=== PATIENT | male | born 1935 | race Asian ===

== ENCOUNTER 2017-07-16 17:43 | Inpatient (IN) | payer OTHER ==
--- NOTE | 2017-07-16 17:49 | PDOC ---
History of Present Illness - General Stated Complaint: NAUSA, VOMITTING, TEMP Time Seen by Provider: 07/16/17 17:45 - History of Present Illness Initial Comments: 07/16/17 17:45 Mr. Calderón is an 82 yo male w/ pmh of HTN who presents for evaluation of 3 day history of cough with nausea, vomiting, and diffuse abdominal pain. Per family who is with him he has had intermittent fevers and has barely eaten anything over this time period. He is also complaining of chest pain intermittently. The patient denies headache and dizziness. Denies diarrhea and constipation. Denies dysuria, frequency, urgency and hematuria. Allergies: NKDA Past History - Past Medical History Allergies/Adverse Reactions: Allergies Allergy/AdvReac Type Severity Reaction Status Date / Time No Known Allergies Allergy Verified 07/16/17 17:52 Home Medications: Ambulatory Orders Azithromycin 250 mg PO DAILY 07/16/17 Benzonatate 200 mg PO DAILY 07/16/17 Celecoxib [Celebrex] 200 mg PO DAILY 07/16/17 Docusate Sodium [Colace] 100 mg PO DAILY 07/16/17 Tramadol HCl 50 mg PO DAILY 07/16/17 Zolpidem Tartrate [Ambien] 10 mg PO DAILY 07/16/17 Review of Systems - Review of Systems Comments:: 07/16/17 17:49 GENERAL/CONSTITUTIONAL: No fever or chills. No weakness. HEAD, EYES, EARS, NOSE AND THROAT: No change in vision. No ear pain or discharge. No sore throat. CARDIOVASCULAR: +Midline chest pain. No shortness of breath RESPIRATORY: +Cough as described. No wheezing or hemoptysis. GASTROINTESTINAL: +N/V as described with diffuse abdominal pain. No diarrhea or constipation. GENITOURINARY: No dysuria, frequency, or change in urination. MUSCULOSKELETAL: No joint or muscle swelling or pain. No neck or back pain. SKIN: No rash NEUROLOGIC: No headache, vertigo, loss of consciousness, or change in strength/ sensation. ENDOCRINE: No increased thirst. No abnormal weight change HEMATOLOGIC/LYMPHATIC: No anemia, easy bleeding, or history of blood clots. ALLERGIC/IMMUNOLOGIC: No hives or skin allergy. *Physical Exam - Physical Exam Comments: 07/16/17 17:49 GENERAL: Awake, alert, and fully oriented, in no acute distress HEAD: No signs of trauma, normocephalic, atraumatic EYES: PERRLA, EOMI, sclera anicteric, conjunctiva clear ENT: Auricles normal inspection, hearing grossly normal, nares patent, oropharynx clear without exudates. Moist mucosa NECK: Normal ROM, supple, no lymphadenopathy, JVD, or masses LUNGS: +Diffusely course to auscultation. Still able to speak full sentences. HEART: Regular rate and rhythm, normal S1 and S2, no murmurs, rubs or gallops, peripheral pulses normal and equal bilaterally. ABDOMEN: +Bilateral upper abdominal TTP. Soft, normoactive bowel sounds. No guarding, no rebound. No masses EXTREMITIES: Normal inspection, Normal range of motion, no edema. No clubbing or cyanosis. NEUROLOGICAL: Cranial nerves II through XII grossly intact. Normal speech, normal gait, no focal sensorimotor deficits SKIN: Warm, Dry, normal turgor, no rashes or lesions noted. ED Treatment Course - LABORATORY CBC & Chemistry Diagram: 07/16/17 18:19 07/16/17 18:19 Medical Decision Making - Medical Decision Making 07/16/17 18:06 Mr. Calderón is an 82 yo male w/ pmh as described who presents w/ symptoms concerning for sepsis; puls 125 and pulse ox 88 on room air at presentation. Rectal temperature obtained and noted to be 102.7F. Sepsis protocol started. 07/16/17 18:54 Zosyn given for presumed infection. Plan for CT abdomen/pelvis (with contrast if allowed by patient kidney function) to evaluate abdominal pain. Patient CXR reveals patchy infiltrates bilaterally. Patient signed out to Dr. Ni for further evaluation. *DC/Admit/Observation/Transfer Diagnosis at time of Disposition: Pneumonia Qualifiers: Pneumonia type: due to unspecified organism Laterality: right Lung location: lower lobe of lung Qualified Code(s): J18.1 - Lobar pneumonia, unspecified organism - Discharge Dispostion Condition at time of disposition: Stable Decision to Admit order: Yes - Referrals - Patient Instructions - Post Discharge Activity
--- NOTE | 2017-07-16 17:52 | PDOC ---
Attending Attestation - HPI HPI: 07/16/17 18:29 The patient is an 82 year old male with a significant PMH of HTN who presents to the emergency department for evaluation of diffuse abdominal pain, vomiting and fever. The patients son also notes the patient has had a productive cough recently which is aggravated by eating. Vitals at triage pertinent for 102.7F temp., 127 bpm pulse, and 88% O2 sat on room air. The patients family denies recent travel or sick contacts. They deny weakness or numbness. Allergies: NKA PCP: Dr. Rojas ([facility]) - Physicial Exam PE: 07/16/17 18:22 Vitals: Triage Vital signs reviewed General Appearance: no acute distress, well nourished well developed. Cardiac: Regular rate and rhythm, no murmurs, no rubs, no gallops, Lungs: (+) Coarse breath sounds. No wheezing, rales, or rhonchi. Abdomen: (+) Diffuse abdominal tenderness. Soft, nondistended, normal bowel sounds. Extremities: Full range of motion to all extremities, no cyanosis, clubbing, or edema Skin: Warm and dry, no rashes or lesions, no petechiae Neuro: AOX3; Cranial Nerves 2-12 grossly intact, Strength intact to all extremities, Sensation intact to all extremities Psych: normal mood, normal affect - Medical Decision Making 07/16/17 18:29 The patient is an 82 year old male with a significant PMH of HTN who presents to the emergency department for evaluation of diffuse abdominal pain, vomiting and fever. The patients son also notes the patient has had a productive cough recently which is aggravated by eating. Vitals at triage pertinent for 102.7F temp., 127 bpm pulse, and 88% O2 sat on room air. The patients family denies recent travel or sick contacts. They deny weakness or numbness. Allergies: NKA PCP: Dr. Rojas ([facility]) <Chris Saravia - Last Filed: 07/16/17 18:29> - Resident Resident Name: Suleiman Ortega - ED Attending Attestation I have performed the following: I have examined & evaluated the patient, The case was reviewed & discussed with the resident, I agree w/resident's findings & plan, Exceptions are as noted - Medical Decision Making 07/16/17 18:39 History examination concerning for sepsis. Septic order set initiated. Patient covered with Zosyn. IV fluids IV Tylenol ordered Past potential sources include pneumonia given hypoxia and cough and abdominal pathology given diffuse abdominal discomfort on examination. In addition to labs blood cultures IV fluids and antibiotics I chest x-ray urinalysis are pending. Patient will require a CT of his abdomen ideally with IV contrast, but creatinine pending. Dr. Rodrigues to follow up remainder of workup and dispo <Tr Baker - Last Filed: 07/16/17 19:03> Heart Score/ECG Review - ECG Impressions Comment:: 07/16/17 18:57 EKG performed at 1808. Demonstrates sinus tachycardia right axis deviation diffuse ST depressions. No ST elevations. <Tr Baker - Last Filed: 07/16/17 19:03>
[2017-07-16] MEDS ORDERED: ACETAMINOPHEN 1000 MG/100 ML VIAL (NON FORMULARY) IVPB ONE (17:54)
[2017-07-16] MEDS ORDERED: ACETAMINOPHEN INJECTION 100 ML IVPB ONE (17:54)
[2017-07-16] MEDS ORDERED: SODIUM CHLORIDE 1,000 ML IV STA (18:14)
[2017-07-16] MEDS ORDERED: PIPERACILLIN/TAZOB 3.375 GM 3.375 GM in DEXTROSE 5%-WATER - 50 ML IVPB ONE (18:21)
[2017-07-16 18:23] LABS: BASO % 0.4 % (0-2.0); EOS % 0.3 % (0-4.5); HEMOGLOBIN 13.1 GM/dL (11.7-16.9); LYMPH % 4.4 % (8-40); MCH 33.2 pg (25.7-33.7); MCHC 34.4 g/dl (32.0-35.9); MEAN CELL VOLUME 96.6 fl (80-96); MONO % 5.6 % (3.8-10.2); NEUT % 89.3 % (42.8-82.8); PLATELET COUNT 175 K/MM3 (134-434); RBC 3.94 M/mm3 (4.00-5.60); RDW 14.1 % (11.9-15.9); WHITE BLOOD COUNT 9.2 K/mm3 (4.0-10.0)
[2017-07-16 18:25] LABS: VENOUS PC02 42.9 mmHg (38-52); VENOUS PH 7.42 (7.32-7.42); VENOUS PO2 40.2 mmHg (28-48)
[2017-07-16] MEDS ORDERED: PIPERACILLIN/TAZOB 3.375 GM 3.375 GM/50 ML BAG IVPB ONE (18:29)
[2017-07-16 18:40] LABS: INR 0.95 (0.82-1.09); PROTHROMBIN TIME (PATIENT) 10.7 SEC (9.7-13.0)
[2017-07-16 18:43] LABS: ACTIVATED PTT 31.2 SECONDS (26.9-34.4)
[2017-07-16 18:57] LABS: ALBUMIN 3.3 g/dl (3.4-5.0); ANION GAP 7 (8-16); BLOOD UREA NITROGEN 11 mg/dL (7-18); CALCIUM 7.9 mg/dL (8.5-10.1); CHLORIDE 96 mmol/L (98-107); CO2 30 mmol/L (21-32); CREATININE 0.5 mg/dL (0.7-1.3); GLUCOSE,RANDOM 98 mg/dL (74-106); SGOT/AST 17 U/L (15-37); SGPT/ALT 17 U/L (12-78); SODIUM 133 mmol/L (136-145)
[2017-07-16 18:59] LABS: ALK PHOS 56 U/L (45-117); BILIRUBIN,TOTAL 0.6 mg/dL (0.2-1.0); TOT PROT 6.4 g/dl (6.4-8.2)
[2017-07-16 20:02] LABS: URINE APPEARANCE CLEAR; URINE BILIRUBIN NEGATIVE (<2.0 mg/dL); URINE BLOOD NEGATIVE (NEGATIVE); URINE COLOR LTYELLOW; URINE GLUCOSE (UA) NEGATIVE (NEGATIVE); URINE KETONE 1+ (NEGATIVE); URINE LEUK ESTERASE NEGATIVE (NEGATIVE); URINE NITRITE NEGATIVE (NEGATIVE); URINE PROTEIN NEGATIVE (NEGATIVE); URINE UROBILINOGEN NEGATIVE mg/dL (0.2-1.0)
--- NOTE | 2017-07-16 21:52 | PDOC ---
*Physical Exam - Vital Signs Last Vital Signs Temp Pulse Resp BP Pulse Ox 100.9 F H 107 H 18 123/57 97 07/16/17 19:05 07/16/17 19:54 07/16/17 19:54 07/16/17 19:54 07/16/17 19:54 <Dilip Ni - Last Filed: 07/16/17 22:04> - Vital Signs Last Vital Signs Temp Pulse Resp BP Pulse Ox 100.9 F H 107 H 18 123/57 97 07/16/17 19:05 07/16/17 19:54 07/16/17 19:54 07/16/17 19:54 07/16/17 19:54 <Macario Oconnor - Last Filed: 07/16/17 22:17> ED Treatment Course - LABORATORY CBC & Chemistry Diagram: 07/16/17 18:19 07/16/17 18:19 - ADDITIONAL ORDERS Additional order review: Laboratory Results 07/16/17 07/16/17 07/16/17 19:38 18:19 18:19 PT with INR INR PTT (Actin FS) VBG pH POC VBG pCO2 POC VBG pO2 Mixed VBG HCO3 Sodium Potassium Chloride Carbon Dioxide Anion Gap BUN Creatinine Creat Clearance w eGFR Random Glucose Lactic Acid 1.0 Calcium Total Bilirubin AST ALT Alkaline Phosphatase Troponin I < 0.02 Total Protein Albumin Lipase Urine Color Ltyellow Urine Appearance Clear Urine pH 6.0 Ur Specific [place] 1.015 Urine Protein Negative Urine Glucose (UA) Negative Urine Ketones 1+ H Urine Blood Negative Urine Nitrite Negative Urine Bilirubin Negative Urine Urobilinogen Negative Ur Leukocyte Esterase Negative 07/16/17 07/16/17 07/16/17 18:19 18:19 18:19 PT with INR 10.70 INR 0.95 PTT (Actin FS) 31.2 VBG pH 7.42 POC VBG pCO2 42.9 POC VBG pO2 40.2 Mixed VBG HCO3 27.6 H Sodium 133 L Potassium 4.0 Chloride 96 L Carbon Dioxide 30 Anion Gap 7 L BUN 11 Creatinine 0.5 L Creat Clearance w eGFR > 60 Random Glucose 98 Lactic Acid Calcium 7.9 L Total Bilirubin 0.6 AST 17 ALT 17 Alkaline Phosphatase 56 Troponin I Total Protein 6.4 Albumin 3.3 L Lipase Urine Color Urine Appearance Urine pH Ur Specific [place] Urine Protein Urine Glucose (UA) Urine Ketones Urine Blood Urine Nitrite Urine Bilirubin Urine Urobilinogen Ur Leukocyte Esterase 07/16/17 18:05 PT with INR INR PTT (Actin FS) VBG pH POC VBG pCO2 POC VBG pO2 Mixed VBG HCO3 Sodium Potassium Chloride Carbon Dioxide Anion Gap BUN Creatinine Creat Clearance w eGFR Random Glucose Lactic Acid Calcium Total Bilirubin AST ALT Alkaline Phosphatase Troponin I Total Protein Albumin Lipase 139 Urine Color Urine Appearance Urine pH Ur Specific [place] Urine Protein Urine Glucose (UA) Urine Ketones Urine Blood Urine Nitrite Urine Bilirubin Urine Urobilinogen Ur Leukocyte Esterase 07/16/17 18:19 Influenza Types A,B Antigen - Final Nasopharyngeal Swab - Final 07/16/17 18:19 RBC 3.94 L MCV 96.6 H MCHC 34.4 RDW 14.1 MPV 8.0 Neutrophils % 89.3 H Lymphocytes % 4.4 L Monocytes % 5.6 Eosinophils % 0.3 Basophils % 0.4 - RADIOLOGY Radiology Studies Ordered: Category Date Time Status ABDOMEN & PELVIS CT WITH CONTR [CT] Stat CT Scan 07/16/17 19:19 Taken ABDOMEN US -LIMITED [US] Stat Ultrasound 07/16/17 21:36 Ordered - Medications Given in the ED: ED Medications Discontinued Medications Generic Name Dose Route Start Last Admin Trade Name Freq PRN Reason Stop Dose Admin Acetaminophen 1,000 mg 07/16/17 17:54 07/16/17 18:20 Ofirmev Injection - IVPB 07/16/17 17:55 1,000 mg ONCE ONE Administration Sodium Chloride 1,000 mls @ 1,000 mls/hr 07/16/17 18:14 07/16/17 18:20 Normal Saline - IV 07/16/17 19:13 1,000 mls/hr ASDIR STA Administration Piperacillin Sod/Tazobactam 50 mls @ 100 mls/hr 07/16/17 18:21 07/16/17 18:38 Sod 3.375 gm/ Dextrose IVPB 07/16/17 18:50 100 mls/hr ONCE ONE Administration Protocol <Dilip Ni - Last Filed: 07/16/17 22:04> - LABORATORY CBC & Chemistry Diagram: 07/16/17 18:19 07/16/17 18:19 - ADDITIONAL ORDERS Additional order review: Laboratory Results 07/16/17 07/16/17 07/16/17 19:38 18:19 18:19 PT with INR INR PTT (Actin FS) VBG pH POC VBG pCO2 POC VBG pO2 Mixed VBG HCO3 Sodium Potassium Chloride Carbon Dioxide Anion Gap BUN Creatinine Creat Clearance w eGFR Random Glucose Lactic Acid 1.0 Calcium Total Bilirubin AST ALT Alkaline Phosphatase Troponin I < 0.02 Total Protein Albumin Total Amylase Lipase Urine Color Ltyellow Urine Appearance Clear Urine pH 6.0 Ur Specific [place] 1.015 Urine Protein Negative Urine Glucose (UA) Negative Urine Ketones 1+ H Urine Blood Negative Urine Nitrite Negative Urine Bilirubin Negative Urine Urobilinogen Negative Ur Leukocyte Esterase Negative 07/16/17 07/16/17 07/16/17 18:19 18:19 18:19 PT with INR 10.70 INR 0.95 PTT (Actin FS) 31.2 VBG pH 7.42 POC VBG pCO2 42.9 POC VBG pO2 40.2 Mixed VBG HCO3 27.6 H Sodium 133 L Potassium 4.0 Chloride 96 L Carbon Dioxide 30 Anion Gap 7 L BUN 11 Creatinine 0.5 L Creat Clearance w eGFR > 60 Random Glucose 98 Lactic Acid Calcium 7.9 L Total Bilirubin 0.6 AST 17 ALT 17 Alkaline Phosphatase 56 Troponin I Total Protein 6.4 Albumin 3.3 L Total Amylase Lipase Urine Color Urine Appearance Urine pH Ur Specific [place] Urine Protein Urine Glucose (UA) Urine Ketones Urine Blood Urine Nitrite Urine Bilirubin Urine Urobilinogen Ur Leukocyte Esterase 07/16/17 07/16/17 18:05 18:05 PT with INR INR PTT (Actin FS) VBG pH POC VBG pCO2 POC VBG pO2 Mixed VBG HCO3 Sodium Potassium Chloride Carbon Dioxide Anion Gap BUN Creatinine Creat Clearance w eGFR Random Glucose Lactic Acid Calcium Total Bilirubin AST ALT Alkaline Phosphatase Troponin I Total Protein Albumin Total Amylase 116 H Lipase 139 Urine Color Urine Appearance Urine pH Ur Specific [place] Urine Protein Urine Glucose (UA) Urine Ketones Urine Blood Urine Nitrite Urine Bilirubin Urine Urobilinogen Ur Leukocyte Esterase 07/16/17 18:19 Influenza Types A,B Antigen - Final Nasopharyngeal Swab - Final 07/16/17 18:19 RBC 3.94 L MCV 96.6 H MCHC 34.4 RDW 14.1 MPV 8.0 Neutrophils % 89.3 H Lymphocytes % 4.4 L Monocytes % 5.6 Eosinophils % 0.3 Basophils % 0.4 - Medications Given in the ED: ED Medications Discontinued Medications Generic Name Dose Route Start Last Admin Trade Name Freq PRN Reason Stop Dose Admin Acetaminophen 1,000 mg 07/16/17 17:54 07/16/17 18:20 Ofirmev Injection - IVPB 07/16/17 17:55 1,000 mg ONCE ONE Administration Sodium Chloride 1,000 mls @ 1,000 mls/hr 07/16/17 18:14 07/16/17 18:20 Normal Saline - IV 07/16/17 19:13 1,000 mls/hr ASDIR STA Administration Piperacillin Sod/Tazobactam 50 mls @ 100 mls/hr 07/16/17 18:21 07/16/17 18:38 Sod 3.375 gm/ Dextrose IVPB 07/16/17 18:50 100 mls/hr ONCE ONE Administration Protocol <Macario Oconnor - Last Filed: 07/16/17 22:17> Medical Decision Making - Medical Decision Making 82 year old male signed out [facility]. Patient also had some nonspecific abdominal pain for which a CT abdomen demonstrated a slightly dilated CBD with a stone near the ampulla of VAter. RUQ ultrasound placed and Dr. Waldron was consulted. My abdominal exam did not evidence RUQ tenderness, jaundice, and labs did not have elevated WBC, elevated lipase, or elevated LFTs. Patient signed out to Dr. Zapata in stable condition to be admitted under Dr. Romano. 07/16/17 22:04 <Dilip Ni - Last Filed: 07/16/17 22:04> - Medical Decision Making 07/16/17 22:12 EXAM: CT Abdomen and Pelvis Without Intravenous Contrast CLINICAL HISTORY: r/o intro abdominal infection TECHNIQUE: Axial computed tomography images of the abdomen and pelvis without intravenous contrast. This CT exam was performed using one or more of the following dose reduction techniques: Automated exposure control, Adjustment of the mA and/or kV according to patient size, Use of iterative reconstruction technique. COMPARISON: No relevant prior studies available. 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 Fibrotic changes. Patchy opacification and the lower lateral RIGHT lung base. Fibrotic changes in the RIGHT lung base. Less prominent COPD/emphysematous type changes. Fibrotic changes in the lingula. HEART: The heart is normal in size and position. ABDOMEN: LIVER: There is NO evidence of a liver mass or abnormal enlargement. GALLBLADDER AND BILE DUCTS: Common bile duct measures 7.4 mm. Distal stone near the ampulla. The gallbladder is moderately distended. There are small gallstones present within the gallbladder. NO gallbladder wall thickening or pericholecystic fluid. PANCREAS: The visualized portions of the pancreas and pancreatic area are unremarkable. Mild to moderate dilatation of the pancreatic duct. SPLEEN: Nonspecific densities are present, which are ill-defined on this study. The largest measures less than 1 cm. ADRENALS: The RIGHT and LEFT adrenal glands demonstrate NO masses or abnormal enlargement. KIDNEYS AND URETERS: RIGHT KIDNEY: The RIGHT kidney demonstrates NO hydronephrosis, stones or masses. Tiny RCA. LEFT KIDNEY: The LEFT kidney demonstrates NO hydronephrosis, stones or masses. Small renal cyst is present. This is typically considered to be an incidental finding. NO specific followup recommended. URETERS: The ureters demonstrate NO stones. STOMACH AND BOWEL: Partially fecal filled colon. NO significant distention. STOMACH: The stomach is nondistended with thickened appearing villalba. NO other evidence to suggest inflammatory changes. This likely represents pseudo-thickening secondary to incompletely distended stomach. SMALL BOWEL: The small bowel demonstrates NO significant distention. There is NO significant wall/mucosal thickening is demonstrated. COLON:The colon demonstrates NO evidence of diverticulitis or colitis. PELVIS: APPENDIX: The appendix is not identified with certainty. BLADDER: The bladder demonstrates NO significant wall thickening or stones. REPRODUCTIVE: The prostate appears mildly enlarged. NO pelvic masses or cysts >/ =2cm.. ABDOMEN and PELVIS: INTRAPERITONEAL SPACE: NO acute changes are demonstrated. No free air. No significant fluid collection. BONES/JOINTS: > FINDING REQUIRING FOLLOW-UP OR FURTHER EVALUATION: Sclerotic changes in the anterior RIGHT 7th and 8th ribs. Degenerative spondylosis in the visualized spine. Superior compression fracture at L5. Approximately 40% loss of central vertebral height. NO posterior displacement of the posterior vertebral body and/or endplate into the spinal canal The age of this finding is indeterminate; however this does not appear to be acute. The SI joints demonstrate degenerative changes bilaterally. No dislocation. SOFT TISSUES: Bilateral inguinal area hernias which are fat filled, without evidence of inflammatory changes or incarceration. This is more prominent on the LEFT. VASCULATURE: AORTA: The aorta demonstrates NO evidence of aneurysm or rupture. Moderate vascular calcification. LYMPH NODES: NO acute changes are demonstrated. No enlarged lymph nodes. IMPRESSION: 1. > FINDING REQUIRING FOLLOW-UP OR FURTHER EVALUATION:Common bile duct measures 7.4 mm. Distal stone near the ampulla. If further evaluation is felt to be indicated, follow-up should be considered with ultrasound. 2. The visualized portions of the pancreas and pancreatic area are unremarkable. Mild to moderate dilatation of the pancreatic duct. 3. > FINDING REQUIRING FOLLOW-UP OR FURTHER EVALUATION: Sclerotic changes in the anterior RIGHT 7th and 8th ribs. Incomplete/limited evaluation on this study. The differential diagnosis includes old fractures and sclerotic bone lesions. Please correlate with any known history and/or clinical findings. If further evaluation is felt to be indicated , follow-up should be considered with bone scan. 4. Minimal RIGHT lung base pneumonia and/or atelectasis. Followup examination should be considered in 4 to 6 weeks' time, or until there is resolution of the current findings to exclude underlying pathology. Chronic changes are present as noted. 5. Nonspecific densities are present in the spleen, which are ill-defined on this study. The largest measures less than 1 cm. This is of uncertain etiology. Please correlate for any known malignancy. 6. Partially fecal filled colon. NO significant distention. 7. There are incidental and/or chronic findings also present as noted. CPT: 10399 CT Scan of the abdomen and pelvis without contrast. Dr. David Mace Call placed to Dr. Ferrara at 9:44pm, GI music education adjunct professor, awaiting call back. Call returned from Dr. Harry at 9:50pm, associated of Dr. Ferrara, case was discussed. <Macario Oconnor - Last Filed: 07/16/17 22:17> *DC/Admit/Observation/Transfer - Discharge Dispostion Decision to Admit order: Yes <Dilip Ni - Last Filed: 07/16/17 22:04> - Attestations Scribe Attestion: 07/16/17 22:17 Documentation prepared by Macario Oconnor, acting as medical records coder for Tr Baker MD. <Macario Oconnor - Last Filed: 07/16/17 22:17> Diagnosis at time of Disposition: Pneumonia Qualifiers: Pneumonia type: due to unspecified organism Laterality: right Lung location: lower lobe of lung Qualified Code(s): J18.1 - Lobar pneumonia, unspecified organism - Discharge Dispostion Condition at time of disposition: Stable
[2017-07-16] MEDS ORDERED: SODIUM CHLORIDE 1,000 ML IV SCH (22:15)
--- NOTE | 2017-07-16 22:21 | HP ---
CHIEF COMPLAINT:cough and weakness PCP:Dr. Rojas ([facility]) HISTORY OF PRESENT ILLNESS: 82 year old male with a significant PMH of HTN who presents to the emergency department for evaluation of diffuse abdominal pain, vomiting and fever. The patient's son is his historian. He states that for the past week he has had flu like symptoms with fever, cough and diffuse body aches. His appetite has been poor and energy has been low. Denies CP,MENDEZ,SOB,palpitations,urinary symptoms or diarrhea. ER course was notable for: (1)CXR shows RLL PNA (2)CMP show hyponatremia (3)CT abdomen shows CBD nonobstructing stone. Recent Travel:Denies PAST MEDICAL HISTORY:HTN PAST SURGICAL HISTORY:Eye surgery Social History: Smoking:never Alcohol:denies Drugs: denies Family History: Allergies No Known Allergies Allergy (Verified 07/16/17 17:52) HOME MEDICATIONS: Home Medications Medication Instructions Recorded Azithromycin 250 mg PO DAILY 07/16/17 Benzonatate 200 mg PO DAILY 07/16/17 Celecoxib [Celebrex] 200 mg PO DAILY 07/16/17 Docusate Sodium [Colace] 100 mg PO DAILY 07/16/17 Tramadol HCl 50 mg PO DAILY 07/16/17 Zolpidem Tartrate [Ambien] 10 mg PO DAILY 07/16/17 REVIEW OF SYSTEMS CONSTITUTIONAL: fever, chills, diaphoresis, generalized weakness, malaise, loss of appetite Absent: , weight change HEENT: Absent: rhinorrhea, nasal congestion, throat pain, throat swelling, difficulty swallowing, mouth swelling, ear pain, eye pain, visual changes CARDIOVASCULAR: Absent: chest pain, syncope, palpitations, irregular heart rate, lightheadedness , peripheral edema RESPIRATORY: cough, shortness of breath, dyspnea with exertion, Absent: orthopnea, wheezing, stridor, hemoptysis GASTROINTESTINAL: Absent: abdominal pain, abdominal distension, nausea, vomiting, diarrhea, constipation, melena, hematochezia GENITOURINARY: Absent: dysuria, frequency, urgency, hesitancy, hematuria, flank pain, genital pain MUSCULOSKELETAL: Absent: myalgia, arthralgia, joint swelling, back pain, neck pain SKIN: Absent: rash, itching, pallor HEMATOLOGIC/IMMUNOLOGIC: Absent: easy bleeding, easy bruising, lymphadenopathy, frequent infections ENDOCRINE: Absent: unexplained weight gain, unexplained weight loss, heat intolerance, cold intolerance NEUROLOGIC: Absent: headache, focal weakness or paresthesias, dizziness, unsteady gait, seizure, mental status changes, bladder or bowel incontinence PSYCHIATRIC: Absent: anxiety, depression, suicidal or homicidal ideation, hallucinations. PHYSICAL EXAMINATION Vital Signs - 24 hr 07/16/17 07/16/17 07/16/17 17:52 18:23 18:24 Temperature 102.7 F H Pulse Rate 127 H Pulse Rate [ 113 H Apical] Respiratory 20 20 Rate Blood Pressure 147/88 Blood Pressure 164/69 [Right Arm] O2 Sat by Pulse 88 L 97 98 Oximetry (%) 07/16/17 07/16/17 07/16/17 18:26 19:05 19:54 Temperature 100.9 F H Pulse Rate Pulse Rate [ 114 H 107 H Apical] Respiratory 18 18 Rate Blood Pressure Blood Pressure 134/65 123/57 [Right Arm] O2 Sat by Pulse 97 97 97 Oximetry (%) GENERAL: AAOx3, mild distress. EYES: PERRLA,EOMI sclera anicteric, conjunctiva clear. No lid lag. EARS, NOSE, THROAT:Dry mucous membranes. NECK: Normal range of motion, supple without lymphadenopathy, JVD, or masses. LUNGS: Decreased breath sound on Right side. No wheezes, and no crackles. No accessory muscle use. HEART: RRR, normal S1 and S2 without murmur, rub or gallop. ABDOMEN: Soft, nontender, not distended, normoactive bowel sounds, no guarding, no rebound, no masses. MUSCULOSKELETAL: Normal range of motion at all joints. No bony deformities or tenderness. No CVA tenderness. LOWER EXTREMITIES: 2+ pulses, warm, well-perfused. No calf tenderness. No peripheral edema. Laboratory Results - last 24 hr 07/16/17 07/16/17 07/16/17 18:05 18:05 18:19 WBC 9.2 RBC 3.94 L Hgb 13.1 Hct 38.0 MCV 96.6 H MCH 33.2 MCHC 34.4 RDW 14.1 Plt Count 175 MPV 8.0 Neutrophils % 89.3 H Lymphocytes % 4.4 L Monocytes % 5.6 Eosinophils % 0.3 Basophils % 0.4 Nucleated RBC % 0 PT with INR INR PTT (Actin FS) VBG pH POC VBG pCO2 POC VBG pO2 Mixed VBG HCO3 Sodium Potassium Chloride Carbon Dioxide Anion Gap BUN Creatinine Creat Clearance w eGFR Random Glucose Lactic Acid Calcium Total Bilirubin AST ALT Alkaline Phosphatase Troponin I Total Protein Albumin Total Amylase 116 H Lipase 139 Urine Color Urine Appearance Urine pH Ur Specific [place] Urine Protein Urine Glucose (UA) Urine Ketones Urine Blood Urine Nitrite Urine Bilirubin Urine Urobilinogen Ur Leukocyte Esterase 07/16/17 07/16/17 07/16/17 18:19 18:19 18:19 WBC RBC Hgb Hct MCV MCH MCHC RDW Plt Count MPV Neutrophils % Lymphocytes % Monocytes % Eosinophils % Basophils % Nucleated RBC % PT with INR 10.70 INR 0.95 PTT (Actin FS) 31.2 VBG pH 7.42 POC VBG pCO2 42.9 POC VBG pO2 40.2 Mixed VBG HCO3 27.6 H Sodium 133 L Potassium 4.0 Chloride 96 L Carbon Dioxide 30 Anion Gap 7 L BUN 11 Creatinine 0.5 L Creat Clearance w eGFR > 60 Random Glucose 98 Lactic Acid Calcium 7.9 L Total Bilirubin 0.6 AST 17 ALT 17 Alkaline Phosphatase 56 Troponin I Total Protein 6.4 Albumin 3.3 L Total Amylase Lipase Urine Color Urine Appearance Urine pH Ur Specific [place] Urine Protein Urine Glucose (UA) Urine Ketones Urine Blood Urine Nitrite Urine Bilirubin Urine Urobilinogen Ur Leukocyte Esterase 07/16/17 07/16/17 07/16/17 18:19 18:19 19:38 WBC RBC Hgb Hct MCV MCH MCHC RDW Plt Count MPV Neutrophils % Lymphocytes % Monocytes % Eosinophils % Basophils % Nucleated RBC % PT with INR INR PTT (Actin FS) VBG pH POC VBG pCO2 POC VBG pO2 Mixed VBG HCO3 Sodium Potassium Chloride Carbon Dioxide Anion Gap BUN Creatinine Creat Clearance w eGFR Random Glucose Lactic Acid 1.0 Calcium Total Bilirubin AST ALT Alkaline Phosphatase Troponin I < 0.02 Total Protein Albumin Total Amylase Lipase Urine Color Ltyellow Urine Appearance Clear Urine pH 6.0 Ur Specific [place] 1.015 Urine Protein Negative Urine Glucose (UA) Negative Urine Ketones 1+ H Urine Blood Negative Urine Nitrite Negative Urine Bilirubin Negative Urine Urobilinogen Negative Ur Leukocyte Esterase Negative IMAGING: ASSESSMENT/PLAN: 82 year old male with a significant PMH of HTN who presents to the emergency department for evaluation of cough, diffuse abdominal pain, vomiting and fever admitted to med/surg for CAP and hyponatremia. Problem List - Problem (1) Pneumonia Assessment/Plan: admit to med/surg * Given Zosyn in ED * Will continue with Levaquin 500mg IVPB daily * tylenol PO for fever and pain. PRN * supplemental O2 PRN (2) Hyponatremia Assessment/Plan: Will replete with IVF NS @100ml * Urine sodium and Cr in AM * kidney US pending. * repeat BMP in am (3) HTN (hypertension) Assessment/Plan: Continue home meds. (4) Abdominal pain Assessment/Plan: CT abdomen showed distal gallstone near ampula with no wall thickening or percholecystic fluid. * GI was consulted. * No intervention at this time. * Amylase and lipase WNL (5) DVT prophylaxis Assessment/Plan: SCD's bilaterally * Heparin SQ 5000 units BID Visit type - Emergency Visit Emergency Visit: Yes ED Registration Date: 07/16/17 Care time: The patient presented to the Emergency Department on the above date and was hospitalized for further evaluation of their emergent condition. - New Patient This patient is new to me today: Yes Date on this admission: 07/17/17 - Critical Care Critical Care patient: No Hospitalist Screening - Colonoscopy Questionnaire Colonoscopy Questionnaire: Colonoscopy Questionnaire - Patient: 50 - 75 years old and never had a screening colonoscopy: No History of colon or rectal polyps, or CA: No History of IBD, Crohn's disease or UC: No History of abdominal radiation therapy as a child: No - Relative: 1 with colon or rectal CA, or polyps at age 60 or younger: No Colon or rectal CA diagnosed at age 45 or younger: No Multiple relatives with colon or rectal CA: No - Outcome: Screening Result: Negative Screen
[2017-07-17] MEDS ORDERED: PNEUMOC 13-VAL CONJ-DIP CRM/PF 0.5 ML DISP.SYRIN IM ONE ×2 (00:20→10:00)
--- NOTE | 2017-07-17 03:16 | PN ---
Teaching Attending Note Name of Resident: Santos Zapata ATTENDING PHYSICIAN STATEMENT I saw and evaluated the patient. I reviewed the resident's note and discussed the case with the resident. I agree with the resident's findings and plan as documented. SUBJECTIVE: OBJECTIVE: ASSESSMENT AND PLAN: this is an 82 year old male with a significant PMH of HTN initially presented to the ER with GI symptoms found to have pneumonia associated with flu like symptoms with fever, cough and diffuse body aches. His appetite has been poor and energy has been low. Denies CP,MENDEZ,SOB,palpitations,urinary symptoms or diarrhea. plan: admit the patient to med/surge for pneumonia pneumonia severity index of 123, the patient is considered Risk Class IV, 8.2- 9.3% mortality. Hospitalization recommended based on risk. start on Levofloxacin 750mg daily c/w home medication IVF hydration
[2017-07-17] MEDS: ALBUTEROL SO4 0.083% IH SOL 2.5 MG/3 ML VIAL.NEB. NEB PRN ×2 (07:19→21:59)
[2017-07-17 07:57] LABS: BASO % 0.5 % (0-2.0); EOS % 0.1 % (0-4.5); HEMOGLOBIN 12.3 GM/dL (11.7-16.9); LYMPH % 5.6 % (8-40); MCH 33.5 pg (25.7-33.7); MEAN CELL VOLUME 98.5 fl (80-96); MEAN PLT VOLUME 8.1 fl (7.5-11.1); MONO % 6.5 % (3.8-10.2); NEUT % 87.3 % (42.8-82.8); PLATELET COUNT 168 K/MM3 (134-434); RBC 3.66 M/mm3 (4.00-5.60); RDW 14.4 % (11.9-15.9); WHITE BLOOD COUNT 8.6 K/mm3 (4.0-10.0)
--- NOTE | 2017-07-17 08:33 | CON.GI ---
Consult Consult Specialty:: GI: Dr. Waldron for Dr. Ferrara Referred by:: Hospitalist service Reason for Consultation:: DIlated CBD on imaging - History of Present Illness Chief Complaint: Cough , fever History of Present Illness: 82M admitted for evaluation of cough and fever. The ER attending Dr. Rodrigues he was noted to have vomiting and abodominal pain and CT scan showed a 7mm CBD. Currently the patient denies any abdominal pain. he does have a cough. There has been no vomiting reported. Review of the preliminary CT scan report revealed Opacity in the right lung base and honeycombing / COPD changes, gallstones, a 7.4mm CBD and a stone near the ampulla. A follow-up abdominal US was reported as gallstones and a minimally dilated CBD. - History Source History Provided By: Patient, Medical Record - Past Medical History Cardio/Vascular: Yes: HTN - Past Surgical History Additional Surgical History: Abdominal surgery in RLQ. ? appendectomy - Alcohol/Substance Use Hx Alcohol Use: Yes (2 shots of whiskey daily) History of Substance Use: reports: None - Smoking History Smoking history: Former smoker Have you smoked in the past 12 months: No If you are a former smoker, when did you quit?: 50 years ago - Social History Usual Living Arrangement: With Spouse ADL: Independent Occupation: Retired from [employer] business Place of : Other ([place]) History of Recent Travel: No Home Medications - Allergies Allergies/Adverse Reactions: Allergies Allergy/AdvReac Type Severity Reaction Status Date / Time No Known Allergies Allergy Verified 07/16/17 17:52 - Home Medications Home Medications: Ambulatory Orders Azithromycin 250 mg PO DAILY 07/16/17 Benzonatate 200 mg PO DAILY 07/16/17 Celecoxib [Celebrex] 200 mg PO DAILY 07/16/17 Docusate Sodium [Colace] 100 mg PO DAILY 07/16/17 Tramadol HCl 50 mg PO DAILY 07/16/17 Zolpidem Tartrate [Ambien] 10 mg PO DAILY 07/16/17 Family Disease History - Family Disease History Other Family History: No family history of colorectal cancer ror other GI malignancy Review of Systems - Review of Systems Constitutional: reports: Chills, Fever Cardiovascular: reports: Chest Pain Respiratory: reports: Cough Gastrointestinal: denies: Abdominal Pain, Constipation, Diarrhea, Vomiting, Vomiting Blood Physical Exam-GI Vital Signs: Vital Signs Temperature 98.2 F 05/27/18 06:37 Pulse Rate 98 H 07/17/17 06:37 Respiratory Rate 20 07/17/17 06:37 Blood Pressure 139/65 07/17/17 06:37 O2 Sat by Pulse Oximetry (%) 98 07/17/17 00:30 Constitutional: Yes: Calm Eyes: No: Sclera Icterus Cardiovascular: Yes: Regular Rate and Rhythm Respiratory: Yes: Rhonchi (right lung base) Gastrointestinal Inspection: No: Distention ...Auscultate: Yes: Normoactive Bowel Sounds ...Palpate: Yes: Soft. No: Guarding, Hepatomegaly, Splenomegaly, Tenderness ...Percussion: No: Tympanitic Edema: No (No LE edema) Neurological: Yes: Alert Labs: CBC, BMP 07/17/17 06:25 INR, PTT INR 0.95 (0.82-1.09) 07/16/17 18:19 Imaging - Results Cat Scan: Report Reviewed Ultrasound: Report Reviewed Problem List - Problems (1) Common bile duct dilatation Assessment/Plan: LFT's normal on admission, non-tender on exam making an obstructive stone / cholangitis less likely. Ordered MRCP for further evaluation On IV Abx. Being evaluated for pulmonary process Monitor LFTs Clear liquids for now Code(s): K83.8 - OTHER SPECIFIED DISEASES OF BILIARY TRACT
[2017-07-17 08:57] LABS: CHLORIDE 103 mmol/L (98-107); POTASSIUM 3.4 mmol/L (3.5-5.1); SODIUM 139 mmol/L (136-145)
[2017-07-17 09:09] LABS: ALBUMIN 2.7 g/dl (3.4-5.0); ALK PHOS 48 U/L (45-117); ANION GAP 9 (8-16); BILIRUBIN,TOTAL 0.6 mg/dL (0.2-1.0); BLOOD UREA NITROGEN 6 mg/dL (7-18); CALCIUM 7.2 mg/dL (8.5-10.1); CO2 27 mmol/L (21-32); CREATININE 0.4 mg/dL (0.7-1.3); GLUCOSE,RANDOM 72 mg/dL (74-106); MAGNESIUM 2.2 mg/dL (1.8-2.4); PHOSPHOROUS 2.6 mg/dL (2.5-4.9); SGOT/AST 17 U/L (15-37); SGPT/ALT 14 U/L (12-78); TOT PROT 5.5 g/dl (6.4-8.2)
--- NOTE | 2017-07-17 10:13 | EKG ---
Test Reason : Blood Pressure : / mmHG Vent. Rate : 118 BPM Atrial Rate : 118 BPM P-R Int : 130 ms QRS Dur : 086 ms QT Int : 312 ms P-R-T Axes : 067 093 080 degrees QTc Int : 437 ms SINUS TACHYCARDIA inferio lateral st depressions r/o ischemia POSSIBLE LEFT ATRIAL ENLARGEMENT RIGHTWARD AXIS SEPTAL INFARCT , AGE UNDETERMINED ABNORMAL ECG NO PREVIOUS ECGS AVAILABLE Confirmed by YINA ASTORGA, EMERY ([id number]) on 07/17/2017 10:13:19 AM Referred By: Confirmed By:EMERY BRAN MD
[2017-07-17] MEDS: traMADol HCL 50 MG TABLET PO SCH (10:26)
[2017-07-17] MEDS: DOCUSATE SODIUM 100 MG CAPSULE (FP) PO SCH (10:26)
[2017-07-17 10:31] LABS: N-TERMINAL BNP 275.71 pg/ml (5-450)
[2017-07-17] MEDS: DEXTROSE 5%-0.45% SALINE 1,000 ML IV SCH (14:00)
--- NOTE | 2017-07-17 14:05 | PN ---
Progress Note (short form) - Note Progress Note: Patient seen and examined. Still with cough and some dyspnea. denies any nausea , vomiting or abdominal pain today. No new complaints, otherwise. Objective: Vital Signs Period Temp Pulse Resp BP Sys/Jones Pulse Ox Last 24 Hr 98.2 F-102.7 F 98-127 18-20 123-164/57-88 88-98 Intake & Output 07/14/17 07/15/17 07/16/17 07/17/17 23:59 23:59 23:59 23:59 Intake Total 700 Output Total 600 Balance 100 Weight 97 lb 95 lb 11.2 oz General: sitting in bed, coughing but no acute distress Chest: decreased air entry, few basilar rales, no wheezing Abdomen:soft, NT throughout currently, neg Neves's sign, ND, positive bowel sounds extremities: no edema Home Medication List Medication Instructions Recorded Confirmed Type Azithromycin 250 mg PO DAILY 07/16/17 07/16/17 History Benzonatate 200 mg PO DAILY 07/16/17 07/16/17 History Celecoxib [Celebrex] 200 mg PO DAILY 07/16/17 07/16/17 History Docusate Sodium [Colace] 100 mg PO DAILY 07/16/17 07/16/17 History Tramadol HCl 50 mg PO DAILY 07/16/17 07/16/17 History Zolpidem Tartrate [Ambien] 10 mg PO DAILY 07/16/17 07/16/17 History Active Medications Generic Name Dose Route Start Last Admin Trade Name Freq PRN Reason Stop Dose Admin Albuterol Sulfate 1 amp 07/16/17 22:08 07/17/17 07:19 Ventolin 0.083% Nebulizer Soln - NEB 1 amp Q6H PRN Administration SHORT OF BREATH/WHEEZING Docusate Sodium 100 mg 07/17/17 10:00 07/17/17 10:26 Colace - PO 100 mg DAILY RAYSHAWN Administration Levofloxacin 500 mg in 100 mls @ 100 mls/hr 07/17/17 10:00 07/17/17 10:26 Levaquin 500 Mg Premixed Ivpb - IVPB 100 mls/hr DAILY RAYSHAWN Administration Protocol Dextrose/Sodium Chloride 1,000 mls @ 75 mls/hr 07/17/17 13:45 D5-1/2ns - IV ASDIR RAYSHAWN Tramadol HCl 50 mg 07/17/17 10:00 07/17/17 10:26 Ultram - PO 50 mg DAILY RAYSHAWN Administration Laboratory Results - last 24 hr 07/16/17 07/16/17 07/16/17 18:05 18:05 18:19 WBC 9.2 RBC 3.94 L Hgb 13.1 Hct 38.0 MCV 96.6 H MCH 33.2 MCHC 34.4 RDW 14.1 Plt Count 175 MPV 8.0 Neutrophils % 89.3 H Lymphocytes % 4.4 L Monocytes % 5.6 Eosinophils % 0.3 Basophils % 0.4 Nucleated RBC % 0 PT with INR INR PTT (Actin FS) VBG pH POC VBG pCO2 POC VBG pO2 Mixed VBG HCO3 Sodium Potassium Chloride Carbon Dioxide Anion Gap BUN Creatinine Creat Clearance w eGFR Random Glucose Lactic Acid Calcium Phosphorus Magnesium Total Bilirubin AST ALT Alkaline Phosphatase Troponin I B-Natriuretic Peptide Total Protein Albumin Total Amylase 116 H Lipase 139 Urine Color Urine Appearance Urine pH Ur Specific [place] Urine Protein Urine Glucose (UA) Urine Ketones Urine Blood Urine Nitrite Urine Bilirubin Urine Urobilinogen Ur Leukocyte Esterase Urine Osmolality Ur Random Sodium Urine Creatinine 07/16/17 07/16/17 07/16/17 18:19 18:19 18:19 WBC RBC Hgb Hct MCV MCH MCHC RDW Plt Count MPV Neutrophils % Lymphocytes % Monocytes % Eosinophils % Basophils % Nucleated RBC % PT with INR 10.70 INR 0.95 PTT (Actin FS) 31.2 VBG pH 7.42 POC VBG pCO2 42.9 POC VBG pO2 40.2 Mixed VBG HCO3 27.6 H Sodium 133 L Potassium 4.0 Chloride 96 L Carbon Dioxide 30 Anion Gap 7 L BUN 11 Creatinine 0.5 L Creat Clearance w eGFR > 60 Random Glucose 98 Lactic Acid Calcium 7.9 L Phosphorus Magnesium Total Bilirubin 0.6 AST 17 ALT 17 Alkaline Phosphatase 56 Troponin I B-Natriuretic Peptide Total Protein 6.4 Albumin 3.3 L Total Amylase Lipase Urine Color Urine Appearance Urine pH Ur Specific [place] Urine Protein Urine Glucose (UA) Urine Ketones Urine Blood Urine Nitrite Urine Bilirubin Urine Urobilinogen Ur Leukocyte Esterase Urine Osmolality Ur Random Sodium Urine Creatinine 07/16/17 07/16/17 07/16/17 18:19 18:19 19:38 WBC RBC Hgb Hct MCV MCH MCHC RDW Plt Count MPV Neutrophils % Lymphocytes % Monocytes % Eosinophils % Basophils % Nucleated RBC % PT with INR INR PTT (Actin FS) VBG pH POC VBG pCO2 POC VBG pO2 Mixed VBG HCO3 Sodium Potassium Chloride Carbon Dioxide Anion Gap BUN Creatinine Creat Clearance w eGFR Random Glucose Lactic Acid 1.0 Calcium Phosphorus Magnesium Total Bilirubin AST ALT Alkaline Phosphatase Troponin I < 0.02 B-Natriuretic Peptide Total Protein Albumin Total Amylase Lipase Urine Color Ltyellow Urine Appearance Clear Urine pH 6.0 Ur Specific [place] 1.015 Urine Protein Negative Urine Glucose (UA) Negative Urine Ketones 1+ H Urine Blood Negative Urine Nitrite Negative Urine Bilirubin Negative Urine Urobilinogen Negative Ur Leukocyte Esterase Negative Urine Osmolality Ur Random Sodium Urine Creatinine 07/17/17 07/17/17 07/17/17 06:00 06:15 06:15 WBC RBC Hgb Hct MCV MCH MCHC RDW Plt Count MPV Neutrophils % Lymphocytes % Monocytes % Eosinophils % Basophils % Nucleated RBC % PT with INR INR PTT (Actin FS) VBG pH POC VBG pCO2 POC VBG pO2 Mixed VBG HCO3 Sodium Potassium Chloride Carbon Dioxide Anion Gap BUN Creatinine Creat Clearance w eGFR Random Glucose Lactic Acid Calcium Phosphorus Magnesium Total Bilirubin AST ALT Alkaline Phosphatase Troponin I Cancelled B-Natriuretic Peptide Cancelled Total Protein Albumin Total Amylase Lipase Urine Color Urine Appearance Urine pH Ur Specific [place] Urine Protein Urine Glucose (UA) Urine Ketones Urine Blood Urine Nitrite Urine Bilirubin Urine Urobilinogen Ur Leukocyte Esterase Urine Osmolality 317 Ur Random Sodium Urine Creatinine 23.3 07/17/17 07/17/17 07/17/17 06:25 06:25 06:29 WBC 8.6 RBC 3.66 L Hgb 12.3 Hct 36.0 MCV 98.5 H MCH 33.5 MCHC 34.0 RDW 14.4 Plt Count 168 MPV 8.1 Neutrophils % 87.3 H Lymphocytes % 5.6 L D Monocytes % 6.5 Eosinophils % 0.1 Basophils % 0.5 Nucleated RBC % 0 PT with INR INR PTT (Actin FS) VBG pH POC VBG pCO2 POC VBG pO2 Mixed VBG HCO3 Sodium 139 Potassium 3.4 L Chloride 103 Carbon Dioxide 27 Anion Gap 9 BUN 6 L D Creatinine 0.4 L Creat Clearance w eGFR > 60 Random Glucose 72 L D Lactic Acid Calcium 7.2 L Phosphorus 2.6 Magnesium 2.2 Total Bilirubin 0.6 AST 17 ALT 14 Alkaline Phosphatase 48 Troponin I < 0.02 B-Natriuretic Peptide 275.71 Total Protein 5.5 L Albumin 2.7 L Total Amylase Lipase Urine Color Urine Appearance Urine pH Ur Specific [place] Urine Protein Urine Glucose (UA) Urine Ketones Urine Blood Urine Nitrite Urine Bilirubin Urine Urobilinogen Ur Leukocyte Esterase Urine Osmolality Ur Random Sodium 86 Urine Creatinine Microbiology 07/16/17 18:19 Nasopharyngeal Swab Influenza Types A,B Antigen - Final 07/16/17 18:19 Nasopharyngeal Swab - Final CXR, CT A/P and Abdominal US results reviewed Assessment/Plan: 82 yom with HTN admitted with fevers/cough, suspect PNA, also with nausea, vomiting abdominal pain found with Cholelithiasis and dialted CBD but normal LFTs -Sepsis likely secondary to PNA based on current presentation, r/o Legionella given hyponatremia and GI symptoms on presentation -Cholelithiasis with dilated CBD and normal LFTs -?COPD/bronchiectasis (on lung base on CT A/P in non smoker) -HTN PLan: Levaquin day 2, follow up blood cultures. Check sputum cultures and urine PNA antigents. Add expectorants, Chest PT. CT chest to assess pulmonary parenchyma. 2D echo to address Right heart/pulmonary artery pressures. GI input appreciated, Follow up MRCP. Trend LFTs and monitor for new abdominal symptoms. Change IVF to D5-1/2 NS DVTPPX with heparin Will need home oxygen needs assessment and PT eval when clinically improved. PLan discussed with patient and nursing, all questions answered. Visit type - Emergency Visit Emergency Visit: No - New Patient This patient is new to me today: Yes Date on this admission: 07/17/17 - Critical Care Critical Care patient: No
[2017-07-17] MEDS ORDERED: POTASSIUM CHLORIDE TABS 20 MEQ TABLET.ER (FP) PO ONE (16:32)
--- NOTE | 2017-07-17 20:44 | EKG ---
Test Reason : Blood Pressure : / mmHG Vent. Rate : 106 BPM Atrial Rate : 106 BPM P-R Int : 126 ms QRS Dur : 092 ms QT Int : 332 ms P-R-T Axes : 071 083 081 degrees QTc Int : 441 ms SINUS TACHYCARDIA WITH PREMATURE SUPRAVENTRICULAR COMPLEXES SEPTAL INFARCT (CITED ON OR BEFORE 16-JUL-2017) ABNORMAL ECG WHEN COMPARED WITH ECG OF 16-JUL-2017 18:08, PREMATURE SUPRAVENTRICULAR COMPLEXES ARE NOW PRESENT Confirmed by EMERY BRAN MD ([id number]) on 07/17/2017 8:43:29 PM Referred By: Sumaya LEVIN Confirmed By:EMERY BRAN MD
[2017-07-17] MEDS ORDERED: ZOLPIDEM TARTRATE 5 MG TABLET PO ONE ×3 (22:20→23:30)
[2017-07-17] MEDS: guaiFENesin 200 MG/10 ML 10 ML UNIT-DOSE CUPS PO PRN (23:30)
[2017-07-18] MEDS: DEXTROSE 5%-0.45% SALINE 1,000 ML IV SCH ×2 (06:34→13:59)
[2017-07-18 07:20] LABS: BASO % 0.2 % (0-2.0); HEMATOCRIT 35.4 % (35.4-49); HEMOGLOBIN 12.3 GM/dL (11.7-16.9); MCH 33.5 pg (25.7-33.7); MCHC 34.6 g/dl (32.0-35.9); MEAN CELL VOLUME 96.9 fl (80-96); MEAN PLT VOLUME 7.8 fl (7.5-11.1); MONO % 9.4 % (3.8-10.2); NEUT % 83.4 % (42.8-82.8); PLATELET COUNT 186 K/MM3 (134-434); RBC 3.65 M/mm3 (4.00-5.60); RDW 14.2 % (11.9-15.9)
[2017-07-18 07:49] LABS: CHLORIDE 100 mmol/L (98-107); POTASSIUM 3.5 mmol/L (3.5-5.1); SODIUM 133 mmol/L (136-145)
[2017-07-18 07:57] LABS: ALBUMIN 2.6 g/dl (3.4-5.0); ALK PHOS 47 U/L (45-117); ANION GAP 8 (8-16); BILIRUBIN,DIRECT 0.2 mg/dL (0.0-0.2); BILIRUBIN,TOTAL 0.5 mg/dL (0.2-1.0); BLOOD UREA NITROGEN 5 mg/dL (7-18); CALCIUM 7.4 mg/dL (8.5-10.1); CO2 25 mmol/L (21-32); CREATININE 0.4 mg/dL (0.7-1.3); GLUCOSE,RANDOM 110 mg/dL (74-106); PHOSPHOROUS 1.6 mg/dL (2.5-4.9); SGOT/AST 22 U/L (15-37); SGPT/ALT 15 U/L (12-78); TOT PROT 5.4 g/dl (6.4-8.2)
[2017-07-18] MEDS: DOCUSATE SODIUM 100 MG CAPSULE (FP) PO SCH (09:02)
[2017-07-18] MEDS: traMADol HCL 50 MG TABLET PO SCH (09:03)
[2017-07-18] MEDS: guaiFENesin 200 MG/10 ML 10 ML UNIT-DOSE CUPS PO PRN (09:03)
[2017-07-18] MEDS ORDERED: POTASSIUM PHOSPHATE 30 MM in SODIUM CHLORIDE 500 ML IVPB ONE (11:00)
--- NOTE | 2017-07-18 11:53 | PN ---
GI Progress Note Subjective: No acute events No abdominal pain MRI revealed cholelithiasis and choledocholithiasis. [employer] [id number] utilized to explain this as Mr. Calderón speaks primarily [place]. he explained to me that he thinks he was told of "stones" in the past and he denied abdominal pain as one of the causes of him coming to the ER. - Objective Vital Signs: Vital Signs Temperature 98.1 F 07/18/17 05:35 Pulse Rate 112 H 07/18/17 05:35 Respiratory Rate 18 07/18/17 05:35 Blood Pressure 137/75 07/18/17 05:35 O2 Sat by Pulse Oximetry (%) 98 07/17/17 00:30 Constitutional: Calm Eyes: No: Sclera Icterus Cardiovascular: Yes: Regular Rate and Rhythm Gastrointestinal Inspection: No: Distention ...Auscultate: Yes: Normoactive Bowel Sounds ...Palpate: No: Tenderness Edema: No (No LE edema) Labs: CBC, BMP 07/18/17 06:19 07/18/17 06:41 INR, PTT INR 0.95 (0.82-1.09) 07/16/17 18:19 Hepatic Panel Total Bilirubin 0.5 mg/dL (0.2-1.0) 07/18/17 06:41 Direct Bilirubin 0.2 mg/dL (0.0-0.2) 07/18/17 06:41 AST 22 U/L (15-37) D 07/18/17 06:41 ALT 15 U/L (12-78) 07/18/17 06:41 Alkaline Phosphatase 47 U/L (45-117) 07/18/17 06:41 Albumin 2.6 g/dl (3.4-5.0) L 07/18/17 06:41 Problem List - Problems (1) Choledocholithiasis Assessment/Plan: Suspect that this is an incidental findings. No abdominal pain and LFTs remain normal. Discussed with Mr. Rodriguez. Explained that when his pulmonary issues have resolved, discussion canbe had with him and his family regarding ERCP for elective removal of bile duct stones. We discusse dpotential risks of the procedure like bleeding. perforation and the need for sedation w/ intubation. I called the number listed in the chart to d/w is son kehinde however the person who picked up said i had the wrong number. Mr. Calderón said he would be able to provide it later. Code(s): K80.50 - CALCULUS OF BILE DUCT W/O CHOLANGITIS OR CHOLECYST W/O OBST
--- NOTE | 2017-07-18 12:17 | PN ---
Teaching Attending Note Name of Resident: Julian Meadows ATTENDING PHYSICIAN STATEMENT I saw and evaluated the patient. I reviewed the resident's note and discussed the case with the resident. I agree with the resident's findings and plan as documented with exceptions below. SUBJECTIVE: Patient seen and examined. breathing with improvement, still cough with sputum. No nausea, vomiting, abdominal pain or diarrhea. Feels better. OBJECTIVE: Vital Signs Period Temp Pulse Resp BP Sys/Jones Pulse Ox Last 24 Hr 98.1 F-99.6 F 106-128 18-18 116-168/69-80 Intake & Output 07/15/17 07/16/17 07/17/17 07/18/17 23:59 23:59 23:59 23:59 Intake Total 1945 525 Output Total 600 200 Balance 1345 325 Weight 97 lb 95 lb 11.2 oz General: lying in bed no acute distress Chest: bibasilar rales, no wheezing, positive air entry but decreased abdomen:soft, ND, NT throughout, neg Neves's sign, no voluntary or involuntary guarding or rigidity, positive bowel sounds Extremities: no edema Home Medication List Medication Instructions Recorded Confirmed Type Azithromycin 250 mg PO DAILY 07/16/17 07/16/17 History Benzonatate 200 mg PO DAILY 07/16/17 07/16/17 History Celecoxib [Celebrex] 200 mg PO DAILY 07/16/17 07/16/17 History Docusate Sodium [Colace] 100 mg PO DAILY 07/16/17 07/16/17 History Tramadol HCl 50 mg PO DAILY 07/16/17 07/16/17 History Zolpidem Tartrate [Ambien] 10 mg PO DAILY 07/16/17 07/16/17 History Active Medications Generic Name Dose Route Start Last Admin Trade Name Freq PRN Reason Stop Dose Admin Albuterol Sulfate 1 amp 07/16/17 22:08 07/17/17 21:59 Ventolin 0.083% Nebulizer Soln - NEB 1 amp Q6H PRN Administration SHORT OF BREATH/WHEEZING Docusate Sodium 100 mg 07/17/17 10:00 07/18/17 09:02 Colace - PO 100 mg DAILY RAYSHAWN Administration Guaifenesin 10 ml 07/17/17 14:11 07/18/17 09:03 Robitussin - PO 10 ml Q4H PRN Administration COUGH Levofloxacin 500 mg in 100 mls @ 100 mls/hr 07/17/17 10:00 07/18/17 09:04 Levaquin 500 Mg Premixed Ivpb - IVPB 100 mls/hr DAILY RAYSHAWN Administration Protocol Dextrose/Sodium Chloride 1,000 mls @ 75 mls/hr 07/17/17 13:45 07/18/17 06:34 D5-1/2ns - IV 75 mls/hr ASDIR RAYSHAWN Administration Metronidazole 500 mg in 100 mls @ 100 mls/hr 07/18/17 09:00 07/18/17 09:55 Flagyl 500mg Premixed Ivpb - IVPB Not Given Q8H-IV RAYSHAWN Potassium Phosphate 30 mm/ 510 mls @ 62.5 mls/hr 07/18/17 11:00 Sodium Chloride IVPB 07/18/17 19:09 ONCE ONE Tramadol HCl 50 mg 07/17/17 10:00 07/18/17 09:03 Ultram - PO 50 mg DAILY RAYSHAWN Administration Laboratory Results - last 24 hr 07/17/17 07/18/17 07/18/17 06:15 06:19 06:41 WBC 8.0 RBC 3.65 L Hgb 12.3 Hct 35.4 MCV 96.9 H MCH 33.5 MCHC 34.6 RDW 14.2 Plt Count 186 MPV 7.8 Neutrophils % 83.4 H Lymphocytes % 7.0 L D Monocytes % 9.4 Eosinophils % 0.0 D Basophils % 0.2 Nucleated RBC % 0 Sodium 133 L Potassium 3.5 Chloride 100 Carbon Dioxide 25 Anion Gap 8 BUN 5 L Creatinine 0.4 L Random Glucose 110 H D Calcium 7.4 L Phosphorus 1.6 L D Magnesium 2.0 Total Bilirubin 0.5 Direct Bilirubin 0.2 AST 22 D ALT 15 Alkaline Phosphatase 47 Total Protein 5.4 L Albumin 2.6 L Urine Osmolality 317 Microbiology 07/16/17 19:38 Urine - Urine Clean Catch Urine Culture - Final NO GROWTH OBTAINED 07/16/17 18:05 Blood - Peripheral Venous Blood Culture - Preliminary NO GROWTH OBTAINED AFTER 24 HOURS, INCUBATION TO CONTINUE FOR 4 DAYS. 07/16/17 18:19 Blood - Peripheral Venous Blood Culture - Preliminary NO GROWTH OBTAINED AFTER 24 HOURS, INCUBATION TO CONTINUE FOR 4 DAYS. 07/16/17 18:19 Nasopharyngeal Swab Influenza Types A,B Antigen - Final 05/26/18 18:19 Nasopharyngeal Swab - Final CT chest images reviewed, report pending ASSESSMENT AND PLAN: 82 yom with HTN admitted with fevers/cough, suspect PNA, also with nausea, vomiting abdominal pain found with Cholelithiasis and dialted CBD but normal LFTs -Sepsis likely secondary to PNA based on current presentation, r/o Legionella given hyponatremia and GI symptoms on presentation, low suspicion for cholangitis contributory to the same as of now -Cholelithiasis with dilated CBD and normal LFTs -Extensive COPD/bronchiectasis (prior heavy smoker) -HTN PLan: Levaquin day 3, follow up blood cultures. Check sputum cultures and urine PNA antigents. Add expectorants, Chest PT. CT chest images with extensive emphysema/ bronchiectasis and some air space disease. Follow up official read. Patient confirms heavy smoking history. Pulmonary consult. Hold off steroids based on current exam. Standing and prn nebs. 2D echo to address Right heart/pulmonary artery pressures. GI input appreciated, MRCP with Dilated CBD with stones. Patient currently asymptomatic with normal LFTs. COntinue to monitor. ERCP when respiratory status improved. Emperic flagyl day 1 per GI. Early ERCP if persistent fevers with cholangitis concerns. D5-1/2 NS DVTPPX with heparin Will need home oxygen needs assessment and PT eval when clinically improved. PLan discussed with patient and nursing, all questions answered.
--- NOTE | 2017-07-18 12:26 | CON.PULM ---
Consult Consult Specialty:: PULMONARY Referred by:: Dr. Lamar Reason for Consultation:: r/o pneumonia - History of Present Illness Chief Complaint: cough History of Present Illness: 82yo male with h/o HTN who was admitted with abdominal pain, nausea and vomiting. Found to have cholelithiasis and choledocholithiasis. During work up was noted to have a possible RLL infiltrate on CXR started on antibiotics for pneumonia. He does report some dyspnea with exertion, has a chronic cough per family and some wheezing. He is a long time smoker, started at age 14, smokes on average 1 PPD, still smoking. 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 No pets at home. He is originally from [place], does remember possibley having tuberculosis as a child. - History Source History Provided By: Patient, Family Member, Medical Record Limitations to Obtaining History: Language Barrier - Past Medical History Cardio/Vascular: Yes: HTN - Past Surgical History Additional Surgical History: Abdominal surgery in RLQ. ? appendectomy - Alcohol/Substance Use Hx Alcohol Use: Yes (2 shots of whiskey daily) History of Substance Use: reports: None - Smoking History Smoking history: Former smoker Have you smoked in the past 12 months: No If you are a former smoker, when did you quit?: 50 years ago - Social History Usual Living Arrangement: With Spouse ADL: Independent Occupation: Retired from [employer] History of Recent Travel: No Home Medications - Allergies Allergies/Adverse Reactions: Allergies Allergy/AdvReac Type Severity Reaction Status Date / Time No Known Allergies Allergy Verified 07/16/17 17:52 - Home Medications Home Medications: Ambulatory Orders Azithromycin 250 mg PO DAILY 07/16/17 Benzonatate 200 mg PO DAILY 07/16/17 Celecoxib [Celebrex] 200 mg PO DAILY 07/16/17 Docusate Sodium [Colace] 100 mg PO DAILY 07/16/17 Tramadol HCl 50 mg PO DAILY 07/16/17 Zolpidem Tartrate [Ambien] 10 mg PO DAILY 07/16/17 Family Disease History - Family Disease History Other Family History: No family history of colorectal cancer ror other GI malignancy Review of Systems - Review of Systems Constitutional: reports: Fever, Night Sweats, Weakness Eyes: denies: Recent Change in Vision HENT: denies: Nasal Congestion, Throat Pain Neck: denies: Stiffness, Tenderness Cardiovascular: reports: Shortness of Breath. denies: Chest Pain, Edema, Palpitations Respiratory: reports: Cough, Exercise Intolerance, SOB on Exertion, Wheezing. denies: Hemoptysis Gastrointestinal: reports: Abdominal Pain, Nausea, Vomiting Genitourinary: denies: Dysuria, Hematuria Neurological: denies: Dizziness, Headache Endocrine: reports: Unexplained Weight Loss Physical Exam Vital Sings: Vital Signs Temperature 98.1 F 07/18/17 05:35 Pulse Rate 112 H 07/18/17 05:35 Respiratory Rate 18 07/18/17 05:35 Blood Pressure 137/75 07/18/17 05:35 O2 Sat by Pulse Oximetry (%) 98 07/17/17 00:30 Constitutional: Yes: Calm Eyes: Yes: Conjunctiva Clear, EOM Intact HENT: Yes: Atraumatic, Normocephalic Neck: Yes: Supple, Trachea Midline Cardiovascular: Yes: Regular Rate and Rhythm Respiratory: Yes: Regular, Rhonchi, Wheezes ...Clubbing: No Gastrointestinal: Yes: Normal Bowel Sounds, Soft. No: Tenderness Edema: No Neurological: Yes: Alert, Oriented Labs: CBC, BMP 07/18/17 06:19 07/18/17 06:41 Imaging - Results Chest X-ray: Report Reviewed, Image Reviewed Cat Scan: Image Reviewed (extensive emphysematous changes, bronchiectasis, ?JASPER focal infiltrate) Problem List - Problems (1) Choledocholithiasis Code(s): K80.50 - CALCULUS OF BILE DUCT W/O CHOLANGITIS OR CHOLECYST W/O OBST (2) HTN (hypertension) Code(s): I10 - ESSENTIAL (PRIMARY) HYPERTENSION Qualifiers: Hypertension type: essential hypertension Qualified Code(s): I10 - Essential (primary) hypertension (3) Hyponatremia Code(s): E87.1 - HYPO-OSMOLALITY AND HYPONATREMIA (4) Pneumonia Code(s): J18.9 - PNEUMONIA, UNSPECIFIED ORGANISM Qualifiers: Pneumonia type: due to unspecified organism Laterality: right Lung location: lower lobe of lung Qualified Code(s): J18.1 - Lobar pneumonia, unspecified organism Assessment/Plan r/o Pneumonia COPD/Emphysema Bronchiectasis Cholelithiasis/Choledocholithiasis HTN Smoker - CT findings likely due to long history of smoking, prior pneumonia and/or tuberculosis - no definite acute infiltrates/consolidations but agree with empiric antibiotics given areas of bronchiectasis - f/u cultures - f/u official CT read - inhaled bronchodilators, will start standing duonebs and PRN albuterol - can defer systemic steroids at this time - O2 to keep SpO2 >90% - will need outpt PFTs and f/u - smoking cessation - DVT prophylaxis Thank you for this consult Neal Chin MD
--- NOTE | 2017-07-18 13:39 | PN ---
Physical Exam: SUBJECTIVE: Patient seen and examined at bedside. Pt complains of cough. OBJECTIVE: Vital Signs Period Temp Pulse Resp BP Sys/Jones Pulse Ox Last 24 Hr 98.1 F-99.6 F 106-128 18-18 116-168/69-80 GENERAL: The patient is awake, alert, and fully oriented, in no acute distress. HEAD: Normal with no signs of trauma. EYES: sclera anicteric, conjunctiva clear. No ptosis. ENT: oropharynx clear without exudates, moist mucous membranes. NECK: Trachea midline, full range of motion, supple. LUNGS: Poor air entry, scattered crackles HEART: tachycardic, S1, S2 without murmur, rub or gallop. ABDOMEN: Soft, nontender, nondistended, normoactive bowel sounds, no guarding, no rebound, no hepatosplenomegaly, no masses. EXTREMITIES: 2+ pulses, warm, well-perfused, no edema. NEUROLOGICAL: Cranial nerves II through XII grossly intact. Normal speech, gait not observed. PSYCH: Normal mood, normal affect. SKIN: Warm, dry, normal turgor, no rashes or lesions noted Laboratory Results - last 24 hr 07/17/17 07/18/17 07/18/17 06:15 06:19 06:41 WBC 8.0 RBC 3.65 L Hgb 12.3 Hct 35.4 MCV 96.9 H MCH 33.5 MCHC 34.6 RDW 14.2 Plt Count 186 MPV 7.8 Neutrophils % 83.4 H Lymphocytes % 7.0 L D Monocytes % 9.4 Eosinophils % 0.0 D Basophils % 0.2 Nucleated RBC % 0 Sodium 133 L Potassium 3.5 Chloride 100 Carbon Dioxide 25 Anion Gap 8 BUN 5 L Creatinine 0.4 L Random Glucose 110 H D Calcium 7.4 L Phosphorus 1.6 L D Magnesium 2.0 Total Bilirubin 0.5 Direct Bilirubin 0.2 AST 22 D ALT 15 Alkaline Phosphatase 47 Total Protein 5.4 L Albumin 2.6 L Urine Osmolality 317 Active Medications Generic Name Dose Route Start Last Admin Trade Name Freq PRN Reason Stop Dose Admin Albuterol Sulfate 1 amp 07/16/17 22:08 07/17/17 21:59 Ventolin 0.083% Nebulizer Soln - NEB 1 amp Q6H PRN Administration SHORT OF BREATH/WHEEZING Albuterol/Ipratropium 1 amp 07/18/17 16:00 Duoneb - NEB RQID RAYSHAWN Docusate Sodium 100 mg 07/17/17 10:00 07/18/17 09:02 Colace - PO 100 mg DAILY RAYSHANW Administration Guaifenesin 10 ml 07/17/17 14:11 07/18/17 09:03 Robitussin - PO 10 ml Q4H PRN Administration COUGH Levofloxacin 500 mg in 100 mls @ 100 mls/hr 07/17/17 10:00 07/18/17 09:04 Levaquin 500 Mg Premixed Ivpb - IVPB 100 mls/hr DAILY RAYSHAWN Administration Protocol Dextrose/Sodium Chloride 1,000 mls @ 75 mls/hr 07/17/17 13:45 07/18/17 06:34 D5-1/2ns - IV 75 mls/hr ASDIR RAYSHAWN Administration Metronidazole 500 mg in 100 mls @ 100 mls/hr 07/18/17 09:00 07/18/17 09:55 Flagyl 500mg Premixed Ivpb - IVPB Not Given Q8H-IV RAYSHAWN Potassium Phosphate 30 mm/ 510 mls @ 62.5 mls/hr 07/18/17 11:00 Sodium Chloride IVPB 07/18/17 19:09 ONCE ONE Tramadol HCl 50 mg 07/17/17 10:00 07/18/17 09:03 Ultram - PO 50 mg DAILY RAYSHAWN Administration ASSESSMENT/PLAN: 82 year old male with a significant PMH of HTN who presents to the emergency department for evaluation of diffuse abdominal pain, vomiting and fever. He was admitted for PNA. #Sepsis 2/2 PNA -got Zosyn in ED -on Levaquin -still coughing -afebrile -r/o Legionella -Cx and Urine labs negative -on Levaquin #COPD -noted on CT -15 pack/yr smoker -Pulm consult:duonebs, albuterol, no systemic steroids -Echo pending #Cholelithiasis -CT: distal gallstone. No wall thickening or pericholecystic fluid. dilated CBD -US: gallstones with sludge, dilated CBD -LFTs normal -No abd pain now -GI consult appreciated: likely incindental. Cont w/u as out pt. Emperic Metronidazole #Hyponatremia -on D5 1/2NS -kidneys unremarkable #HTN -well controlled at this time #FEN -D5 1/2NS -hyponatremia -Fat controlled diet #PPx -Hep SubQ #Dispo -Admitted for PNA Visit type - Emergency Visit Emergency Visit: No - New Patient This patient is new to me today: Yes Date on this admission: 07/18/17 - Critical Care Critical Care patient: No - Discharge Referral Referred to [facility] Med P.C.: No
[2017-07-18] MEDS: ALBUTEROL SO4 2.5/IPRATROPIUM 0.5 INH SOL 3 ML VIAL.NEB. NEB SCH ×2 (18:27→20:45)
[2017-07-19] MEDS ORDERED: traMADol HCL 50 MG TABLET PO ONE ×2 (02:19→22:45)
[2017-07-19] MEDS: guaiFENesin 200 MG/10 ML 10 ML UNIT-DOSE CUPS PO PRN ×3 (02:29→22:45)
[2017-07-19] MEDS: DEXTROSE 5%-0.45% SALINE 1,000 ML IV SCH (06:28)
[2017-07-19] MEDS: ALBUTEROL SO4 2.5/IPRATROPIUM 0.5 INH SOL 3 ML VIAL.NEB. NEB SCH ×4 (07:23→20:17)
[2017-07-19 07:37] LABS: BASO % 0.2 % (0-2.0); HEMATOCRIT 35.6 % (35.4-49); HEMOGLOBIN 12.3 GM/dL (11.7-16.9); MCHC 34.5 g/dl (32.0-35.9); MEAN CELL VOLUME 95.8 fl (80-96); MEAN PLT VOLUME 7.7 fl (7.5-11.1); MONO % 9.4 % (3.8-10.2); NEUT % 82.4 % (42.8-82.8); PLATELET COUNT 202 K/MM3 (134-434); RBC 3.72 M/mm3 (4.00-5.60); RDW 14.1 % (11.9-15.9); WHITE BLOOD COUNT 7.3 K/mm3 (4.0-10.0)
[2017-07-19 07:54] LABS: ANION GAP 6 (8-16); BLOOD UREA NITROGEN 6 mg/dL (7-18); CHLORIDE 102 mmol/L (98-107); CO2 27 mmol/L (21-32); CREATININE 0.4 mg/dL (0.7-1.3); GLUCOSE,RANDOM 116 mg/dL (74-106); POTASSIUM 3.4 mmol/L (3.5-5.1); SODIUM 135 mmol/L (136-145)
[2017-07-19] MEDS: DOCUSATE SODIUM 100 MG CAPSULE (FP) PO SCH (09:47)
[2017-07-19] MEDS: traMADol HCL 50 MG TABLET PO SCH (09:48)
[2017-07-19 11:20] LABS: PHOSPHOROUS 1.6 mg/dL (2.5-4.9)
[2017-07-19] MEDS ORDERED: NAPH,MB-DB/K PH,MBDB POWDER PACKET PO ONE ×2 (11:55→18:00)
--- NOTE | 2017-07-19 11:55 | PN ---
Teaching Attending Note Name of Resident: Katherine Cruz ATTENDING PHYSICIAN STATEMENT I saw and evaluated the patient. I reviewed the resident's note and discussed the case with the resident. I agree with the resident's findings and plan as documented. SUBJECTIVE:feeling better. continues to have a dry cough. tolerating diet. denies Cp, SOB, fever,c hills, N/V/C/D, abdominal pain OBJECTIVE: Last Vital Signs Temp Pulse Resp BP Pulse Ox 97.6 F 85 18 117/74 97 07/19/17 05:00 07/19/17 05:00 07/19/17 05:00 07/19/17 05:00 07/18/17 21:00 General NAD CV S1 S2 RRR no murmur/rub/gallop lungs CTA B/l no wheeizng/rales/rhonchi Abdomen soft NT/ND Extremities no pedal edema ASSESSMENT AND PLAN: 82 yom with HTN admitted with fevers/cough, suspect PNA, also with nausea, vomiting abdominal pain found with Cholelithiasis and dialted CBD but normal LFTs 1. sepsis due to PNA- clinically improved. on Levaquin day 4. Cx to date are negative. cont daily chest PT. f/u ulegionella 2. Cholelithasis with dilated CBD- seen on MRCP. pt mostly asymptomatic. states he has known of stones for 10 years. staets he would want to do ERCP as outpatient as he wants to go home as soon as possible. explained risks of developing infection which can lead to sepsis and septic shock that there is already a blockage there which puts him at higher risk. states he understands risks but does not want a procedure at this time. will see if GI spoke with family. on empiric Flagyl. GI on board 3. COPD/bronchiectasis- 4. hyponatremia- improved. d/c IVF 5. Hypokalemia- kcl po 6. hypophosphatemia- neutraphos 7. HTN- improved. cont current managmeent 8. DVT ppx- unclear why not on hep sq. will start at this time
[2017-07-19] MEDS ORDERED: POTASSIUM CHLORIDE TABS 20 MEQ TABLET.ER (FP) PO ONE (12:09)
--- NOTE | 2017-07-19 12:24 | PN ---
Physical Exam: SUBJECTIVE: Patient seen and examined. Able to ambulate unassisted to and from bathroom. Cough noted to be productive now. OBJECTIVE: Vital Signs Period Temp Pulse Resp BP Sys/Jones Pulse Ox Last 24 Hr 97.6 F-99 F 85-108 18-18 117-140/61-79 97 Vital Signs Temp 97.6 F 07/19/17 05:00 Pulse 85 07/19/17 05:00 Resp 18 07/19/17 05:00 BP 117/74 07/19/17 05:00 Pulse Ox 97 07/18/17 21:00 Intake & Output 07/18/17 07/19/17 07/19/17 23:59 11:59 23:59 Intake Total 900 850 Output Total 100 Balance 800 850 Intake: IV 600 750 D5-1/2Ns - 1,000 ml @ 75 600 750 mls/hr IV ASDIR RAYSHAWN Rx#: [id number] IVPB 300 100 Output: Urine 100 Void 100 Other: Voiding Method Toilet Urinal # Unmeasured Voids Void 3 GENERAL: The patient is awake, alert, and fully oriented, ambulating unassisted. LUNGS: wheezes with rhonchi R> L. HEART: Regular rate and rhythm, S1, S2 without murmur, rub or gallop. ABDOMEN: Soft, nontender, nondistended, normoactive bowel sounds EXTREMITIES: 2+ pulses, warm, well-perfused, no edema. NEUROLOGICAL: Cranial nerves II through XII grossly intact. Normal speech, normal gait Laboratory Results - last 24 hr 07/19/17 07/19/17 07/19/17 06:00 06:00 06:00 WBC 7.3 RBC 3.72 L Hgb 12.3 Hct 35.6 MCV 95.8 MCH 33.0 MCHC 34.5 RDW 14.1 Plt Count 202 MPV 7.7 Neutrophils % 82.4 Lymphocytes % 8.0 Monocytes % 9.4 Eosinophils % 0.0 Basophils % 0.2 Nucleated RBC % 0 Sodium 135 L Potassium 3.4 L Chloride 102 Carbon Dioxide 27 Anion Gap 6 L BUN 6 L Creatinine 0.4 L Random Glucose 116 H Calcium 7.0 L Phosphorus 1.6 L Cancelled Active Medications Generic Name Dose Route Start Last Admin Trade Name Freq PRN Reason Stop Dose Admin Albuterol Sulfate 1 amp 07/16/17 22:08 07/17/17 21:59 Ventolin 0.083% Nebulizer Soln - NEB 1 amp Q6H PRN Administration SHORT OF BREATH/WHEEZING Albuterol/Ipratropium 1 amp 07/18/17 16:00 07/19/17 11:15 Duoneb - NEB 1 amp RQID RAYSHAWN Administration Docusate Sodium 100 mg 07/17/17 10:00 07/19/17 09:47 Colace - PO 100 mg DAILY RAYSHAWN Administration Guaifenesin 10 ml 07/17/17 14:11 07/19/17 10:08 Robitussin - PO 10 ml Q4H PRN Administration COUGH Heparin Sodium (Porcine) 5,000 unit 07/19/17 14:00 Heparin - SQ TID RAYSHAWN Levofloxacin 500 mg in 100 mls @ 100 mls/hr 07/17/17 10:00 07/19/17 11:41 Levaquin 500 Mg Premixed Ivpb - IVPB 100 mls/hr DAILY RAYSHAWN Administration Protocol Metronidazole 500 mg in 100 mls @ 100 mls/hr 07/18/17 09:00 07/19/17 09:47 Flagyl 500mg Premixed Ivpb - IVPB 100 mls/hr Q8H-IV RAYSHAWN Administration Tramadol HCl 50 mg 07/17/17 10:00 07/19/17 09:48 Ultram - PO 50 mg DAILY RAYSHAWN Administration Ambulatory Orders Azithromycin 250 mg PO DAILY 07/16/17 Benzonatate 200 mg PO DAILY 07/16/17 Celecoxib [Celebrex] 200 mg PO DAILY 07/16/17 Docusate Sodium [Colace] 100 mg PO DAILY 07/16/17 Tramadol HCl 50 mg PO DAILY 07/16/17 Zolpidem Tartrate [Ambien] 10 mg PO DAILY 07/16/17 Current Medications Albuterol Sulfate (Ventolin 0.083% Nebulizer Soln -) 1 amp NEB Q6H PRN PRN Reason: SHORT OF BREATH/WHEEZING Last Admin: 07/17/17 21:59 Dose: 1 amp Albuterol/Ipratropium (Duoneb -) 1 amp NEB RQID RAYSHAWN Last Admin: 07/19/17 11:15 Dose: 1 amp Docusate Sodium (Colace -) 100 mg PO DAILY RAYSHAWN Last Admin: 07/19/17 09:47 Dose: 100 mg Guaifenesin (Robitussin -) 10 ml PO Q4H PRN PRN Reason: COUGH Last Admin: 07/19/17 10:08 Dose: 10 ml Heparin Sodium (Porcine) (Heparin -) 5,000 unit SQ TID ARYSHAWN Levofloxacin (Levaquin 500 Mg Premixed Ivpb -) 500 mg in 100 mls @ 100 mls/hr IVPB DAILY RAYSHAWN; Protocol Last Admin: 07/19/17 11:41 Dose: 100 mls/hr Metronidazole (Flagyl 500mg Premixed Ivpb -) 500 mg in 100 mls @ 100 mls/hr IVPB Q8H-IV RAYSHAWN Last Admin: 07/19/17 09:47 Dose: 100 mls/hr Tramadol HCl (Ultram -) 50 mg PO DAILY RAYSHAWN Last Admin: 07/19/17 09:48 Dose: 50 mg Phone number: [phone]- daughter (Kaye) Phone number [phone]- Son in law Phone number [phone]- Aristides- Son ASSESSMENT/PLAN: Spoke with daughter, does not know the pharmacy or medical hx of the father. Thinks he has hypotension but confirmed that he should have his current medications on him. She said he is a current smoker and heavy alcohol drinker. Pt is independent in ADLs, lives with . 82 year old male with a significant PMH of HTN who presents to the emergency department for evaluation of diffuse abdominal pain, vomiting and fever. He was admitted for PNA. #Sepsis 2/2 PNA -got Zosyn in ED -on Levaquin 500 daily (received azithromycin recently as an outpatient) -cough now productive -afebrile -r/o Legionella -Cx and Urine labs negative -Will fll up for med recs with pt directly #COPD -noted on CT -15 pack/yr smoker -Pulm consult:duonebs, albuterol, no systemic steroids -Echo pending #Cholelithiasis -CT: distal gallstone. No wall thickening or pericholecystic fluid. dilated CBD -US: gallstones with sludge, dilated CBD -LFTs normal -No abd pain now -GI consult appreciated: likely incidental. Cont w/u as out pt. Empiric Metronidazole - Being considered for likely ERCP when pulm status is stable- Pt does not want in pt ERCP. He wants to be discharged home to get ERCP as an outpt #Hyponatremia -Improving -D/C D5 1/2NS -kidneys unremarkable #HTN -well controlled at this time - Not on home antihypertensive #FEN -D/C D5 1/2NS -hyponatremia -Fat controlled diet #PPx -Hep SubQ #Dispo -for likely DC tomorrow Visit type - Emergency Visit Emergency Visit: Yes ED Registration Date: 07/16/17 Care time: The patient presented to the Emergency Department on the above date and was hospitalized for further evaluation of their emergent condition. - New Patient This patient is new to me today: Yes Date on this admission: 07/19/17 - Critical Care Critical Care patient: No - Discharge Referral Referred to [facility] Med [facility] No
--- NOTE | 2017-07-19 13:26 | PN ---
Progress Note (short form) - Note Progress Note: Productive cough. No hemoptysis. No CP. Intake & Output 07/16/17 07/17/17 07/18/17 07/19/17 23:59 23:59 23:59 23:59 Intake Total 1945 1425 850 Output Total 600 300 Balance 1345 1125 850 Weight 97 lb 95 lb 11.2 oz Last Vital Signs Temp Pulse Resp BP Pulse Ox 97.6 F 85 18 117/74 97 07/19/17 05:00 07/19/17 05:00 07/19/17 05:00 07/19/17 05:00 07/18/17 21:00 Active Medications Albuterol Sulfate (Ventolin 0.083% Nebulizer Soln -) 1 amp NEB Q6H PRN PRN Reason: SHORT OF BREATH/WHEEZING Last Admin: 07/17/17 21:59 Dose: 1 amp Albuterol/Ipratropium (Duoneb -) 1 amp NEB RQID [facility] Last Admin: 07/19/17 11:15 Dose: 1 amp Docusate Sodium (Colace -) 100 mg PO DAILY [facility] Last Admin: 07/19/17 09:47 Dose: 100 mg Guaifenesin (Robitussin -) 10 ml PO Q4H PRN PRN Reason: COUGH Last Admin: 07/19/17 10:08 Dose: 10 ml Heparin Sodium (Porcine) (Heparin -) 5,000 unit SQ TID [facility] Levofloxacin (Levaquin 500 Mg Premixed Ivpb -) 500 mg in 100 mls @ 100 mls/hr IVPB DAILY [facility]; Protocol Last Admin: 07/19/17 11:41 Dose: 100 mls/hr Metronidazole (Flagyl 500mg Premixed Ivpb -) 500 mg in 100 mls @ 100 mls/hr IVPB Q8H-IV [facility] Last Admin: 07/19/17 09:47 Dose: 100 mls/hr Tramadol HCl (Ultram -) 50 mg PO DAILY [facility] Last Admin: 07/19/17 09:48 Dose: 50 mg Constitutional: Yes: NAD Eyes: Yes: Conjunctiva Clear, EOM Intact HENT: Yes: Atraumatic, Normocephalic Neck: Yes: Supple, Trachea Midline Cardiovascular: Yes: Regular Rate and Rhythm Respiratory: Yes: Rhonchi, Wheezes ...Clubbing: No Gastrointestinal: Yes: Normal Bowel Sounds, Soft. No: Tenderness Edema: No Neurological: Yes: Alert, Oriented Labs: Laboratory Results - last 24 hr 07/19/17 07/19/17 07/19/17 06:00 06:00 06:00 WBC 7.3 RBC 3.72 L Hgb 12.3 Hct 35.6 MCV 95.8 MCH 33.0 MCHC 34.5 RDW 14.1 Plt Count 202 MPV 7.7 Neutrophils % 82.4 Lymphocytes % 8.0 Monocytes % 9.4 Eosinophils % 0.0 Basophils % 0.2 Nucleated RBC % 0 Sodium 135 L Potassium 3.4 L Chloride 102 Carbon Dioxide 27 Anion Gap 6 L BUN 6 L Creatinine 0.4 L Random Glucose 116 H Calcium 7.0 L Phosphorus 1.6 L Cancelled Problem List - Problems (1) Choledocholithiasis Code(s): K80.50 - CALCULUS OF BILE DUCT W/O CHOLANGITIS OR CHOLECYST W/O OBST (2) HTN (hypertension) Code(s): I10 - ESSENTIAL (PRIMARY) HYPERTENSION Qualifiers: Hypertension type: essential hypertension Qualified Code(s): I10 - Essential (primary) hypertension (3) Hyponatremia Code(s): E87.1 - HYPO-OSMOLALITY AND HYPONATREMIA (4) Pneumonia Code(s): J18.9 - PNEUMONIA, UNSPECIFIED ORGANISM Qualifiers: Pneumonia type: due to unspecified organism Laterality: right Lung location: lower lobe of lung Qualified Code(s): J18.1 - Lobar pneumonia, unspecified organism Assessment/Plan Acute Bronchitis JASPER focal opacity: 2.4 x 1.2 cm COPD/Emphysema Bronchiectasis Cholelithiasis/Choledocholithiasis HTN Smoker CT findings likely due to long history of smoking, prior pneumonia and/or tuberculosis - Agree with empiric antibiotics due to areas of bronchiectasis - f/u cultures - inhaled bronchodilators, will start standing duonebs and PRN albuterol - O2 to keep SpO2 >90% - will need outpt PFTs and f/u - smoking cessation - CT chest for followup in [address] Chen
[2017-07-19] MEDS: HEPARIN NA (PORCINE) 5,000 UNITS/ML 1ML VIAL SQ SCH ×2 (15:27→22:47)
[2017-07-19] MEDS: POTASSIUM CHLORIDE ORAL LIQUID 20 MEQ/15 ML PO ONE ×2 (17:54→18:44)
[2017-07-19] MEDS ORDERED: POTASSIUM CHLORIDE ORAL LIQUID 20 MEQ/15 ML PO ONE (18:30)
[2017-07-20] MEDS: HEPARIN NA (PORCINE) 5,000 UNITS/ML 1ML VIAL SQ SCH ×3 (06:22→22:18)
[2017-07-20] MEDS: ALBUTEROL SO4 2.5/IPRATROPIUM 0.5 INH SOL 3 ML VIAL.NEB. NEB SCH ×4 (07:36→20:27)
[2017-07-20 07:41] LABS: BASO % 0.3 % (0-2.0); EOS % 0.2 % (0-4.5); HEMATOCRIT 35.7 % (35.4-49); HEMOGLOBIN 12.2 GM/dL (11.7-16.9); LYMPH % 9.9 % (8-40); MCHC 34.3 g/dl (32.0-35.9); MEAN CELL VOLUME 96.4 fl (80-96); MEAN PLT VOLUME 7.5 fl (7.5-11.1); MONO % 8.1 % (3.8-10.2); NEUT % 81.5 % (42.8-82.8); PLATELET COUNT 232 K/MM3 (134-434); WHITE BLOOD COUNT 6.8 K/mm3 (4.0-10.0)
[2017-07-20 08:43] LABS: ALBUMIN 2.5 g/dl (3.4-5.0); BLOOD UREA NITROGEN 6 mg/dL (7-18); CHLORIDE 103 mmol/L (98-107); POTASSIUM 3.8 mmol/L (3.5-5.1); SODIUM 137 mmol/L (136-145)
[2017-07-20 09:12] LABS: ALK PHOS 44 U/L (45-117); ANION GAP 9 (8-16); BILIRUBIN,TOTAL 0.4 mg/dL (0.2-1.0); CO2 25 mmol/L (21-32); CREATININE 0.3 mg/dL (0.7-1.3); GLUCOSE,RANDOM 87 mg/dL (74-106); MAGNESIUM 2.2 mg/dL (1.8-2.4); PHOSPHOROUS 1.9 mg/dL (2.5-4.9); SGOT/AST 25 U/L (15-37); SGPT/ALT 19 U/L (12-78); TOT PROT 5.2 g/dl (6.4-8.2)
[2017-07-20 09:45] LABS: CALCIUM 7.1 mg/dL (8.5-10.1)
[2017-07-20] MEDS: traMADol HCL 50 MG TABLET PO SCH ×2 (11:00→17:53)
[2017-07-20] MEDS: DOCUSATE SODIUM 100 MG CAPSULE (FP) PO SCH (11:00)
--- NOTE | 2017-07-20 13:34 | PN ---
Physical Exam: SUBJECTIVE: Patient seen and examined. No new c/o. Still coughing. No abdominal pain. OBJECTIVE: Vital Signs Period Temp Pulse Resp BP Sys/Jones Pulse Ox Last 24 Hr 97.5 F-98.4 F 88-125 18-20 114-149/66-76 92-98 Vital Signs Temp 98 F 07/20/17 05:00 Pulse 125 H 07/20/17 10:32 Resp 18 07/20/17 05:00 BP 134/73 07/20/17 05:00 Pulse Ox 92 L 07/20/17 10:32 Intake & Output 07/19/17 07/20/17 07/20/17 23:59 11:59 23:59 Intake Total 1350 100 Balance 1350 100 Weight 43.091 kg Intake: IV 750 D5-1/2Ns - 1,000 ml @ 75 750 mls/hr IV ASDIR [facility] Rx#: [id number] IVPB 300 100 Oral 300 Other: Voiding Method Urinal Urinal # Unmeasured Voids Void 2 Bowel Movement Yes # Bowel Movements 1 Height 1.65 m Body Mass Index (BMI) 15.7 GENERAL: The patient is awake, alert, and fully oriented, On NC-3L. Sating at 94 % at rest (on RA) ENT: Ears normal, nares patent, oropharynx clear without exudates, moist mucous membranes. LUNGS: Breath sounds equal, clear to auscultation bilaterally, no wheezes HEART: Regular rate and rhythm, S1, S2 ABDOMEN: Soft, nontender, nondistended, normoactive bowel sounds EXTREMITIES: 2+ pulses, warm, well-perfused, no edema. NEUROLOGICAL: AAOx3. Normal speech Laboratory Results - last 24 hr 07/20/17 07/20/17 06:00 06:00 WBC 6.8 RBC 3.70 L Hgb 12.2 Hct 35.7 MCV 96.4 H MCH 33.0 MCHC 34.3 RDW 14.0 Plt Count 232 MPV 7.5 Neutrophils % 81.5 Lymphocytes % 9.9 D Monocytes % 8.1 Eosinophils % 0.2 D Basophils % 0.3 Nucleated RBC % 0 Sodium 137 Potassium 3.8 Chloride 103 Carbon Dioxide 25 Anion Gap 9 BUN 6 L Creatinine 0.3 L D Creat Clearance w eGFR > 60 Random Glucose 87 D Calcium 7.1 L Phosphorus 1.9 L Magnesium 2.2 Total Bilirubin 0.4 AST 25 ALT 19 D Alkaline Phosphatase 44 L Total Protein 5.2 L Albumin 2.5 L Active Medications Generic Name Dose Route Start Last Admin Trade Name Freq PRN Reason Stop Dose Admin Albuterol Sulfate 1 amp 07/16/17 22:08 07/17/17 21:59 Ventolin 0.083% Nebulizer Soln - NEB 1 amp Q6H PRN Administration SHORT OF BREATH/WHEEZING Albuterol/Ipratropium 1 amp 07/18/17 16:00 07/20/17 11:40 Duoneb - NEB 1 amp RQID [facility] Administration Docusate Sodium 100 mg 07/17/17 10:00 07/20/17 11:00 Colace - PO 100 mg DAILY [facility] Administration Guaifenesin 10 ml 07/17/17 14:11 07/19/17 22:45 Robitussin - PO 10 ml Q4H PRN Administration COUGH Heparin Sodium (Porcine) 5,000 unit 07/19/17 14:00 07/20/17 06:22 Heparin - SQ 5,000 unit TID [facility] Administration Levofloxacin 500 mg in 100 mls @ 100 mls/hr 07/17/17 10:00 07/20/17 11:00 Levaquin 500 Mg Premixed Ivpb - IVPB 100 mls/hr DAILY [facility] Administration Protocol Metronidazole 500 mg in 100 mls @ 100 mls/hr 07/18/17 09:00 07/20/17 11:00 Flagyl 500mg Premixed Ivpb - IVPB 100 mls/hr Q8H-IV [facility] Administration Tramadol HCl 50 mg 07/17/17 10:00 07/20/17 11:00 Ultram - PO Not Given DAILY [facility] Ambulatory Orders Azithromycin 250 mg PO DAILY 07/16/17 Benzonatate 200 mg PO DAILY 07/16/17 Celecoxib [Celebrex] 200 mg PO DAILY 07/16/17 Docusate Sodium [Colace] 100 mg PO DAILY 07/16/17 Tramadol HCl 50 mg PO DAILY 07/16/17 Zolpidem Tartrate [Ambien] 10 mg PO DAILY 07/16/17 Current Medications Albuterol Sulfate (Ventolin 0.083% Nebulizer Soln -) 1 amp NEB Q6H PRN PRN Reason: SHORT OF BREATH/WHEEZING Last Admin: 07/17/17 21:59 Dose: 1 amp Albuterol/Ipratropium (Duoneb -) 1 amp NEB RQID [facility] Last Admin: 07/20/17 11:40 Dose: 1 amp Docusate Sodium (Colace -) 100 mg PO DAILY [facility] Last Admin: 07/20/17 11:00 Dose: 100 mg Guaifenesin (Robitussin -) 10 ml PO Q4H PRN PRN Reason: COUGH Last Admin: 07/19/17 22:45 Dose: 10 ml Heparin Sodium (Porcine) (Heparin -) 5,000 unit SQ TID [facility] Last Admin: 07/20/17 06:22 Dose: 5,000 unit Levofloxacin (Levaquin 500 Mg Premixed Ivpb -) 500 mg in 100 mls @ 100 mls/hr IVPB DAILY [facility]; Protocol Last Admin: 07/20/17 11:00 Dose: 100 mls/hr Metronidazole (Flagyl 500mg Premixed Ivpb -) 500 mg in 100 mls @ 100 mls/hr IVPB Q8H-IV [facility] Last Admin: 07/20/17 11:00 Dose: 100 mls/hr Tramadol HCl (Ultram -) 50 mg PO DAILY [facility] Last Admin: 07/20/17 11:00 Dose: Not Given Phone number: [phone]- daughter (Kaye) Phone number [phone]- Son in law Phone number [phone]- Aristides- Son ASSESSMENT/PLAN: 82 year old male with a significant PMH of HTN who presents to the emergency department for evaluation of diffuse abdominal pain, vomiting and fever. He was admitted for PNA. #Sepsis 2/2 PNA -got Zosyn in ED -on Levaquin 500 daily (day 4) (received azithromycin recently as an outpatient) - continue for 7 days -afebrile -r/o Legionella -Cx and Urine labs negative #COPD -noted on CT -15 pack/yr smoker -Pulm consult:duonebs, albuterol, no systemic steroids -Echo pending -De sated after pre and post to 87%- fady need home oxygen- contacted case management - Continue Oxygen supplementation as needed #Cholelithiasis -CT: distal gallstone. No wall thickening or pericholecystic fluid. dilated CBD -US: gallstones with sludge, dilated CBD -LFTs normal -No abd pain now -GI consult appreciated: likely incidental. -Continue Metronidazole - Being considered for likely ERCP when pulm status is stable- Pt and family ( spoke with son Aristides) now agree for stone removal in patient before discharge #Hyponatremia -Improving -D/C D5 1/2NS -kidneys unremarkable #HTN -well controlled at this time - Not on home antihypertensive #FEN -D/C D5 1/2NS -hyponatremia -Fat controlled diet #PPx -Hep SubQ #Dispo Will need home oxygen Is willing to have ERCP as in patient Visit type - Emergency Visit Emergency Visit: Yes ED Registration Date: 07/16/17 Care time: The patient presented to the Emergency Department on the above date and was hospitalized for further evaluation of their emergent condition. - New Patient This patient is new to me today: No - Critical Care Critical Care patient: No - Discharge Referral Referred to [facility] Med P.C.: No
[2017-07-20 13:35] VITALS: BMI 15.7
[2017-07-20] MEDS ORDERED: NAPH,MB-DB/K PH,MBDB POWDER PACKET PO ONE ×3 (13:36→22:15)
--- NOTE | 2017-07-20 13:40 | PN ---
Teaching Attending Note Name of Resident: Katherine Cruz ATTENDING PHYSICIAN STATEMENT I saw and evaluated the patient. I reviewed the resident's note and discussed the case with the resident. I agree with the resident's findings and plan as documented. SUBJECTIVE:c/o cough but improved since admission. denies CP, SOB, fever, chills , N/V/C/D or abdominal pain. tolerating diet without pain OBJECTIVE: Last Vital Signs Temp Pulse Resp BP Pulse Ox 98 F 125 H 18 134/73 92 L 07/20/17 05:00 07/20/17 10:32 07/20/17 05:00 07/20/17 05:00 07/20/17 10:32 General NAD CV S1 S2 RRR no murmur/rub/gallop lungs CTA B/l no wheeizng/rales/rhonchi Abdomen soft NT/ND Extremities no pedal edema ASSESSMENT AND PLAN: 82 yom with HTN admitted with fevers/cough, suspect PNA, also with nausea, vomiting abdominal pain found with Cholelithiasis and dialted CBD but normal LFTs 1. sepsis due to PNA- clinically improved. saturating 94% on RA. on Levaquin day 5. Cx to date are negative. check pre and post. cont daily chest PT. ulegionella/strep negative. will need repeat imaging in 4-6weeks 2. Cholelithasis with dilated CBD- seen on MRCP. asymptomatic. states he does not want any procedure at this time as it is old. will need to call family and confirm that they understands risks/benefits of not having ERCP with this blockage. will reach out GI as well. cont empiric Flagyl. normal LFT 3. COPD/bronchiectasis- 4. hyponatremia- improved. 5. Hypokalemia- resolved 6. hypophosphatemia- neutraphos 7. HTN- improved. cont current managmeent 8. DVT ppx- hep sq. 9. possible d/c today pending if pt is agreeable to ERCP. highly recommend to be done prior to discharge. will need to discuss risk/benefits with family
--- NOTE | 2017-07-20 14:07 | PN ---
Progress Note, Physician History of Present Illness: pulmonary alert,oob-chair,less dyspneic,o2 sat 91% on ra - Current Medication List Current Medications: Active Medications Albuterol Sulfate (Ventolin 0.083% Nebulizer Soln -) 1 amp NEB Q6H PRN PRN Reason: SHORT OF BREATH/WHEEZING Last Admin: 07/17/17 21:59 Dose: 1 amp Albuterol/Ipratropium (Duoneb -) 1 amp NEB RQID [facility] Last Admin: 07/20/17 11:40 Dose: 1 amp Docusate Sodium (Colace -) 100 mg PO DAILY [facility] Last Admin: 07/20/17 11:00 Dose: 100 mg Guaifenesin (Robitussin -) 10 ml PO Q4H PRN PRN Reason: COUGH Last Admin: 07/19/17 22:45 Dose: 10 ml Heparin Sodium (Porcine) (Heparin -) 5,000 unit SQ TID [facility] Last Admin: 07/20/17 06:22 Dose: 5,000 unit Levofloxacin (Levaquin 500 Mg Premixed Ivpb -) 500 mg in 100 mls @ 100 mls/hr IVPB DAILY [facility]; Protocol Last Admin: 07/20/17 11:00 Dose: 100 mls/hr Metronidazole (Flagyl 500mg Premixed Ivpb -) 500 mg in 100 mls @ 100 mls/hr IVPB Q8H-IV [facility] Last Admin: 07/20/17 11:00 Dose: 100 mls/hr Tramadol HCl (Ultram -) 50 mg PO DAILY [facility] Last Admin: 07/20/17 11:00 Dose: Not Given - Objective Vital Signs: Vital Signs Temperature 98 F 07/20/17 05:00 Pulse Rate 125 H 07/20/17 10:32 Respiratory Rate 18 07/20/17 05:00 Blood Pressure 134/73 07/20/17 05:00 O2 Sat by Pulse Oximetry (%) 92 L 07/20/17 10:32 Constitutional: Yes: Calm, Thin Eyes: Yes: WNL HENT: Yes: WNL Neck: Yes: WNL Cardiovascular: Yes: Regular Rate and Rhythm, S1, S2 Respiratory: Yes: Diminished, Wheezes (scattered daryl wheezes and crackles) Gastrointestinal: Yes: Normal Bowel Sounds, Soft Extremities: Yes: WNL Edema: No Labs: CBC, BMP 07/20/17 06:00 07/20/17 06:00 INR, PTT INR 0.95 (0.82-1.09) 07/16/17 18:19 Problem List - Problems (1) Bronchiectasis Code(s): J47.9 - BRONCHIECTASIS, UNCOMPLICATED (2) Bronchiectasis Code(s): J47.9 - BRONCHIECTASIS, UNCOMPLICATED Assessment/Plan Problem List - Problems (1) Choledocholithiasis Code(s): K80.50 - CALCULUS OF BILE DUCT W/O CHOLANGITIS OR CHOLECYST W/O OBST (2) HTN (hypertension) Code(s): I10 - ESSENTIAL (PRIMARY) HYPERTENSION Qualifiers: Hypertension type: essential hypertension Qualified Code(s): I10 - Essential (primary) hypertension (3) Hyponatremia Code(s): E87.1 - HYPO-OSMOLALITY AND HYPONATREMIA (4) Pneumonia Code(s): J18.9 - PNEUMONIA, UNSPECIFIED ORGANISM Qualifiers: Pneumonia type: due to unspecified organism Laterality: right Lung location: lower lobe of lung Qualified Code(s): J18.1 - Lobar pneumonia, unspecified organism Assessment/Plan COPD/Emphysema Bronchiectasis Cholelithiasis/Choledocholithiasis HTN Smoker - CT findings likely due to long history of smoking, prior pneumonia and/or tuberculosis - empiric antibiotics given areas of bronchiectasis - standing duonebs and PRN albuterol - O2 to keep SpO2 >90% - outpt PFTs and f/u - smoking cessation - DVT prophylaxis DR FERRO
[2017-07-20] MEDS: ONDANSETRON 4 MG/2 ML VIAL IVPB PRN (20:21)
[2017-07-20] MEDS: guaiFENesin 200 MG/10 ML 10 ML UNIT-DOSE CUPS PO PRN (22:18)
[2017-07-21] MEDS: HEPARIN NA (PORCINE) 5,000 UNITS/ML 1ML VIAL SQ SCH ×3 (06:57→22:00)
[2017-07-21] MEDS: ALBUTEROL SO4 2.5/IPRATROPIUM 0.5 INH SOL 3 ML VIAL.NEB. NEB SCH ×4 (07:32→20:37)
[2017-07-21 07:41] LABS: ALBUMIN 2.4 g/dl (3.4-5.0); ANION GAP 4 (8-16); BILIRUBIN,TOTAL 0.3 mg/dL (0.2-1.0); CHLORIDE 103 mmol/L (98-107); CO2 29 mmol/L (21-32); CREATININE 0.4 mg/dL (0.7-1.3); GLUCOSE,RANDOM 93 mg/dL (74-106); MAGNESIUM 2.2 mg/dL (1.8-2.4); PHOSPHOROUS 2.4 mg/dL (2.5-4.9); POTASSIUM 3.9 mmol/L (3.5-5.1); SGOT/AST 29 U/L (15-37); SGPT/ALT 22 U/L (12-78); SODIUM 136 mmol/L (136-145)
[2017-07-21 07:42] LABS: ALK PHOS 43 U/L (45-117)
[2017-07-21 07:48] LABS: BASO % 0.7 % (0-2.0); EOS % 0.3 % (0-4.5); HEMATOCRIT 34.2 % (35.4-49); HEMOGLOBIN 11.8 GM/dL (11.7-16.9); MCH 33.4 pg (25.7-33.7); MCHC 34.6 g/dl (32.0-35.9); MEAN CELL VOLUME 96.4 fl (80-96); MEAN PLT VOLUME 7.5 fl (7.5-11.1); PLATELET COUNT 272 K/MM3 (134-434); RBC 3.55 M/mm3 (4.00-5.60); RDW 14.3 % (11.9-15.9); WHITE BLOOD COUNT 5.8 K/mm3 (4.0-10.0)
[2017-07-21 07:52] LABS: BLOOD UREA NITROGEN 9 mg/dL (7-18)
--- NOTE | 2017-07-21 09:49 | PN ---
Progress Note (short form) - Note Progress Note: Still with cough, but better. No hemoptysis. No CP. No acute events overnight. Intake & Output 07/18/17 07/19/17 07/20/17 07/21/17 23:59 23:59 23:59 23:59 Intake Total 1425 2200 1020 357 Output Total 300 Balance 1125 2200 1020 357 Weight 95 lb Last Vital Signs Temp Pulse Resp BP Pulse Ox 99.5 F 91 H 20 132/69 99 07/21/17 05:00 07/21/17 05:00 07/21/17 05:00 07/21/17 05:00 07/20/17 21:00 Active Medications Albuterol Sulfate (Ventolin 0.083% Nebulizer Soln -) 1 amp NEB Q6H PRN PRN Reason: SHORT OF BREATH/WHEEZING Last Admin: 07/17/17 21:59 Dose: 1 amp Albuterol/Ipratropium (Duoneb -) 1 amp NEB RQID [facility] Last Admin: 07/21/17 07:32 Dose: 1 amp Docusate Sodium (Colace -) 100 mg PO DAILY [facility] Last Admin: 07/20/17 11:00 Dose: 100 mg Guaifenesin (Robitussin -) 10 ml PO Q4H PRN PRN Reason: COUGH Last Admin: 07/20/17 22:18 Dose: 10 ml Heparin Sodium (Porcine) (Heparin -) 5,000 unit SQ TID [facility] Last Admin: 07/21/17 06:57 Dose: 5,000 unit Levofloxacin (Levaquin 500 Mg Premixed Ivpb -) 500 mg in 100 mls @ 100 mls/hr IVPB DAILY [facility]; Protocol Last Admin: 07/20/17 11:00 Dose: 100 mls/hr Metronidazole (Flagyl 500mg Premixed Ivpb -) 500 mg in 100 mls @ 100 mls/hr IVPB Q8H-IV [facility] Last Admin: 07/21/17 01:50 Dose: 100 mls/hr Ondansetron HCl (Zofran Injection) 4 mg IVPB Q6H PRN PRN Reason: NAUSEA Last Admin: 07/20/17 20:21 Dose: 4 mg Tramadol HCl (Ultram -) 50 mg PO DAILY [facility] Last Admin: 07/20/17 17:53 Dose: 50 mg Constitutional: Yes: NAD Eyes: Yes: Conjunctiva Clear, EOM Intact HENT: Yes: Atraumatic, Normocephalic Neck: Yes: Supple, Trachea Midline Cardiovascular: Yes: Regular Rate and Rhythm Respiratory: Yes: Rhonchi, Wheezes ...Clubbing: No Gastrointestinal: Yes: Normal Bowel Sounds, Soft. No: Tenderness Edema: No Neurological: Yes: Alert, Oriented Labs: Laboratory Results - last 24 hr 07/21/17 07/21/17 06:00 06:00 WBC 5.8 RBC 3.55 L Hgb 11.8 Hct 34.2 L MCV 96.4 H MCH 33.4 MCHC 34.6 RDW 14.3 Plt Count 272 MPV 7.5 Neutrophils % 75.0 Lymphocytes % 15.0 D Monocytes % 9.0 Eosinophils % 0.3 Basophils % 0.7 Nucleated RBC % 0 Sodium 136 Potassium 3.9 Chloride 103 Carbon Dioxide 29 Anion Gap 4 L BUN 9 D Creatinine 0.4 L D Creat Clearance w eGFR > 60 Random Glucose 93 Calcium 7.0 L Phosphorus 2.4 L D Magnesium 2.2 Total Bilirubin 0.3 D AST 29 ALT 22 Alkaline Phosphatase 43 L Total Protein 5.0 L Albumin 2.4 L Problem List - Problems (1) Choledocholithiasis Code(s): K80.50 - CALCULUS OF BILE DUCT W/O CHOLANGITIS OR CHOLECYST W/O OBST (2) HTN (hypertension) Code(s): I10 - ESSENTIAL (PRIMARY) HYPERTENSION Qualifiers: Hypertension type: essential hypertension Qualified Code(s): I10 - Essential (primary) hypertension (3) Hyponatremia Code(s): E87.1 - HYPO-OSMOLALITY AND HYPONATREMIA (4) Pneumonia Code(s): J18.9 - PNEUMONIA, UNSPECIFIED ORGANISM Qualifiers: Pneumonia type: due to unspecified organism Laterality: right Lung location: lower lobe of lung Qualified Code(s): J18.1 - Lobar pneumonia, unspecified organism Assessment/Plan Acute Bronchitis JASPER focal opacity: 2.4 x 1.2 cm COPD/Emphysema Bronchiectasis Cholelithiasis/Choledocholithiasis HTN Smoker CT findings likely due to long history of smoking, prior pneumonia and/or tuberculosis - Can complete course of PO ABX - inhaled bronchodilators - O2 to keep SpO2 >90% - will need outpt PFTs and f/u - smoking cessation - CT chest for followup in [address] Chen
[2017-07-21] MEDS: DOCUSATE SODIUM 100 MG CAPSULE (FP) PO SCH (10:11)
[2017-07-21] MEDS: traMADol HCL 50 MG TABLET PO SCH (10:23)
[2017-07-21] MEDS: ONDANSETRON 4 MG/2 ML VIAL IVPB PRN (10:26)
[2017-07-21 11:00] LABS: ACANTHOCYTES 0; ANISOCYTOSIS 0; HELMET CELLS 0; HOWELL-JOLLY BODIES 0; MACROCYTOSIS 0; OVALOCYTE 0; PLATELET ESTIMATE NORMAL; ROULEAU 0; SICKELED CELLS 0; TARGET CELLS 0; TEAR DROP CELLS 0; TOXIC GRANULATION 0
--- NOTE | 2017-07-21 12:29 | PN ---
Teaching Attending Note Name of Resident: Katherine Cruz ATTENDING PHYSICIAN STATEMENT I saw and evaluated the patient. I reviewed the resident's note and discussed the case with the resident. I agree with the resident's findings and plan as documented. SUBJECTIVE:states breathing has improved. had some nausea last night with eating that self resolved. denies CP, SOB, fever, chills, V/C/D OBJECTIVE: Last Vital Signs Temp Pulse Resp BP Pulse Ox 99.5 F 91 H 20 132/69 99 07/21/17 05:00 07/21/17 05:00 07/21/17 05:00 07/21/17 05:00 07/20/17 21:00 General NAD lungs CTA B/L no wheeizng/rales/rhonchi ASSESSMENT AND PLAN: 82 yom with HTN admitted with fevers/cough, suspect PNA, also with nausea, vomiting abdominal pain found with Cholelithiasis and dialted CBD but normal LFTs 1. sepsis due to PNA- clinically improved. saturating 94% on RA. on Levaquin day 6. Cx to date are negative. check pre and post. cont daily chest PT. ulegionella/strep negative. will need repeat imaging in 4-6weeks 2. Cholelithasis with dilated CBD- seen on MRCP. family now agreeable to ERCP. NPO tongiht for ERCP in AM. will likely require cholecystectomy. Cont empiric Flagyl. normal LFT 3. COPD/bronchiectasis- 4. hyponatremia- improved. 5. Hypokalemia- resolved 6. hypophosphatemia- neutraphos 7. HTN- improved. cont current managmeent 8. DVT ppx- hep sq.
[2017-07-21] MEDS: NAPH,MB-DB/K PH,MBDB POWDER PACKET PO SCH (12:44)
[2017-07-21] MEDS: guaiFENesin 200 MG/10 ML 10 ML UNIT-DOSE CUPS PO PRN ×2 (17:52→22:21)
--- NOTE | 2017-07-21 21:58 | PN ---
GI Progress Note Subjective: GO NOte: I came in tonight to discuss the ERCP procedure with Mr. Calderón. I brought the [place] but he insisted that I procure the consent using his son Marli as head worker by phone which I did. I explained to both of them that the CBD stones pose the risk of ascending cholangitis with sepsis, biliary pancreatitis and liver failure among others. I described the ERCP procedure and that it will be done under general anesthesia. I explained that he will subsequently also need a cholecystectomy to keep this from recurring. I explained than among others the ERCP has the potential for such risks as perforation and hemorrhage leading to emergency surgery and for causing pancreatitis that can lead to severe nausea, vomiting and pain and to multiorgan failure. After Aristides explained that to his father I asked whether he had any questions and he replied no. He then signed an informed consent. I asked Aristides to be present tomorrow to help facilitate obtaining anesthesia consent. GI consultation brigitte not need to be repeated as Dr Waldron has already provided this. - Objective Vital Signs: Vital Signs Temperature 97.9 F 07/21/17 18:50 Pulse Rate 115 H 07/21/17 18:50 Respiratory Rate 18 07/21/17 18:50 Blood Pressure 120/64 07/21/17 18:50 O2 Sat by Pulse Oximetry (%) 99 07/21/17 09:00 Laboratory Tests 07/16/17 07/21/17 07/21/17 18:19 06:00 06:00 WBC 5.8 Hgb 11.8 PT with INR 10.70 Total Bilirubin 0.3 D AST 29 ALT 22 Alkaline Phosphatase 43 L Constitutional: Calm Eyes: Yes: Conjunctiva Clear Cardiovascular: Yes: Regular Rate and Rhythm Respiratory: Yes: Cough, Rhonchi (bilaterally) ...Auscultate: Yes: Normoactive Bowel Sounds ...Palpate: Yes: Soft, Other (nontender) Labs: CBC, BMP 07/21/17 06:00 07/21/17 06:00 INR, PTT INR 0.95 (0.82-1.09) 07/16/17 18:19 Problem List - Problems (1) Choledocholithiasis Assessment/Plan: I agree that Macario should have his CBD stones removed. This is not however emergent at this time and may need to be deferred until his pulmonary function is optimized. I will request a pulmonary clearance before subjecting Mr. Calderón to GET and ERCP. If cleared I am prepared to proceed with ERCP tomorrow and will hold his heparin. Surgical consultation for cholecystectomy should also be obtained if anesthesia this surgery is feasible. Will start Actigall should ERCP need to be deferred. Code(s): K80.50 - CALCULUS OF BILE DUCT W/O CHOLANGITIS OR CHOLECYST W/O OBST (2) COPD (chronic obstructive pulmonary disease) with emphysema Code(s): J43.9 - EMPHYSEMA, UNSPECIFIED (3) Pneumonia Code(s): J18.9 - PNEUMONIA, UNSPECIFIED ORGANISM Qualifiers: Pneumonia type: due to unspecified organism Laterality: right Lung location: lower lobe of lung Qualified Code(s): J18.1 - Lobar pneumonia, unspecified organism
[2017-07-21] MEDS: MELATONIN 5 MG TABLETS PO SCH (22:17)
[2017-07-22] MEDS: ALBUTEROL SO4 2.5/IPRATROPIUM 0.5 INH SOL 3 ML VIAL.NEB. NEB SCH ×4 (07:30→20:28)
[2017-07-22 07:47] LABS: BASO % 0.7 % (0-2.0); EOS % 0.2 % (0-4.5); HEMATOCRIT 29.8 % (35.4-49); HEMOGLOBIN 10.3 GM/dL (11.7-16.9); LYMPH % 12.5 % (8-40); MCHC 34.7 g/dl (32.0-35.9); MEAN PLT VOLUME 7.5 fl (7.5-11.1); MONO % 8.5 % (3.8-10.2); NEUT % 78.1 % (42.8-82.8); PLATELET COUNT 293 K/MM3 (134-434); RBC 3.04 M/mm3 (4.00-5.60); RDW 14.3 % (11.9-15.9); WHITE BLOOD COUNT 7.2 K/mm3 (4.0-10.0)
--- NOTE | 2017-07-22 07:59 | PN ---
Physical Exam: SUBJECTIVE: Patient seen and examined. Received zofran for nausea in am. No vomiting. Scheduled for ERCP tomorrow OBJECTIVE: Vital Signs Period Temp Pulse Resp BP Sys/Jones Pulse Ox Last 24 Hr 97.5 F-98.3 F 107-115 18-20 104-124/56-68 92-99 GENERAL: The patient is awake, alert, and fully oriented, On NC LUNGS: Breath sounds equal, clear to auscultation bilaterally, scattered rhonchi. HEART: Regular rate and rhythm, S1, S2 without murmur ABDOMEN: Soft, nontender, nondistended, negative murphys sign, normoactive bowel sounds, no guarding EXTREMITIES: 2+ pulses, warm, well-perfused, no edema. NEUROLOGICAL: Cranial nerves II through XII grossly intact. Normal speech, normal gait Selected Entries 07/21/17 07/21/17 07/21/17 01:00 05:00 09:00 Temperature 98.2 F 99.5 F Pulse Rate 93 H 91 H Respiratory 20 20 Rate Blood Pressure 145/73 132/69 Blood Pressure 97 90 Mean O2 Sat by Pulse 99 Oximetry (%) Oxygen Delivery Nasal Cannula Method Laboratory Tests 07/21/17 07/21/17 06:00 06:00 WBC 5.8 RBC 3.55 L Hgb 11.8 Hct 34.2 L MCV 96.4 H MCH 33.4 MCHC 34.6 RDW 14.3 Plt Count 272 Sodium 136 Potassium 3.9 Chloride 103 Carbon Dioxide 29 Anion Gap 4 L BUN 9 D Creatinine 0.4 L D Creat Clearance w eGFR > 60 Random Glucose 93 Calcium 7.0 L Phosphorus 2.4 L D Magnesium 2.2 Total Bilirubin 0.3 D AST 29 ALT 22 Alkaline Phosphatase 43 L Total Protein 5.0 L Albumin 2.4 L Laboratory Results - last 24 hr 07/21/17 07/21/17 06:00 06:00 WBC 5.8 RBC 3.55 L Hgb 11.8 Hct 34.2 L MCV 96.4 H MCH 33.4 MCHC 34.6 RDW 14.3 Plt Count 272 MPV 7.5 Total Counted 100 Neutrophils % 75.0 Neutrophils % (Manual) 69.0 Band Neutrophils % 0.0 Lymphocytes % 15.0 D Lymphocytes % (Manual) 14.0 Monocytes % 9.0 Monocytes % (Manual) 11 H Eosinophils % 0.3 Eosinophils % (Manual) 2.0 Basophils % 0.7 Basophils % (Manual) 0.0 Myelocytes % (Man) 3 H Promyelocytes % (Man) 0 Blast Cells % (Manual) 0 Nucleated RBC % 0 Metamyelocytes 0 Hypochromia 0 Toxic Granulation 0 Dohle Bodies 0 Platelet Estimate Normal Polychromasia 0 Poikilocytosis 0 Basophilic Stippling 0 Anisocytosis 0 Microcytosis 0 Macrocytosis 0 Spherocytes 0 Sickle Cells 0 Target Cells 0 Tear Drop Cells 0 Ovalocytes 0 Stomatocytes 0 Helmet Cells 0 [place] Bodies 0 [place] Rings 0 Ro Cells 0 Acanthocytes (Spur) 0 Rouleaux 0 Fragmented RBCs 0 Schistocytes 0 BUN 9 D Active Medications Generic Name Dose Route Start Last Admin Trade Name Freq PRN Reason Stop Dose Admin Albuterol Sulfate 1 amp 07/16/17 22:08 07/17/17 21:59 Ventolin 0.083% Nebulizer Soln - NEB 1 amp Q6H PRN Administration SHORT OF BREATH/WHEEZING Albuterol/Ipratropium 1 amp 07/18/17 16:00 07/21/17 20:37 Duoneb - NEB 1 amp RQID RAYSHAWN Administration Docusate Sodium 100 mg 07/17/17 10:00 07/21/17 10:11 Colace - PO 100 mg DAILY RAYSHAWN Administration Guaifenesin 10 ml 07/17/17 14:11 07/21/17 22:21 Robitussin - PO 10 ml Q4H PRN Administration COUGH Levofloxacin 500 mg in 100 mls @ 100 mls/hr 07/17/17 10:00 07/21/17 10:10 Levaquin 500 Mg Premixed Ivpb - IVPB 100 mls/hr DAILY RAYSHAWN Administration Protocol Metronidazole 500 mg in 100 mls @ 100 mls/hr 07/18/17 09:00 07/22/17 01:55 Flagyl 500mg Premixed Ivpb - IVPB 100 mls/hr Q8H-IV RAYSHAWN Administration Melatonin 10 mg 07/21/17 22:00 07/21/17 22:17 Melatonin PO 10 mg HS RAYSHAWN Administration Ondansetron HCl 4 mg 07/20/17 19:35 07/21/17 10:26 Zofran Injection IVPB 4 mg Q6H PRN Administration NAUSEA Potassium Phos/Sodium Phos 2 packet 07/21/17 11:30 07/21/17 12:44 Phos-Nak Packet - PO 2 packet DAILY RAYSHAWN Administration Tramadol HCl 50 mg 07/20/17 15:15 07/21/17 10:23 Ultram - PO Not Given DAILY RAYSHAWN Phone number: [phone]- daughter (Kaye) Phone number [phone]- Son in law Phone number [phone]- Aristides- Son ASSESSMENT/PLAN: 82 year old male with a significant PMH of HTN who presents to the emergency department for evaluation of diffuse abdominal pain, vomiting and fever. He was admitted for PNA. #Sepsis 2/ PNA -got Zosyn in ED -on Levaquin 500 daily -07/17/17 (day 5) (received azithromycin recently as an outpatient)- continue for 7 days -afebrile -r/o Legionella -Cx and Urine labs negative #COPD -noted on CT -15 pack/yr smoker -Pulm consult:duonebs, albuterol, no systemic steroids -Echo pending -De sated after pre and post to 87%- will need home oxygen- contacted case management - Continue Oxygen supplementation as needed #Cholelithiasis -CT: distal gallstone. No wall thickening or pericholecystic fluid. dilated CBD -US: gallstones with sludge, dilated CBD -LFTs normal -No abd pain now -GI consult appreciated: likely incidental. -Continue Metronidazole- started 07/18/16 - NPO after midnight -PT/INR #Hyponatremia -Improving -kidneys unremarkable #HTN -well controlled at this time - Not on home antihypertensive #FEN -hyponatremia -Fat controlled diet #PPx -Hep SubQ hold #Dispo Will need home oxygen For ERCP Visit type - Emergency Visit Emergency Visit: Yes ED Registration Date: 07/16/17 Care time: The patient presented to the Emergency Department on the above date and was hospitalized for further evaluation of their emergent condition. - New Patient This patient is new to me today: No - Critical Care Critical Care patient: No - Discharge Referral Referred to [facility] Med P.C.: No
[2017-07-22 08:10] LABS: INR 1.13 (0.82-1.09); PROTHROMBIN TIME (PATIENT) 12.8 SEC (9.7-13.0)
[2017-07-22 08:12] LABS: ACTIVATED PTT 37.1 SECONDS (26.9-34.4)
[2017-07-22 08:30] LABS: ALBUMIN 2.5 g/dl (3.4-5.0); ALK PHOS 42 U/L (45-117); ANION GAP 8 (8-16); BILIRUBIN,TOTAL 0.3 mg/dL (0.2-1.0); BLOOD UREA NITROGEN 21 mg/dL (7-18); CALCIUM 7.5 mg/dL (8.5-10.1); CHLORIDE 102 mmol/L (98-107); CO2 29 mmol/L (21-32); CREATININE 0.5 mg/dL (0.7-1.3); GLUCOSE,RANDOM 102 mg/dL (74-106); PHOSPHOROUS 2.7 mg/dL (2.5-4.9); POTASSIUM 4.3 mmol/L (3.5-5.1); SGOT/AST 47 U/L (15-37); SGPT/ALT 31 U/L (12-78); SODIUM 139 mmol/L (136-145); TOT PROT 4.9 g/dl (6.4-8.2)
[2017-07-22] MEDS: traMADol HCL 50 MG TABLET PO SCH (10:15)
[2017-07-22] MEDS ORDERED: PANTOPRAZOLE SODIUM 80 MG in SODIUM CHLORIDE 100 ML IVPB SCH (10:45)
[2017-07-22] MEDS: DOCUSATE SODIUM 100 MG CAPSULE (FP) PO SCH (11:06)
[2017-07-22] MEDS: NAPH,MB-DB/K PH,MBDB POWDER PACKET PO SCH (11:06)
--- NOTE | 2017-07-22 11:07 | CONSULT ---
- Consultation REQUESTING PROVIDER: Holly ASTORGA CONSULT REQUEST: We have been asked to surgically evaluate this patient for symptomatic biliary tract disease PCP:Sloane Barrera HISTORY OF PRESENT ILLNESS: Patient presented 07/16/17 w/fever; cough and abdominal pain and nausea and vomiting; he was found to be septic w/his lung as the probable source and/or his biliary tract; he was found to have cholelithiasis/choledocholithiasis which he may or may not have known about; he had an US/CT a/p/MRCP and GI Consultation; surgical consultation was requested ; he has been eating and as best as can be determined has no abdominal pain. PMHx: unknown PSHx: none ? Home Medications Medication Instructions Recorded Azithromycin 250 mg PO DAILY 07/16/17 Benzonatate 200 mg PO DAILY 07/16/17 Celecoxib [Celebrex] 200 mg PO DAILY 07/16/17 Docusate Sodium [Colace] 100 mg PO DAILY 07/16/17 Tramadol HCl 50 mg PO DAILY 07/16/17 Zolpidem Tartrate [Ambien] 10 mg PO DAILY 07/16/17 Allergies Allergy/AdvReac Type Severity Reaction Status Date / Time No Known Allergies Allergy Verified 07/16/17 17:52 PHYSICAL EXAM: GENERAL: Awake, alert, and appears fully oriented, in no acute distress. HEAD: Normal with no signs of trauma. EYES: PERRL, sclera anicteric, conjunctiva clear. NECK: Normal ROM, supple without lymphadenopathy, JVD, or masses. ABDOMEN: Soft, nontender, not distended, normoactive bowel sounds, no guarding, no rebound, no masses. No organomegaly. No hernias MUSCULOSKELETAL: Normal ROM at all joints. No bony deformities or tenderness. No CVA tenderness. UPPER EXTREMITIES: 2+ pulses, warm, well-perfused. No cyanosis. Cap refill <2 seconds. No peripheral edema. LOWER EXTREMITIES: 2+ pulses, warm, well-perfused. No calf tenderness. No peripheral edema. NEUROLOGICAL: Normal speech, gait not observed. PSYCH: Cooperative. Good eye contact. Appropriate mood and affect. SKIN: Warm, dry, normal turgor, no rashes or lesions noted. Vital Signs Temperature 98.3 F 07/22/17 05:37 Pulse Rate 112 H 07/22/17 05:37 Respiratory Rate 18 07/22/17 05:37 Blood Pressure 104/56 07/22/17 05:37 O2 Sat by Pulse Oximetry (%) 92 L 07/21/17 21:00 Lab Results WBC 7.2 K/mm3 (4.0-10.0) 07/22/17 06:30 RBC 3.04 M/mm3 (4.00-5.60) L 07/22/17 06:30 Hgb 10.3 GM/dL (11.7-16.9) L D 07/22/17 06:30 Hct 29.8 % (35.4-49) L 07/22/17 06:30 MCV 98.0 fl (80-96) H 07/22/17 06:30 MCHC 34.7 g/dl (32.0-35.9) 07/22/17 06:30 RDW 14.3 % (11.9-15.9) 07/22/17 06:30 Plt Count 293 K/MM3 (134-434) 07/22/17 06:30 Sodium 139 mmol/L (136-145) 07/22/17 06:30 Potassium 4.3 mmol/L (3.5-5.1) 07/22/17 06:30 Chloride 102 mmol/L (98-107) 07/22/17 06:30 Carbon Dioxide 29 mmol/L (21-32) 07/22/17 06:30 Anion Gap 8 (8-16) 07/22/17 06:30 BUN 21 mg/dL (7-18) H D 07/22/17 06:30 Creatinine 0.5 mg/dL (0.7-1.3) L D 07/22/17 06:30 Random Glucose 102 mg/dL (74-106) 07/22/17 06:30 Calcium 7.5 mg/dL (8.5-10.1) L 07/22/17 06:30 INR 1.13 (0.82-1.09) 07/22/17 06:30 Imaging w/u to date reviewed IMP: cholelithiasis; choledocholithiasi PLAN: Agree w/ plan and management to date; he is pending an ERCP ad related procedures today and then should have a lap aurelia possible open; this will be d/ w his family; he will need risk stratification a/t the NSQIP Surgical Risk Calculator. Carlo f/u Felipe Galindo MD FACS
[2017-07-22 11:14] LABS: BASO % 0.6 % (0-2.0); EOS % 0.1 % (0-4.5); HEMATOCRIT 30.8 % (35.4-49); HEMOGLOBIN 10.7 GM/dL (11.7-16.9); MCH 33.5 pg (25.7-33.7); MCHC 34.8 g/dl (32.0-35.9); MEAN CELL VOLUME 96.3 fl (80-96); MEAN PLT VOLUME 6.9 fl (7.5-11.1); MONO % 8.2 % (3.8-10.2); NEUT % 78.1 % (42.8-82.8); PLATELET COUNT 302 K/MM3 (134-434); RDW 14.7 % (11.9-15.9); WHITE BLOOD COUNT 6.5 K/mm3 (4.0-10.0)
--- NOTE | 2017-07-22 11:29 | CON.CARD ---
Cardiology Consult (text) - Consultation Consultation Note: cc: n/v/abd pain hpi: 82 m hx htn here with n/v/abd pain. No hx hrt dz. No cp, palps, dizzy, loc, pnd, orthopnea, le edema. No anginal sxs with daily activities. Occasional mild sob. Found to have CBD stone, planned for ercp. pmh:per hpi psh: nc social: +tob fam: nc ros: per hpi; no fever, cough, gib, hematuria, dysuria, jimenez, vision changes meds: Ambulatory Orders Azithromycin 250 mg PO DAILY 07/16/17 Benzonatate 200 mg PO DAILY 07/16/17 Celecoxib [Celebrex] 200 mg PO DAILY 07/16/17 Docusate Sodium [Colace] 100 mg PO DAILY 07/16/17 Tramadol HCl 50 mg PO DAILY 07/16/17 Zolpidem Tartrate [Ambien] 10 mg PO DAILY 07/16/17 pe: Vital Signs Period Temp Pulse Resp BP Sys/Jones Pulse Ox Last 24 Hr 97.5 F-98.3 F 104-115 18-20 104-137/56-72 92 nad no jvd rrr s1 s2 no mrg rhonchi, nl eff aaox3 no le e/c/c abd nt nd pos bs no jaundice diaphoresis pos dp pt no carotid bruits Laboratory Last Values WBC 6.5 K/mm3 (4.0-10.0) 07/22/17 11:03 RBC 3.20 M/mm3 (4.00-5.60) L 07/22/17 11:03 Hgb 10.7 GM/dL (11.7-16.9) L 07/22/17 11:03 Hct 30.8 % (35.4-49) L 07/22/17 11:03 MCV 96.3 fl (80-96) H 07/22/17 11:03 MCH 33.5 pg (25.7-33.7) 07/22/17 11:03 MCHC 34.8 g/dl (32.0-35.9) 07/22/17 11:03 RDW 14.7 % (11.9-15.9) 07/22/17 11:03 Plt Count 302 K/MM3 (134-434) 07/22/17 11:03 MPV 6.9 fl (7.5-11.1) L 07/22/17 11:03 Total Counted 100 07/21/17 06:00 Neutrophils % 78.1 % (42.8-82.8) 07/22/17 11:03 Neutrophils % (Manual) 69.0 % (42.8-82.8) 07/21/17 06:00 Band Neutrophils % 0.0 % 07/21/17 06:00 Lymphocytes % 13.0 % (8-40) 07/22/17 11:03 Lymphocytes % (Manual) 14.0 % (8-40) 07/21/17 06:00 Monocytes % 8.2 % (3.8-10.2) 07/22/17 11:03 Monocytes % (Manual) 11 % (3.8-10.2) H 07/21/17 06:00 Eosinophils % 0.1 % (0-4.5) 07/22/17 11:03 Eosinophils % (Manual) 2.0 % (0-4.5) 07/21/17 06:00 Basophils % 0.6 % (0-2.0) 07/22/17 11:03 Basophils % (Manual) 0.0 % (0-2.0) 07/21/17 06:00 Myelocytes % (Man) 3 % (0-2) H 07/21/17 06:00 Promyelocytes % (Man) 0 % (0-2) 07/21/17 06:00 Blast Cells % (Manual) 0 % (0-0) 07/21/17 06:00 Nucleated RBC % 0 % (0-0) 07/22/17 11:03 Metamyelocytes 0 % (0-2) 07/21/17 06:00 Hypochromia 0 07/21/17 06:00 Toxic Granulation 0 07/21/17 06:00 Dohle Bodies 0 07/21/17 06:00 Platelet Estimate Normal 07/21/17 06:00 Polychromasia 0 07/21/17 06:00 Poikilocytosis 0 07/21/17 06:00 Basophilic Stippling 0 07/21/17 06:00 Anisocytosis 0 07/21/17 06:00 Microcytosis 0 07/21/17 06:00 Macrocytosis 0 07/21/17 06:00 Spherocytes 0 07/21/17 06:00 Sickle Cells 0 07/21/17 06:00 Target Cells 0 07/21/17 06:00 Tear Drop Cells 0 07/21/17 06:00 Ovalocytes 0 07/21/17 06:00 Stomatocytes 0 07/21/17 06:00 Helmet Cells 0 07/21/17 06:00 Villar-[place] Bodies 0 07/21/17 06:00 [place] Rings 0 07/21/17 06:00 Ro Cells 0 07/21/17 06:00 Acanthocytes (Spur) 0 07/21/17 06:00 Rouleaux 0 07/21/17 06:00 Fragmented RBCs 0 07/21/17 06:00 Schistocytes 0 07/21/17 06:00 PT with INR 12.80 SEC (9.7-13.0) 07/22/17 06:30 INR 1.13 (0.82-1.09) 07/22/17 06:30 PTT (Actin FS) 37.1 SECONDS (26.9-34.4) H 07/22/17 06:30 VBG pH 7.42 (7.32-7.42) 07/16/17 18:19 POC VBG pCO2 42.9 mmHg (38-52) 07/16/17 18:19 POC VBG pO2 40.2 mmHg (28-48) 07/16/17 18:19 Mixed VBG HCO3 27.6 meq/L (19-25) H 07/16/17 18:19 Sodium 139 mmol/L (136-145) 07/22/17 06:30 Potassium 4.3 mmol/L (3.5-5.1) 07/22/17 06:30 Chloride 102 mmol/L (98-107) 07/22/17 06:30 Carbon Dioxide 29 mmol/L (21-32) 07/22/17 06:30 Anion Gap 8 (8-16) 07/22/17 06:30 BUN 21 mg/dL (7-18) H D 07/22/17 06:30 Creatinine 0.5 mg/dL (0.7-1.3) L D 07/22/17 06:30 Creat Clearance w eGFR > 60 (>60) 07/22/17 06:30 Random Glucose 102 mg/dL (74-106) 07/22/17 06:30 Lactic Acid 1.0 mmol/L (0.0-2.0) 07/16/17 18:19 Calcium 7.5 mg/dL (8.5-10.1) L 07/22/17 06:30 Phosphorus 2.7 mg/dL (2.5-4.9) 07/22/17 06:30 Magnesium 2.0 mg/dL (1.8-2.4) 07/22/17 06:30 Total Bilirubin 0.3 mg/dL (0.2-1.0) 07/22/17 06:30 Direct Bilirubin 0.2 mg/dL (0.0-0.2) 07/18/17 06:41 AST 47 U/L (15-37) H D 07/22/17 06:30 ALT 31 U/L (12-78) D 07/22/17 06:30 Alkaline Phosphatase 42 U/L (45-117) L 07/22/17 06:30 Troponin I < 0.02 ng/ml (0.00-0.05) 07/17/17 06:25 B-Natriuretic Peptide 275.71 pg/ml (5-450) 07/17/17 06:25 Total Protein 4.9 g/dl (6.4-8.2) L 07/22/17 06:30 Albumin 2.5 g/dl (3.4-5.0) L 07/22/17 06:30 Total Amylase 116 U/L (25-115) H 07/16/17 18:05 Lipase 139 U/L (73-393) 07/16/17 18:05 Urine Color Ltyellow 07/16/17 19:38 Urine Appearance Clear 07/16/17 19:38 Urine pH 6.0 (5.0-8.0) 07/16/17 19:38 Ur Specific Wrights 1.015 (1.001-1.035) 07/16/17 19:38 Urine Protein Negative (NEGATIVE) 07/16/17 19:38 Urine Glucose (UA) Negative (NEGATIVE) 07/16/17 19:38 Urine Ketones 1+ (NEGATIVE) H 07/16/17 19:38 Urine Blood Negative (NEGATIVE) 07/16/17 19:38 Urine Nitrite Negative (NEGATIVE) 07/16/17 19:38 Urine Bilirubin Negative (<2.0 mg/dL) 07/16/17 19:38 Urine Urobilinogen Negative mg/dL (0.2-1.0) 07/16/17 19:38 Ur Leukocyte Esterase Negative (NEGATIVE) 07/16/17 19:38 Urine Osmolality 317 mosm/kg (300-900) 07/17/17 06:15 Ur Random Sodium 86 MMOL/L 07/17/17 06:29 Urine Creatinine 23.3 mg/dL (20-370) 07/17/17 06:15 ecgs reviewed: sr/st, nl intervals, no ischemic changes echo 06/2017: nl lv/rv, mild mr, cxr: no chf a/p: 82 m hx htn here with n/v/abd pain. Cholelithiasis/Choledocholithiasis: -plans per GI, scheduled for ercp -no unstable cardiac issues at present. ecg and echo unremarkable. no cardiac contraindications to ercp. htn: -stable off meds, monitor for now smoking, likely copd: -smoking cessation -plans per pulm
--- NOTE | 2017-07-22 12:31 | PN ---
Progress Note, Physician History of Present Illness: PULMONARY ALERT,LAYING BED,+SOB EARLIER CURRENTLY COMFORTABLE,-RESP DISTRESS. + MELENA - Current Medication List Current Medications: Active Medications Albuterol Sulfate (Ventolin 0.083% Nebulizer Soln -) 1 amp NEB Q6H PRN PRN Reason: SHORT OF BREATH/WHEEZING Last Admin: 07/17/17 21:59 Dose: 1 amp Albuterol/Ipratropium (Duoneb -) 1 amp NEB RQID [facility] Last Admin: 07/22/17 11:42 Dose: 1 amp Docusate Sodium (Colace -) 100 mg PO DAILY [facility] Last Admin: 07/22/17 11:06 Dose: Not Given Guaifenesin (Robitussin -) 10 ml PO Q4H PRN PRN Reason: COUGH Last Admin: 07/21/17 22:21 Dose: 10 ml Levofloxacin (Levaquin 500 Mg Premixed Ivpb -) 500 mg in 100 mls @ 100 mls/hr IVPB DAILY [facility]; Protocol Last Admin: 07/22/17 10:19 Dose: 100 mls/hr Metronidazole (Flagyl 500mg Premixed Ivpb -) 500 mg in 100 mls @ 100 mls/hr IVPB Q8H-IV RAYSHAWN Last Admin: 07/22/17 10:16 Dose: 100 mls/hr Pantoprazole Sodium 80 mg/ (Sodium Chloride) 100 mls @ 10 mls/hr IVPB Q10H RAYSHAWN Melatonin (Melatonin) 10 mg PO HS [facility] Last Admin: 07/21/17 22:17 Dose: 10 mg Ondansetron HCl (Zofran Injection) 4 mg IVPB Q6H PRN PRN Reason: NAUSEA Last Admin: 07/21/17 10:26 Dose: 4 mg Potassium Phos/Sodium Phos (Phos-Nak Packet -) 2 packet PO DAILY [facility] Last Admin: 07/22/17 11:06 Dose: Not Given Tramadol HCl (Ultram -) 50 mg PO DAILY [facility] Last Admin: 07/22/17 10:15 Dose: Not Given - Objective Vital Signs: Vital Signs Temperature 98.3 F 07/22/17 05:37 Pulse Rate 104 H 07/22/17 09:00 Respiratory Rate 18 07/22/17 09:00 Blood Pressure 137/72 07/22/17 09:00 O2 Sat by Pulse Oximetry (%) 92 L 05/31/18 21:00 Constitutional: Yes: Well Nourished, Calm Eyes: Yes: WNL HENT: Yes: WNL Neck: Yes: WNL Cardiovascular: Yes: Regular Rate and Rhythm, S1, S2 Respiratory: Yes: Rhonchi (SCATTERED KATELYNN RHONCHI) Gastrointestinal: Yes: Normal Bowel Sounds, Soft Extremities: Yes: WNL Edema: No Labs: CBC, BMP 07/22/17 11:03 07/22/17 06:30 INR, PTT INR 1.13 (0.82-1.09) 07/22/17 06:30 - ....Imaging Chest X-ray: Image Reviewed (NO CHANGE) Problem List - Problems (1) Bronchiectasis Code(s): J47.9 - BRONCHIECTASIS, UNCOMPLICATED (2) Bronchiectasis Code(s): J47.9 - BRONCHIECTASIS, UNCOMPLICATED Assessment/Plan Problem List - Problems (1) Choledocholithiasis Code(s): K80.50 - CALCULUS OF BILE DUCT W/O CHOLANGITIS OR CHOLECYST W/O OBST (2) HTN (hypertension) Code(s): I10 - ESSENTIAL (PRIMARY) HYPERTENSION Qualifiers: Hypertension type: essential hypertension Qualified Code(s): I10 - Essential (primary) hypertension (3) Hyponatremia Code(s): E87.1 - HYPO-OSMOLALITY AND HYPONATREMIA (4) Pneumonia Code(s): J18.9 - PNEUMONIA, UNSPECIFIED ORGANISM Qualifiers: Pneumonia type: due to unspecified organism Laterality: right Lung location: lower lobe of lung Qualified Code(s): J18.1 - Lobar pneumonia, unspecified organism Assessment/Plan COPD/Emphysema Bronchiectasis Cholelithiasis/Choledocholithiasis HTN Smoker MELENA - CT findings likely due to long history of smoking, prior pneumonia and/or tuberculosis - empiric antibiotics given areas of bronchiectasis - standing duonebs and PRN albuterol - O2 to keep SpO2 >90% - outpt PFTs and f/u - smoking cessation - DVT prophylaxis - medrol - GI w/u no absolute pulmonary contraindication for EGD DR FERRO
[2017-07-22] MEDS ORDERED: DEXTROSE 5%-NORMAL SALINE 1,000 ML IV SCH (13:00)
[2017-07-22 13:12] LABS: HEMATOCRIT 30.3 % (35.4-49); HEMOGLOBIN 10.3 GM/dL (11.7-16.9); MCH 32.7 pg (25.7-33.7); MCHC 33.8 g/dl (32.0-35.9); MEAN CELL VOLUME 96.7 fl (80-96); MEAN PLT VOLUME 7.4 fl (7.5-11.1); PLATELET COUNT 318 K/MM3 (134-434); RBC 3.14 M/mm3 (4.00-5.60); WHITE BLOOD COUNT 6.1 K/mm3 (4.0-10.0)
--- NOTE | 2017-07-22 13:27 | PN ---
Physical Exam: SUBJECTIVE: Patient seen and examined. No N/V. Was ambulating without oxygen. Scheduled for ERCP today. OBJECTIVE: Vital Signs Period Temp Pulse Resp BP Sys/Jones Pulse Ox Last 24 Hr 97.5 F-98.3 F 104-115 18-20 104-137/56-72 92-98 Vital Signs Temp 98.3 F 07/22/17 05:37 Pulse 104 H 07/22/17 09:00 Resp 18 07/22/17 09:00 BP 137/72 07/22/17 09:00 Pulse Ox 98 07/22/17 09:00 Intake & Output 07/21/17 07/22/17 07/22/17 23:59 11:59 23:59 Intake Total 950 300 Balance 950 300 Intake: IVPB 100 Oral 750 200 Oral Supplement 200 Other: Voiding Method Toilet Toilet # Unmeasured Voids Void 2 2 Bowel Movement Yes Yes # Bowel Movements 1 GENERAL: The patient is awake, alert, and fully oriented, in no acute respiratory distress. Speaking in full sentences on RA- Sats-88% LUNGS: Breath sounds equal, clear to auscultation bilaterally, no wheezes, no crackles, no rhonchi. Some kyphoscoliosis HEART: Regular rate and rhythm, S1, S2 without murmur ABDOMEN: Soft, nontender, nondistended, negative murphys sign, normoactive bowel sounds, no guarding EXTREMITIES: 2+ pulses, warm, well-perfused, no edema. NEUROLOGICAL: Cranial nerves II through XII grossly intact. Normal speech, normal gait Active Medications Generic Name Dose Route Start Last Admin Trade Name Freq PRN Reason Stop Dose Admin Albuterol Sulfate 1 amp 07/16/17 22:08 07/17/17 21:59 Ventolin 0.083% Nebulizer Soln - NEB 1 amp Q6H PRN Administration SHORT OF BREATH/WHEEZING Albuterol/Ipratropium 1 amp 07/18/17 16:00 07/22/17 11:42 Duoneb - NEB 1 amp RQID RAYSHAWN Administration Docusate Sodium 100 mg 07/17/17 10:00 07/22/17 11:06 Colace - PO Not Given DAILY RAYSHAWN Guaifenesin 10 ml 07/17/17 14:11 07/21/17 22:21 Robitussin - PO 10 ml Q4H PRN Administration COUGH Levofloxacin 500 mg in 100 mls @ 100 mls/hr 07/17/17 10:00 07/22/17 10:19 Levaquin 500 Mg Premixed Ivpb - IVPB 100 mls/hr DAILY RAYSHAWN Administration Protocol Metronidazole 500 mg in 100 mls @ 100 mls/hr 07/18/17 09:00 07/22/17 10:16 Flagyl 500mg Premixed Ivpb - IVPB 100 mls/hr Q8H-IV RAYSHAWN Administration Pantoprazole Sodium 160 mg/ 290 mls @ 14.5 mls/hr 07/22/17 13:00 Sodium Chloride IVPB DAILY RAYSHAWN 8 MG/HR Dextrose/Sodium Chloride 1,000 mls @ 42 mls/hr 07/22/17 13:00 D5-Ns - IV ASDIR RAYSHAWN Melatonin 10 mg 07/21/17 22:00 07/21/17 22:17 Melatonin PO 10 mg HS RAYSHAWN Administration Methylprednisolone Sodium Succinate 40 mg 07/22/17 12:45 Solu-Medrol - IVPUSH Q8H-IV RAYSHAWN Ondansetron HCl 4 mg 07/20/17 19:35 07/21/17 10:26 Zofran Injection IVPB 4 mg Q6H PRN Administration NAUSEA Potassium Phos/Sodium Phos 2 packet 07/21/17 11:30 07/22/17 11:06 Phos-Nak Packet - PO Not Given DAILY RAYSHAWN Tramadol HCl 50 mg 07/20/17 15:15 07/22/17 10:15 Ultram - PO Not Given DAILY RAYSHAWN -Cx and Urine labs negative ECHO: Grossly normal LV function Phone number: [phone]- daughter (Kaye) Phone number [phone]- Son in law Phone number [phone]- Aristides- Son ASSESSMENT/PLAN: 82 year old male with a significant PMH of HTN who presents to the emergency department for evaluation of diffuse abdominal pain, vomiting and fever. He was admitted for PNA #Melena: -Now s/p endoscopy -Pt was noted to have melena stools today -Was put on iv protonix -Dr Ruggiero was contacted -Pt scheduled for EGD -Son Aristides and daughter Kaye contacted -Consent was obtained -Noted to have a gastric fundus bleeding ulcer, bleeding controlled with epinephrine -Preplanned ERCP was differed due to increased complications in setting of newly identified gastric ulcer -Per Dr Ruggiero-EGD will need to be repeated after 3 months of PPI therapy to assure that the ulcer is not malignant. - The ERCP will be deferred until then unless cholangitis, pancreatitis or jaundice ensues. - Actigall given -Will continue PPI infusion #Cholelithiasis/choledocholithiasis -CT: distal gallstone. No wall thickening or pericholecystic fluid. dilated CBD -US: gallstones with sludge, dilated CBD -GI consult appreciated: likely incidental. -Continue Metronidazole- started 07/18/16 -PT/INR -See above for mx #Acute hypoxic respiratory failure -secondary to PNA with background COPD -On [place] oxygen especially during ambulation -For home oxygen #Sepsis 2/ PNA -got Zosyn in ED -on Levaquin 500 daily -07/17/17 (day 6) (received azithromycin recently as an outpatient)- continue for 7 days -afebrile -Pulm clearance was got for ERCP #COPD -noted on CT -15 pack/yr smoker -Pulm consult:duonebs, albuterol, no systemic steroids -De sated after pre and post to 87%- will need home oxygen- contacted case management - Continue Oxygen supplementation as needed #Hyponatremia -Improving -kidneys unremarkable #HTN -well controlled at this time - Not on home antihypertensive #FEN -hyponatremia -clear liquid diet #Dispo Med surg Visit type - Emergency Visit Emergency Visit: Yes ED Registration Date: 07/16/17 Care time: The patient presented to the Emergency Department on the above date and was hospitalized for further evaluation of their emergent condition. - New Patient This patient is new to me today: No - Critical Care Critical Care patient: No - Discharge Referral Referred to [facility] Med [facility].C[facility] No
--- NOTE | 2017-07-22 13:55 | PN ---
Teaching Attending Note Name of Resident: Katherine Cruz ATTENDING PHYSICIAN STATEMENT I saw and evaluated the patient. I reviewed the resident's note and discussed the case with the resident. I agree with the resident's findings and plan as documented. SUBJECTIVE:asymptomatic. denies Cp, SOB, fever, chills, abdominal pain, N/V/C/D , states stool are normal in color OBJECTIVE: Last Vital Signs Temp Pulse Resp BP Pulse Ox 98.3 F 104 H 18 137/72 98 07/22/17 05:37 07/22/17 09:00 07/22/17 09:00 07/22/17 09:00 07/22/17 09:00 General NAD lungs CTA B/L no wheeizng/rales/rhonchi ASSESSMENT AND PLAN: 82 yom with HTN admitted with fevers/cough, suspect PNA, also with nausea, vomiting abdominal pain found with Cholelithiasis and dialted CBD but normal LFTs 1. sepsis due to PNA- clinically improved. noted to de-saturate after ambulating to the bathroom to 84%. improved to 94% on 2L NC. will liekly require oxygen on discharge. on Levaquin day 6. Pulm on board. cont daily chest PT. Ulegionella/strep negative. will need repeat imaging in 4-6weeks 2. Cholelithasis with dilated CBD- seen on MRCP. plan for ERCP today. awaiting pulm and cardio clearance. will require cholecystectomy prior to discharge. Surgery consulted. Cont empiric Flagyl. normal LFT 3. Macrocytic anemia- slight drop in Hgb. stated no blood noted in stool. will repeat later today. no indication for blood transfusion. 4. COPD/bronchiectasis- 5. hyponatremia- improved. 6. Hypokalemia- resolved 7. hypophosphatemia- resolved 8. HTN- improved. cont current managmeent 9. DVT ppx- hep sq.
[2017-07-22] MEDS: PANTOPRAZOLE SODIUM 160 MG in SODIUM CHLORIDE 290 ML IVPB SCH (14:04)
[2017-07-22] MEDS: methylPREDNISolone NA SUCC 40 MG/1 ML VIAL IVPUSH SCH ×2 (14:05→18:50)
[2017-07-22] MEDS ORDERED: LIDOCAINE HCL 2% 100 MG/5 ML DISP.SYRIN ONE (15:57)
[2017-07-22] MEDS ORDERED: EPINEPHrine INTRACARD 1:10,000 1 MG/10 ML DISP.SYRIN IVPUSH ONE (16:26)
[2017-07-22] MEDS ORDERED: EPINEPHrine 1:10,000 (P-F SYR) 1 MG/10 ML DISP.SYRIN IM ONE (16:26)
[2017-07-22] MEDS ORDERED: EPINEPHrine 1:10,000 (P-F SYR) 1 MG/10 ML DISP.SYRIN ONE (16:37)
--- NOTE | 2017-07-22 17:05 | PN ---
Progress Note (short form) - Note Progress Note: GI Procedure NOte; Please see scanned EGD report. EGD revealed an gastric fundus ulcer with a visible vessel as the source of bleeding. Surrounding shallow ulcer and erosions were also noted. The ulcer did not appear malignant. The bleeding was controlled by injecting 1cc of 1:10,000 dilution of epinephrine in 4 quadrants around the ulcer and directly into the visible vessel. 5 pulses of heater probe cautery were required however to fully control the bleeding. I explained to the patient via his son Aristides that this ulcer precludes being able to do an ERCP at this time as kimberly scope will likely traumatize the ulcer and cause rebleeding. I also explained that an EGD will need to repeated after 3 months of PPI therapy to assure that the ulcer is not malignant. The ERCP will be deferred until then unless cholangitis, pancreatitis or jaundice ensues. Will give Actigall in the interim. Dr Cortés will be covering this weekend. Will continue PPI infusion. Problem List - Problems (1) Choledocholithiasis Code(s): K80.50 - CALCULUS OF BILE DUCT W/O CHOLANGITIS OR CHOLECYST W/O OBST (2) COPD (chronic obstructive pulmonary disease) with emphysema Code(s): J43.9 - EMPHYSEMA, UNSPECIFIED (3) Pneumonia Code(s): J18.9 - PNEUMONIA, UNSPECIFIED ORGANISM Qualifiers: Pneumonia type: due to unspecified organism Laterality: right Lung location: lower lobe of lung Qualified Code(s): J18.1 - Lobar pneumonia, unspecified organism
[2017-07-22] MEDS: MAG HYDROX/AL HYDROX/SIMETH 30 ML UNIT-DOSE CUP PO SCH ×2 (18:50→22:15)
[2017-07-22] MEDS ORDERED: PT OWN MED DRAWER 7, Y5N ONE (21:18)
[2017-07-22] MEDS: MELATONIN 5 MG TABLETS PO SCH (22:15)
[2017-07-23] MEDS: methylPREDNISolone NA SUCC 40 MG/1 ML VIAL IVPUSH SCH ×2 (01:30→10:53)
[2017-07-23] MEDS: MAG HYDROX/AL HYDROX/SIMETH 30 ML UNIT-DOSE CUP PO SCH ×4 (05:35→23:40)
[2017-07-23 07:17] LABS: BASO % 0.1 % (0-2.0); HEMATOCRIT 28.3 % (35.4-49); HEMOGLOBIN 9.8 GM/dL (11.7-16.9); MCH 34.1 pg (25.7-33.7); MCHC 34.5 g/dl (32.0-35.9); MEAN CELL VOLUME 98.6 fl (80-96); MEAN PLT VOLUME 7.4 fl (7.5-11.1); MONO % 3.1 % (3.8-10.2); NEUT % 88.8 % (42.8-82.8); PLATELET COUNT 317 K/MM3 (134-434); RBC 2.86 M/mm3 (4.00-5.60); RDW 14.4 % (11.9-15.9); WHITE BLOOD COUNT 6.6 K/mm3 (4.0-10.0)
[2017-07-23] MEDS: ALBUTEROL SO4 2.5/IPRATROPIUM 0.5 INH SOL 3 ML VIAL.NEB. NEB SCH ×2 (07:30→11:48)
[2017-07-23 07:41] LABS: INR 1.1 (0.82-1.09); PROTHROMBIN TIME (PATIENT) 12.4 SEC (9.7-13.0)
[2017-07-23 07:56] LABS: CHLORIDE 104 mmol/L (98-107); POTASSIUM 4.2 mmol/L (3.5-5.1); SODIUM 138 mmol/L (136-145)
[2017-07-23 08:20] LABS: ALBUMIN 2.5 g/dl (3.4-5.0); ALK PHOS 41 U/L (45-117); ANION GAP 8 (8-16); BILIRUBIN,TOTAL 0.3 mg/dL (0.2-1.0); BLOOD UREA NITROGEN 10 mg/dL (7-18); CO2 26 mmol/L (21-32); CREATININE 0.5 mg/dL (0.7-1.3); GLUCOSE,RANDOM 167 mg/dL (74-106); MAGNESIUM 2.2 mg/dL (1.8-2.4); PHOSPHOROUS 2.8 mg/dL (2.5-4.9); SGOT/AST 53 U/L (15-37); SGPT/ALT 38 U/L (12-78); TOT PROT 4.8 g/dl (6.4-8.2)
--- NOTE | 2017-07-23 08:43 | PN ---
Progress Note (short form) - Note Progress Note: Attending Surgeon Seen in f/u; yesterdays events noted No c/o VSS AF abdo-soft; flat and non tender h/h 11/18 IMP: gastric ulcer; cholelithiasis/choledocholithiasis PLAN: biliary tract procedures deferred for now unless emergent; continue as per GI and primary care team. Felipe Galindo MD FACS
--- NOTE | 2017-07-23 09:44 | PN ---
Progress Note (short form) - Note Progress Note: no complaints other than he wants to go home. 1 episode of melena today. no more reprots of BRBPR. denies Cp, SOB, fever, chills, N/V/C/D yesterday afternoon developed BRBPR. plan for emergent EGD was done and found to have a gastric ulcer with visible vessel. Current Medications Generic Name Dose Route Start Last Admin Trade Name Freq PRN Reason Stop Dose Admin Al Hydroxide/Mg Hydroxide 30 ml 07/22/17 17:15 07/23/17 05:35 Mylanta Oral Suspension - PO 30 ml Q6H RAYSHAWN Administration Albuterol Sulfate 1 amp 07/16/17 22:08 07/17/17 21:59 Ventolin 0.083% Nebulizer Soln - NEB 1 amp Q6H PRN Administration SHORT OF BREATH/WHEEZING Albuterol/Ipratropium 1 amp 07/18/17 16:00 07/23/17 07:30 Duoneb - NEB Not Given RQID RAYSHAWN Docusate Sodium 100 mg 07/17/17 10:00 07/22/17 11:06 Colace - PO Not Given DAILY RAYSHAWN Guaifenesin 10 ml 07/17/17 14:11 07/21/17 22:21 Robitussin - PO 10 ml Q4H PRN Administration COUGH Levofloxacin 500 mg in 100 mls @ 100 mls/hr 07/17/17 10:00 07/22/17 10:19 Levaquin 500 Mg Premixed Ivpb - IVPB 100 mls/hr DAILY RAYSHAWN Administration Protocol Metronidazole 500 mg in 100 mls @ 100 mls/hr 07/18/17 09:00 07/23/17 01:30 Flagyl 500mg Premixed Ivpb - IVPB 100 mls/hr Q8H-IV RAYSHAWN Administration Pantoprazole Sodium 160 mg/ 290 mls @ 14.5 mls/hr 07/22/17 13:00 07/22/17 14: 04 Sodium Chloride IVPB 14.5 mls/hr DAILY RAYSHAWN Administration 8 MG/HR Dextrose/Sodium Chloride 1,000 mls @ 42 mls/hr 07/22/17 13:00 07/22/17 14:05 D5-Ns - IV 42 mls/hr ASDIR RAYSHAWN Administration Melatonin 10 mg 07/21/17 22:00 07/22/17 22:15 Melatonin PO 10 mg HS RAYSHAWN Administration Methylprednisolone Sodium Succinate 40 mg 07/22/17 12:45 07/23/17 01:30 Solu-Medrol - IVPUSH 40 mg Q8H-IV RAYSHAWN Administration Ondansetron HCl 4 mg 07/20/17 19:35 07/21/17 10:26 Zofran Injection IVPB 4 mg Q6H PRN Administration NAUSEA Potassium Phos/Sodium Phos 2 packet 07/21/17 11:30 07/22/17 11:06 Phos-Nak Packet - PO Not Given DAILY RAYSHAWN Tramadol HCl 50 mg 07/20/17 15:15 07/22/17 10:15 Ultram - PO Not Given DAILY RAYSHAWN Last Vital Signs Temp Pulse Resp BP Pulse Ox 98 F 100 H 18 143/73 99 07/23/17 08:44 07/23/17 08:44 07/23/17 08:44 07/23/17 08:44 07/23/17 08:45 General NAD lungs CTA B/L no wheeizng/rales/rhonchi Adbomen Soft NT/ND CBCD WBC 6.6 K/mm3 (4.0-10.0) 07/23/17 06:15 RBC 2.86 M/mm3 (4.00-5.60) L 07/23/17 06:15 Hgb 9.8 GM/dL (11.7-16.9) L 07/23/17 06:15 Hct 28.3 % (35.4-49) L 07/23/17 06:15 MCV 98.6 fl (80-96) H 07/23/17 06:15 MCHC 34.5 g/dl (32.0-35.9) 07/23/17 06:15 RDW 14.4 % (11.9-15.9) 07/23/17 06:15 Plt Count 317 K/MM3 (134-434) 07/23/17 06:15 MPV 7.4 fl (7.5-11.1) L 07/23/17 06:15 CMP Sodium 138 mmol/L (136-145) 07/23/17 05:50 Potassium 4.2 mmol/L (3.5-5.1) 07/23/17 05:50 Chloride 104 mmol/L (98-107) 07/23/17 05:50 Carbon Dioxide 26 mmol/L (21-32) 07/23/17 05:50 Anion Gap 8 (8-16) 07/23/17 05:50 BUN 10 mg/dL (7-18) D 07/23/17 05:50 Creatinine 0.5 mg/dL (0.7-1.3) L 07/23/17 05:50 Creat Clearance w eGFR > 60 (>60) 07/23/17 05:50 Calcium 7.0 mg/dL (8.5-10.1) L 07/23/17 05:50 Total Bilirubin 0.3 mg/dL (0.2-1.0) 07/23/17 05:50 AST 53 U/L (15-37) H 07/23/17 05:50 ALT 38 U/L (12-78) D 07/23/17 05:50 Alkaline Phosphatase 41 U/L (45-117) L 07/23/17 05:50 Total Protein 4.8 g/dl (6.4-8.2) L 07/23/17 05:50 Albumin 2.5 g/dl (3.4-5.0) L 07/23/17 05:50 ASSESSMENT AND PLAN: 82 yom with HTN admitted with fevers/cough, suspect PNA, also with nausea, vomiting abdominal pain found with Cholelithiasis and dialted CBD but normal LFTs 1. sepsis due to PNA- clinically improved. no wheezing notd. started on medrol prophylactically for procedure yesterday. no wheezing. on levaquin day 7. will d /c after today. cont supplemental oxygen to maintain SpO2 >90%. will liekly require oxygen on discharge. Pulm on board. cont daily chest PT. Ulegionella/ strep negative. will need repeat imaging in 4-6weeks 2. BRBPR- gastric ulcer seen on EGD performed 07/22. s/p triple therapy. cont PPI ggt for 72H, clear liquid diet. will need repeat EGD in 3 months. d/c on protonix BID. GI on board. 2. Cholelithasis with dilated CBD- seen on MRCP. ERCP now on hold due to events yesterday. will need to f/u wt GI as outpatient and will need cholecystectomy in the future. on empiric flagyl will d/w GI about stopping at this time. 3. Macrocytic anemia- Hgb drop in setting of gastric ulcer. Hgb stable. will trend Q12H for now. txn if needed. no indication for blood transfusion. 4. COPD/bronchiectasis- 5. hyponatremia- improved. 6. Hypokalemia- resolved 7. hypophosphatemia- resolved 8. HTN- improved. cont current managmeent 9. DVT ppx- hep sq. Visit type - Emergency Visit Emergency Visit: Yes ED Registration Date: 07/16/17 Care time: The patient presented to the Emergency Department on the above date and was hospitalized for further evaluation of their emergent condition. - New Patient This patient is new to me today: No - Critical Care Critical Care patient: No - Discharge Referral Referred to [facility] Med P.C[facility] No
--- NOTE | 2017-07-23 10:16 | PN ---
Progress Note, Physician History of Present Illness: pulmonary alert,nad,pt s/p EGD tolerated procedure well w/o complications,+ bleeding ulcer - Current Medication List Current Medications: Active Medications Al Hydroxide/Mg Hydroxide (Mylanta Oral Suspension -) 30 ml PO Q6H RAYSHAWN Last Admin: 07/23/17 05:35 Dose: 30 ml Albuterol Sulfate (Ventolin 0.083% Nebulizer Soln -) 1 amp NEB Q6H PRN PRN Reason: SHORT OF BREATH/WHEEZING Last Admin: 07/17/17 21:59 Dose: 1 amp Albuterol/Ipratropium (Duoneb -) 1 amp NEB RQID RAYSHAWN Last Admin: 07/23/17 07:30 Dose: Not Given Docusate Sodium (Colace -) 100 mg PO DAILY [facility] Last Admin: 07/22/17 11:06 Dose: Not Given Guaifenesin (Robitussin -) 10 ml PO Q4H PRN PRN Reason: COUGH Last Admin: 07/21/17 22:21 Dose: 10 ml Levofloxacin (Levaquin 500 Mg Premixed Ivpb -) 500 mg in 100 mls @ 100 mls/hr IVPB DAILY [facility]; Protocol Last Admin: 07/22/17 10:19 Dose: 100 mls/hr Metronidazole (Flagyl 500mg Premixed Ivpb -) 500 mg in 100 mls @ 100 mls/hr IVPB Q8H-IV RAYSHAWN Last Admin: 07/23/17 01:30 Dose: 100 mls/hr Pantoprazole Sodium 160 mg/ (Sodium Chloride) 290 mls @ 14.5 mls/hr IVPB DAILY [facility] Last Admin: 07/22/17 14:04 Dose: 14.5 mls/hr Melatonin (Melatonin) 10 mg PO HS [facility] Last Admin: 07/22/17 22:15 Dose: 10 mg Methylprednisolone Sodium Succinate (Solu-Medrol -) 40 mg IVPUSH Q8H-IV RAYSHAWN Last Admin: 07/23/17 01:30 Dose: 40 mg Ondansetron HCl (Zofran Injection) 4 mg IVPB Q6H PRN PRN Reason: NAUSEA Last Admin: 07/21/17 10:26 Dose: 4 mg Tramadol HCl (Ultram -) 50 mg PO DAILY [facility] Last Admin: 07/22/17 10:15 Dose: Not Given - Objective Vital Signs: Vital Signs Temperature 98 F 07/23/17 08:44 Pulse Rate 100 H 07/23/17 08:44 Respiratory Rate 18 07/23/17 08:44 Blood Pressure 143/73 07/23/17 08:44 O2 Sat by Pulse Oximetry (%) 99 07/23/17 08:45 Constitutional: Yes: Well Nourished, Calm, Thin Eyes: Yes: WNL HENT: Yes: WNL Neck: Yes: WNL Cardiovascular: Yes: Regular Rate and Rhythm, S1, S2 Respiratory: Yes: Rales (few basilar crackles) Gastrointestinal: Yes: Normal Bowel Sounds, Soft Extremities: Yes: WNL Edema: No Labs: CBC, BMP 07/23/17 06:15 07/23/17 05:50 INR, PTT INR 1.10 (0.82-1.09) 07/23/17 05:50 Problem List - Problems (1) Bronchiectasis Code(s): J47.9 - BRONCHIECTASIS, UNCOMPLICATED (2) Bronchiectasis Code(s): J47.9 - BRONCHIECTASIS, UNCOMPLICATED Assessment/Plan Problem List - Problems (1) Choledocholithiasis Code(s): K80.50 - CALCULUS OF BILE DUCT W/O CHOLANGITIS OR CHOLECYST W/O OBST (2) HTN (hypertension) Code(s): I10 - ESSENTIAL (PRIMARY) HYPERTENSION Qualifiers: Hypertension type: essential hypertension Qualified Code(s): I10 - Essential (primary) hypertension (3) Hyponatremia Code(s): E87.1 - HYPO-OSMOLALITY AND HYPONATREMIA (4) Pneumonia Code(s): J18.9 - PNEUMONIA, UNSPECIFIED ORGANISM Qualifiers: Pneumonia type: due to unspecified organism Laterality: right Lung location: lower lobe of lung Qualified Code(s): J18.1 - Lobar pneumonia, unspecified organism Assessment/Plan COPD/Emphysema Bronchiectasis Cholelithiasis/Choledocholithiasis HTN Smoker MELENA - CT findings likely due to long history of smoking, prior pneumonia and/or tuberculosis - empiric antibiotics given areas of bronchiectasis - standing duonebs and PRN albuterol - O2 to keep SpO2 >90% - outpt PFTs - smoking cessation - DVT prophylaxis - d/c medrol - PPIs DR FERRO
[2017-07-23] MEDS: PANTOPRAZOLE SODIUM 160 MG in SODIUM CHLORIDE 290 ML IVPB SCH (10:47)
[2017-07-23] MEDS: traMADol HCL 50 MG TABLET PO SCH (10:52)
[2017-07-23] MEDS: DOCUSATE SODIUM 100 MG CAPSULE (FP) PO SCH (10:53)
[2017-07-23 13:01] LABS: HEMATOCRIT 27.2 % (35.4-49); HEMOGLOBIN 9.2 GM/dL (11.7-16.9); MCH 32.5 pg (25.7-33.7); MCHC 33.7 g/dl (32.0-35.9); MEAN CELL VOLUME 96.2 fl (80-96); MEAN PLT VOLUME 7.1 fl (7.5-11.1); PLATELET COUNT 324 K/MM3 (134-434); RBC 2.83 M/mm3 (4.00-5.60); RDW 14.1 % (11.9-15.9); WHITE BLOOD COUNT 8.1 K/mm3 (4.0-10.0)
--- NOTE | 2017-07-23 15:23 | PN ---
GI Progress Note Subjective: GI FOR DR STANTON NO COMPLAINTS PT STATES THAT HE FEELS WELL NO BM TODAY NO N/V/F/C/S NO ABD PAIN ON LIQUID DIET WITHOUT ISSUES - Objective Vital Signs: Vital Signs Temperature 97.8 F 07/23/17 14:51 Pulse Rate 100 H 07/23/17 14:51 Respiratory Rate 24 07/23/17 14:51 Blood Pressure 102/45 07/23/17 14:51 O2 Sat by Pulse Oximetry (%) 99 07/23/17 08:45 Constitutional: Calm, Thin Eyes: Yes: WNL (+BS/ SOFT/NT NO REBOUND OR GUARDING NO MASSES) Labs: CBC, BMP 07/23/17 12:45 07/23/17 05:50 INR, PTT INR 1.10 (0.82-1.09) 07/23/17 05:50 Assessment/Plan GI BLEED DUE TO FUNDIC ULCER S/P EPI INJECTION AND CAUTERIZATION APPEARS TO HAVE ACHIEVED HEMOSTASIS NO VOMITING OR BLEEDING NOTED HGB STABLE ON DIET RECC: AM H/H IF STABLE ADVANCE DIET TO SOLIDS CONTINUE PPI DRIP FOR NOW CONTINUE OBSERVATION IN TIME WILL NEED ELECTIVE DEFINITIVE RX OF CBD STONES NO SX OR OBSTRUCTION AT THIS TIME MD VIKTORIYA
[2017-07-23 19:22] LABS: HEMATOCRIT 26.8 % (35.4-49); HEMOGLOBIN 8.8 GM/dL (11.7-16.9); MCH 32.7 pg (25.7-33.7); MCHC 33.1 g/dl (32.0-35.9); MEAN CELL VOLUME 98.8 fl (80-96); MEAN PLT VOLUME 7.3 fl (7.5-11.1); PLATELET COUNT 344 K/MM3 (134-434); RBC 2.71 M/mm3 (4.00-5.60); RDW 14.5 % (11.9-15.9); WHITE BLOOD COUNT 12.1 K/mm3 (4.0-10.0)
[2017-07-23] MEDS: ALBUTEROL SO4 0.083% IH SOL 2.5 MG/3 ML VIAL.NEB. NEB PRN (19:58)
[2017-07-23] MEDS: MELATONIN 5 MG TABLETS PO SCH (21:05)
[2017-07-24] MEDS: guaiFENesin 200 MG/10 ML 10 ML UNIT-DOSE CUPS PO PRN ×4 (01:09→21:12)
[2017-07-24] MEDS: MAG HYDROX/AL HYDROX/SIMETH 30 ML UNIT-DOSE CUP PO SCH ×3 (05:54→17:40)
[2017-07-24] MEDS: PANTOPRAZOLE SODIUM 160 MG in SODIUM CHLORIDE 290 ML IVPB SCH ×2 (05:54→10:28)
--- NOTE | 2017-07-24 07:14 | PN ---
Physical Exam: SUBJECTIVE: Patient seen and examined. Had 3 black stools in day time yesterday and 1 overnight. No nausea/no vomiting/no fevers. OBJECTIVE: Vital Signs Period Temp Pulse Resp BP Sys/Jones Pulse Ox Last 24 Hr 97.7 F-98.0 F 98-121 18-24 102-143/45-73 98-99 Vital Signs Temp 97.7 F 07/24/17 06:00 Pulse 121 H 07/24/17 06:00 Resp 20 07/24/17 06:00 BP 142/69 07/24/17 06:00 Pulse Ox 98 07/23/17 20:56 Intake & Output 07/23/17 07/23/17 07/24/17 11:59 23:59 11:59 Intake Total 699 1150 435 Balance 699 1150 435 Intake: IV 339 500 335 D5-Ns - 1,000 ml @ 42 mls 252 500 /hr IV ASDIR RAYSHAWN Rx#: [id number] SL2 87 sl#1 335 IVPB 100 300 100 Oral 260 350 Other: Voiding Method Toilet Urinal Urinal Bowel Movement Yes Yes # Bowel Movements 1 2 GENERAL: The patient is awake, alert, and fully oriented, in no acute distress, on NC-2L. LUNGS: Scanty rhonchi, no wheezes HEART: Regular rate and rhythm, S1, S2 without murmur, rub or gallop. ABDOMEN: Flat, Soft, nontender, normoactive bowel sounds, no guarding EXTREMITIES: 2+ pulses, warm, well-perfused, no edema. NEUROLOGICAL: AAOx3. Normal speech Laboratory Results - last 24 hr 07/23/17 07/23/17 07/23/17 05:50 05:50 06:15 WBC 6.6 RBC 2.86 L Hgb 9.8 L Hct 28.3 L MCV 98.6 H MCH 34.1 H MCHC 34.5 RDW 14.4 Plt Count 317 MPV 7.4 L Neutrophils % 88.8 H Lymphocytes % 8.0 D Monocytes % 3.1 L Eosinophils % 0.0 D Basophils % 0.1 Nucleated RBC % 0 PT with INR 12.40 INR 1.10 Sodium 138 Potassium 4.2 Chloride 104 Carbon Dioxide 26 Anion Gap 8 BUN 10 D Creatinine 0.5 L Creat Clearance w eGFR > 60 Random Glucose 167 H D Calcium 7.0 L Phosphorus 2.8 Magnesium 2.2 Total Bilirubin 0.3 AST 53 H ALT 38 D Alkaline Phosphatase 41 L C-Reactive Protein 1.2 H Total Protein 4.8 L Albumin 2.5 L Stool Occult Blood 07/23/17 07/23/17 07/23/17 12:45 18:45 19:05 WBC 8.1 12.1 H D RBC 2.83 L 2.71 L Hgb 9.2 L 8.8 L Hct 27.2 L 26.8 L MCV 96.2 H 98.8 H MCH 32.5 32.7 MCHC 33.7 33.1 RDW 14.1 14.5 Plt Count 324 344 MPV 7.1 L 7.3 L Neutrophils % Lymphocytes % Monocytes % Eosinophils % Basophils % Nucleated RBC % PT with INR INR Sodium Potassium Chloride Carbon Dioxide Anion Gap BUN Creatinine Creat Clearance w eGFR Random Glucose Calcium Phosphorus Magnesium Total Bilirubin AST ALT Alkaline Phosphatase C-Reactive Protein Total Protein Albumin Stool Occult Blood Positive Active Medications Generic Name Dose Route Start Last Admin Trade Name Freq PRN Reason Stop Dose Admin Al Hydroxide/Mg Hydroxide 30 ml 07/22/17 17:15 07/24/17 05:54 Mylanta Oral Suspension - PO 30 ml Q6H RAYSHAWN Administration Albuterol Sulfate 1 amp 07/16/17 22:08 07/23/17 19:58 Ventolin 0.083% Nebulizer Soln - NEB 1 amp Q6H PRN Administration SHORT OF BREATH/WHEEZING Guaifenesin 10 ml 07/17/17 14:11 07/24/17 01:09 Robitussin - PO 10 ml Q4H PRN Administration COUGH Metronidazole 500 mg in 100 mls @ 100 mls/hr 07/18/17 09:00 07/24/17 01:09 Flagyl 500mg Premixed Ivpb - IVPB 100 mls/hr Q8H-IV RAYSHAWN Administration Pantoprazole Sodium 160 mg/ 290 mls @ 14.5 mls/hr 07/22/17 13:00 07/24/17 05: 54 Sodium Chloride IVPB 14.5 mls/hr DAILY RAYSHAWN Administration 8 MG/HR Melatonin 10 mg 07/21/17 22:00 07/23/17 21:05 Melatonin PO 10 mg HS RAYSHAWN Administration Ondansetron HCl 4 mg 07/20/17 19:35 07/21/17 10:26 Zofran Injection IVPB 4 mg Q6H PRN Administration NAUSEA Tramadol HCl 50 mg 07/20/17 15:15 07/23/17 10:52 Ultram - PO Not Given DAILY RAYSHAWN -Cx and Urine labs negative ECHO: Grossly normal LV function Phone number: [phone]- daughter (Kaye) Phone number [phone]- Son in law Phone number [phone]- Aristides- Son ASSESSMENT/PLAN: 82 year old male with a significant PMH of HTN who presents to the emergency department for evaluation of diffuse abdominal pain, vomiting and fever. He was admitted for PNA #Melena: -Now s/p endoscopy -on iv protonix gtt and mylanta -Noted to have a gastric fundus bleeding ulcer, bleeding controlled with epinephrine and cautery -Preplanned ERCP was differed due to increased complications in setting of newly identified gastric ulcer -Per Dr Ruggiero-EGD will need to be repeated after 3 months of PPI therapy to assure that the ulcer is not malignant. - The ERCP will be deferred until unless cholangitis, pancreatitis or jaundice ensues. -Actigall given -Will continue PPI infusion #Cholelithiasis/choledocholithiasis -CT: distal gallstone. No wall thickening or pericholecystic fluid. dilated CBD -US: gallstones with sludge, dilated CBD -GI consult appreciated: likely incidental. -D/W Dr Cortés- since ERCP will not be done for a while and patient has received up to 7 days of Metronidazole- started 07/18/16, it can be stopped -PT/INR -See above for mx -Lapchole will be after ERCP, likely 3 months done the line except for emergency indications for ERCP as noted above #Acute hypoxic respiratory failure -secondary to PNA with background COPD -On [place] oxygen especially during ambulation -For home oxygen #Sepsis 2/2 PNA -got Zosyn in ED -Completed Levaquin 500 daily -afebrile #COPD -noted on CT -15 pack/yr smoker -Pulm consult:duonebs, albuterol, no systemic steroids -De sated after pre and post to 87%- will need home oxygen- contacted case management - Continue Oxygen supplementation as needed #Hyponatremia -Improving -kidneys unremarkable #HTN -well controlled at this time - Not on home antihypertensive #FEN -hyponatremia -clear liquid diet #Dispo Likely D/C tomorrow Visit type - Emergency Visit Emergency Visit: Yes ED Registration Date: 07/16/17 Care time: The patient presented to the Emergency Department on the above date and was hospitalized for further evaluation of their emergent condition. - New Patient This patient is new to me today: No - Critical Care Critical Care patient: No - Discharge Referral Referred to [facility] Med [facility].: No
[2017-07-24 07:35] LABS: HEMATOCRIT 28.9 % (35.4-49); HEMOGLOBIN 10.1 GM/dL (11.7-16.9); MCH 35.3 pg (25.7-33.7); MCHC 34.9 g/dl (32.0-35.9); PLATELET COUNT 344 K/MM3 (134-434); RBC 2.86 M/mm3 (4.00-5.60); RDW 14.8 % (11.9-15.9); WHITE BLOOD COUNT 15.2 K/mm3 (4.0-10.0)
[2017-07-24 07:55] LABS: CHLORIDE 104 mmol/L (98-107); POTASSIUM 3.7 mmol/L (3.5-5.1); SODIUM 139 mmol/L (136-145)
[2017-07-24 08:09] LABS: ALBUMIN 2.7 g/dl (3.4-5.0); ALK PHOS 51 U/L (45-117); ANION GAP 8 (8-16); BILIRUBIN,TOTAL 0.4 mg/dL (0.2-1.0); BLOOD UREA NITROGEN 8 mg/dL (7-18); CALCIUM 7.1 mg/dL (8.5-10.1); CO2 27 mmol/L (21-32); CREATININE 0.5 mg/dL (0.7-1.3); GLUCOSE,RANDOM 84 mg/dL (74-106); MAGNESIUM 2.2 mg/dL (1.8-2.4); PHOSPHOROUS 1.2 mg/dL (2.5-4.9); SGOT/AST 104 U/L (15-37); SGPT/ALT 64 U/L (12-78); TOT PROT 5.1 g/dl (6.4-8.2)
--- NOTE | 2017-07-24 08:37 | PN ---
Teaching Attending Note Name of Resident: Katherine Cruz ATTENDING PHYSICIAN STATEMENT I saw and evaluated the patient. I reviewed the resident's note and discussed the case with the resident. I agree with the resident's findings and plan as documented. SUBJECTIVE:asymptomatic. tolerating liquid diet. denies CP, SOB, fever, chills, abdominal pain RN reported he had dark brown BM this AM OBJECTIVE: Last Vital Signs Temp Pulse Resp BP Pulse Ox 97.7 F 121 H 20 142/69 98 07/24/17 06:00 07/24/17 06:00 07/24/17 06:00 07/24/17 06:00 07/23/17 20:56 General NAD Lungs corase breath sounds. no wheezing Abdomen soft NT/ND ASSESSMENT AND PLAN: 82 yom with HTN admitted with fevers/cough, suspect PNA, also with nausea, vomiting abdominal pain found with Cholelithiasis and dialted CBD but normal LFTs 1. sepsis due to PNA- clinically improved. no wheezing noted. leukocytosis today likely due to steroids. completed 7 day abx course. cont to monitor off abx and steroids. pre and post prior to discharge. will likely require oxygen on discharge. will need repeat imaging in 4-6weeks 2. BRBPR- gastric ulcer with visible vessel seen on EGD performed 07/22. s/p triple therapy. cont PPI ggt for 72H, clear liquid diet. will need repeat EGD in 3 months. d/c on protonix BID. GI on board. 2. Cholelithasis with dilated CBD- seen on MRCP. slight LFT uptrend. asymptomatic. ERCP now on hold due to bleeding gastric ulcer. will have to be delayed till repeat EGD. will need to f/u wtih GI as outpatient and will need cholecystectomy in the future. on empiric flagyl will d/w GI about stopping at this time. 3. Macrocytic anemia- Hgb now stable. will cont Q12h monitoring. txn if needed, no indication for blood transfusion. 4. COPD/bronchiectasis- 5. hyponatremia- improved. 6. Hypokalemia- resolved 7. hypophosphatemia- neutraphos 8. HTN- improved. cont current managmeent 9. DVT ppx- hep sq.
[2017-07-24] MEDS ORDERED: NAPH,MB-DB/K PH,MBDB POWDER PACKET PO SCH ×2 (10:00→10:15)
[2017-07-24] MEDS: traMADol HCL 50 MG TABLET PO SCH (10:32)
[2017-07-24] MEDS: NAPH,MB-DB/K PH,MBDB POWDER PACKET PO SCH ×2 (10:35→21:11)
--- NOTE | 2017-07-24 11:53 | PN ---
Progress Note, Physician History of Present Illness: pulmonary alert,comfortable,nad,-sob - Current Medication List Current Medications: Active Medications Al Hydroxide/Mg Hydroxide (Mylanta Oral Suspension -) 30 ml PO Q6H [facility] Last Admin: 07/24/17 11:35 Dose: 30 ml Albuterol Sulfate (Ventolin 0.083% Nebulizer Soln -) 1 amp NEB Q6H PRN PRN Reason: SHORT OF BREATH/WHEEZING Last Admin: 07/23/17 19:58 Dose: 1 amp Guaifenesin (Robitussin -) 10 ml PO Q4H PRN PRN Reason: COUGH Last Admin: 07/24/17 10:32 Dose: 10 ml Metronidazole (Flagyl 500mg Premixed Ivpb -) 500 mg in 100 mls @ 100 mls/hr IVPB Q8H-IV [facility] Last Admin: 07/24/17 10:27 Dose: 100 mls/hr Pantoprazole Sodium 160 mg/ (Sodium Chloride) 290 mls @ 14.5 mls/hr IVPB DAILY [facility] Last Admin: 07/24/17 10:28 Dose: Not Given Melatonin (Melatonin) 10 mg PO HS [facility] Last Admin: 07/23/17 21:05 Dose: 10 mg Ondansetron HCl (Zofran Injection) 4 mg IVPB Q6H PRN PRN Reason: NAUSEA Last Admin: 07/21/17 10:26 Dose: 4 mg Potassium Phos/Sodium Phos (Phos-Nak Packet -) 2 packet PO BID@0800,2000 [facility] Stop: 07/25/17 20:01 Last Admin: 07/24/17 10:35 Dose: 2 packet Tramadol HCl (Ultram -) 50 mg PO DAILY [facility] Last Admin: 07/24/17 10:32 Dose: Not Given - Objective Vital Signs: Vital Signs Temperature 97.7 F 07/24/17 06:00 Pulse Rate 121 H 07/24/17 06:00 Respiratory Rate 20 07/24/17 06:00 Blood Pressure 142/69 07/24/17 06:00 O2 Sat by Pulse Oximetry (%) 98 07/23/17 20:56 Constitutional: Yes: Well Nourished, Calm Eyes: Yes: WNL HENT: Yes: WNL Neck: Yes: WNL Cardiovascular: Yes: Regular Rate and Rhythm, S1, S2 Respiratory: Yes: Rales (few bibasilar crackles) Gastrointestinal: Yes: Normal Bowel Sounds, Soft Extremities: Yes: WNL Edema: No Labs: CBC, BMP 07/24/17 06:00 07/24/17 06:00 INR, PTT INR 1.10 (0.82-1.09) 07/23/17 05:50 Problem List - Problems (1) Bronchiectasis Code(s): J47.9 - BRONCHIECTASIS, UNCOMPLICATED (2) Bronchiectasis Code(s): J47.9 - BRONCHIECTASIS, UNCOMPLICATED Assessment/Plan Problem List - Problems (1) Choledocholithiasis Code(s): K80.50 - CALCULUS OF BILE DUCT W/O CHOLANGITIS OR CHOLECYST W/O OBST (2) HTN (hypertension) Code(s): I10 - ESSENTIAL (PRIMARY) HYPERTENSION Qualifiers: Hypertension type: essential hypertension Qualified Code(s): I10 - Essential (primary) hypertension (3) Hyponatremia Code(s): E87.1 - HYPO-OSMOLALITY AND HYPONATREMIA (4) Pneumonia Code(s): J18.9 - PNEUMONIA, UNSPECIFIED ORGANISM Qualifiers: Pneumonia type: due to unspecified organism Laterality: right Lung location: lower lobe of lung Qualified Code(s): J18.1 - Lobar pneumonia, unspecified organism Assessment/Plan COPD/Emphysema Bronchiectasis Cholelithiasis/Choledocholithiasis HTN Smoker MELENA - CT findings likely due to long history of smoking, prior pneumonia and/or tuberculosis - empiric antibiotics given areas of bronchiectasis - start symbicort 80/4.5 2puffs bid - O2 to keep SpO2 >90% - outpt PFTs - smoking cessation - DVT prophylaxis - PPIs DR FERRO
[2017-07-24 12:39] LABS: BASO % 0.2 % (0-2.0); HEMATOCRIT 30.2 % (35.4-49); HEMOGLOBIN 10.3 GM/dL (11.7-16.9); LYMPH % 5.7 % (8-40); MCHC 33.9 g/dl (32.0-35.9); MEAN CELL VOLUME 97.1 fl (80-96); MEAN PLT VOLUME 6.7 fl (7.5-11.1); MONO % 6.5 % (3.8-10.2); NEUT % 87.6 % (42.8-82.8); PLATELET COUNT 356 K/MM3 (134-434); RBC 3.11 M/mm3 (4.00-5.60); RDW 14.7 % (11.9-15.9)
[2017-07-24 13:16] LABS: PLATELET ESTIMATE NORMAL
[2017-07-24] MEDS: BUDESONIDE/FORMETEROL FUMARATE 80/4.5 mcg INHALER IH SCH (21:10)
--- NOTE | 2017-07-24 22:32 | EKG ---
Test Reason : Blood Pressure : / mmHG Vent. Rate : 108 BPM Atrial Rate : 108 BPM P-R Int : 118 ms QRS Dur : 082 ms QT Int : 324 ms P-R-T Axes : 073 093 082 degrees QTc Int : 434 ms SINUS TACHYCARDIA RIGHTWARD AXIS BORDERLINE ECG WHEN COMPARED WITH ECG OF 17-JUL-2017 10:29, PREMATURE SUPRAVENTRICULAR COMPLEXES ARE NO LONGER PRESENT Confirmed by ADIN GOLDBERG MD ([id number]) on 07/24/2017 10:31:46 PM Referred By: ROMY LUCAS DR Confirmed By:ADIN GOLDBERG MD
[2017-07-25] MEDS: MAG HYDROX/AL HYDROX/SIMETH 30 ML UNIT-DOSE CUP PO SCH ×5 (00:55→23:43)
[2017-07-25] MEDS: MELATONIN 5 MG TABLETS PO SCH (00:56)
[2017-07-25] MEDS: PANTOPRAZOLE SODIUM 160 MG in SODIUM CHLORIDE 290 ML IVPB SCH ×2 (01:02→09:32)
[2017-07-25 07:36] LABS: BASO % 0.2 % (0-2.0); HEMOGLOBIN 9.8 GM/dL (11.7-16.9); LYMPH % 6.9 % (8-40); MCH 35.4 pg (25.7-33.7); MEAN CELL VOLUME 101.2 fl (80-96); MEAN PLT VOLUME 7.3 fl (7.5-11.1); MONO % 8.9 % (3.8-10.2); PLATELET COUNT 343 K/MM3 (134-434); RBC 2.76 M/mm3 (4.00-5.60); RDW 14.8 % (11.9-15.9); WHITE BLOOD COUNT 12.5 K/mm3 (4.0-10.0)
[2017-07-25 07:52] LABS: CHLORIDE 102 mmol/L (98-107); POTASSIUM 3.8 mmol/L (3.5-5.1); SODIUM 136 mmol/L (136-145)
[2017-07-25 07:59] LABS: ALBUMIN 2.5 g/dl (3.4-5.0); ALK PHOS 45 U/L (45-117); ANION GAP 7 (8-16); BILIRUBIN,TOTAL 0.6 mg/dL (0.2-1.0); BLOOD UREA NITROGEN 7 mg/dL (7-18); CO2 27 mmol/L (21-32); CREATININE 0.4 mg/dL (0.7-1.3); GLUCOSE,RANDOM 78 mg/dL (74-106); SGOT/AST 35 U/L (15-37); SGPT/ALT 48 U/L (12-78); TOT PROT 4.8 g/dl (6.4-8.2)
[2017-07-25] MEDS: NAPH,MB-DB/K PH,MBDB POWDER PACKET PO SCH ×2 (08:14→22:08)
[2017-07-25] MEDS ORDERED: PT OWN MED DRAWER 7, Y5N ONE ×2 (09:11→18:50)
[2017-07-25] MEDS: BUDESONIDE/FORMETEROL FUMARATE 80/4.5 mcg INHALER IH SCH ×2 (09:31→22:08)
[2017-07-25] MEDS: traMADol HCL 50 MG TABLET PO SCH (09:32)
[2017-07-25] MEDS ORDERED: PROPOFOL 20 ML ONE (09:48)
[2017-07-25] MEDS ORDERED: MIDAZOLAM HCL 2 MG/2 ML SINGLE DOSE VIAL ONE (09:48)
[2017-07-25] MEDS ORDERED: LIDOCAINE HCL/PF 2% SDV 5ML VIAL ONE (09:48)
[2017-07-25] MEDS ORDERED: DEXAMETHASONE SOD PHOSPHATE 4 MG/1 ML VIAL ONE (09:48)
[2017-07-25] MEDS ORDERED: ROCURONIUM BROMIDE 50 MG/5 ML VIAL ONE (09:48)
[2017-07-25] MEDS ORDERED: fentaNYL CITRATE 250 MCG/5 ML VIAL ONE (09:48)
[2017-07-25 10:18] LABS: PHOSPHOROUS 1.8 mg/dL (2.5-4.9)
[2017-07-25] MEDS ORDERED: MELATONIN 5 MG TABLETS PO PRN (10:47)
[2017-07-25] MEDS ORDERED: traMADol HCL 50 MG TABLET PO PRN (10:48)
[2017-07-25 11:15] LABS: HEMOGLOBIN 10.7 GM/dL (11.7-16.9); MCH 33.7 pg (25.7-33.7); MCHC 34.4 g/dl (32.0-35.9); MEAN PLT VOLUME 7.1 fl (7.5-11.1); PLATELET COUNT 386 K/MM3 (134-434); RBC 3.17 M/mm3 (4.00-5.60); RDW 14.9 % (11.9-15.9); WHITE BLOOD COUNT 15.6 K/mm3 (4.0-10.0)
--- NOTE | 2017-07-25 11:40 | PN ---
GI Progress Note Subjective: GI Note: Bleeding appears to have ceased. Passed a brown bowel movement this am. LFTs remain normal. Discussed plan with the patient with his daughter in law serving as gaming worker. I emphasized the need to take his PPI drug religiously until his EGD is repeated and confirms that this is a non-malignant healed ulcer. I also emphasized the need to quit smoking to allow the ulcer to heal. I discussed the need to take iron with vitamin c to correct his anemia. His diet will be advanced to solids. If tolerated, I have no GI objections to discharge in the am. The patient will apparently establish a relationship with Dr. Jamil Singleton who speaks German. If so, I anticipate that the next EGD or ERCP will be done at his hospital. - Objective Vital Signs: Vital Signs Temperature 97.7 F 07/25/17 09:12 Pulse Rate 104 H 07/25/17 09:12 Respiratory Rate 20 07/25/17 09:12 Blood Pressure 129/66 07/25/17 09:12 O2 Sat by Pulse Oximetry (%) 94 L 07/25/17 09:00 Laboratory Tests 07/23/17 07/24/17 07/25/17 05:50 12:30 06:20 Hgb 10.3 L 9.8 L Total Bilirubin AST ALT Alkaline Phosphatase C-Reactive Protein 1.2 H 07/25/17 07/25/17 06:20 10:55 Hgb 10.7 L Total Bilirubin 0.6 D AST 35 D ALT 48 D Alkaline Phosphatase 45 C-Reactive Protein Labs: CBC, BMP 07/25/17 10:55 07/25/17 06:20 INR, PTT INR 1.10 (0.82-1.09) 07/23/17 05:50 Problem List - Problems (1) Gastric ulcer with hemorrhage Assessment/Plan: Gastric ulcer bleeding appears to have been controlled with the cautery. Regular diet has been ordered. Should observe for re-bleeding until the am. Please see comments in opening statement. Code(s): K25.4 - CHRONIC OR UNSPECIFIED GASTRIC ULCER WITH HEMORRHAGE (2) Choledocholithiasis Assessment/Plan: I continue to believe that Macario should have his CBD stones and gallbladder removed. This is not however emergent at this time and needs to be deferred until his ulcer can heal. Will continue Actigall until ERCP can be done. Code(s): K80.50 - CALCULUS OF BILE DUCT W/O CHOLANGITIS OR CHOLECYST W/O OBST (3) COPD (chronic obstructive pulmonary disease) with emphysema Code(s): J43.9 - EMPHYSEMA, UNSPECIFIED (4) Pneumonia Code(s): J18.9 - PNEUMONIA, UNSPECIFIED ORGANISM Qualifiers: Pneumonia type: due to unspecified organism Laterality: right Lung location: lower lobe of lung Qualified Code(s): J18.1 - Lobar pneumonia, unspecified organism
--- NOTE | 2017-07-25 14:01 | PN ---
Progress Note, Physician History of Present Illness: pulmonary alert,feeling better,-resp distress - Current Medication List Current Medications: Active Medications Al Hydroxide/Mg Hydroxide (Mylanta Oral Suspension -) 30 ml PO Q6H [facility] Last Admin: 07/25/17 11:02 Dose: 30 ml Ascorbic Acid (Vitamin C -) 500 mg PO BID [facility] Budesonide/Formoterol Fumarate (Symbicort 80/4.5mcg -) 2 puff IH BID [facility] Last Admin: 07/25/17 09:31 Dose: 2 puff Ferrous Sulfate (Feosol -) 325 mg PO BIDWM [facility] Guaifenesin (Robitussin -) 10 ml PO Q4H PRN PRN Reason: COUGH Last Admin: 07/24/17 21:12 Dose: 10 ml Melatonin (Melatonin) 5 mg PO HS PRN PRN Reason: INSOMNIA Ondansetron HCl (Zofran Injection) 4 mg IVPB Q6H PRN PRN Reason: NAUSEA Last Admin: 07/21/17 10:26 Dose: 4 mg Pantoprazole Sodium (Protonix -) 40 mg PO BID [facility] Potassium Phos/Sodium Phos (Phos-Nak Packet -) 2 packet PO BID@0800,1999 [facility] Stop: 07/25/17 20:01 Last Admin: 07/25/17 08:14 Dose: 2 packet Tramadol HCl (Ultram -) 50 mg PO DAILY PRN PRN Reason: PAIN LEVEL 6-10 Ursodiol (Actigal -) 300 mg PO BID [facility] - Objective Vital Signs: Vital Signs Temperature 97.7 F 07/25/17 09:12 Pulse Rate 104 H 07/25/17 09:12 Respiratory Rate 20 07/25/17 09:12 Blood Pressure 129/66 07/25/17 09:12 O2 Sat by Pulse Oximetry (%) 94 L 07/25/17 09:00 Constitutional: Yes: Calm, Thin Eyes: Yes: WNL HENT: Yes: WNL Neck: Yes: WNL Cardiovascular: Yes: Regular Rate and Rhythm, S1, S2 Respiratory: Yes: Diminished (few crackles left base) Gastrointestinal: Yes: Normal Bowel Sounds, Soft Extremities: Yes: WNL Edema: No Labs: CBC, BMP 07/25/17 10:55 07/25/17 06:20 INR, PTT INR 1.10 (0.82-1.09) 07/23/17 05:50 Problem List - Problems (1) Bronchiectasis Code(s): J47.9 - BRONCHIECTASIS, UNCOMPLICATED (2) Bronchiectasis Code(s): J47.9 - BRONCHIECTASIS, UNCOMPLICATED Assessment/Plan Problem List - Problems (1) Choledocholithiasis Code(s): K80.50 - CALCULUS OF BILE DUCT W/O CHOLANGITIS OR CHOLECYST W/O OBST (2) HTN (hypertension) Code(s): I10 - ESSENTIAL (PRIMARY) HYPERTENSION Qualifiers: Hypertension type: essential hypertension Qualified Code(s): I10 - Essential (primary) hypertension (3) Hyponatremia Code(s): E87.1 - HYPO-OSMOLALITY AND HYPONATREMIA (4) Pneumonia Code(s): J18.9 - PNEUMONIA, UNSPECIFIED ORGANISM Qualifiers: Pneumonia type: due to unspecified organism Laterality: right Lung location: lower lobe of lung Qualified Code(s): J18.1 - Lobar pneumonia, unspecified organism Assessment/Plan COPD/Emphysema Bronchiectasis Cholelithiasis/Choledocholithiasis HTN Smoker MELENA - CT findings likely due to long history of smoking, prior pneumonia and/or tuberculosis - empiric antibiotics given areas of bronchiectasis - symbicort 80/4.5 2puffs bid - spiriva - O2 to keep SpO2 >90% - Home O2 - outpt PFTs - smoking cessation - DVT prophylaxis - PPIs DR FERRO
--- NOTE | 2017-07-25 14:19 | PN ---
Teaching Attending Note Name of Resident: Katherine Cruz ATTENDING PHYSICIAN STATEMENT I saw and evaluated the patient. I reviewed the resident's note and discussed the case with the resident. I agree with the resident's findings and plan as documented. SUBJECTIVE:asymptomatic. tolerating diet. no BM since yesterday. denies CP, SOB , fever, chills, N/V/C/D OBJECTIVE: Last Vital Signs Temp Pulse Resp BP Pulse Ox 97.7 F 140 H 20 129/66 91 L 07/25/17 09:12 07/25/17 14:03 07/25/17 09:12 07/25/17 09:12 07/25/17 14:03 General NAD Lungs coarse breath sounds. no wheezing Abdomen soft NT/ND ASSESSMENT AND PLAN: 82 yo M with HTN admitted with fevers/cough, suspect PNA, also with nausea, vomiting abdominal pain found with Cholelithiasis and dialted CBD but normal LFTs 1. sepsis due to PNA- clinically improved. no wheezing noted. leukocytosis today likely due to steroids. completed 7 day abx course. cont to monitor off abx and steroids. pre and post today. will likely require oxygen on discharge. will need repeat imaging in 4-6weeks 2. BRBPR- gastric ulcer with visible vessel seen on EGD performed 07/22. s/p triple therapy. cont PPI ggt for 72H, tolerating diet will advance to reular diet and monitor. repeat CBC later today to ensure stable. will need repeat EGD in 3 months. d/c on protonix BID. GI on board. 2. Cholelithasis with dilated CBD- seen on MRCP. slight LFT uptrend. asymptomatic. ERCP now on hold due to bleeding gastric ulcer. will have to be delayed till repeat EGD. will need to f/u [facility] GI as outpatient and will need cholecystectomy in the future. on empiric flagyl will d/w GI about stopping at this time. 3. Macrocytic anemia- Hgb now stable. will cont Q12h monitoring. txn if needed, no indication for blood transfusion. 4. COPD/bronchiectasis- 5. hyponatremia- improved. 6. Hypokalemia- resolved 7. hypophosphatemia- neutraphos 8. HTN- improved. cont current managmeent 9. DVT ppx- hep sq. 10. d/c planning tomorrow if hgb stable tomorrow
--- NOTE | 2017-07-25 16:51 | PN ---
Physical Exam: SUBJECTIVE: Patient seen and examined. Was started on clears overnight after EGD. No abdominal pain, no melena overnight. No N/V/fevers. OBJECTIVE: Vital Signs Period Temp Pulse Resp BP Sys/Jones Pulse Ox Last 24 Hr 97.7 F-98.3 F 104-140 20-20 129-143/58-71 91-97 Vital Signs Temp 98.3 F 07/25/17 15:02 Pulse 119 H 07/25/17 15:02 Resp 20 07/25/17 15:02 BP 129/58 07/25/17 15:02 Pulse Ox 91 L 07/25/17 14:03 Intake & Output 07/24/17 07/25/17 07/25/17 23:59 11:59 23:59 Intake Total 500 270 Balance 500 270 Intake: IV 170 sl#1 170 IVPB 100 Oral 500 Other: Voiding Method Urinal Bedside Commode # Unmeasured Voids Void 5 Bowel Movement Yes # Bowel Movements 2 GENERAL: The patient is awake, alert, and fully oriented, in no acute distress. On NC-3L LUNGS: scattered rhonchi. HEART: Regular rate and rhythm, S1, S2 without murmur ABDOMEN: Soft, sacphoid, nontender, normoactive bowel sounds EXTREMITIES: 2+ pulses, warm, well-perfused, no edema. NEUROLOGICAL: AAOx3. Normal speech, gait not observed. CBC, BMP 07/25/17 10:55 07/25/17 06:20 Laboratory Results - last 24 hr 07/25/17 07/25/17 07/25/17 06:20 06:20 06:20 WBC 12.5 H RBC 2.76 L Hgb 9.8 L Hct 28.0 L MCV 101.2 H MCH 35.4 H MCHC 35.0 RDW 14.8 Plt Count 343 MPV 7.3 L Neutrophils % 84.0 H Lymphocytes % 6.9 L D Monocytes % 8.9 Eosinophils % 0.0 Basophils % 0.2 Nucleated RBC % 0 Sodium 136 Potassium 3.8 Chloride 102 Carbon Dioxide 27 Anion Gap 7 L BUN 7 Creatinine 0.4 L Creat Clearance w eGFR > 60 Random Glucose 78 Calcium 7.0 L Phosphorus 1.8 L D Cancelled Total Bilirubin 0.6 D AST 35 D ALT 48 D Alkaline Phosphatase 45 Total Protein 4.8 L Albumin 2.5 L 07/25/17 10:55 WBC 15.6 H RBC 3.17 L Hgb 10.7 L Hct 31.0 L MCV 98.0 H MCH 33.7 MCHC 34.4 RDW 14.9 Plt Count 386 MPV 7.1 L Neutrophils % Lymphocytes % Monocytes % Eosinophils % Basophils % Nucleated RBC % Sodium Potassium Chloride Carbon Dioxide Anion Gap BUN Creatinine Creat Clearance w eGFR Random Glucose Calcium Phosphorus Total Bilirubin AST ALT Alkaline Phosphatase Total Protein Albumin Active Medications Generic Name Dose Route Start Last Admin Trade Name Freq PRN Reason Stop Dose Admin Al Hydroxide/Mg Hydroxide 30 ml 07/22/17 17:15 07/25/17 11:02 Mylanta Oral Suspension - PO 30 ml Q6H RAYSHAWN Administration Ascorbic Acid 500 mg 07/25/17 22:00 Vitamin C - PO BID [facility] Budesonide/Formoterol Fumarate 2 puff 07/24/17 22:00 07/25/17 09:31 Symbicort 80/4.5mcg - IH 2 puff BID RAYSHAWN Administration Ferrous Sulfate 325 mg 07/25/17 17:30 Feosol - PO BIDWM [facility] Guaifenesin 10 ml 07/17/17 14:11 07/24/17 21:12 Robitussin - PO 10 ml Q4H PRN Administration COUGH Melatonin 5 mg 07/25/17 10:47 Melatonin PO HS PRN INSOMNIA Ondansetron HCl 4 mg 07/20/17 19:35 07/21/17 10:26 Zofran Injection IVPB 4 mg Q6H PRN Administration NAUSEA Pantoprazole Sodium 40 mg 07/25/17 22:00 Protonix - PO BID [facility] Potassium Phos/Sodium Phos 2 packet 07/24/17 10:15 07/25/17 08:14 Phos-Nak Packet - PO 07/25/17 20:01 2 packet BID@0800,2000 [facility] Administration Tramadol HCl 50 mg 07/25/17 10:48 Ultram - PO DAILY PRN PAIN LEVEL 6-10 Ursodiol 300 mg 07/25/17 22:00 Actigal - PO BID [facility] Ambulatory Orders Azithromycin 250 mg PO DAILY 07/16/17 Benzonatate 200 mg PO DAILY 07/16/17 Celecoxib [Celebrex] 200 mg PO DAILY 07/16/17 Docusate Sodium [Colace] 100 mg PO DAILY 05/26/18 Tramadol HCl 50 mg PO DAILY 07/16/17 Zolpidem Tartrate [Ambien] 10 mg PO DAILY 07/16/17 Current Medications Al Hydroxide/Mg Hydroxide (Mylanta Oral Suspension -) 30 ml PO Q6H [facility] Last Admin: 07/25/17 11:02 Dose: 30 ml Ascorbic Acid (Vitamin C -) 500 mg PO BID [facility] Budesonide/Formoterol Fumarate (Symbicort 80/4.5mcg -) 2 puff IH BID [facility] Last Admin: 07/25/17 09:31 Dose: 2 puff Ferrous Sulfate (Feosol -) 325 mg PO BIDWM [facility] Guaifenesin (Robitussin -) 10 ml PO Q4H PRN PRN Reason: COUGH Last Admin: 07/24/17 21:12 Dose: 10 ml Melatonin (Melatonin) 5 mg PO HS PRN PRN Reason: INSOMNIA Ondansetron HCl (Zofran Injection) 4 mg IVPB Q6H PRN PRN Reason: NAUSEA Last Admin: 07/21/17 10:26 Dose: 4 mg Pantoprazole Sodium (Protonix -) 40 mg PO BID [facility] Potassium Phos/Sodium Phos (Phos-Nak Packet -) 2 packet PO BID@0800,2000 [facility] Stop: 07/25/17 20:01 Last Admin: 07/25/17 08:14 Dose: 2 packet Tramadol HCl (Ultram -) 50 mg PO DAILY PRN PRN Reason: PAIN LEVEL 6-10 Ursodiol (Actigal -) 300 mg PO BID [facility] -Cx and Urine labs negative ECHO: Grossly normal LV function Phone number: [phone]- daughter (Kaye) Phone number [phone]- Son in law Phone number [phone]- Aristides- Son ASSESSMENT/PLAN: 82 year old male with a significant PMH of HTN who presents to the emergency department for evaluation of diffuse abdominal pain, vomiting and fever. He was admitted for PNA #Melena with Upper GI bleed secondary to gastric ulcer -No more melena reported -Tolerasting clears -Now s/p endoscopy -on iv protonix gtt and mylanta -Noted to have a gastric fundus bleeding ulcer, bleeding controlled with epinephrine and cautery -Preplanned ERCP was differed due to increased complications in setting of newly identified gastric ulcer -Per Dr Ruggiero-EGD will need to be repeated after 3 months of PPI therapy to assure that the ulcer is not malignant. - The ERCP will be deferred until unless cholangitis, pancreatitis or jaundice ensues. -Actigall given -Will continue PPI infusion -Will follow up PCP with Dr Jamil Singleton #Cholelithiasis/choledocholithiasis -CT: distal gallstone. No wall thickening or pericholecystic fluid. dilated CBD -US: gallstones with sludge, dilated CBD -GI consult appreciated: likely incidental. -D/W Dr Cortés- since ERCP will not be done for a while and patient has received up to 7 days of Metronidazole- started 07/18/16, it can be stopped -PT/INR -See above for mx -Lapchole will be after ERCP, likely 3 months done the line except for emergency indications for ERCP as noted above #Acute hypoxic respiratory failure -secondary to PNA with background COPD -On NC oxygen especially during ambulation -For home oxygen #Sepsis 2/2 PNA -got Zosyn in ED -Completed Levaquin 500 daily -afebrile #COPD -noted on CT -15 pack/yr smoker -Pulm consult:duonebs, albuterol, no systemic steroids -De sated after pre and post to 87%- will need home oxygen- contacted case management - Continue Oxygen supplementation as needed #Hyponatremia -Improving -kidneys unremarkable #HTN -well controlled at this time - Not on home antihypertensive #FEN -hyponatremia -clear liquid diet #Dispo Likely D/C tomorrow Visit type - Emergency Visit Emergency Visit: Yes ED Registration Date: 07/16/17 Care time: The patient presented to the Emergency Department on the above date and was hospitalized for further evaluation of their emergent condition. - New Patient This patient is new to me today: No - Critical Care Critical Care patient: No - Discharge Referral Referred to [facility] Med P.C.: No
[2017-07-25] MEDS: FERROUS SO4 325 MG TABLET (FP) PO SCH (17:14)
[2017-07-25] MEDS: guaiFENesin 200 MG/10 ML 10 ML UNIT-DOSE CUPS PO PRN (18:04)
[2017-07-25] MEDS: PANTOPRAZOLE 40 MG TABLET (FP) PO SCH (22:07)
[2017-07-25] MEDS: ASCORBIC ACID 500 MG TABLET (FP) PO SCH (22:07)
[2017-07-25] MEDS: URSODIOL 300 MG CAPSULE PO SCH (22:07)
[2017-07-26] MEDS: MAG HYDROX/AL HYDROX/SIMETH 30 ML UNIT-DOSE CUP PO SCH ×2 (06:14→10:57)
[2017-07-26 07:25] LABS: BASO % 0.2 % (0-2.0); HEMATOCRIT 28.5 % (35.4-49); LYMPH % 6.3 % (8-40); MCH 34.7 pg (25.7-33.7); MCHC 34.9 g/dl (32.0-35.9); MEAN CELL VOLUME 99.3 fl (80-96); MEAN PLT VOLUME 7.2 fl (7.5-11.1); MONO % 7.1 % (3.8-10.2); NEUT % 86.4 % (42.8-82.8); PLATELET COUNT 360 K/MM3 (134-434); RBC 2.87 M/mm3 (4.00-5.60); RDW 14.5 % (11.9-15.9); RETICULOCYTES 1.68 % (0.5-1.5); WHITE BLOOD COUNT 16.1 K/mm3 (4.0-10.0)
[2017-07-26] MEDS: FERROUS SO4 325 MG TABLET (FP) PO SCH ×2 (07:44→17:09)
[2017-07-26] MEDS ORDERED: PT OWN MED DRAWER 7, Y5N ONE ×3 (08:59→20:07)
[2017-07-26] MEDS: PANTOPRAZOLE 40 MG TABLET (FP) PO SCH ×2 (09:02→21:15)
[2017-07-26] MEDS: URSODIOL 300 MG CAPSULE PO SCH ×2 (09:02→21:15)
[2017-07-26] MEDS: ASCORBIC ACID 500 MG TABLET (FP) PO SCH ×2 (09:02→21:15)
[2017-07-26] MEDS: BUDESONIDE/FORMETEROL FUMARATE 80/4.5 mcg INHALER IH SCH ×2 (09:02→21:14)
[2017-07-26 09:04] LABS: ANION GAP 10 (8-16); BLOOD UREA NITROGEN 10 mg/dL (7-18); CALCIUM 7.3 mg/dL (8.5-10.1); CHLORIDE 100 mmol/L (98-107); CO2 26 mmol/L (21-32); CREATININE 0.4 mg/dL (0.7-1.3); GLUCOSE,RANDOM 89 mg/dL (74-106); MAGNESIUM 2.4 mg/dL (1.8-2.4); PHOSPHOROUS 1.8 mg/dL (2.5-4.9); POTASSIUM 4.1 mmol/L (3.5-5.1); SODIUM 136 mmol/L (136-145)
--- NOTE | 2017-07-26 10:30 | PN ---
Progress Note (short form) - Note Progress Note: PULMONARY Denies shortness of breath, cough or chest pain. Saturating 84% on room air. Last Vital Signs Temp Pulse Resp BP Pulse Ox 97.7 F 113 H 20 125/66 95 07/26/17 10:00 07/26/17 10:00 07/26/17 10:00 07/26/17 10:00 07/26/17 09:00 Gen: NAD at rest Heart: RRR Lung: scattered rales Abd: soft, nontender Ext: no edema CBC, BMP 07/26/17 06:00 07/26/17 06:00 Active Medications Al Hydroxide/Mg Hydroxide (Mylanta Oral Suspension -) 30 ml PO Q6H [facility] Last Admin: 07/26/17 06:14 Dose: 30 ml Ascorbic Acid (Vitamin C -) 500 mg PO BID [facility] Last Admin: 07/26/17 09:02 Dose: 500 mg Budesonide/Formoterol Fumarate (Symbicort 80/4.5mcg -) 2 puff IH BID [facility] Last Admin: 07/26/17 09:02 Dose: 2 puff Ferrous Sulfate (Feosol -) 325 mg PO BIDWM [facility] Last Admin: 07/26/17 07:44 Dose: 325 mg Guaifenesin (Robitussin -) 10 ml PO Q4H PRN PRN Reason: COUGH Last Admin: 07/25/17 18:04 Dose: 10 ml Melatonin (Melatonin) 5 mg PO HS PRN PRN Reason: INSOMNIA Ondansetron HCl (Zofran Injection) 4 mg IVPB Q6H PRN PRN Reason: NAUSEA Last Admin: 07/21/17 10:26 Dose: 4 mg Pantoprazole Sodium (Protonix -) 40 mg PO BID [facility] Last Admin: 07/26/17 09:02 Dose: 40 mg Tramadol HCl (Ultram -) 50 mg PO DAILY PRN PRN Reason: PAIN LEVEL 6-10 Ursodiol (Actigal -) 300 mg PO BID [facility] Last Admin: 07/26/17 09:02 Dose: 300 mg A/P COPD/Emphysema Bronchiectasis Cholelithiasis/Choledocholithiasis HTN Smoker GI Bleed - CT findings likely due to long history of smoking, prior pneumonia and/or tuberculosis - s/p empiric antibiotics given areas of bronchiectasis - symbicort 80/4.5 2puffs bid - O2 to keep SpO2 >90% - will need home O2 for likely chronic hypoxic respiratory failure - outpt PFTs - smoking cessation - DVT prophylaxis - can discharge home from pulmonary standpoint with home O2 and outpt f/u Problem List - Problems (1) Choledocholithiasis Code(s): K80.50 - CALCULUS OF BILE DUCT W/O CHOLANGITIS OR CHOLECYST W/O OBST (2) HTN (hypertension) Code(s): I10 - ESSENTIAL (PRIMARY) HYPERTENSION Qualifiers: Hypertension type: essential hypertension Qualified Code(s): I10 - Essential (primary) hypertension (3) Hyponatremia Code(s): E87.1 - HYPO-OSMOLALITY AND HYPONATREMIA (4) Pneumonia Code(s): J18.9 - PNEUMONIA, UNSPECIFIED ORGANISM Qualifiers: Pneumonia type: due to unspecified organism Laterality: right Lung location: lower lobe of lung Qualified Code(s): J18.1 - Lobar pneumonia, unspecified organism
[2017-07-26 12:49] LABS: BASO % 0.2 % (0-2.0); HEMATOCRIT 30.9 % (35.4-49); HEMOGLOBIN 10.6 GM/dL (11.7-16.9); LYMPH % 5.7 % (8-40); MCH 33.4 pg (25.7-33.7); MCHC 34.3 g/dl (32.0-35.9); MEAN CELL VOLUME 97.5 fl (80-96); MEAN PLT VOLUME 7.5 fl (7.5-11.1); MONO % 8.1 % (3.8-10.2); PLATELET COUNT 418 K/MM3 (134-434); RBC 3.17 M/mm3 (4.00-5.60); RDW 14.9 % (11.9-15.9); WHITE BLOOD COUNT 17.1 K/mm3 (4.0-10.0)
--- NOTE | 2017-07-26 14:13 | PN ---
Teaching Attending Note Name of Resident: Katherine Cruz ATTENDING PHYSICIAN STATEMENT I saw and evaluated the patient. I reviewed the resident's note and discussed the case with the resident. I agree with the resident's findings and plan as documented with exceptions below. SUBJECTIVE: Patient seen and examined. Breathing improved, no nausea, vomiting, abdominal pain or dark stools, tolerating diet well. OBJECTIVE: Vital Signs Period Temp Pulse Resp BP Sys/Jones Pulse Ox Last 24 Hr 97.7 F-99.3 F 101-119 20-20 125-152/58-77 91-95 Intake & Output 07/23/17 07/24/17 07/25/17 07/26/17 23:59 23:59 23:59 23:59 Intake Total 1849 935 440 Output Total 300 200 Balance 1849 935 140 -200 General: sitting in bed in no acute distress Chest: decreased air entry all over, no wheezing appreciated, few basilar rales Abdomen: soft, NT throughout, ND, extremities: no edema Home Medication List Medication Instructions Recorded Confirmed Type Azithromycin 250 mg PO DAILY 07/16/17 07/16/17 History Benzonatate 200 mg PO DAILY 07/16/17 07/16/17 History Celecoxib [Celebrex] 200 mg PO DAILY 07/16/17 07/16/17 History Docusate Sodium [Colace] 100 mg PO DAILY 07/16/17 07/16/17 History Tramadol HCl 50 mg PO DAILY 07/16/17 07/16/17 History Zolpidem Tartrate [Ambien] 10 mg PO DAILY 07/16/17 07/16/17 History Active Medications Generic Name Dose Route Start Last Admin Trade Name Abimaelq PRN Reason Stop Dose Admin Al Hydroxide/Mg Hydroxide 30 ml 07/22/17 17:15 07/26/17 10:57 Mylanta Oral Suspension - PO 30 ml Q6H RAYSHAWN Administration Ascorbic Acid 500 mg 07/25/17 22:00 07/26/17 09:02 Vitamin C - PO 500 mg BID RAYSHAWN Administration Budesonide/Formoterol Fumarate 2 puff 07/24/17 22:00 07/26/17 09:02 Symbicort 80/4.5mcg - IH 2 puff BID RAYSHAWN Administration Ferrous Sulfate 325 mg 07/25/17 17:30 07/26/17 07:44 Feosol - PO 325 mg BIDWM RAYSHAWN Administration Guaifenesin 10 ml 07/17/17 14:11 07/25/17 18:04 Robitussin - PO 10 ml Q4H PRN Administration COUGH Melatonin 5 mg 07/25/17 10:47 Melatonin PO HS PRN INSOMNIA Ondansetron HCl 4 mg 07/20/17 19:35 07/21/17 10:26 Zofran Injection IVPB 4 mg Q6H PRN Administration NAUSEA Pantoprazole Sodium 40 mg 07/25/17 22:00 07/26/17 09:02 Protonix - PO 40 mg BID RAYSHAWN Administration Tramadol HCl 50 mg 07/25/17 10:48 Ultram - PO DAILY PRN PAIN LEVEL 6-10 Ursodiol 300 mg 07/25/17 22:00 07/26/17 09:02 Actigal - PO 300 mg BID RAYSHAWN Administration Laboratory Results - last 24 hr 07/26/17 07/26/17 07/26/17 06:00 06:00 12:15 WBC 16.1 H 17.1 H RBC 2.87 L 3.17 L Hgb 10.0 L 10.6 L Hct 28.5 L 30.9 L MCV 99.3 H 97.5 H MCH 34.7 H 33.4 MCHC 34.9 34.3 RDW 14.5 14.9 Plt Count 360 418 MPV 7.2 L 7.5 Absolute Neuts (auto) 13.9 14.7 Neutrophils % 86.4 H 86.0 H Lymphocytes % 6.3 L 5.7 L Monocytes % 7.1 8.1 Eosinophils % 0.0 0.0 Basophils % 0.2 0.2 Nucleated RBC % 0 0 Retic Count 1.68 H Sodium 136 Potassium 4.1 Chloride 100 Carbon Dioxide 26 Anion Gap 10 BUN 10 D Creatinine 0.4 L Random Glucose 89 Calcium 7.3 L Phosphorus 1.8 L Magnesium 2.4 Ferritin 435.5 H Microbiology 07/16/17 18:05 Blood - Peripheral Venous Blood Culture - Final NO GROWTH AFTER 5 DAYS INCUBATION 07/16/17 18:19 Blood - Peripheral Venous Blood Culture - Final NO GROWTH AFTER 5 DAYS INCUBATION 07/19/17 02:35 Sputum - Expectorated Gram Stain - Final 07/19/17 02:35 Sputum - Expectorated Sputum Culture - Final NORMAL RESPIRATORY TIANNA 07/18/17 19:30 Urine For Antigen Detection Legionella Antigen - Final 07/18/17 19:30 Urine For Antigen Detection Streptococcus pneumoniae Antigen (M - Final 07/16/17 19:38 Urine - Urine Clean Catch Urine Culture - Final NO GROWTH OBTAINED 07/16/17 18:19 Nasopharyngeal Swab Influenza Types A,B Antigen - Final 07/16/17 18:19 Nasopharyngeal Swab - Final ASSESSMENT AND PLAN: 82 yo M with HTN admitted with fevers/cough, suspect PNA, also with nausea, vomiting abdominal pain found with Cholelithiasis and dialted CBD but normal LFTs, course complicated by melena, found with bleeding peptic ulcer. -Sesis due to multifocal PNA, improved -Acute GI bleed/Gastric ulcer with visible vessel s/p EGD cautery/epi 07/22 -Leucocytosis, ?aspiration during EGD -Cholelithiasis with dilated CBD -COPD/bronchiectasis -Hypovolumic hyponatremia, resolved -Hypophosphatemia -Hypokalemia -HTN Plan: H/h stable, tolerating diet well. Outpatient follow up EGD biopsy results. COntinue protonix 40 mg PO daily, repeat EGD in 3 months. Continue ursodiol. Outpatient follow up for elective ERCP and lap aurelia Rising WBC, less likely steroids still contributory. ?aspiration with EGD, check cxr, also check lfts, serial abdominal exams and monitor DVTPpx heparin replete phos dispo d/c on hold today pending above work up. Plan for home oxygen in 24 hours if WBC improved and no new infectious concerns.
[2017-07-26] MEDS ORDERED: SODIUM PHOSPHATE - 15 MM in SODIUM CHLORIDE 250 ML IVPB ONE (14:14)
--- NOTE | 2017-07-26 15:05 | PN ---
GI Progress Note Subjective: GI NOte: WBC continues to rise. Sorto denies pain. He has no overt bleeding. No chills or worsening respirations. His stool was loose. Will screen for C diff but this could be the Mylanta. Discussed case with Dr Lamar and agree with getting CXR to exclude worsening pneumonia. - Objective Vital Signs: Vital Signs Temperature 98.2 F 07/26/17 14:54 Pulse Rate 121 H 07/26/17 14:54 Respiratory Rate 20 07/26/17 14:54 Blood Pressure 134/69 07/26/17 14:54 O2 Sat by Pulse Oximetry (%) 95 07/26/17 09:00 Laboratory Tests 07/25/17 07/25/17 07/26/17 06:20 10:55 06:00 WBC 12.5 H 15.6 H 16.1 H Hgb Ferritin 07/26/17 07/26/17 06:00 12:15 WBC 17.1 H Hgb 10.6 L Ferritin 435.5 H Constitutional: No Distress ...Auscultate: Yes: Normoactive Bowel Sounds ...Palpate: Yes: Soft, Other (nontender) Labs: CBC, BMP 07/26/17 12:15 07/26/17 06:00 INR, PTT INR 1.10 (0.82-1.09) 07/23/17 05:50 Problem List - Problems (1) Leucocytosis Assessment/Plan: Etiology unclear but will screen for C diff. Await CXR. Will repeat LFTs. Code(s): D72.829 - ELEVATED WHITE BLOOD CELL COUNT, UNSPECIFIED (2) Gastric ulcer with hemorrhage Assessment/Plan: Resolved gastric ulcer bleed. Tolerating regular diet. Will stop Mylanta as this may be causing diarrhea. Code(s): K25.4 - CHRONIC OR UNSPECIFIED GASTRIC ULCER WITH HEMORRHAGE Qualifiers: Gastric ulcer chronicity: acute (3) Choledocholithiasis Assessment/Plan: Remains asymptomatic Code(s): K80.50 - CALCULUS OF BILE DUCT W/O CHOLANGITIS OR CHOLECYST W/O OBST (4) COPD (chronic obstructive pulmonary disease) with emphysema Code(s): J43.9 - EMPHYSEMA, UNSPECIFIED (5) Pneumonia Code(s): J18.9 - PNEUMONIA, UNSPECIFIED ORGANISM Qualifiers: Pneumonia type: due to unspecified organism Laterality: right Lung location: lower lobe of lung Qualified Code(s): J18.1 - Lobar pneumonia, unspecified organism
[2017-07-26 16:19] LABS: ALBUMIN 2.7 g/dl (3.4-5.0); BILIRUBIN,DIRECT 0.2 mg/dL (0.0-0.2); BILIRUBIN,TOTAL 0.4 mg/dL (0.2-1.0); TOT PROT 5.5 g/dl (6.4-8.2)
--- NOTE | 2017-07-26 17:59 | PN ---
Physical Exam: SUBJECTIVE: Patient seen and examined. Pt tolerated PO x2 meals. No melena, no loose stools. Had normal green non bloody stools.No fevers/n/v/abdominal pain. Wants to go home. OBJECTIVE: Vital Signs Period Temp Pulse Resp BP Sys/Jones Pulse Ox Last 24 Hr 97.7 F-99.3 F 101-121 20-20 125-152/66-77 91-95 Vital Signs Temp 98.2 F 07/26/17 14:54 Pulse 121 H 07/26/17 14:54 Resp 20 07/26/17 14:54 BP 134/69 07/26/17 14:54 Pulse Ox 95 07/26/17 09:00 Intake & Output 07/25/17 07/26/17 07/26/17 23:59 11:59 23:59 Intake Total 170 150 Output Total 300 200 Balance -130 -200 150 Intake: IV 70 sl#1 70 Oral 100 150 Output: Urine 300 200 Void 300 200 Other: Voiding Method Urinal Urinal # Unmeasured Voids Void 2 1 Bowel Movement Yes: 1 small Yes: 1 GENERAL: The patient is awake, alert, and fully oriented,on 3l-NC LUNGS: Breath sounds equal, scant rhonchi. HEART: Regular rate and rhythm, S1, S2 without murmur. ABDOMEN: Soft, nontender, nondistended, normoactive bowel sounds EXTREMITIES: 2+ pulses, warm, well-perfused, no edema. NEUROLOGICAL:AAOx3. Ambulates without support, normal speech P Laboratory Results - last 24 hr 07/26/17 07/26/17 07/26/17 06:00 06:00 12:15 WBC 16.1 H 17.1 H RBC 2.87 L 3.17 L Hgb 10.0 L 10.6 L Hct 28.5 L 30.9 L MCV 99.3 H 97.5 H MCH 34.7 H 33.4 MCHC 34.9 34.3 RDW 14.5 14.9 Plt Count 360 418 MPV 7.2 L 7.5 Absolute Neuts (auto) 13.9 14.7 Neutrophils % 86.4 H 86.0 H Lymphocytes % 6.3 L 5.7 L Monocytes % 7.1 8.1 Eosinophils % 0.0 0.0 Basophils % 0.2 0.2 Nucleated RBC % 0 0 Retic Count 1.68 H Sodium 136 Potassium 4.1 Chloride 100 Carbon Dioxide 26 Anion Gap 10 BUN 10 D Creatinine 0.4 L Random Glucose 89 Calcium 7.3 L Phosphorus 1.8 L Magnesium 2.4 Ferritin 435.5 H Total Bilirubin Direct Bilirubin AST ALT Alkaline Phosphatase Total Protein Albumin 07/26/17 14:30 WBC RBC Hgb Hct MCV MCH MCHC RDW Plt Count MPV Absolute Neuts (auto) Neutrophils % Lymphocytes % Monocytes % Eosinophils % Basophils % Nucleated RBC % Retic Count Sodium Potassium Chloride Carbon Dioxide Anion Gap BUN Creatinine Random Glucose Calcium Phosphorus Magnesium Ferritin Total Bilirubin 0.4 D Direct Bilirubin 0.2 AST 18 D ALT 38 D Alkaline Phosphatase 56 D Total Protein 5.5 L Albumin 2.7 L Active Medications Generic Name Dose Route Start Last Admin Trade Name Freq PRN Reason Stop Dose Admin Ascorbic Acid 500 mg 07/25/17 22:00 07/26/17 09:02 Vitamin C - PO 500 mg BID RAYSHAWN Administration Budesonide/Formoterol Fumarate 2 puff 07/24/17 22:00 07/26/17 09:02 Symbicort 80/4.5mcg - IH 2 puff BID RAYSHAWN Administration Ferrous Sulfate 325 mg 07/25/17 17:30 07/26/17 17:09 Feosol - PO 325 mg BIDWM RAYSHAWN Administration Guaifenesin 10 ml 07/17/17 14:11 07/25/17 18:04 Robitussin - PO 10 ml Q4H PRN Administration COUGH Sodium Phosphate 15 mm/ Sodium 255 mls @ 62.5 mls/hr 07/26/17 14:14 07/26/17 15:16 Chloride IVPB 07/26/17 18:18 62.5 mls/hr ONCE ONE Administration Melatonin 5 mg 07/25/17 10:47 Melatonin PO HS PRN INSOMNIA Ondansetron HCl 4 mg 07/20/17 19:35 07/21/17 10:26 Zofran Injection IVPB 4 mg Q6H PRN Administration NAUSEA Pantoprazole Sodium 40 mg 07/25/17 22:00 07/26/17 09:02 Protonix - PO 40 mg BID RAYSHAWN Administration Sucralfate 2 gm 07/26/17 22:00 Carafate - PO BID RAYSHAWN Tramadol HCl 50 mg 07/25/17 10:48 Ultram - PO DAILY PRN PAIN LEVEL 6-10 Ursodiol 300 mg 07/25/17 22:00 07/26/17 09:02 Actigal - PO 300 mg BID RAYSHAWN Administration EGD:gastric fundus bleeding ulcer, bleeding controlled with epinephrine and cautery -Cx and Urine labs negative ECHO: Grossly normal LV function Phone number: [phone]- daughter (Kaye) Phone number [phone]- Son in law Phone number [phone]- Aristides- Son ASSESSMENT/PLAN: 82 year old male with a significant PMH of HTN who presents to the emergency department for evaluation of diffuse abdominal pain, vomiting and fever. He was admitted for PNA #Leucocytosis -Pt noted to be trending upwards -repeat CBC still trended up CBC -LFTs- normal -Watch for fever overnight - otherwise for DC in am #Melena with Upper GI bleed secondary to gastric ulcer -No more melena reported -Tolerating clears -Now s/p endoscopy -on iv protonix gtt and mylanta -Preplanned ERCP was differed due to increased complications in setting of newly identified gastric ulcer -Per Dr Ruggiero-EGD will need to be repeated after 3 months of PPI therapy to assure that the ulcer is not malignant. - The ERCP will be deferred until unless cholangitis, pancreatitis or jaundice ensues. -Actigall given -Will continue PPI infusion -Will follow up PCP with Dr Jamil Singleton #Cholelithiasis/choledocholithiasis -CT: distal gallstone. No wall thickening or pericholecystic fluid. dilated CBD -US: gallstones with sludge, dilated CBD -GI consult appreciated: likely incidental. -D/W Dr Cortés- since ERCP will not be done for a while and patient has received up to 7 days of Metronidazole- started 07/18/16, it can be stopped -PT/INR -See above for mx -Lapchole will be after ERCP, likely 3 months done the line except for emergency indications for ERCP as noted above #Acute hypoxic respiratory failure -secondary to PNA with background COPD -On [place] oxygen especially during ambulation -For home oxygen #Sepsis 2/2 PNA -got Zosyn in ED -Completed Levaquin 500 daily -afebrile #COPD -noted on CT -15 pack/yr smoker -Pulm consult:duonebs, albuterol, no systemic steroids -De sated after pre and post to 87%- will need home oxygen- contacted case management - Continue Oxygen supplementation as needed #Hyponatremia -Improving -kidneys unremarkable #HTN -well controlled at this time - Not on home antihypertensive #FEN -hyponatremia -clear liquid diet #Dispo Likely D/C tomorrow Visit type - Emergency Visit Emergency Visit: Yes ED Registration Date: 07/16/17 Care time: The patient presented to the Emergency Department on the above date and was hospitalized for further evaluation of their emergent condition. - New Patient This patient is new to me today: No - Critical Care Critical Care patient: No - Discharge Referral Referred to [facility] Med [facility].: No
[2017-07-26] MEDS: SUCRALFATE 1 GM TABLET (FP) PO SCH (21:15)
[2017-07-27 07:56] LABS: BASO % 0.1 % (0-2.0); EOS % 0.1 % (0-4.5); HEMATOCRIT 27.2 % (35.4-49); HEMOGLOBIN 9.6 GM/dL (11.7-16.9); LYMPH % 6.6 % (8-40); MCH 34.9 pg (25.7-33.7); MCHC 35.2 g/dl (32.0-35.9); MEAN CELL VOLUME 99.2 fl (80-96); MEAN PLT VOLUME 7.3 fl (7.5-11.1); MONO % 7.6 % (3.8-10.2); NEUT % 85.6 % (42.8-82.8); PLATELET COUNT 391 K/MM3 (134-434); RBC 2.74 M/mm3 (4.00-5.60); RDW 14.7 % (11.9-15.9); WHITE BLOOD COUNT 12.9 K/mm3 (4.0-10.0)
[2017-07-27 08:07] LABS: SERUM IRON SATURATION 14 % (15-55); TOTAL IRON BINDING CAPACITY 145 ug/dL (250-450); UIBC 125 ug/dL (111-343)
[2017-07-27 08:23] LABS: MAGNESIUM 2.5 mg/dL (1.8-2.4); PHOSPHOROUS 2.2 mg/dL (2.5-4.9)
[2017-07-27 08:26] LABS: CHLORIDE 102 mmol/L (98-107); POTASSIUM 4.1 mmol/L (3.5-5.1); SODIUM 136 mmol/L (136-145)
[2017-07-27 08:45] LABS: ALBUMIN 2.3 g/dl (3.4-5.0); BILIRUBIN,DIRECT 0.2 mg/dL (0.0-0.2); BILIRUBIN,TOTAL 0.5 mg/dL (0.2-1.0); TOT PROT 5.1 g/dl (6.4-8.2)
[2017-07-27 08:46] LABS: ANION GAP 8 (8-16); BLOOD UREA NITROGEN 7 mg/dL (7-18); CALCIUM 7.2 mg/dL (8.5-10.1); CO2 26 mmol/L (21-32); CREATININE 0.3 mg/dL (0.7-1.3); GLUCOSE,RANDOM 85 mg/dL (74-106)
[2017-07-27] MEDS: BUDESONIDE/FORMETEROL FUMARATE 80/4.5 mcg INHALER IH SCH (09:56)
[2017-07-27] MEDS: SUCRALFATE 1 GM TABLET (FP) PO SCH (09:57)
[2017-07-27] MEDS: ASCORBIC ACID 500 MG TABLET (FP) PO SCH (09:57)
[2017-07-27] MEDS: URSODIOL 300 MG CAPSULE PO SCH (09:57)
[2017-07-27] MEDS: PANTOPRAZOLE 40 MG TABLET (FP) PO SCH (09:57)
[2017-07-27] MEDS: FERROUS SO4 325 MG TABLET (FP) PO SCH (09:57)
[2017-07-27 10:03] VITALS: BP 130/65; PULSE 112; TEMP 98.2
--- NOTE | 2017-07-27 10:57 | PN ---
Progress Note (short form) - Note Progress Note: s: no cp sob palps dizzy, asking to go home o: Vital Signs Period Temp Pulse Resp BP Sys/Jones Pulse Ox Last 24 Hr 98.2 F-98.8 F 102-121 18-22 120-144/60-80 96 nad no jvd rrr s1 s2 no mrg rhonchi, nl eff aaox3 no le e/c/c abd nt nd pos bs no jaundice diaphoresis Current Medications Generic Name Dose Route Start Last Admin Trade Name Freq PRN Reason Stop Dose Admin Ascorbic Acid 500 mg 07/25/17 22:00 07/27/17 09:57 Vitamin C - PO 500 mg BID RAYSHAWN Administration Budesonide/Formoterol Fumarate 2 puff 07/24/17 22:00 07/27/17 09:56 Symbicort 80/4.5mcg - IH 2 puff BID RAYSHAWN Administration Ferrous Sulfate 325 mg 07/25/17 17:30 07/27/17 09:57 Feosol - PO 325 mg BIDWM RAYSHAWN Administration Guaifenesin 10 ml 07/17/17 14:11 07/25/17 18:04 Robitussin - PO 10 ml Q4H PRN Administration COUGH Melatonin 5 mg 07/25/17 10:47 07/26/17 21:15 Melatonin PO 5 mg HS PRN Administration INSOMNIA Ondansetron HCl 4 mg 07/20/17 19:35 07/21/17 10:26 Zofran Injection IVPB 4 mg Q6H PRN Administration NAUSEA Pantoprazole Sodium 40 mg 07/25/17 22:00 07/27/17 09:57 Protonix - PO 40 mg BID RAYSHAWN Administration Sucralfate 2 gm 07/26/17 22:00 07/27/17 09:57 Carafate - PO 2 gm BID RAYSHAWN Administration Tramadol HCl 50 mg 07/25/17 10:48 Ultram - PO DAILY PRN PAIN LEVEL 6-10 Ursodiol 300 mg 07/25/17 22:00 07/27/17 09:57 Actigal - PO 300 mg BID RAYSHAWN Administration CBC, BMP 07/27/17 06:30 07/27/17 06:30 ecgs reviewed: sr/st, nl intervals, no ischemic changes echo 06/2017: nl lv/rv, mild mr, cxr: no chf a/p: 82 m hx htn here with n/v/abd pain. Cholelithiasis/Choledocholithiasis, gastric ulcer: -egd showed ulcer so ERCP is on hold for now until ulcer heals -no unstable cardiac issues at present. ecg and echo unremarkable. no cardiac contraindications to ercp. htn: -stable off meds, monitor for now smoking, likely copd: -smoking cessation -plans per pulm
--- NOTE | 2017-07-27 12:59 | PN ---
GI Progress Note Subjective: GI NOte: No GI complaints. WBC is dropping, NO bleeding - Objective Vital Signs: Vital Signs Temperature 98.2 F 07/27/17 10:00 Pulse Rate 112 H 07/27/17 10:00 Respiratory Rate 18 07/27/17 10:00 Blood Pressure 130/65 07/27/17 10:00 O2 Sat by Pulse Oximetry (%) 96 07/26/17 21:00 ...Auscultate: Yes: Normoactive Bowel Sounds ...Palpate: Yes: Soft, Other (nontender) Labs: CBC, BMP 07/27/17 06:30 07/27/17 06:30 INR, PTT INR 1.10 (0.82-1.09) 07/23/17 05:50 Assessment/Plan NO GI objections to discharge on PPI and Actigall Problem List - Problems (1) Leucocytosis Code(s): D72.829 - ELEVATED WHITE BLOOD CELL COUNT, UNSPECIFIED (2) Gastric ulcer with hemorrhage Code(s): K25.4 - CHRONIC OR UNSPECIFIED GASTRIC ULCER WITH HEMORRHAGE Qualifiers: Gastric ulcer chronicity: acute (3) Choledocholithiasis Code(s): K80.50 - CALCULUS OF BILE DUCT W/O CHOLANGITIS OR CHOLECYST W/O OBST (4) COPD (chronic obstructive pulmonary disease) with emphysema Code(s): J43.9 - EMPHYSEMA, UNSPECIFIED (5) Pneumonia Code(s): J18.9 - PNEUMONIA, UNSPECIFIED ORGANISM Qualifiers: Pneumonia type: due to unspecified organism Laterality: right Lung location: lower lobe of lung Qualified Code(s): J18.1 - Lobar pneumonia, unspecified organism
--- NOTE | 2017-07-27 14:07 | PN ---
Progress Note, Physician History of Present Illness: pulmonary alert,nad,-sob,-cp,-cough - Current Medication List Current Medications: Active Medications Ascorbic Acid (Vitamin C -) 500 mg PO BID [facility] Last Admin: 07/27/17 09:57 Dose: 500 mg Budesonide/Formoterol Fumarate (Symbicort 80/4.5mcg -) 2 puff IH BID [facility] Last Admin: 07/27/17 09:56 Dose: 2 puff Ferrous Sulfate (Feosol -) 325 mg PO BIDWM [facility] Last Admin: 07/27/17 09:57 Dose: 325 mg Guaifenesin (Robitussin -) 10 ml PO Q4H PRN PRN Reason: COUGH Last Admin: 07/25/17 18:04 Dose: 10 ml Melatonin (Melatonin) 5 mg PO HS PRN PRN Reason: INSOMNIA Last Admin: 07/26/17 21:15 Dose: 5 mg Ondansetron HCl (Zofran Injection) 4 mg IVPB Q6H PRN PRN Reason: NAUSEA Last Admin: 07/21/17 10:26 Dose: 4 mg Pantoprazole Sodium (Protonix -) 40 mg PO BID [facility] Last Admin: 07/27/17 09:57 Dose: 40 mg Sucralfate (Carafate -) 2 gm PO BID [facility] Last Admin: 07/27/17 09:57 Dose: 2 gm Tramadol HCl (Ultram -) 50 mg PO DAILY PRN PRN Reason: PAIN LEVEL 6-10 Ursodiol (Actigal -) 300 mg PO BID [facility] Last Admin: 07/27/17 09:57 Dose: 300 mg - Objective Vital Signs: Vital Signs Temperature 98.2 F 07/27/17 10:00 Pulse Rate 112 H 07/27/17 10:00 Respiratory Rate 18 07/27/17 10:00 Blood Pressure 130/65 07/27/17 10:00 O2 Sat by Pulse Oximetry (%) 96 07/26/17 21:00 Constitutional: Yes: Calm, Thin Eyes: Yes: WNL HENT: Yes: WNL Neck: Yes: WNL Cardiovascular: Yes: Regular Rate and Rhythm, S1, S2 Respiratory: Yes: Diminished, Rales (few basilar crackles) Gastrointestinal: Yes: Normal Bowel Sounds, Soft Extremities: Yes: WNL Edema: No Labs: CBC, BMP 07/27/17 06:30 07/27/17 06:30 INR, PTT INR 1.10 (0.82-1.09) 07/23/17 05:50 Problem List - Problems (1) Bronchiectasis Code(s): J47.9 - BRONCHIECTASIS, UNCOMPLICATED (2) Bronchiectasis Code(s): J47.9 - BRONCHIECTASIS, UNCOMPLICATED Assessment/Plan Problem List - Problems (1) Choledocholithiasis Code(s): K80.50 - CALCULUS OF BILE DUCT W/O CHOLANGITIS OR CHOLECYST W/O OBST (2) HTN (hypertension) Code(s): I10 - ESSENTIAL (PRIMARY) HYPERTENSION Qualifiers: Hypertension type: essential hypertension Qualified Code(s): I10 - Essential (primary) hypertension (3) Hyponatremia Code(s): E87.1 - HYPO-OSMOLALITY AND HYPONATREMIA (4) Pneumonia Code(s): J18.9 - PNEUMONIA, UNSPECIFIED ORGANISM Qualifiers: Pneumonia type: due to unspecified organism Laterality: right Lung location: lower lobe of lung Qualified Code(s): J18.1 - Lobar pneumonia, unspecified organism Assessment/Plan COPD/Emphysema Bronchiectasis Cholelithiasis/Choledocholithiasis HTN Smoker MELENA - symbicort 80/4.5 2puffs bid - spiriva - O2 to keep SpO2 >90% - Home O2 - outpt PFTs - smoking cessation - DVT prophylaxis - PPIs DR FERRO
--- NOTE | 2017-07-27 15:39 | PN ---
Physical Exam: SUBJECTIVE: Patient seen and examined OBJECTIVE: Vital Signs Period Temp Pulse Resp BP Sys/Jones Pulse Ox Last 24 Hr 98.2 F-98.8 F 102-118 18-22 120-144/60-80 96 GENERAL: The patient is awake, alert, and fully oriented,on RA- sating at 91% LUNGS: Breath sounds equal, clear to auscultation bilaterally HEART: Regular rate and rhythm, S1, S2 without murmur. ABDOMEN: Soft, nontender, nondistended, normoactive bowel sounds EXTREMITIES: 2+ pulses, warm, well-perfused, no edema. NEUROLOGICAL:AAOx3. Ambulates without support, normal speech Laboratory Results - last 24 hr 07/26/17 07/26/17 07/27/17 06:00 14:30 06:30 WBC RBC Hgb Hct MCV MCH MCHC RDW Plt Count MPV Absolute Neuts (auto) Neutrophils % Lymphocytes % Monocytes % Eosinophils % Basophils % Nucleated RBC % Sodium Potassium Chloride Carbon Dioxide Anion Gap BUN Creatinine Random Glucose Calcium Phosphorus Magnesium Iron 20 L TIBC 145 L Iron Saturation 14 L Total Bilirubin 0.4 D 0.5 D Direct Bilirubin 0.2 0.2 AST 18 D 15 ALT 38 D 32 Alkaline Phosphatase 56 D 49 C-Reactive Protein Total Protein 5.5 L 5.1 L Albumin 2.7 L 2.3 L Total Amylase Lipase 07/27/17 07/27/17 07/27/17 06:30 06:30 06:30 WBC 12.9 H RBC 2.74 L Hgb 9.6 L Hct 27.2 L MCV 99.2 H MCH 34.9 H MCHC 35.2 RDW 14.7 Plt Count 391 MPV 7.3 L Absolute Neuts (auto) 11.1 Neutrophils % 85.6 H Lymphocytes % 6.6 L Monocytes % 7.6 Eosinophils % 0.1 D Basophils % 0.1 Nucleated RBC % 0 Sodium 136 Potassium 4.1 Chloride 102 Carbon Dioxide 26 Anion Gap 8 BUN 7 D Creatinine 0.3 L D Random Glucose 85 Calcium 7.2 L Phosphorus 2.2 L D Magnesium 2.5 H Iron TIBC Iron Saturation Total Bilirubin Direct Bilirubin AST ALT Alkaline Phosphatase C-Reactive Protein 4.6 H Total Protein Albumin Total Amylase 81 D Lipase 133 Active Medications Generic Name Dose Route Start Last Admin Trade Name Freq PRN Reason Stop Dose Admin Ascorbic Acid 500 mg 07/25/17 22:00 07/27/17 09:57 Vitamin C - PO 500 mg BID RAYSHAWN Administration Budesonide/Formoterol Fumarate 2 puff 07/24/17 22:00 07/27/17 09:56 Symbicort 80/4.5mcg - IH 2 puff BID RAYSHAWN Administration Ferrous Sulfate 325 mg 07/25/17 17:30 07/27/17 09:57 Feosol - PO 325 mg BIDWM RAYSHAWN Administration Guaifenesin 10 ml 07/17/17 14:11 07/25/17 18:04 Robitussin - PO 10 ml Q4H PRN Administration COUGH Melatonin 5 mg 07/25/17 10:47 07/26/17 21:15 Melatonin PO 5 mg HS PRN Administration INSOMNIA Ondansetron HCl 4 mg 07/20/17 19:35 07/21/17 10:26 Zofran Injection IVPB 4 mg Q6H PRN Administration NAUSEA Pantoprazole Sodium 40 mg 07/25/17 22:00 07/27/17 09:57 Protonix - PO 40 mg BID RAYSHAWN Administration Sucralfate 2 gm 07/26/17 22:00 07/27/17 09:57 Carafate - PO 2 gm BID RAYSHAWN Administration Tramadol HCl 50 mg 07/25/17 10:48 Ultram - PO DAILY PRN PAIN LEVEL 6-10 Ursodiol 300 mg 07/25/17 22:00 07/27/17 09:57 Actigal - PO 300 mg BID RAYSHAWN Administration ASSESSMENT/PLAN:
--- NOTE | 2017-07-27 15:50 | DS ---
Physical Exam: SUBJECTIVE: Patient seen and examined. No new c/o. No melena stools, no n/v/ abdominal pain. Had normal brown stool. OBJECTIVE: Vital Signs Period Temp Pulse Resp BP Sys/Jones Pulse Ox Last 24 Hr 98.2 F-98.8 F 102-118 18-22 120-144/60-80 96-96 Vital Signs Temp 98.2 F 07/27/17 10:00 Pulse 112 H 07/27/17 10:00 Resp 18 07/27/17 10:00 BP 130/65 07/27/17 10:00 Pulse Ox 96 07/27/17 09:00 Intake & Output 07/26/17 07/27/17 07/27/17 23:59 11:59 23:59 Intake Total 605 0 500 Output Total 500 Balance 105 0 500 Intake: IVPB 255 Oral 350 0 500 Output: Urine 500 Void 500 Other: Voiding Method Urinal Urinal # Unmeasured Voids Void 1 1 2 Bowel Movement Yes: 1 Yes # Bowel Movements 2 PHYSICAL EXAM GENERAL: The patient is awake, alert, and fully oriented, in no acute respiratory distress. On RA- Sating at 91% LUNGS: Breath sounds equal, clear to auscultation bilaterally HEART: Regular rate and rhythm, S1, S2 without murmur ABDOMEN: Soft, nontender, nondistended, normoactive bowel sounds EXTREMITIES: 2+ pulses, warm, well-perfused, no edema. NEUROLOGICAL: AAOx3. No facial droop. Normal tone and strength globally. Normal speech, able to walk unassisted LABS Laboratory Results - last 24 hr 07/26/17 07/26/17 07/27/17 06:00 14:30 06:30 WBC RBC Hgb Hct MCV MCH MCHC RDW Plt Count MPV Absolute Neuts (auto) Neutrophils % Lymphocytes % Monocytes % Eosinophils % Basophils % Nucleated RBC % Sodium Potassium Chloride Carbon Dioxide Anion Gap BUN Creatinine Random Glucose Calcium Phosphorus Magnesium Iron 20 L TIBC 145 L Iron Saturation 14 L Total Bilirubin 0.4 D 0.5 D Direct Bilirubin 0.2 0.2 AST 18 D 15 ALT 38 D 32 Alkaline Phosphatase 56 D 49 C-Reactive Protein Total Protein 5.5 L 5.1 L Albumin 2.7 L 2.3 L Total Amylase Lipase 07/27/17 07/27/17 07/27/17 06:30 06:30 06:30 WBC 12.9 H RBC 2.74 L Hgb 9.6 L Hct 27.2 L MCV 99.2 H MCH 34.9 H MCHC 35.2 RDW 14.7 Plt Count 391 MPV 7.3 L Absolute Neuts (auto) 11.1 Neutrophils % 85.6 H Lymphocytes % 6.6 L Monocytes % 7.6 Eosinophils % 0.1 D Basophils % 0.1 Nucleated RBC % 0 Sodium 136 Potassium 4.1 Chloride 102 Carbon Dioxide 26 Anion Gap 8 BUN 7 D Creatinine 0.3 L D Random Glucose 85 Calcium 7.2 L Phosphorus 2.2 L D Magnesium 2.5 H Iron TIBC Iron Saturation Total Bilirubin Direct Bilirubin AST ALT Alkaline Phosphatase C-Reactive Protein 4.6 H Total Protein Albumin Total Amylase 81 D Lipase 133 -CT: distal gallstone. No wall thickening or pericholecystic fluid. dilated CBD -US: gallstones with sludge, dilated CBD EGD:gastric fundus bleeding ulcer, bleeding controlled with epinephrine and cautery -Cx and Urine labs negative ECHO: Grossly normal LV function Phone number: [phone]- daughter (Kaye) Phone number [phone]- Son in law Phone number [phone]- Aristides- Son HOSPITAL COURSE: Date of Admission:07/16/17 Date of Discharge: 07/27/17 82 year old male with a significant PMH of HTN who presents to the emergency department for evaluation of diffuse abdominal pain, vomiting and fever. He was admitted for PNA, found to have Cholelithiasis/choledocholithiasis, developed melena on admission and was found to have gastric fundus ulcer. He is being discharged on PO protonix gtt and mylanta. As a current smoker, he was diagnosed with background COPD with superimposed PNA. He was evaluated and found to need home oxygen 2-3L especially on ambulation. Received Levaquin for the PNA and metronidazole prophylaxis against cholangitis. He was mostly asymptomatic for cholangitis except for initial nausea. He had normal LFTs ERCP was suspended due to the gastric ulcer. He will follow up with Dr Ruggiero- for EGD repeat after 3 months of PPI therapy to assure that the ulcer is not malignant. In the event of cholangitis, pancreatitis or jaundice, emergency ERCP will be required. After EGD, he will get elective ERCP, and if successful, will get a lapcholecystectomy. He was started on multivitamins and nebulizers. Pt will follow up PCP with Dr Jamil Singleton and Dr Ruggiero. He will also follow up with Dr Francis as director of digital platforms Minutes to complete discharge: 42 Discharge Summary Reason For Visit: COMMON BILE DUCT CALCULUS/PNEUMONIA Current Active Problems Abdominal pain (Acute) Bronchiectasis (Acute) Bronchiectasis (Acute) COPD (chronic obstructive pulmonary disease) with emphysema (Acute) Choledocholithiasis (Acute) Common bile duct dilatation (Acute) DVT prophylaxis (Acute) Gastric ulcer with hemorrhage (Acute) HTN (hypertension) (Acute) Hyponatremia (Acute) Leucocytosis (Acute) Pneumonia (Acute) Condition: Improved - Instructions Diet, Activity, Other Instructions: You came in and were found to have pneumonia with background chronic obstructive airway disease You received antibiotics and were treated for COPD Smoking cessation will be helpful for you We are putting you on new medications to help your breathing -symbicort 2 puffs twice a day as needed -albuterol inhaler -Robitussin cough syrup - You used oxygen while here You were evaluated for need for oxygen at home You have been approved. You need to use oxygen all the time while at home 2-3 Liters Follow up with your primary care doctor tomorrow to have a repeat blood test- CBC (in 5-7 days) To check your blood counts -We have added iron tablets- take with meals -Vit c tablets You will benefit from outpatient pulmonary function tests (breathing tests), please follow up with a director of digital platforms You were noted to have stones obstructing your common bile duct, a procedure ERCP was planned to remove the stones using an endoscope Before ERCP could be done you were found to be bleeding from an ulcer in your stomach as a result you will continue on medication to protect the lining of your stomach -protonix for 3 months After which you will need a repeat endoscopy If there is no more evidence of bleeding from the ulcer, you may be able to have the stones removed by ERCP We are giving you -Actigal 300mg twice daily to help reduce the production of more gall stones We are also placing you on protonix 40mg daily and mylanta 30mls 4 times a day to help your stomach heal Follow up with the GI (stomach doctor) in one week FOLLOW UP EGD BIOPSY RESULTS WITH DR. RUGGIERO OR YOUR DOCTOR IN 1 WEEK. After the ERCP is successful, you will benefit from laparoscopic cholecystectomy- a surgery using small incisions to remove your gall bladder If there are complications with the stones before the 3 months and you have new or worsening symptoms suggestive of inflammation of the pancreas, or evidence of worsening blockage by the stone, with fever, altered mental status and jaundice, then you may need an emergency ERCP to take the stone out whether or not you are stable from the bleed You will continue protonix as prescribed You will continue out patient nebulizers/inhalers as needed Follow up with your primary care doctor in one week You were seen by cardiologists while here, follow up with the cardiologists in 2 weeks If you think your symptoms are not getting better, any new fevers, chills, worsening cough, breathing, belly pain, dark or bloody stools, or any new concerns, please return to the emergency room or call 911 Referrals: Sony Francis MD [Staff Physician] - 1 Week (Budget Manager - for breathing tests and follow up) Tr Wolf MD [Staff Physician] - 2 Weeks (mat cleaning machine operator) Yasmeen Ruggiero MD [Staff Physician] - 1 Week (GI for repeat endoscopy) Disposition: HOME - Home Medications Comprehensive Discharge Medication List: Ambulatory Orders Azithromycin 250 mg PO DAILY 07/16/17 Benzonatate 200 mg PO DAILY 07/16/17 Celecoxib [Celebrex] 200 mg PO DAILY 07/16/17 Docusate Sodium [Colace] 100 mg PO DAILY 07/16/17 Tramadol HCl 50 mg PO DAILY 07/16/17 Zolpidem Tartrate [Ambien] 10 mg PO DAILY 07/16/17 Albuterol 0.083% Nebulizer Sera [Ventolin 0.083% Nebulizer Soln -] 1 amp NEB Q6H PRN #7 amp 07/26/17 Ascorbic Acid [Vitamin C -] 500 mg PO BID #60 tablet 07/26/17 Budesonide/Formeterol Fumarate [SYMBICORT 80/4.5mcg -] 2 puff IH BID #1 inhaler 07/26/17 Ferrous Sulfate [Feosol] 325 mg PO BIDWM #30 tab 07/26/17 Guaifenesin [Robitussin -] 10 ml PO Q4H PRN #1 bottle 07/26/17 Mag Hydrox/Al Hydrox/Simeth [Mylanta Oral Suspension -] 30 ml PO Q6H #7 bottle 07/26/17 Pantoprazole Sodium [Protonix -] 40 mg PO BID #60 tablet.ec 07/26/17 Ursodiol [Actigal -] 300 mg PO BID #60 capsule 07/26/17 This patient is new to me today: No Emergency Visit: Yes ED Registration Date: 07/16/17 Care time: The patient presented to the Emergency Department on the above date and was hospitalized for further evaluation of their emergent condition. Critical Care patient: No - Discharge Referral Referred to [facility] Med [facility] No
== END 2017-07-27 17:01 | disposition home or self-care (01) | DRG 871 ==
LOC: JER 17:43 → JERBED 22:07 → J7W 23:41
PROVIDERS: ADMIT Internal Medicine; ATTEND Hospitalist
PROC: 0W3P8ZZ Control Bleeding in Gastrointestinal Tract, Via Natural or Artificial Opening Endoscopic (ICD-10-PCS; principal; 2017-07-26)
PROC: 3E0G8GC Introduction of Other Therapeutic Substance into Upper GI, Via Natural or Artificial Opening Endoscopic (ICD-10-PCS; 2017-07-26)
DX: A41.9 Sepsis, unspecified organism (principal); J18.9 Pneumonia, unspecified organism; K25.4 Chronic or unspecified gastric ulcer with hemorrhage; J96.01 Acute respiratory failure with hypoxia; E87.1 Hypo-osmolality and hyponatremia; K80.70 Calculus of gallbladder and bile duct without cholecystitis without obstruction; E87.6 Hypokalemia; E83.39 Other disorders of phosphorus metabolism; D50.9 Iron deficiency anemia, unspecified; F12.10 Cannabis abuse, uncomplicated; J47.9 Bronchiectasis, uncomplicated; J43.9 Emphysema, unspecified; I10 Essential (primary) hypertension; E86.1 Hypovolemia
CPT/HCPCS: 36415; 71045-TC-FY; 71046-TC-FY; 71250-TC; 74177-TC; 74181-TC; 76705-TC; 80048; 80053; 80076; 81003; 82150; 82272; 82570; 82728; 82803; 83540; 83550; 83605; 83690; 83735; 83880; 83935; 84100; 84300; 84484; 85025; 85027; 85044; 85610; 85730; 86140; 86850; 86900; 86901; 87040; 87070; 87086; 87205; 87804; 87899; 90670; 93005; 93010; 93306-TC; 94640; 94761; 97116-GP; 97161-GP; 99285-25; J0131; J1644; J7030; J7620

== ENCOUNTER 2018-01-19 09:31 | Inpatient (IN) | payer OTHER ==
[2018-01-19] MEDS ORDERED: morphine CARPU-JECT 4 MG/1 ML DISP.SYRIN IVPUSH ONE ×2 (09:39→10:42)
--- NOTE | 2018-01-19 09:39 | PDOC ---
History of Present Illness - General Chief Complaint: Injury Stated Complaint: FALL - History of Present Illness Initial Comments: 82 year old with PMH of HTN, asthma, COPD (in the setting of a long smoking history), cholelithiasis, and urinary issues presenting with left hip pain and decreased ROM after a fall from standing in the bathroom. Patient is Indian speaking but understands some French and friend at bedside is helping translate. Patient states he was walking in the bathroom yesterday evening and his left leg gave out after which he fell to the floor and his had to help him up and lay him in bed. He went to bed but the pain was worse the next morning and he was still unable to move his leg. He has been unable to move his leg without extreme pain to his upper leg and hip since the fall. Denies fevers , chills, nausea, vomiting, diarrhea, and constipation. His pain is 7/10 in severity. He denies any weakness or sensation loss in his distal extremities. 01/19/18 10:17 Past History - Past Medical History Allergies/Adverse Reactions: Allergies Allergy/AdvReac Type Severity Reaction Status Date / Time No Known Allergies Allergy Verified 01/19/18 10:05 Home Medications: Ambulatory Orders Azithromycin 250 mg PO DAILY 07/16/17 Benzonatate 200 mg PO DAILY 07/16/17 Celecoxib [Celebrex] 200 mg PO DAILY 07/16/17 Docusate Sodium [Colace] 100 mg PO DAILY 07/16/17 Tramadol HCl 50 mg PO DAILY 07/16/17 Zolpidem Tartrate [Ambien] 10 mg PO DAILY 07/16/17 Albuterol 0.083% Nebulizer Sera [Ventolin 0.083% Nebulizer Soln -] 1 amp NEB Q6H PRN #7 amp 07/26/17 Ascorbic Acid [Vitamin C -] 500 mg PO BID #60 tablet 07/26/17 Budesonide/Formeterol Fumarate [SYMBICORT 80/4.5mcg -] 2 puff IH BID #1 inhaler 07/26/17 Ferrous Sulfate [Feosol] 325 mg PO BIDWM #30 tab 07/26/17 Guaifenesin [Robitussin -] 10 ml PO Q4H PRN #1 bottle 07/26/17 Mag Hydrox/Al Hydrox/Simeth [Mylanta Oral Suspension -] 30 ml PO Q6H #7 bottle 07/26/17 Pantoprazole Sodium [Protonix -] 40 mg PO BID #60 tablet.ec 07/26/17 Ursodiol [Actigal -] 300 mg PO BID #60 capsule 07/26/17 COPD: No HTN: Yes - Immunization History Immunization Up to Date: Yes - Suicide/Smoking/Psychosocial Hx Smoking History: Former smoker Have you smoked in the past 12 months: No If you are a former smoker, when did you quit?: 50 years ago Hx Alcohol Use: Yes (2 shots of whiskey daily) Drug/Substance Use Hx: No Substance Use Type: Alcohol Hx Substance Use Treatment: No Review of Systems - Review of Systems Constitutional: No: Chills, Diaphoresis, Loss of Appetite HEENTM: No: Blurred Vision, Tearing Respiratory: Yes: Shortness of Breath, SOB at Rest. No: Cough, Orthopnea Cardiac (ROS): No: Chest Pain, Edema, Irregular Heart Rate ABD/GI: Yes: Other (incontinence at baseline). No: Constipated, Diarrhea, Nausea, Vomiting : No: Burning, Dysuria, Discharge, Frequency Musculoskeletal: Yes: Joint Pain, Joint Swelling. No: Back Pain, Gout Integumentary: No: Lesions, Lumps, Pallor, Pruritus, Rash Neurological: No: Headache, Numbness, Paresthesia Psychiatric: No: Anxiety, Depression Hematologic/Lymphatic: No: Anemia, Blood Clots, Easy Bleeding *Physical Exam - Physical Exam General Appearance: Yes: Nourished, Appropriately Dressed, Apparent Distress, Moderate Distress (Grimacing in pain) HEENT: positive: EOMI, QUINTIN, Normal ENT Inspection, Normal Voice Neck: positive: Trachea midline, Normal Thyroid, Supple. negative: Tender, Rigid Respiratory/Chest: positive: Lungs Clear. negative: Chest Tender, Normal Breath Sounds (ditant lung sounds), Respiratory Distress, Accessory Muscle Use Cardiovascular: positive: Regular Rhythm, Tachycardia. negative: Regular Rate Gastrointestinal/Abdominal: positive: Normal Bowel Sounds, Flat, Soft. negative : Tender Musculoskeletal: positive: Decreased Range of Motion. negative: Normal Inspection (shortened and externally rotated right leg.) Extremity: positive: Normal Capillary Refill, Tender (tender over proximal thigh with obvious swelling, and tender over lateral hip/ posterior hip with swelling). negative: Normal Inspection, Normal Range of Motion (decreased ROM) ED Treatment Course - LABORATORY CBC & Chemistry Diagram: 01/19/18 10:00 01/19/18 11:04 Medical Decision Making - Medical Decision Making 82 year old male with PMH of COPD (home O2 at unknown level), HTN, and asthma presenting with left hip pain after an unwitnessed fall during which he states his legs felt weak. He fell to the bathroom floor without losing consciousness or suffering head trauma. His current complaint was solely of left hip pain, Family denies previous falls at home. XR demonstrating left intra-trochanteric fracture. I spoke to the the PA for / [facility] and he evaluated the patient. EKG showing rate 107, TX 126, QRS 80, QTc 451, and normal axis with partially biphasic t-waves in V1-V2 but no elevations or depressions.I also signed out the patient to Dr. Jean for admission under Dr. Cohen. 01/19/18 12:38 *DC/Admit/Observation/Transfer Diagnosis at time of Disposition: Intertrochanteric fracture Qualifiers: Encounter type: initial encounter Fracture type: closed Fracture alignment: displaced Laterality: left Qualified Code(s): S72.142A - Displaced intertrochanteric fracture of left femur, initial encounter for closed fracture - Discharge Dispostion Condition at time of disposition: Unchanged/Unknown Decision to Admit order: Yes - Referrals - Patient Instructions - Post Discharge Activity
--- NOTE | 2018-01-19 09:39 | PDOC ---
Attending Attestation - Resident Resident Name: Dilip Ni - HPI HPI: 01/19/18 10:38 Pt presents to the ED complaining of severe L hip pain after fall in the bathroom. Unable to bear weight after the injury. Reports that he was feeling extremely weak and dizzy before he fell but did not loose consciousness. 01/19/18 11:28 - Physicial Exam PE: 01/19/18 11:18 Agree with resident exam. L leg shortened and externally rotated. + bony tenderness at L hip. neurovascularly intact. 01/19/18 11:19 - Medical Decision Making 01/19/18 11:19 PT presents to the ED with severe L hip pain after fall. Concern for hip fracture--will give pain medication and check xray. Patient also complaining of generalized weakness and loss of appetite prior to fall. EKG is normal sinus rhythm with no signs of ischemia. Will check labs and reassess. Will admit to medicine for management of hip fracture.
[2018-01-19] MEDS ORDERED: morphine SULFATE 4 MG/ML VIAL ONE ×2 (10:03→10:58)
[2018-01-19 10:32] LABS: BASO % 0.8 % (0-2.0); HEMATOCRIT 35.1 % (35.4-49); HEMOGLOBIN 12.5 GM/dL (11.7-16.9); LYMPH % 6.7 % (8-40); MCH 34.1 pg (25.7-33.7); MCHC 35.6 g/dl (32.0-35.9); MEAN CELL VOLUME 95.8 fl (80-96); MEAN PLT VOLUME 8.4 fl (7.5-11.1); MONO % 8.2 % (3.8-10.2); NEUT % 84.3 % (42.8-82.8); PLATELET COUNT 186 K/MM3 (134-434); RBC 3.66 M/mm3 (4.00-5.60); RDW 14.6 % (11.9-15.9)
[2018-01-19 11:09] LABS: INR 0.89 (0.83-1.09); PROTHROMBIN TIME (PATIENT) 10.5 SEC (9.7-13.0)
[2018-01-19 11:56] LABS: ALBUMIN 3.1 g/dl (3.4-5.0); ALK PHOS 59 U/L (45-117); ANION GAP 9 MMOL/L (8-16); BILIRUBIN,TOTAL 0.8 mg/dL (0.2-1); BLOOD UREA NITROGEN 13 mg/dL (7-18); CHLORIDE 105 mmol/L (98-107); CO2 26 mmol/L (21-32); CREATININE 0.6 mg/dL (0.55-1.3); GLUCOSE,RANDOM 127 mg/dL (74-106); POTASSIUM 3.8 mmol/L (3.5-5.1); SGOT/AST 21 U/L (15-37); SGPT/ALT 27 U/L (13-61); SODIUM 139 mmol/L (136-145); TOT PROT 5.7 g/dl (6.4-8.2)
--- NOTE | 2018-01-19 11:56 | EKG ---
Test Reason : Blood Pressure : / mmHG Vent. Rate : 107 BPM Atrial Rate : 107 BPM P-R Int : 126 ms QRS Dur : 080 ms QT Int : 338 ms P-R-T Axes : 066 081 076 degrees QTc Int : 451 ms SINUS TACHYCARDIA NONSPECIFIC ST ABNORMALITY ABNORMAL ECG WHEN COMPARED WITH ECG OF 22-JUL-2017 09:05, NO SIGNIFICANT CHANGE WAS FOUND Confirmed by MORELIA SCHMITT MD ([id number]) on 01/19/2018 11:56:17 AM Referred By: Confirmed By:MORELIA SCHMITT MD
[2018-01-19 12:19] LABS: ANISOCYTOSIS 1+; MACROCYTOSIS 1+; PLATELET ESTIMATE NORMAL
[2018-01-19] MEDS ORDERED: SODIUM CHLORIDE 0.9% 500 ML INFUS.BAG IV ONE (12:55)
[2018-01-19] MEDS ORDERED: SODIUM CHLORIDE 1,000 ML IV SCH ×2 (13:00→16:30)
--- NOTE | 2018-01-19 13:08 | CON.ORTH ---
Consult Reason for Consultation:: left hip fx - Past Medical History Cardio/Vascular: Yes: HTN - Alcohol/Substance Use Hx Alcohol Use: Yes (2 shots of whiskey daily) History of Substance Use: reports: None - Smoking History Smoking history: Former smoker Have you smoked in the past 12 months: No If you are a former smoker, when did you quit?: 50 years ago - Social History Usual Living Arrangement: With Spouse ADL: Independent Occupation: Retired from [employer] History of Recent Travel: No Home Medications - Allergies Allergies/Adverse Reactions: Allergies Allergy/AdvReac Type Severity Reaction Status Date / Time No Known Allergies Allergy Verified 01/19/18 10:05 - Home Medications Home Medications: Ambulatory Orders Azithromycin 250 mg PO DAILY 07/16/17 Benzonatate 200 mg PO DAILY 07/16/17 Celecoxib [Celebrex] 200 mg PO DAILY 07/16/17 Docusate Sodium [Colace] 100 mg PO DAILY 07/16/17 Tramadol HCl 50 mg PO DAILY 07/16/17 Zolpidem Tartrate [Ambien] 10 mg PO DAILY 07/16/17 Albuterol 0.083% Nebulizer Sera [Ventolin 0.083% Nebulizer Soln -] 1 amp NEB Q6H PRN #7 amp 07/26/17 Ascorbic Acid [Vitamin C -] 500 mg PO BID #60 tablet 07/26/17 Budesonide/Formeterol Fumarate [SYMBICORT 80/4.5mcg -] 2 puff IH BID #1 inhaler 07/26/17 Ferrous Sulfate [Feosol] 325 mg PO BIDWM #30 tab 07/26/17 Guaifenesin [Robitussin -] 10 ml PO Q4H PRN #1 bottle 07/26/17 Mag Hydrox/Al Hydrox/Simeth [Mylanta Oral Suspension -] 30 ml PO Q6H #7 bottle 07/26/17 Pantoprazole Sodium [Protonix -] 40 mg PO BID #60 tablet.ec 07/26/17 Ursodiol [Actigal -] 300 mg PO BID #60 capsule 07/26/17 Physical Exam for Ortho Vital Signs: Vital Signs Temperature 98.5 F 01/19/18 09:52 Pulse Rate 106 H 01/19/18 09:52 Respiratory Rate 19 01/19/18 09:52 Blood Pressure 131/68 01/19/18 09:52 O2 Sat by Pulse Oximetry (%) 96 01/19/18 10:28 Labs: CBC, BMP 01/19/18 10:00 01/19/18 11:04 INR, PTT INR 0.89 (0.83-1.09) 01/19/18 10:00 - Lower Extremity Hip: Yes: Left, Decreased ROM, Leg Externally Rotated, Leg Shortened, Pain, Swelling, Other (nvi) Imaging - Results X-ray: Report Reviewed, Image Reviewed Assessment/Plan 82 year old with PMH of HTN, asthma, COPD (in the setting of a long smoking history), cholelithiasis, and urinary issues presenting with left hip pain and decreased ROM after a fall from standing in the bathroom. Pt is Slovenian speaking so translation was provided by pts son. a/p- left displaced IT fx Risks and benefits were d/w pts son in detail who translated for father OR for left IM gamma nail OR tentatively for tomorrow am if cleared Surgical clearance NPO after midnight d/w Dr. Salcedo
[2018-01-19] MEDS ORDERED: ACETAMINOPHEN 1000 MG/100 ML VIAL (NON FORMULARY) IVPB PRN (13:10)
[2018-01-19] MEDS ORDERED: MORPHINE SULFATE 2 MG/ML VIAL ONE ×3 (14:03→21:28)
[2018-01-19] MEDS: MORPHINE SULFATE 2 MG/ML VIAL IVPUSH PRN ×2 (14:11→21:40)
--- NOTE | 2018-01-19 14:52 | PN ---
Teaching Attending Note Name of Resident: Dimitri Duron ATTENDING PHYSICIAN STATEMENT I saw and evaluated the patient. I reviewed the resident's note and discussed the case with the resident. I agree with the resident's findings and plan as documented. SUBJECTIVE: CC: fall and L hip pain. 82 y/o gentleman with a h/o HTN, PUD, COPD on 3 L of o2 , recent admission for GI bleed, PNA , and Choledocolithiasis who presented after a fall, and was found to have L hip FX. patient was in shower when his legs gave away and he fell. No LOC. L hip pain started after fall. vomited x 2 after event. no light headedness, MENDEZ , visual changes, or vertigo. In ER Xray revealed L hip Fx and morphine was given . OBJECTIVE: NAd, calm and cooperative dry MM, NC on nose. no facial droop, EOMI ,round equal pupils, reactive to light. Cv: RRR, No MRG Lungs: CTAB Abd; soft, NT, Nd , NL BS Ext : no edema , or erythema on legs. L upper thigh with edema , tenderenss. Limited range of motion to L hip and knee. LLe is shorter and externally rotated. DP 2+ b/l. Imaging ; EKG: sinus rhythm, Qtc 451. no change from prior cxray : no acute changes Hip xray , reviewed. Echo , NL EF, diastolic dysfunction , mild MR ASSESSMENT AND PLAN: 82 y/o gentleman with a h/o HTN, PUD, COPD on 3 L of o2 , recent admission for GI bleed, PNA , and Choledocolithiasis who presented after a fall, and was found to have L hip FX 1- L hip intertrochanteric Fx: - pain control with Iv mrphien and oxycodone - DVT Px. hold at mid night - NPO after mid night . - Pre-Op risk stratification: This is a low risk surgical procedure. the patient himself has no signs of ACS, arrhythmias and has no signs of heart failure. his EKG shows no acute ischemic changes, and his echo last admission was benign. His functional status is acceptable with probably 4 METS. He does not need any further cardiac work up for his surgery. he will be a low risk for this intermediate risk non-urgent surgical procedure. - avoid any QTc prolonging agents during procedure 2- HTN: jakob resume his home norvasc. di dnot get his home meds yet. 3- H/O COPd: cont his home O2 and inhalers Dispo : HLOC
--- NOTE | 2018-01-19 15:10 | HP ---
CHIEF COMPLAINT: L. Hip Pain PCP: HISTORY OF PRESENT ILLNESS: A 82 y.o. M w/ PMHx. of HTN, BPH, and GI Bleed, presents s/p unwitnessed fall in bathroom. Pt. was seated and urinating on toilet and noticed leg weakness upon standing. Pt. denies dizziness at this time. Pt. then went into the bathtub and began taking a shower when his leg "gave out" from weakness. Pt. fell on his left hip, denies hitting his head, denies losing consciousness, called out to his who promptly came and called EMS. Pt. endorses decreased PO intake as his appetite has decreased not because of dysphagia. Pt. endorses some dizziness at his baseline but denied the room spinning or that he felt he was spinning. ER course was notable for: (1)Head/ C-Spine CT- Negative for acute pathology (2)EKG: NSR, QTc: 451, Tachycardia, unchanged since July (3)Orthopedic Consult: Dr. Salcedo Recent Travel: No PAST MEDICAL HISTORY: Noted in HPI PAST SURGICAL HISTORY: Denies Social History: Smoking: Quit 6 months ago, smoked 5 cigarettes a day for 30-40 years Alcohol: 2 shots every evening Drugs: Denies Family History: Non-contributory, denies Allergies No Known Allergies Allergy (Verified 01/19/18 10:05) HOME MEDICATIONS: Home Medications Medication Instructions Recorded Celecoxib [Celebrex] 200 mg PO DAILY 07/16/17 Ursodiol [Actigal -] 300 mg PO BID #60 capsule 07/26/17 Alendronate Sodium [Binosto] 1 tab PO WEEKLY 01/19/18 Amlodipine Besylate [Norvasc -] 1 tab PO DAILY 01/19/18 Dutasteride [Avodart] 1 cap PO DAILY 01/19/18 Ergocalciferol [Vitamin D2] 1 cap PO WEEKLY 01/19/18 Fluticasone/Salmeterol [Advair Hfa 2 puff PO BID 01/19/18 230-21 Mcg Inhaler] Lipase/Protease/Amylase [Jose Mckeon 1 cap PO AC 01/19/18 36,000 Units Capsule] Polyvinyl Alcohol [Artificial 1 drop OD PRN PRN 01/19/18 Tears] Ranitidine HCl [Zantac] 1 tab PO BID 01/19/18 Tamsulosin HCl [Flomax] 1 cap PO DAILY 01/19/18 Umeclidinium Brm/Vilanterol Tr 1 puff PO DAILY 01/19/18 [Anoro Ellipta 62.5-25 Mcg INH] Vitamin B Complex 1 tab PO DAILY 01/19/18 REVIEW OF SYSTEMS CONSTITUTIONAL: Present: loss of appetite Absent: fever, chills, diaphoresis, generalized weakness, malaise, weight change HEENT: Absent: rhinorrhea, nasal congestion, throat pain, throat swelling, difficulty swallowing, mouth swelling, ear pain, eye pain, visual changes CARDIOVASCULAR: Absent: chest pain, syncope, palpitations, irregular heart rate , lightheadedness, peripheral edema RESPIRATORY: Present: dyspnea with exertion Absent: cough, shortness of breath, orthopnea, wheezing, stridor, hemoptysis GASTROINTESTINAL: Absent: abdominal pain, abdominal distension, nausea, vomiting , diarrhea, constipation, melena, hematochezia GENITOURINARY: Absent: dysuria, frequency, urgency, hesitancy, hematuria, flank pain, genital pain MUSCULOSKELETAL: Absent: myalgia, arthralgia, joint swelling, back pain, neck pain SKIN: Absent: rash, itching, pallor HEMATOLOGIC/IMMUNOLOGIC: Absent: easy bleeding, easy bruising, lymphadenopathy, frequent infections ENDOCRINE: Absent: unexplained weight gain, unexplained weight loss, heat intolerance, cold intolerance NEUROLOGIC: Present: focal weakness or paresthesias, dizziness, unsteady gait Absent: headache, seizure, mental status changes, bladder or bowel incontinence PSYCHIATRIC: Absent: anxiety, depression, suicidal or homicidal ideation, hallucinations. PHYSICAL EXAMINATION Vital Signs - 24 hr 01/19/18 01/19/18 01/19/18 09:52 10:28 13:58 Temperature 98.5 F Pulse Rate 106 H Pulse Rate [ 115 H Apical] Respiratory 19 19 Rate Blood Pressure 131/68 Blood Pressure 168/85 [Right Arm] O2 Sat by Pulse 92 L 96 95 Oximetry (%) GENERAL: Awake, alert, and fully oriented, in mild distress due to pain. HEAD: Normal with no signs of trauma. EYES: Pupils equal, round and reactive to light, extraocular movements intact, sclera anicteric, conjunctiva clear. No lid lag. EARS, NOSE, THROAT: Ears normal, nares patent, oropharynx clear without exudates. Dry mucous membranes. NECK: Normal range of motion, supple without lymphadenopathy, JVD, or masses. LUNGS: Coarse equal breath sounds, clear to auscultation bilaterally. No wheezes , and no crackles. No accessory muscle use. HEART: Tachycardia, regular rate and rhythm, normal S1 and S2 without murmur, rub or gallop. ABDOMEN: Soft, nontender, not distended, normoactive bowel sounds, no guarding, no rebound, no masses. No hepatomegaly or splenomegaly. UPPER EXTREMITIES: 2+ radial pulses, warm, well-perfused. No cyanosis. No clubbing. No peripheral edema. 5/5 muscle strength. LOWER EXTREMITIES: 2+ dorsal pedal pulses, warm, well-perfused. No calf tenderness. No peripheral edema. 5/5 muscle strength in RLE. LLE limited due to pain. Pt. able to passively flex knee about 10 degrees. Pt. able to dorsiflex and plantar flex both feet against resistance. NEUROLOGICAL: Cranial nerves II-XII intact. Sensation intact throughout extremities. Questionable hypersensitivity of the medial aspect of left thigh. PSYCHIATRIC: Cooperative. Good eye contact. Appropriate mood and affect. SKIN: Warm, dry, normal turgor, no rashes or lesions noted, normal capillary refill. Laboratory Results - last 24 hr 01/19/18 01/19/18 01/19/18 10:00 10:00 10:00 WBC 10.0 RBC 3.66 L Hgb 12.5 Hct 35.1 L D MCV 95.8 MCH 34.1 H MCHC 35.6 RDW 14.6 Plt Count 186 D MPV 8.4 D Absolute Neuts (auto) 8.4 H Neutrophils % 84.3 H Neutrophils % (Manual) 84.0 H Band Neutrophils % 0.0 Lymphocytes % 6.7 L Lymphocytes % (Manual) 7.0 L D Monocytes % 8.2 Monocytes % (Manual) 9 D Eosinophils % 0.0 D Eosinophils % (Manual) 0.0 Basophils % 0.8 D Basophils % (Manual) 0.0 Myelocytes % (Man) 0 Promyelocytes % (Man) 0 Blast Cells % (Manual) 0 Nucleated RBC % 0 Metamyelocytes 0 Hypochromia 0 Platelet Estimate Normal Polychromasia 1+ Poikilocytosis 0 Anisocytosis 1+ Microcytosis 0 Macrocytosis 1+ PT with INR INR Sodium Cancelled Potassium Cancelled Chloride Cancelled Carbon Dioxide Cancelled Anion Gap Cancelled BUN Cancelled Creatinine Cancelled Creat Clearance w eGFR Cancelled Random Glucose Cancelled Calcium Cancelled Total Bilirubin Cancelled AST Cancelled ALT Cancelled Alkaline Phosphatase Cancelled Troponin I Total Protein Cancelled Albumin Cancelled Blood Type O POSITIVE Antibody Screen Negative 01/19/18 01/19/18 01/19/18 10:00 11:04 11:04 WBC RBC Hgb Hct MCV MCH MCHC RDW Plt Count MPV Absolute Neuts (auto) Neutrophils % Neutrophils % (Manual) Band Neutrophils % Lymphocytes % Lymphocytes % (Manual) Monocytes % Monocytes % (Manual) Eosinophils % Eosinophils % (Manual) Basophils % Basophils % (Manual) Myelocytes % (Man) Promyelocytes % (Man) Blast Cells % (Manual) Nucleated RBC % Metamyelocytes Hypochromia Platelet Estimate Polychromasia Poikilocytosis Anisocytosis Microcytosis Macrocytosis PT with INR 10.50 INR 0.89 Sodium 139 Potassium 3.8 Chloride 105 Carbon Dioxide 26 Anion Gap 9 BUN 13 Creatinine 0.6 Creat Clearance w eGFR > 60 Random Glucose 127 H Calcium 8.0 L Total Bilirubin 0.8 AST 21 ALT 27 Alkaline Phosphatase 59 Troponin I < 0.02 Total Protein 5.7 L Albumin 3.1 L Blood Type Antibody Screen ASSESSMENT/PLAN: A 82 y.o. M w/ PMHx. of HTN, BPH, Gallstones and GI Bleed presents s/p unwitnessed fall in bathroom with left hip fracture. -Left Hip Fracture Hip x-ray shows Left hip trochanteric fracture Consult with Orthopedic surgery appreciated Anna Perioperative Risk: 0.4% of OR/CA Low-Intermediate Risk -COPD-stable c/w Advair and Anoro-Ellipta? will verify with Pharmacy and with Pt. when they bring in the medications -HTN c/w Norvasc 10mg -BPH c/w Flowmax and dutasteride -Pancreatic Insufficiency c/w Creon w/ meals -Osteporosis c/w Alendronate -Malnourishment BMI: 16/3 Pt. is NPO after midnight for surgery consider supplementation to meals F/E/N NS @ 42ml/hr monitor electrolytes, replete as needed NPO after midnight -DVT Ppx. Right SCD Hep. 5k SQ TID- will hold after midnight for surgery Visit type - Emergency Visit Emergency Visit: Yes ED Registration Date: 01/19/18 Care time: The patient presented to the Emergency Department on the above date and was hospitalized for further evaluation of their emergent condition. - New Patient This patient is new to me today: Yes Date on this admission: 01/19/18 - Critical Care Critical Care patient: No
[2018-01-19] MEDS ORDERED: oxyCODONE HCL 5 MG TABLET PO PRN (15:12)
[2018-01-19] MEDS ORDERED: ALBUTEROL SO4 8 GM HFA INHALER IH PRN (16:00)
[2018-01-19] MEDS ORDERED: morphine CARPU-JECT 2 MG/1 ML DISP.SYRIN IVPUSH ONE (16:10)
[2018-01-19] MEDS ORDERED: PATIENT'S OWN MEDICATION (NON-FORMULARY) (Umeclidinium Brm/Vilanterol Tr [Anoro Ellipta 62 PO SCH (16:15)
[2018-01-19] MEDS ORDERED: amLODIPine BESYLATE 10 MG TABLET (FP) PO ONE (16:30)
[2018-01-19] MEDS: LIPASE/PROTEASE/AMYLASE 36,000 UNIT CAPSULE PO SCH (18:08)
[2018-01-19] MEDS ORDERED: amLODIPine BESYLATE 5 MG TABLET (FP) ONE (18:49)
[2018-01-19] MEDS ORDERED: oxyCODONE HCL 5 MG TABLET ONE (18:50)
[2018-01-19] MEDS ORDERED: RANITIDINE HCL 150 MG TABLET (FP) ONE (21:28)
[2018-01-19] MEDS ORDERED: HEPARIN NA (PORCINE) 5,000 UNITS/ML 1ML VIAL ONE (21:28)
[2018-01-19] MEDS: RANITIDINE HCL 150 MG TABLET (FP) PO SCH (21:40)
[2018-01-19] MEDS ORDERED: HEPARIN NA (PORCINE) 5,000 UNITS/ML 1ML VIAL SQ SCH (22:00)
[2018-01-19] MEDS ORDERED: FLUTICASONE/SALMETEROL 100 MCG/50 MCG DISKUS IH SCH (22:00)
[2018-01-20] MEDS: BUDESONIDE/FORMETEROL FUMARATE 80/4.5 mcg INHALER IH SCH ×3 (00:18→22:01)
[2018-01-20] MEDS: URSODIOL 300 MG CAPSULE PO SCH ×3 (00:19→22:01)
[2018-01-20 01:07] VITALS: BMI 16.5
[2018-01-20] MEDS: MORPHINE SULFATE 2 MG/ML VIAL IVPUSH PRN ×4 (01:36→20:10)
[2018-01-20 06:11] LABS: URINE APPEARANCE CLEAR; URINE BILIRUBIN NEGATIVE (<2.0 mg/dL); URINE COLOR YELLOW; URINE GLUCOSE (UA) NEGATIVE (NEGATIVE); URINE KETONE 1+ (NEGATIVE); URINE LEUK ESTERASE NEGATIVE (NEGATIVE); URINE NITRITE NEGATIVE (NEGATIVE); URINE PROTEIN NEGATIVE (NEGATIVE); URINE UROBILINOGEN NEGATIVE mg/dL (0.2-1.0)
[2018-01-20] MEDS ORDERED: oxyCODONE HCL 5 MG TABLET PO SCH (07:45)
[2018-01-20 07:56] LABS: BASO % 0.3 % (0-2.0); EOS % 0.2 % (0-4.5); HEMATOCRIT 34.5 % (35.4-49); HEMOGLOBIN 12.1 GM/dL (11.7-16.9); LYMPH % 6.5 % (8-40); MCH 34.5 pg (25.7-33.7); MCHC 35.1 g/dl (32.0-35.9); MEAN CELL VOLUME 98.3 fl (80-96); MEAN PLT VOLUME 9.2 fl (7.5-11.1); PLATELET COUNT 165 K/MM3 (134-434); RBC 3.51 M/mm3 (4.00-5.60); RDW 14.6 % (11.9-15.9); WHITE BLOOD COUNT 9.7 K/mm3 (4.0-10.0)
[2018-01-20 08:13] LABS: ANION GAP 10 MMOL/L (8-16); BLOOD UREA NITROGEN 10 mg/dL (7-18); CALCIUM 7.8 mg/dL (8.5-10.1); CHLORIDE 104 mmol/L (98-107); CO2 26 mmol/L (21-32); CREATININE 0.5 mg/dL (0.55-1.3); GLUCOSE,RANDOM 74 mg/dL (74-106); MAGNESIUM 1.9 mg/dL (1.8-2.4); PHOSPHOROUS 2.7 mg/dL (2.5-4.9); POTASSIUM 3.5 mmol/L (3.5-5.1); SODIUM 140 mmol/L (136-145)
[2018-01-20 08:22] LABS: INR 0.88 (0.83-1.09); PROTHROMBIN TIME (PATIENT) 10.4 SEC (9.7-13.0)
[2018-01-20] MEDS ORDERED: TAMSULOSIN HCL 0.4 MG CAP PO SCH (08:30)
[2018-01-20] MEDS: LIPASE/PROTEASE/AMYLASE 36,000 UNIT CAPSULE PO SCH ×3 (09:15→17:08)
[2018-01-20] MEDS ORDERED: amLODIPine BESYLATE 10 MG TABLET (FP) PO SCH (10:00)
[2018-01-20] MEDS ORDERED: DUTASTERIDE 0.5 MG CAP (FP) PO SCH (10:00)
[2018-01-20] MEDS ORDERED: DOCUSATE SODIUM 100 MG CAPSULE (FP) PO SCH (10:00)
--- NOTE | 2018-01-20 10:00 | PN ---
Physical Exam: SUBJECTIVE: Patient seen and examined. No acute events overnight. No BMs. Pt. endorses difficulty initiating urine. Pt. states that he has 8/10 pain in his left hip and did not know that he had to ask for pain medication. OBJECTIVE: Vital Signs Period Temp Pulse Resp BP Sys/Jones Pulse Ox Last 24 Hr 97.7 F-98.6 F 103-115 17-19 136-168/74-85 94-96 GENERAL: Awake, alert, and fully oriented, in mild distress due to pain. HEAD: Normal with no signs of trauma. EYES: Pupils equal, round and reactive to light, extraocular movements intact, sclera anicteric, conjunctiva clear. No lid lag. EARS, NOSE, THROAT: Ears normal, nares patent, Dry mucous membranes. LUNGS: Coarse equal breath sounds, clear to auscultation bilaterally. No wheezes , and no crackles. No accessory muscle use. HEART: Tachycardia, regular rate and rhythm, normal S1 and S2 without murmur- limited exam ABDOMEN: Soft, nontender, not distended, normoactive bowel sounds, no guarding, no rebound. No hepatomegaly or splenomegaly. EXTREMITIES: 2+ dorsal pedal pulses, warm, well-perfused. No calf tenderness. no edema. Pt. had his left knee flexed to 90 degrees. Spontaneously moves all extremities. NEUROLOGICAL: Sensation intact throughout extremities. PSYCHIATRIC: Cooperative. Good eye contact. Appropriate mood and affect. SKIN: Warm, dry, normal turgor Laboratory Results - last 24 hr 01/19/18 01/19/18 01/19/18 10:00 10:00 10:00 WBC 10.0 RBC 3.66 L Hgb 12.5 Hct 35.1 L D MCV 95.8 MCH 34.1 H MCHC 35.6 RDW 14.6 Plt Count 186 D MPV 8.4 D Absolute Neuts (auto) 8.4 H Neutrophils % 84.3 H Neutrophils % (Manual) 84.0 H Band Neutrophils % 0.0 Lymphocytes % 6.7 L Lymphocytes % (Manual) 7.0 L D Monocytes % 8.2 Monocytes % (Manual) 9 D Eosinophils % 0.0 D Eosinophils % (Manual) 0.0 Basophils % 0.8 D Basophils % (Manual) 0.0 Myelocytes % (Man) 0 Promyelocytes % (Man) 0 Blast Cells % (Manual) 0 Nucleated RBC % 0 Metamyelocytes 0 Hypochromia 0 Platelet Estimate Normal Polychromasia 1+ Poikilocytosis 0 Anisocytosis 1+ Microcytosis 0 Macrocytosis 1+ PT with INR INR Sodium Cancelled Potassium Cancelled Chloride Cancelled Carbon Dioxide Cancelled Anion Gap Cancelled BUN Cancelled Creatinine Cancelled Creat Clearance w eGFR Cancelled Random Glucose Cancelled Calcium Cancelled Phosphorus Magnesium Total Bilirubin Cancelled AST Cancelled ALT Cancelled Alkaline Phosphatase Cancelled Troponin I Total Protein Cancelled Albumin Cancelled Urine Color Urine Appearance Urine pH Ur Specific [place] Urine Protein Urine Glucose (UA) Urine Ketones Urine Blood Urine Nitrite Urine Bilirubin Urine Urobilinogen Ur Leukocyte Esterase Blood Type O POSITIVE Antibody Screen Negative 01/19/18 01/19/18 01/19/18 10:00 11:04 11:04 WBC RBC Hgb Hct MCV MCH MCHC RDW Plt Count MPV Absolute Neuts (auto) Neutrophils % Neutrophils % (Manual) Band Neutrophils % Lymphocytes % Lymphocytes % (Manual) Monocytes % Monocytes % (Manual) Eosinophils % Eosinophils % (Manual) Basophils % Basophils % (Manual) Myelocytes % (Man) Promyelocytes % (Man) Blast Cells % (Manual) Nucleated RBC % Metamyelocytes Hypochromia Platelet Estimate Polychromasia Poikilocytosis Anisocytosis Microcytosis Macrocytosis PT with INR 10.50 INR 0.89 Sodium 139 Potassium 3.8 Chloride 105 Carbon Dioxide 26 Anion Gap 9 BUN 13 Creatinine 0.6 Creat Clearance w eGFR > 60 Random Glucose 127 H Calcium 8.0 L Phosphorus Magnesium Total Bilirubin 0.8 AST 21 ALT 27 Alkaline Phosphatase 59 Troponin I < 0.02 Total Protein 5.7 L Albumin 3.1 L Urine Color Urine Appearance Urine pH Ur Specific [place] Urine Protein Urine Glucose (UA) Urine Ketones Urine Blood Urine Nitrite Urine Bilirubin Urine Urobilinogen Ur Leukocyte Esterase Blood Type Antibody Screen 01/20/18 01/20/18 01/20/18 06:00 06:00 06:00 WBC 9.7 RBC 3.51 L Hgb 12.1 Hct 34.5 L MCV 98.3 H MCH 34.5 H MCHC 35.1 RDW 14.6 Plt Count 165 MPV 9.2 Absolute Neuts (auto) 8.3 H Neutrophils % 85.0 H Neutrophils % (Manual) Band Neutrophils % Lymphocytes % 6.5 L Lymphocytes % (Manual) Monocytes % 8.0 Monocytes % (Manual) Eosinophils % 0.2 D Eosinophils % (Manual) Basophils % 0.3 Basophils % (Manual) Myelocytes % (Man) Promyelocytes % (Man) Blast Cells % (Manual) Nucleated RBC % 0 Metamyelocytes Hypochromia Platelet Estimate Polychromasia Poikilocytosis Anisocytosis Microcytosis Macrocytosis PT with INR 10.40 INR 0.88 Sodium Potassium Chloride Carbon Dioxide Anion Gap BUN Creatinine Creat Clearance w eGFR Random Glucose Calcium Phosphorus Magnesium Total Bilirubin AST ALT Alkaline Phosphatase Troponin I Total Protein Albumin Urine Color Yellow Urine Appearance Clear Urine pH 5.0 Ur Specific [place] 1.015 Urine Protein Negative Urine Glucose (UA) Negative Urine Ketones 1+ H Urine Blood Negative Urine Nitrite Negative Urine Bilirubin Negative Urine Urobilinogen Negative Ur Leukocyte Esterase Negative Blood Type Antibody Screen 01/20/18 01/20/18 06:00 06:50 WBC RBC Hgb Hct MCV MCH MCHC RDW Plt Count MPV Absolute Neuts (auto) Neutrophils % Neutrophils % (Manual) Band Neutrophils % Lymphocytes % Lymphocytes % (Manual) Monocytes % Monocytes % (Manual) Eosinophils % Eosinophils % (Manual) Basophils % Basophils % (Manual) Myelocytes % (Man) Promyelocytes % (Man) Blast Cells % (Manual) Nucleated RBC % Metamyelocytes Hypochromia Platelet Estimate Polychromasia Poikilocytosis Anisocytosis Microcytosis Macrocytosis PT with INR INR Sodium 140 Potassium 3.5 Chloride 104 Carbon Dioxide 26 Anion Gap 10 BUN 10 Creatinine 0.5 L Creat Clearance w eGFR > 60 Random Glucose 74 Calcium 7.8 L Phosphorus 2.7 Magnesium 1.9 Total Bilirubin AST ALT Alkaline Phosphatase Troponin I Total Protein Albumin Urine Color Urine Appearance Urine pH Ur Specific [place] Urine Protein Urine Glucose (UA) Urine Ketones Urine Blood Urine Nitrite Urine Bilirubin Urine Urobilinogen Ur Leukocyte Esterase Blood Type O POSITIVE Antibody Screen Negative Active Medications Current Medications Albuterol Sulfate (Ventolin Hfa Inhaler -) 2 puff IH Q4H PRN PRN Reason: SHORT OF BREATH/WHEEZING Amlodipine Besylate (Norvasc -) 10 mg PO DAILY [facility] Budesonide/Formoterol Fumarate (Symbicort 80/4.5mcg -) 2 puff IH BID [facility] Last Admin: 01/20/18 00:18 Dose: Not Given Docusate Sodium (Colace -) 100 mg PO DAILY [facility] Dutasteride (Avodart -) 0.5 mg PO DAILY [facility] Sodium Chloride (Normal Saline -) 1,000 mls @ 42 mls/hr IV ASDIR [facility] Last Admin: 01/19/18 18:07 Dose: 42 mls/hr Morphine Sulfate (Morphine Sulfate) 2 mg IVPUSH Q4H PRN PRN Reason: PAIN LEVEL 7 - 10 Last Admin: 01/20/18 06:11 Dose: 2 mg Oxycodone HCl (Roxicodone -) 5 mg PO Q6H [facility] Last Admin: 01/20/18 08:25 Dose: 5 mg Pancrelipase (Jose Mckeon 36,000 Units Capsule) 1 cap PO TIDCM [facility] Last Admin: 01/20/18 09:15 Dose: Not Given Ranitidine HCl (Zantac -) 150 mg PO BID [facility] Last Admin: 01/19/18 21:40 Dose: 150 mg Senna (Senna -) 1 tab PO [facility] Tamsulosin HCl (Flomax -) 0.4 mg PO DAILY@0830 [facility] Last Admin: 01/20/18 08:25 Dose: 0.4 mg Ursodiol (Actigal -) 300 mg PO BID [facility] Last Admin: 01/20/18 00:19 Dose: Not Given Home Medications Medication Instructions Recorded Celecoxib [Celebrex] 200 mg PO DAILY 07/16/17 Ursodiol [Actigal -] 300 mg PO BID #60 capsule 07/26/17 Alendronate Sodium [Binosto] 1 tab PO WEEKLY 01/19/18 Amlodipine Besylate [Norvasc -] 1 tab PO DAILY 01/19/18 Dutasteride [Avodart] 1 cap PO DAILY 01/19/18 Ergocalciferol [Vitamin D2] 1 cap PO WEEKLY 01/19/18 Fluticasone/Salmeterol [Advair Hfa 2 puff PO BID 01/19/18 230-21 Mcg Inhaler] Lipase/Protease/Amylase [Creon Dr 1 cap PO AC 01/19/18 36,000 Units Capsule] Polyvinyl Alcohol [Artificial 1 drop OD PRN PRN 01/19/18 Tears] Ranitidine HCl [Zantac] 1 tab PO BID 01/19/18 Tamsulosin HCl [Flomax] 1 cap PO DAILY 01/19/18 Umeclidinium Brm/Vilanterol Tr 1 puff PO DAILY 01/19/18 [Anoro Ellipta 62.5-25 Mcg INH] Vitamin B Complex 1 tab PO DAILY 01/19/18 ASSESSMENT/PLAN: A 82 y.o. M w/ PMHx. of HTN, BPH, Gallstones and GI Bleed presents s/p unwitnessed fall in bathroom with left hip fracture. -Left Hip Fracture Hip x-ray shows Left hip trochanteric fracture Consult with Orthopedic surgery appreciated Anna Perioperative Risk: 0.4% of DC/CA Low-Intermediate Risk -COPD-stable c/w Advair and Anoro-Ellipta? will verify with Pharmacy and with Pt. when they bring in the medications -HTN c/w Norvasc 10mg -BPH c/w Flowmax and dutasteride -Pancreatic Insufficiency c/w Creon w/ meals -Osteporosis c/w Alendronate -Malnourishment BMI: 16/3 Pt. is NPO after midnight for surgery consider supplementation to meals F/E/N NS @ 42ml/hr monitor electrolytes, replete as needed NPO after midnight -DVT Ppx. Right SCD Hep. 5k SQ TID- will hold after midnight for surgery Visit type - Emergency Visit Emergency Visit: Yes ED Registration Date: 01/19/18 Care time: The patient presented to the Emergency Department on the above date and was hospitalized for further evaluation of their emergent condition. - New Patient This patient is new to me today: No - Critical Care Critical Care patient: No - Discharge Referral Referred to [facility] Med P.C.: No
[2018-01-20] MEDS ORDERED: PROPOFOL 20 ML ONE (11:26)
[2018-01-20] MEDS ORDERED: BUPIVACAINE 0.75% IN DEXTROSE/PF 2ML AMPULE NR ONE (11:29)
[2018-01-20] MEDS ORDERED: MIDAZOLAM HCL 2 MG/2 ML SINGLE DOSE VIAL ONE (11:44)
[2018-01-20] MEDS ORDERED: ceFAZolin SODIUM 1 GM VIAL ONE (11:46)
[2018-01-20] MEDS ORDERED: ceFAZolin SODIUM 1 GM VIAL IVPB ONE ×2 (11:47)
[2018-01-20] MEDS ORDERED: PHENYLEPHRINE HCL 10 MG/1 ML SINGLE DOSE VIAL ONE (11:48)
--- NOTE | 2018-01-20 12:35 | OP ---
Operative Note - Note: Operative Date: 01/20/18 Pre-Operative Diagnosis: L IT HIP FX Operation: L GAMMA NAIL Post-Operative Diagnosis: Same as Pre-op Surgeon: Dimitri Salcedo Anesthesia: Spinal Blood Volume Replaced (mls): 50 Operative Report Dictated: Yes
[2018-01-20] MEDS ORDERED: ONDANSETRON 4 MG/2 ML VIAL IVPUSH PRN (12:43)
[2018-01-20] MEDS ORDERED: SODIUM CHLORIDE IVPB SCH (12:45)
[2018-01-20] MEDS ORDERED: LACTATED RINGERS SOLUTION 1,000 ML IV SCH ×3 (12:45→12:57)
[2018-01-20] MEDS ORDERED: PHENYLEPHRINE HCL IVPB SCH (12:45)
[2018-01-20] MEDS ORDERED: ALBUTEROL SO4 8 GM HFA INHALER IH PRN (12:57)
--- NOTE | 2018-01-20 13:01 | SPEC ---
DATE OF OPERATION: 01/20/2018 PREOPERATIVE DIAGNOSIS: Left intertrochanteric hip fracture. POSTOPERATIVE DIAGNOSIS: Left intertrochanteric hip fracture. PROCEDURE: Left Gamma nailing. SURGICAL ATTENDING: Ca Salcedo MD ANESTHESIA: Spinal. CLOSURE: A short 125-degree Gamma nail with appropriate interlocking screws, No. 1 Vicryl fascia, 2-0 subcutaneous, matteo to skin. ESTIMATED BLOOD LOSS: Less than 50 mL. COMPLICATIONS: None. CONDITION: To Recovery Room in stable condition. DESCRIPTION OF THE PROCEDURE: The patient was taken to the operating room on January 20, 2018. IV Kefzol was administered prophylactically prior to the case. Anesthesia was administered by the anesthesiologist. The patient was then fastened to the fracture table with all prominences well padded. Excellent reduction of the fracture was confirmed in AP and lateral plane by use of fluoroscopy. The left hip area was then prepped and draped in the usual sterile fashion by use of a shower curtain. A small 2-cm longitudinal incision over the tip of the greater trochanter was incised, hemostasis achieved using Bovie cautery. Sharp dissection was carried through the fascia. A guidewire was drilled from the tip of the greater trochanter into the intramedullary canal past the fracture. This was directed by fluoroscopy in both the AP and lateral plane. This was overreamed with a proximal reamer. A short Gamma nail was then malleted down into place. Using the outrigger and a small stab incision laterally, a guidewire was drilled from the lateral aspect of the femur, through the gil, through the neck into the femoral head. Proper placement was confirmed in the AP and lateral plane by using the image intensifier. The guidewire was measured for length, reamed with a triple reamer, and then screwed with the appropriate-sized lag screw. With the traction removed, the compression device was used to compress the fracture. A set screw was placed from above in the dynamic fashion. Again using the outrigger and through a small stab incision distally, a distal hole was drilled, depth gauged and screwed with the appropriate length locking screw in the static hole. The outrigger was removed. The x-rays in the AP and lateral plane revealed excellent position of the hardware with excellent reduction of the fracture. All incisions were irrigated out with copious amounts of irrigation. The fascia was closed in 0 Vicryl, 2-0 subcutaneous, and matteo to the skin. Sterile pressure dressing was applied, patient awakened from anesthesia and transferred to Recovery in stable condition. No complications. Estimated blood loss negligible. CA SALCEDO M.D. [id number]
[2018-01-20] MEDS ORDERED: HEPARIN NA (PORCINE) 5,000 UNITS/ML 1ML VIAL SQ SCH (14:00)
--- NOTE | 2018-01-20 14:51 | PN ---
Teaching Attending Note Name of Resident: Dimitri Duron ATTENDING PHYSICIAN STATEMENT I saw and evaluated the patient. I reviewed the resident's note and discussed the case with the resident. I agree with the resident's findings and plan as documented. SUBJECTIVE: went to OR today. was given phenylephrine x 1 due to hypotension. then his BP improved . OBJECTIVE: NAD, MMM, awake, and alert, cooperative CV: RRR Lungs: CTAB Ext: no edema on legs . DP 2+ . surgical dressing on Lateral upper thigh and hip with slight blood . nl sensation in feet and Nl range of motion in feet. ASSESSMENT AND PLAN: 82 y/o gentleman with a h/o HTN, PUD, COPD on 3 L of o2 , recent admission for GI bleed, PNA , and Choledocolithiasis who presented after a fall, and was found to have L hip FX. 1- L hip intertrochanteric Fx, s/p gamma nailing POD 0 - hypotension during OR resolved - check EKG and CBC - pain control with morphine and oxy carefully with BP monitoring - DVT PX - weight baring per ortho recommendations - start IVF 2- HTN: hold BP meds for today 3- H/O COPD: cont his home O2 and inhalers Dispo: [facility]
[2018-01-20] MEDS: oxyCODONE HCL 5 MG TABLET PO SCH ×2 (15:16→19:31)
[2018-01-20] MEDS: RANITIDINE HCL 150 MG TABLET (FP) PO SCH ×2 (15:17→22:01)
[2018-01-20] MEDS ORDERED: PT OWN MED DRAWER 7, Y5N ONE ×2 (16:03→21:44)
[2018-01-20] MEDS ORDERED: CEFAZOLIN 1 GM in DEXTROSE 5%-WATER - 50 ML IVPB SCH (18:00)
[2018-01-20] MEDS: CEFAZOLIN 1 GM/D5W 1 GM/50 ML BAG IVPB SCH (20:00)
[2018-01-20] MEDS: SODIUM CHLORIDE 1,000 ML IV SCH (20:09)
[2018-01-20] MEDS ORDERED: SENNOSIDES 8.6MG TABLET (FP) PO SCH (22:00)
[2018-01-20] MEDS: SENNOSIDES 8.6MG TABLET (FP) PO SCH (22:01)
[2018-01-21] MEDS: MORPHINE SULFATE 2 MG/ML VIAL IVPUSH PRN ×2 (00:46→05:47)
[2018-01-21] MEDS: oxyCODONE HCL 5 MG TABLET PO SCH ×4 (02:31→20:45)
[2018-01-21] MEDS: CEFAZOLIN 1 GM/D5W 1 GM/50 ML BAG IVPB SCH (03:24)
[2018-01-21 08:15] LABS: HEMATOCRIT 26.7 % (35.4-49); HEMOGLOBIN 8.6 GM/dL (11.7-16.9); MCHC 32.3 g/dl (32.0-35.9); MEAN CELL VOLUME 98.9 fl (80-96); MEAN PLT VOLUME 8.5 fl (7.5-11.1); PLATELET COUNT 137 K/MM3 (134-434); RBC 2.69 M/mm3 (4.00-5.60); RDW 14.2 % (11.9-15.9); WHITE BLOOD COUNT 11.3 K/mm3 (4.0-10.0)
[2018-01-21] MEDS ORDERED: PT OWN MED DRAWER 7, Y5N ONE ×2 (08:37→10:02)
[2018-01-21] MEDS: TAMSULOSIN HCL 0.4 MG CAP PO SCH (08:39)
[2018-01-21] MEDS: LIPASE/PROTEASE/AMYLASE 36,000 UNIT CAPSULE PO SCH ×3 (08:40→17:33)
[2018-01-21 08:50] LABS: ANION GAP 11 MMOL/L (8-16); BLOOD UREA NITROGEN 13 mg/dL (7-18); CALCIUM 7.4 mg/dL (8.5-10.1); CHLORIDE 105 mmol/L (98-107); CO2 24 mmol/L (21-32); CREATININE 0.5 mg/dL (0.55-1.3); GLUCOSE,RANDOM 95 mg/dL (74-106); MAGNESIUM 1.9 mg/dL (1.8-2.4); PHOSPHOROUS 2.6 mg/dL (2.5-4.9); POTASSIUM 3.5 mmol/L (3.5-5.1); SODIUM 139 mmol/L (136-145)
[2018-01-21] MEDS: DOCUSATE SODIUM 100 MG CAPSULE (FP) PO SCH (09:32)
[2018-01-21] MEDS: RANITIDINE HCL 150 MG TABLET (FP) PO SCH ×3 (09:33→21:50)
[2018-01-21] MEDS: URSODIOL 300 MG CAPSULE PO SCH ×4 (09:33→23:00)
[2018-01-21] MEDS: DUTASTERIDE 0.5 MG CAP (FP) PO SCH (09:33)
[2018-01-21] MEDS: ENOXAPARIN NA (PORCINE) 40 MG/0.4 ML DISP.SYRIN SQ SCH (09:34)
[2018-01-21] MEDS ORDERED: amLODIPine BESYLATE 10 MG TABLET (FP) PO SCH ×3 (10:00→17:18)
[2018-01-21] MEDS: BUDESONIDE/FORMETEROL FUMARATE 80/4.5 mcg INHALER IH SCH ×2 (11:32→21:46)
--- NOTE | 2018-01-21 11:46 | PN ---
Progress Note (short form) - Note Progress Note: Anesthesiology Post-op 82 y.o. man POD#1 s/p left femur IM gil placement under spinal anesthesia. Pt. is AA+Ox3 in NAD. He does c/o some pain with movement but medication helps some. VSS, though SpO2 does fluctuate between 88-93%; he has been asymptomatic with this and does have COPD at baseline. Family states that he does use oxygen at home on occasion. He is able to move legs without difficulty, denies headache. 82 y.o. man with stable post-operative course s/p left femur IM gil placement. I have d/w family and RN to d/c IV morphine given respiratory issues; will keep PO oxycodone and add IV acetaminophen. I have also d/w patient and family to keep up with incentive spirometry.
[2018-01-21] MEDS: ACETAMINOPHEN 1000 MG/100 ML VIAL (NON FORMULARY) IVPB PRN (12:11)
[2018-01-21] MEDS: SODIUM CHLORIDE 1,000 ML IV SCH (12:13)
--- NOTE | 2018-01-21 14:48 | PN ---
Teaching Attending Note Name of Resident: Yvonne Blankenship ATTENDING PHYSICIAN STATEMENT I saw and evaluated the patient. I reviewed the resident's note and discussed the case with the resident. I agree with the resident's findings and plan as documented. SUBJECTIVE: No fever or chills . no abd pain, has pain in L hip. OBJECTIVE: NAD, MMM, awake, and alert, cooperative CV: RRR Lungs: CTAB Ext: no edema on legs. DP 2+. surgical dressing on Lateral upper thigh and hip with slight blood saturation , did not change form yesterday . nl sensation in feet and Nl range of motion in feet. ASSESSMENT AND PLAN: 82 y/o gentleman with a h/o HTN, PUD, COPD on 3 L of o2 , recent admission for GI bleed, PNA , and Choledocolithiasis who presented after a fall, and was found to have L hip FX. 1- L hip intertrochanteric Fx, s/p gamma nailing POD 1 -still in significant amount of pain. - cont with po oxy and tylenol -could not ambulate with PT due topain - DVT PX 2- HTN: hypotension resolved. tolerated his home norvasc 3- Acute blood loss anemia: Hb dropped 4 grams compared to admission . likely surgical loss this might explain fatigue and tachycardia monitor HB closely 4- Tachycardia: likely due to pain and acute blood loss ( 4 g ) -monitor 5- H/O COPD: cont his home O2 and inhalers. add Nebs cont incentive spirometer Dispo: [facility] Rehab placement at [facility]
[2018-01-21] MEDS ORDERED: ALBUTEROL SO4 2.5/IPRATROPIUM 0.5 INH SOL 3 ML VIAL.NEB. NEB PRN (14:49)
--- NOTE | 2018-01-21 17:18 | EKG ---
Test Reason : Blood Pressure : / mmHG Vent. Rate : 108 BPM Atrial Rate : 108 BPM P-R Int : 122 ms QRS Dur : 078 ms QT Int : 336 ms P-R-T Axes : 073 085 078 degrees QTc Int : 450 ms SINUS TACHYCARDIA OTHERWISE NORMAL ECG WHEN COMPARED WITH ECG OF 19-JAN-2018 18:40, NO SIGNIFICANT CHANGE WAS FOUND Confirmed by MD RACHEL, BE ([id number]) on 01/21/2018 5:17:45 PM Referred By: BEST MORALES Confirmed By:BE RAMOS MD
[2018-01-21 17:24] LABS: HEMATOCRIT 23.9 % (35.4-49); HEMOGLOBIN 8.4 GM/dL (11.7-16.9); MCH 34.1 pg (25.7-33.7); MEAN CELL VOLUME 97.5 fl (80-96); PLATELET COUNT 139 K/MM3 (134-434); RBC 2.45 M/mm3 (4.00-5.60); RDW 14.3 % (11.9-15.9); WHITE BLOOD COUNT 9.5 K/mm3 (4.0-10.0)
--- NOTE | 2018-01-21 18:11 | PN ---
Progress Note (short form) - Note Progress Note: AVSS COMFORTABLE BANDAGES WITH MODERATE DRAINAGE NVI CALF SOFT AND NT HCT= 23 IMP: DOING WELL PLAN: TRANSFUSE 1 UNIT PACKED CELLS REPEAT HCT TOMORROW
--- NOTE | 2018-01-21 19:54 | PN ---
Physical Exam: SUBJECTIVE: Patient seen and examined. Pt. complained of left hip pain 7-09/30. Pt. asking for assistance in eating food this morning. OBJECTIVE: Vital Signs Period Temp Pulse Resp BP Sys/Jones Pulse Ox Last 24 Hr 97.8 F-98.4 F 110-112 18-20 92-128/51-66 97 GENERAL: Awake, alert, and fully oriented, in mild distress due to pain. HEAD: Normal with no signs of trauma. EYES: Pupils equal, round and reactive to light, extraocular movements intact, sclera anicteric, conjunctiva clear. No lid lag. EARS, NOSE, THROAT: Ears normal, nares patent, Dry mucous membranes. LUNGS: Coarse equal breath sounds, clear to auscultation bilaterally. No wheezes , and no crackles. No accessory muscle use. HEART: Tachycardia, regular rate and rhythm, normal S1 and S2 without murmur- limited exam ABDOMEN: Soft, nontender, not distended, normoactive bowel sounds, no guarding, no rebound. No hepatomegaly or splenomegaly. EXTREMITIES: 2+ dorsal pedal pulses, warm, well-perfused. No calf tenderness. no edema. Pt. had his left knee flexed to 90 degrees. Spontaneously moves all extremities. NEUROLOGICAL: Sensation intact throughout extremities. PSYCHIATRIC: Cooperative. Good eye contact. Appropriate mood and affect. SKIN: Warm, dry, normal turgor Laboratory Results - last 24 hr 01/20/18 01/20/18 01/21/18 06:50 19:00 03:35 WBC RBC Hgb Hct MCV MCH MCHC RDW Plt Count MPV Sodium Potassium Chloride Carbon Dioxide Anion Gap BUN Creatinine Creat Clearance w eGFR Random Glucose Calcium Phosphorus Magnesium Creatine Kinase 221 191 Creatine Kinase Index 0.9 0.8 CK-MB (CK-2) 2.2 1.7 Troponin I < 0.02 < 0.02 Blood Type O POSITIVE Antibody Screen Negative Crossmatch See Detail 01/21/18 01/21/18 01/21/18 08:00 08:00 17:00 WBC 11.3 H 9.5 RBC 2.69 L 2.45 L Hgb 8.6 L 8.4 L Hct 26.7 L D 23.9 L MCV 98.9 H 97.5 H MCH 32.0 34.1 H MCHC 32.3 35.0 RDW 14.2 14.3 Plt Count 137 139 MPV 8.5 9.0 Sodium 139 Potassium 3.5 Chloride 105 Carbon Dioxide 24 Anion Gap 11 BUN 13 Creatinine 0.5 L Creat Clearance w eGFR > 60 Random Glucose 95 Calcium 7.4 L Phosphorus 2.6 Magnesium 1.9 Creatine Kinase Creatine Kinase Index CK-MB (CK-2) Troponin I Blood Type Antibody Screen Crossmatch Active Medications Current Medications Acetaminophen (Ofirmev Injection -) 1,000 mg IVPB Q6H PRN PRN Reason: PAIN OR FEVER Stop: 01/22/18 11:38 Last Admin: 01/21/18 12:11 Dose: 1,000 mg Albuterol Sulfate (Ventolin Hfa Inhaler -) 2 puff IH Q4H PRN PRN Reason: SHORT OF BREATH/WHEEZING Albuterol/Ipratropium (Duoneb -) 1 amp NEB Q6H PRN PRN Reason: SHORTNESS OF BREATH Budesonide/Formoterol Fumarate (Symbicort 80/4.5mcg -) 2 puff IH BID [facility] Last Admin: 01/21/18 11:32 Dose: 2 puff Docusate Sodium (Colace -) 100 mg PO DAILY [facility] Last Admin: 01/21/18 09:32 Dose: 100 mg Dutasteride (Avodart -) 0.5 mg PO DAILY [facility] Last Admin: 01/21/18 09:33 Dose: 0.5 mg Enoxaparin Sodium (Lovenox -) 40 mg SQ DAILY [facility] Last Admin: 01/21/18 09:34 Dose: 40 mg Fentanyl (Sublimaze Injection -) 25 mcg IVPUSH [id number] PRN PRN Reason: PAIN-PACU ORDER X 4 DOSES ONLY Sodium Chloride (Normal Saline -) 1,000 mls @ 42 mls/hr IV ASDIR [facility] Last Admin: 01/21/18 12:13 Dose: 42 mls/hr Ondansetron HCl (Zofran Injection) 4 mg IVPUSH Q6H PRN PRN Reason: NAUSEA AND/OR VOMITING Oxycodone HCl (Roxicodone -) 5 mg PO Q6H [facility] Last Admin: 01/21/18 15:28 Dose: 5 mg Pancrelipase (Creon Dr 36,000 Units Capsule) 1 cap PO TIDCM [facility] Last Admin: 12/01/18 17:33 Dose: 1 cap Ranitidine HCl (Zantac -) 150 mg PO BID [facility] Last Admin: 01/21/18 09:33 Dose: 150 mg Senna (Senna -) 1 tab PO HS [facility] Last Admin: 01/20/18 22:01 Dose: 1 tab Tamsulosin HCl (Flomax -) 0.4 mg PO DAILY@0830 [facility] Last Admin: 01/21/18 08:39 Dose: 0.4 mg Ursodiol (Actigal -) 300 mg PO BID [facility] Last Admin: 01/21/18 09:33 Dose: 300 mg Home Medications Medication Instructions Recorded Celecoxib [Celebrex] 200 mg PO DAILY 07/16/17 Ursodiol [Actigal -] 300 mg PO BID #60 capsule 07/26/17 Alendronate Sodium [Binosto] 1 tab PO WEEKLY 01/19/18 Amlodipine Besylate [Norvasc -] 1 tab PO DAILY 01/19/18 Dutasteride [Avodart] 1 cap PO DAILY 01/19/18 Ergocalciferol [Vitamin D2] 1 cap PO WEEKLY 01/19/18 Fluticasone/Salmeterol [Advair Hfa 2 puff PO BID 01/19/18 230-21 Mcg Inhaler] Lipase/Protease/Amylase [Creon Dr 1 cap PO AC 01/19/18 36,000 Units Capsule] Polyvinyl Alcohol [Artificial 1 drop OD PRN PRN 01/19/18 Tears] Ranitidine HCl [Zantac] 1 tab PO BID 01/19/18 Tamsulosin HCl [Flomax] 1 cap PO DAILY 01/19/18 Umeclidinium Brm/Vilanterol Tr 1 puff PO DAILY 01/19/18 [Anoro Ellipta 62.5-25 Mcg INH] Vitamin B Complex 1 tab PO DAILY 01/19/18 ASSESSMENT/PLAN: A 82 y.o. M w/ PMHx. of HTN, BPH, Gallstones and GI Bleed presents s/p unwitnessed fall in bathroom with left hip fracture. -Left Hip Fracture: s/p Gamma nail procedure POD # 1 Hip x-ray showed Left hip trochanteric fracture Consult with Orthopedic surgery appreciated Pain control w/ oxycodone and IV Tylenol Castillo Perioperative Risk: 0.4% of [place]/CA Low-Intermediate Risk c/w Incentive Spirometer -Anemia s/p surgery EBL: 50ml however, HgB dropped from 12.1 to 8.6. will transfuse 1 unit pRBCs per Orthopedic surgery no site of active bleeding currently, no bloody BMs, no hematemesis, no bruises on body and wound site has scant pink drainage. Pt. tachycardic at this time, which may be due to hypovolemia from slight dehydration on admission combined with drop in hemoglobin. -COPD-stable c/w Advair and Anoro-Ellipta -HTN D/c-ed Norvasc given borderline hypotension will resume Norvasc if BP becomes hypertensive and on discharge. -BPH c/w Flowmax and dutasteride maintain Castaneda for now, will evaluate Castaneda need in AM -Pancreatic Insufficiency c/w Creon w/ meals -Osteporosis c/w Alendronate -Malnourishment BMI: 16.3--> 16.6 Pt. is NPO after midnight for surgery consider supplementation to meals F/E/N NS @ 42ml/hr monitor electrolytes, replete as needed Regular Diet -DVT Ppx. SCDs Lovenox 40mg SQ Visit type - Emergency Visit Emergency Visit: Yes ED Registration Date: 01/19/18 Care time: The patient presented to the Emergency Department on the above date and was hospitalized for further evaluation of their emergent condition. - New Patient This patient is new to me today: No - Critical Care Critical Care patient: No - Discharge Referral Referred to [facility] Med [facility] No
[2018-01-21] MEDS: SENNOSIDES 8.6MG TABLET (FP) PO SCH ×2 (21:45→21:51)
[2018-01-22] MEDS: oxyCODONE HCL 5 MG TABLET PO SCH ×4 (01:32→21:22)
[2018-01-22] MEDS: ACETAMINOPHEN 1000 MG/100 ML VIAL (NON FORMULARY) IVPB PRN (04:30)
[2018-01-22 07:12] LABS: HEMATOCRIT 30.5 % (35.4-49); HEMOGLOBIN 10.1 GM/dL (11.7-16.9); MCH 30.8 pg (25.7-33.7); MEAN CELL VOLUME 93.4 fl (80-96); MEAN PLT VOLUME 8.8 fl (7.5-11.1); PLATELET COUNT 126 K/MM3 (134-434); RBC 3.27 M/mm3 (4.00-5.60); RDW 17.5 % (11.9-15.9); WHITE BLOOD COUNT 10.5 K/mm3 (4.0-10.0)
[2018-01-22 07:55] LABS: ANION GAP 10 MMOL/L (8-16); BLOOD UREA NITROGEN 10 mg/dL (7-18); CALCIUM 7.2 mg/dL (8.5-10.1); CHLORIDE 104 mmol/L (98-107); CO2 27 mmol/L (21-32); CREATININE 0.4 mg/dL (0.55-1.3); GLUCOSE,RANDOM 115 mg/dL (74-106); POTASSIUM 3.5 mmol/L (3.5-5.1); SODIUM 141 mmol/L (136-145)
[2018-01-22] MEDS: LIPASE/PROTEASE/AMYLASE 36,000 UNIT CAPSULE PO SCH ×3 (08:00→17:30)
[2018-01-22] MEDS: DOCUSATE SODIUM 100 MG CAPSULE (FP) PO SCH (09:25)
[2018-01-22] MEDS: TAMSULOSIN HCL 0.4 MG CAP PO SCH (09:25)
[2018-01-22] MEDS: URSODIOL 300 MG CAPSULE PO SCH ×2 (09:25→21:23)
[2018-01-22] MEDS: ENOXAPARIN NA (PORCINE) 40 MG/0.4 ML DISP.SYRIN SQ SCH (09:26)
[2018-01-22] MEDS ORDERED: PT OWN MED DRAWER 7, Y5N ONE ×2 (09:29→21:30)
[2018-01-22] MEDS: RANITIDINE HCL 150 MG TABLET (FP) PO SCH ×2 (09:30→21:23)
[2018-01-22] MEDS: DUTASTERIDE 0.5 MG CAP (FP) PO SCH (09:31)
[2018-01-22] MEDS: BUDESONIDE/FORMETEROL FUMARATE 80/4.5 mcg INHALER IH SCH ×2 (09:31→21:23)
--- NOTE | 2018-01-22 11:13 | PN ---
Progress Note (short form) - Note Progress Note: Subjective: no fever or chills. has painin L hip . no events over night. no SOB , no N/V. Objective: Vital Signs: Last Vital Signs Temp Pulse Resp BP Pulse Ox 98.6 F 106 H 20 125/63 90 L 01/22/18 04:26 01/22/18 04:26 01/22/18 04:26 01/22/18 04:26 01/21/18 21:00 Laboratory Results - last 24 hr 01/20/18 01/21/18 01/22/18 06:50 17:00 06:30 WBC 9.5 10.5 H RBC 2.45 L 3.27 L Hgb 8.4 L 10.1 L Hct 23.9 L 30.5 L D MCV 97.5 H 93.4 MCH 34.1 H 30.8 MCHC 35.0 33.0 RDW 14.3 17.5 H Plt Count 139 126 L MPV 9.0 8.8 Sodium Potassium Chloride Carbon Dioxide Anion Gap BUN Creatinine Creat Clearance w eGFR Random Glucose Calcium Blood Type O POSITIVE Antibody Screen Negative Crossmatch See Detail 01/22/18 06:30 WBC RBC Hgb Hct MCV MCH MCHC RDW Plt Count MPV Sodium 141 Potassium 3.5 Chloride 104 Carbon Dioxide 27 Anion Gap 10 BUN 10 Creatinine 0.4 L Creat Clearance w eGFR > 60 Random Glucose 115 H Calcium 7.2 L Blood Type Antibody Screen Crossmatch Physical Exam: NAD, MMM, awake, and alert, cooperative CV: RRR, no JVD Lungs: CTAB Ext: no edema on legs. DP 2+. Clean dressing on Lateral upper thigh and hip. nl sensation in feet and Nl range of motion in feet. ASSESSMENT AND PLAN: 82 y/o gentleman with a h/o HTN, PUD, COPD on 3 L of o2 , recent admission for GI bleed, PNA , and Choledocolithiasis who presented after a fall, and was found to have L hip FX. 1- L hip intertrochanteric Fx, s/p gamma nailing POD 2 - cont pain management - PT - incentive spirometer - DVT PX 2- HTN: hypotension resolved. Nl Bp off norvasc. cont to hold . hypotension was probably due to blood loss 3- Acute blood loss anemia: s/p 1 unit of RBCs ordered, not sure it was given , will confirm with RN - Hb improved . monitor 4- Tachycardia: improved after transfusion . treat pain 5- H/O COPD: cont his home O2 and inhalers/ Nebs cont incentive spirometer Dispo: medically ready for DC , pending a rehab bed. Visit type - Emergency Visit Emergency Visit: Yes ED Registration Date: 01/19/18 Care time: The patient presented to the Emergency Department on the above date and was hospitalized for further evaluation of their emergent condition. - New Patient This patient is new to me today: No - Critical Care Critical Care patient: No
--- NOTE | 2018-01-22 11:47 | PN ---
Progress Note (short form) - Note Progress Note: avss comfortable bandages dry and intact calf soft and NT NVI Hct=30 imp: doing well Plan: OOB,PT
[2018-01-22] MEDS: SODIUM CHLORIDE 1,000 ML IV SCH (13:00)
[2018-01-22] MEDS: SENNOSIDES 8.6MG TABLET (FP) PO SCH (21:23)
[2018-01-23] MEDS: oxyCODONE HCL 5 MG TABLET PO SCH ×4 (02:35→19:18)
[2018-01-23 07:42] LABS: HEMATOCRIT 31.4 % (35.4-49); HEMOGLOBIN 10.4 GM/dL (11.7-16.9); MCH 30.8 pg (25.7-33.7); MEAN CELL VOLUME 93.4 fl (80-96); MEAN PLT VOLUME 9.1 fl (7.5-11.1); PLATELET COUNT 153 K/MM3 (134-434); RBC 3.36 M/mm3 (4.00-5.60); RDW 17.4 % (11.9-15.9); WHITE BLOOD COUNT 10.2 K/mm3 (4.0-10.0)
--- NOTE | 2018-01-23 09:00 | PN ---
Teaching Attending Note Name of Resident: Dimitri Duron ATTENDING PHYSICIAN STATEMENT I saw and evaluated the patient. I reviewed the resident's note and discussed the case with the resident. I agree with the resident's findings and plan as documented. SUBJECTIVE: pain in L hip. no fever or chills . No SOB , no cough .R sided cp . OBJECTIVE: NAD, MMM CV: RRR, no JVD . during exam HR in 80s Lungs: CTAB . TTP over R upper chest wall Ext: no edema on legs. no n tender calves. DP 2+. Clean dressing on Lateral upper thigh and hip. nl sensation in feet and Nl range of motion in feet. ASSESSMENT AND PLAN: 82 y/o gentleman with a h/o HTN, PUD, COPD on 3 L of o2 , recent admission for GI bleed, PNA , and Choledocolithiasis who presented after a fall, and was found to have L hip FX. 1- L hip intertrochanteric Fx, s/p gamma nailing POD 3 - cont pain management - PT - incentive spirometer - DVT PX : Lovenox fro 14 days after dc, as he has a Caprini's score of 8 indicating 6% risk of VTE. 2- HTN: resume NOrvasc 3- Acute blood loss anemia: s/p 1 unit of RBCs . stable HB 4- Tachycardia: improved after transfusion . treat pain . not tachy during exam 5- H/O COPD: cont his home O2 and inhalers/ Nebs cont incentive spirometer Dispo: medically ready for DC , pending a rehab bed. d/w SABINA
[2018-01-23] MEDS ORDERED: PT OWN MED DRAWER 7, Y5N ONE ×2 (10:09→22:27)
[2018-01-23] MEDS: RANITIDINE HCL 150 MG TABLET (FP) PO SCH ×2 (10:12→22:29)
[2018-01-23] MEDS: DOCUSATE SODIUM 100 MG CAPSULE (FP) PO SCH (10:12)
[2018-01-23] MEDS: amLODIPine BESYLATE 10 MG TABLET (FP) PO SCH (10:12)
[2018-01-23] MEDS: TAMSULOSIN HCL 0.4 MG CAP PO SCH (10:12)
[2018-01-23] MEDS: DUTASTERIDE 0.5 MG CAP (FP) PO SCH (10:13)
[2018-01-23] MEDS: ENOXAPARIN NA (PORCINE) 40 MG/0.4 ML DISP.SYRIN SQ SCH (10:13)
[2018-01-23] MEDS: URSODIOL 300 MG CAPSULE PO SCH ×2 (10:13→22:29)
[2018-01-23] MEDS: BUDESONIDE/FORMETEROL FUMARATE 80/4.5 mcg INHALER IH SCH ×2 (10:13→22:29)
[2018-01-23] MEDS: LIPASE/PROTEASE/AMYLASE 36,000 UNIT CAPSULE PO SCH ×3 (10:14→16:45)
--- NOTE | 2018-01-23 10:15 | PN ---
Progress Note (short form) - Note Progress Note: Ortho Pt seen and examined s/p left IM gamma nail Selected Entries 01/23/18 06:28 Temperature 98.0 F Pulse Rate 126 H Respiratory 20 Rate Blood Pressure 158/82 Laboratory Tests 01/23/18 06:15 WBC 10.2 H Hgb 10.4 L Hct 31.4 L Plt Count 153 D dressing c/d/i, calf soft, nt nvi a/p PT wbat dvt ppx pain control d/c planning
--- NOTE | 2018-01-23 11:14 | CONSULT ---
Admitting History and Physical - Primary Care Physician PCP: Macrina Cohen - Admission History of Present Illness: 82 y/o gentleman with a h/o HTN, PUD, COPD on 3 L of o2 , recent admission for GI bleed, PNA , and Choledocolithiasis who presented after a fall, and was found to have L hip FX. Selected Entries 01/22/18 01/22/18 01/22/18 04:26 10:00 14:00 Breakfast 25% Lunch 0 Supper Temperature 98.6 F 98.5 F 01/22/18 01/22/18 01/23/18 18:00 22:00 06:28 Breakfast Lunch Supper 0 Temperature 99.2 F 99.1 F 98.0 F 01/23/18 10:55 Breakfast 25% Lunch Supper Temperature Laboratory Tests 01/20/18 01/21/18 01/22/18 06:00 08:00 06:30 WBC 9.7 11.3 H 10.5 H 01/23/18 06:15 WBC 10.2 H On reg diet/thin liquids Pt c/o chest discomfort/cough while eating. History Source: Patient, Family Member Limitations to Obtaining History: Language Barrier - Past Medical History Cardiovascular: Yes: HTN - Smoking History Smoking history: Former smoker Have you smoked in the past 12 months: No If you are a former smoker, when did you quit?: 50 years ago - Alcohol/Substance Use Hx Alcohol Use: Yes (2 shots of whiskey daily) History of Substance Use: reports: None - Social History ADL: Independent Occupation: Retired from [employer] History of Recent Travel: No History - Admission Reason For Visit: FRACTURE OF HIP - Diagnostics X-ray: Report Reviewed CT Scan: Report Reviewed - General Mental Status: Alert and Oriented, Awake and Alert, Able to Follow Commands Attention: Intact Ability to Follow Directions: Good Head/Neck Control: Fair (Head extended.) - Hearing Hearing: Normal Speech Evaluation - Communication Primary Language: Turkish Communication: Yes: Within Normal Limits Oral Expression Ability: Yes: No Impairment - Speech Production Able to Make Needs Known: Yes: WNL Intelligibility: Yes: WNL - Speech Characteristics Voice Loudness: Normal Voice Pitch: Yes: Normal Voice Phonatory-based Quality: Yes: Normal Speech Pattern: Normal Speech Clarity: < 100% Nasal Resonance: Normal Articulation: Yes: Precise - Language/Auditory Comprehension Follows: Yes: 1 Stage Simple Commands - Language/Verbal Expression Able to Respond to Simple Queries: Yes: WNL Able to Communicate Wants and Needs: Yes: WNL Functional Communication Status: Yes: WNL - Swallow Evaluation/Bedside Assessment Current Nutritional Intake: Regular, Thin Liquids Oral Secretions: Yes: Tongue Coated (thick white. mouth care. r/o thrush?) Dentition: Yes: Missing Teeth Facial Symmetry at Rest: Symmetrical Facial Symmetry on Retraction: Symmetrical Against Resistance Opening: Normal Against Resistance Closing: Normal Pucker Lips: Normal Smile: Normal Lingual Movement: Normal, Symmetric Lingual Speed of Movement: Normal Lingual Movement Strgth Against Opposition: Normal Lingual Movement Characteristics: Normal Velopharyngeal Movement: Normal Laryngeal Elevation: Impaired Laryngeal Movement: Reduced Excursion, Labored,delay initiation, Reduced Velocity Rate of Intake: WFL Bolus Size: WFL Labial Seal: WFL Oral Prep Time: WFL A-P Transit: WFL Odynophagia: Pharyngeal, Esophageal Coughing/Throat Clear: Yes (thin liquid) Recommendations - Speech Evaluation, Impression/Plan Impression: Head habitually extended in bed. c/o generalized discomfort in chest / responsive cough with water. r/o aspiration. Thick white coating on tongue.Mouth care provided, still with thick coating. r/o thrush? - Disposition Discharge to: To be Determined - Dysphagia Impressions/Plan Swallowing Skills: Impaired Dysphagia Impressions: Risk of Aspiration, Ongoing Evaluation *Silent aspiration: cannot be R/O at bedside Dysphagia Treatment Plan: Small Bites, Chin Tuck/Down, Clear Pocket Food, Safe Rate, 1/2 tsp. at a time, Elevate HOB during feed, Other (Mouth care before each meal) Recommendations: MBS w Esophagus, Other (r/o thrush) - Recommendations Diet Consistency: Dysphagia Pureed Medication Administration: Crushed with applesauce Liquids: [place] Thick Supplement: Magic Cup, Ensure Pudding
--- NOTE | 2018-01-23 11:54 | CONSULT ---
Admitting History and Physical - Primary Care Physician PCP: Macrina Cohen - Admission History of Present Illness: 82 y/o gentleman with a h/o HTN, PUD, COPD on 3 L of o2 , recent admission for GI bleed, PNA , and Choledocolithiasis who presented after a fall, and was found to have L hip FX. L hip intertrochanteric Fx, s/p gamma nailing POD 3 - Past Medical History Cardiovascular: Yes: HTN - Smoking History Smoking history: Former smoker Have you smoked in the past 12 months: No If you are a former smoker, when did you quit?: 50 years ago - Alcohol/Substance Use Hx Alcohol Use: Yes (2 shots of whiskey daily) History of Substance Use: reports: None - Social History ADL: Independent Occupation: Retired from [employer] History of Recent Travel: No History - Admission Reason For Visit: FRACTURE OF HIP - General Mental Status: Alert and Oriented, Awake and Alert, Able to Follow Commands Attention: Intact Ability to Follow Directions: Good Head/Neck Control: Fair (Head extended.) - Hearing Hearing: Normal Speech Evaluation - Communication Primary Language: Chinese Communication: Yes: Within Normal Limits Oral Expression Ability: Yes: No Impairment - Speech Production Intelligibility: Yes: WNL - Speech Characteristics Voice Loudness: Normal Voice Pitch: Yes: Normal Voice Phonatory-based Quality: Yes: Normal Speech Pattern: Normal Speech Clarity: < 100% Nasal Resonance: Normal Articulation: Yes: Precise - Language/Auditory Comprehension Follows: Yes: 1 Stage Simple Commands - Language/Verbal Expression Able to Respond to Simple Queries: Yes: WNL Able to Communicate Wants and Needs: Yes: WNL Functional Communication Status: Yes: WNL - Swallow Evaluation/Bedside Assessment Dentition: Yes: Missing Teeth Facial Symmetry at Rest: Symmetrical Facial Symmetry on Retraction: Symmetrical Against Resistance Opening: Normal Against Resistance Closing: Normal Pucker Lips: Normal Smile: Normal Lingual Movement: Normal, Symmetric Lingual Speed of Movement: Normal Lingual Movement Strgth Against Opposition: Normal Lingual Movement Characteristics: Normal Velopharyngeal Movement: Normal Laryngeal Elevation: Impaired Laryngeal Movement: Reduced Excursion, Labored,delay initiation, Reduced Velocity Bolus Size: WFL Labial Seal: WFL Oral Prep Time: WFL A-P Transit: WFL Odynophagia: Pharyngeal, Esophageal Coughing/Throat Clear: Yes (thin liquid)
--- NOTE | 2018-01-23 14:51 | PN ---
Physical Exam: SUBJECTIVE: Patient seen and examined at bedside. feeding him breakfast. In good spirits, without complaint. OBJECTIVE: Vital Signs Period Temp Pulse Resp BP Sys/Jones Pulse Ox Last 24 Hr 98.0 F-99.2 F 103-126 20-20 131-158/67-82 97 GENERAL: The patient is sitting up in bed. in no acute distress HEAD: Normal with no signs of trauma. EYES: PERRL, extraocular movements intact, sclera anicteric ENT: Ears normal, nares patent, oropharynx clear without exudates, dry mucous membranes NECK: Trachea midline, supple. LUNGS: Breath sounds equal, clear to auscultation bilaterally, no wheezes, no crackles, no accessory muscle use. HEART: Regular rate and rhythm, S1, S2 without murmur, rub or gallop. ABDOMEN: Soft, nontender, nondistended EXTREMITIES: 2+ pt pulses, warm, well-perfused, no edema. +L lateral thigh dressing. with mild TTP in area NEUROLOGICAL: Cranial nerves II through XII grossly intact. PSYCH: Normal mood, normal affect. SKIN: Warm, dry Laboratory Results - last 24 hr 01/23/18 06:15 WBC 10.2 H RBC 3.36 L Hgb 10.4 L Hct 31.4 L MCV 93.4 MCH 30.8 MCHC 33.0 RDW 17.4 H Plt Count 153 D MPV 9.1 Active Medications Generic Name Dose Route Start Last Admin Trade Name Freq PRN Reason Stop Dose Admin Albuterol Sulfate 2 puff 01/20/18 12:57 Ventolin Hfa Inhaler - IH Q4H PRN SHORT OF BREATH/WHEEZING Albuterol/Ipratropium 1 amp 01/21/18 14:49 Duoneb - NEB Q6H PRN SHORTNESS OF BREATH Amlodipine Besylate 10 mg 01/23/18 10:00 01/23/18 10:12 Norvasc - PO 10 mg DAILY RAYSHAWN Administration Budesonide/Formoterol Fumarate 2 puff 01/20/18 22:00 01/23/18 10:13 Symbicort 80/4.5mcg - IH 2 puff BID RAYSHAWN Administration Docusate Sodium 100 mg 01/21/18 10:00 01/23/18 10:12 Colace - PO 100 mg DAILY RAYSHAWN Administration Dutasteride 0.5 mg 01/21/18 10:00 01/23/18 10:13 Avodart - PO 0.5 mg DAILY RAYSHAWN Administration Enoxaparin Sodium 40 mg 01/21/18 10:00 01/23/18 10:13 Lovenox - SQ 40 mg DAILY RAYSHAWN Administration Fentanyl 25 mcg 01/20/18 12:43 Sublimaze Injection - IVPUSH [id number] PRN PAIN-PACU ORDER X 4 DOSES ONLY Sodium Chloride 1,000 mls @ 42 mls/hr 01/20/18 12:57 01/22/18 13:00 Normal Saline - IV 42 mls/hr ASDIR RAYSHAWN Administration Ondansetron HCl 4 mg 01/20/18 12:43 Zofran Injection IVPUSH Q6H PRN NAUSEA AND/OR VOMITING Oxycodone HCl 5 mg 01/20/18 13:45 01/23/18 14:18 Roxicodone - PO Not Given Q6H RAYSHAWN Pancrelipase 1 cap 01/20/18 17:30 01/23/18 11:[address] 36,000 Units Capsule PO 1 cap TIDCM RAYSHAWN Administration Ranitidine HCl 150 mg 01/20/18 22:00 01/23/18 10:12 Zantac - PO 150 mg BID RAYSHAWN Administration Senna 1 tab 01/20/18 22:00 01/22/18 21:23 Senna - PO 1 tab HS RAYSHAWN Administration Tamsulosin HCl 0.4 mg 01/21/18 08:30 01/23/18 10:12 Flomax - PO 0.4 mg DAILY@0830 RAYSHAWN Administration Ursodiol 300 mg 01/21/18 23:00 01/23/18 10:13 Actigal - PO 300 mg BID RAYSHAWN Administration ASSESSMENT/PLAN: 82 y/o M with hx HTN, PUD, COPD (3L 02), GIB, choledocholithiasis, who presented s/p fall and was found to have L IT fx. #L IT hip fx, PO Day 3 gamma nail -appears comfortable -roxicodone 5mg PO q6h -PT; walked 5 feet, antalgic gait. wbat -incentive spirometer, avoid atelectasis -bowel regimen while on sergio; senna, colace -Lovenox 14 days after d/c for PPX #HTN- controlled -amlodipine 10mg PO qd #COPD -c/w 3L 02 -ventolin, duonebs #BPH -c/w flomax, dutasteride #hx choledocholithiasis -c/w ursodiol #F/E/N -IV NS 42 cc/hr -continue to follow lytes -MBS: dysphagia pureed, nectar thick liquids. can't r/o aspiration #PPX Lovenox 40mg SQ qd #Dispo pending rehab bed. however d/w SW still deciding where pt should go. hopeful for d/c later today or tomorrow Visit type - Emergency Visit Emergency Visit: No - New Patient This patient is new to me today: No - Critical Care Critical Care patient: No
[2018-01-23] MEDS: SENNOSIDES 8.6MG TABLET (FP) PO SCH (22:29)
[2018-01-24] MEDS: oxyCODONE HCL 5 MG TABLET PO SCH ×3 (01:42→14:46)
[2018-01-24] MEDS ORDERED: PT OWN MED DRAWER 7, Y5N ONE ×3 (08:14→17:25)
[2018-01-24] MEDS: TAMSULOSIN HCL 0.4 MG CAP PO SCH (08:15)
[2018-01-24 08:24] LABS: BASO % 0.4 % (0-2.0); EOS % 0.6 % (0-4.5); HEMATOCRIT 28.6 % (35.4-49); HEMOGLOBIN 10.1 GM/dL (11.7-16.9); LYMPH % 7.5 % (8-40); MCH 32.8 pg (25.7-33.7); MCHC 35.4 g/dl (32.0-35.9); MEAN CELL VOLUME 92.7 fl (80-96); MEAN PLT VOLUME 8.6 fl (7.5-11.1); MONO % 8.9 % (3.8-10.2); NEUT % 82.6 % (42.8-82.8); PLATELET COUNT 184 K/MM3 (134-434); RBC 3.09 M/mm3 (4.00-5.60); RDW 16.9 % (11.9-15.9); WHITE BLOOD COUNT 6.6 K/mm3 (4.0-10.0)
[2018-01-24] MEDS: LIPASE/PROTEASE/AMYLASE 36,000 UNIT CAPSULE PO SCH ×3 (09:21→17:30)
[2018-01-24] MEDS: ENOXAPARIN NA (PORCINE) 40 MG/0.4 ML DISP.SYRIN SQ SCH (10:01)
[2018-01-24] MEDS: URSODIOL 300 MG CAPSULE PO SCH (10:01)
[2018-01-24] MEDS: DUTASTERIDE 0.5 MG CAP (FP) PO SCH (10:02)
[2018-01-24] MEDS: RANITIDINE HCL 150 MG TABLET (FP) PO SCH (10:02)
[2018-01-24] MEDS: DOCUSATE SODIUM 100 MG CAPSULE (FP) PO SCH (10:02)
[2018-01-24] MEDS: BUDESONIDE/FORMETEROL FUMARATE 80/4.5 mcg INHALER IH SCH (10:02)
[2018-01-24] MEDS: amLODIPine BESYLATE 10 MG TABLET (FP) PO SCH (10:02)
--- NOTE | 2018-01-24 14:04 | PN ---
Teaching Attending Note Name of Resident: Dimitri Duron ATTENDING PHYSICIAN STATEMENT I saw and evaluated the patient. I reviewed the resident's note and discussed the case with the resident. I agree with the resident's findings and plan as documented. SUBJECTIVE: No fever or chills . L hip pain has improved OBJECTIVE: NAD, MMM CV: RRR, no JVD . Lungs: CTAB . Ext: no edema on legs. no n tender calves. DP 2+. Clean dressing on Lateral upper thigh and hip. bruising seen around dressing, and extending to the L flank. ASSESSMENT AND PLAN: 82 y/o gentleman with a h/o HTN, PUD, COPD on 3 L of o2 , recent admission for GI bleed, PNA , and Choledocolithiasis who presented after a fall, and was found to have L hip FX. 1- L hip intertrochanteric Fx, s/p gamma nailing POD 4 - cont pain management - incentive spirometer - bruising in L flank extending form L surgical site. hold off any CT scan , this seem to be superficial. d/w ortho, dr. Salcedo, who agrees. - DVT PX :Dr Salcedo recommended aspirin over lovenox. the patient has a hematoma, lovenox will give him increased risk for expansion. although asa has less protection but it was studied after a short course of other agents. he already received 4 days of lovenox. will continue with asa which he takes at home . 2- HTN: resume NOrvasc 3- Acute blood loss anemia: s/p 1 unit of RBCs . stable HB. cbc in 1 week after dc 4- H/O COPD: cont his home O2 and inhalers/ Nebs cont incentive spirometer Dispo: dc to rehab today
[2018-01-24 15:07] VITALS: BP 126/61; PULSE 122; TEMP 98.4
--- NOTE | 2018-01-24 15:11 | DS ---
Physical Exam: SUBJECTIVE: Patient seen and examined OBJECTIVE: Vital Signs Period Temp Pulse Resp BP Sys/Jones Pulse Ox Last 24 Hr 98.1 F-98.7 F 80-122 20-20 122-140/61-77 97-98 PHYSICAL EXAM GENERAL: The patient is awake, alert, and fully oriented, in no acute distress. HEAD: Normal with no signs of trauma. EYES: PERRL, extraocular movements intact, sclera anicteric, conjunctiva clear. ENT: Ears normal, nares patent, oropharynx clear without exudates, moist mucous membranes. NECK: Trachea midline, full range of motion, supple. LUNGS: Breath sounds equal, clear to auscultation bilaterally, no wheezes, no crackles, no accessory muscle use. HEART: Regular rate and rhythm, S1, S2 without murmur, rub or gallop. ABDOMEN: Soft, nontender, nondistended, normoactive bowel sounds, no guarding, no rebound, no hepatosplenomegaly, no masses. EXTREMITIES: 2+ pulses, warm, well-perfused, no edema. NEUROLOGICAL: Cranial nerves II through XII grossly intact. Normal speech, gait not observed. PSYCH: Normal mood, normal affect. SKIN: Warm, dry, normal turgor, no rashes or lesions noted. LABS Laboratory Results - last 24 hr 01/24/18 01/24/18 07:00 07:00 WBC 6.6 Cancelled Corrected WBC (auto) Cancelled RBC 3.09 L Cancelled Hgb 10.1 L Cancelled Hct 28.6 L Cancelled MCV 92.7 Cancelled MCH 32.8 Cancelled MCHC 35.4 Cancelled RDW 16.9 H Cancelled Plt Count 184 D Cancelled MPV 8.6 Cancelled Absolute Neuts (auto) 5.4 Neutrophils % 82.6 Lymphocytes % 7.5 L Monocytes % 8.9 Eosinophils % 0.6 D Basophils % 0.4 Nucleated RBC % 0 Manual Slide Review Cancelled Platelet Comment Cancelled HOSPITAL COURSE: Date of Admission:01/19/18 Date of Discharge: 01/24/18 Discharge Summary Reason For Visit: FRACTURE OF HIP Current Active Problems Acute blood loss as cause of postoperative anemia (Acute) Intertrochanteric fracture (Acute) Condition: Improved - Instructions Diet, Activity, Other Instructions: You came in for a left hip fracture and anemia. Please follow up with your Primary Care Physician (Dr. Frances Rojas) within 1 week after discharge from rehab. Please follow up with Dr. Salcedo (Orthopedic Surgeon) within 1 week Please check your CBC in 1 week. We have started you on a new medication, Aspirin 81mg ONCE Daily for 30 days . Please take as prescribed. Please monitor your blood pressure at home. Please continue with a puree diet of nectar thick liquids, please tuck your chin and avoid the use of straws. Please take small sips when drinking, NO continuous drinking. Please return to the ED if you are experiencing and fever, chills, lightheadedness, dizziness or falls or other unusual symptoms. Referrals: Frances Rojas [Other] - 1 Week Dimitri Salcedo MD [Staff Physician] - 1 Week [facility]position[facility] - Home Medications Comprehensive Discharge Medication List: Ambulatory Orders Ursodiol [Actigal -] 300 mg PO BID #60 capsule 07/26/17 Alendronate Sodium [Binosto] 1 tab PO WEEKLY 01/19/18 Amlodipine Besylate [Norvasc -] 1 tab PO DAILY 01/19/18 Dutasteride [Avodart] 1 cap PO DAILY 01/19/18 Ergocalciferol [Vitamin D2] 1 cap PO WEEKLY 01/19/18 Fluticasone/Salmeterol [Advair Hfa 230-21 Mcg Inhaler] 2 puff PO BID 01/19/18 Lipase/Protease/Amylase [Creon Dr 36,000 Units Capsule] 1 cap PO AC 01/19/18 Polyvinyl Alcohol [Artificial Tears] 1 drop OD PRN PRN 01/19/18 Ranitidine HCl [Zantac] 1 tab PO BID 01/19/18 Tamsulosin HCl [Flomax] 1 cap PO DAILY 01/19/18 Umeclidinium Brm/Vilanterol Tr [Anoro Ellipta 62.5-25 Mcg INH] 1 puff PO DAILY 01/19/18 Vitamin B Complex 1 tab PO DAILY 01/19/18 Acetaminophen [Tylenol] 650 mg PO Q6H PRN #30 capsule 01/22/18 Albuterol Sulfate Inhaler - [Ventolin HFA Inhaler -] 2 puff IH Q4H PRN inhaler 01/22/18 Docusate Sodium [Colace] 100 mg PO BID 14 Days capsule 01/22/18 Sennosides [Senna -] 1 tab PO HS tablet 01/22/18 oxyCODONE HCL [Roxicodone -] 5 mg PO Q6H tablet MDD 4 tab a day 01/22/18 Aspirin Coated [Ecotrin -] 81 mg PO DAILY #30 tablet.ec 01/24/18 - Discharge Referral Referred to [facility] No
--- NOTE | 2018-01-24 17:03 | EKG ---
Test Reason : Blood Pressure : / mmHG Vent. Rate : 115 BPM Atrial Rate : 115 BPM P-R Int : 130 ms QRS Dur : 078 ms QT Int : 324 ms P-R-T Axes : 067 072 070 degrees QTc Int : 448 ms POOR DATA QUALITY, INTERPRETATION MAY BE ADVERSELY AFFECTED SINUS TACHYCARDIA SEPTAL INFARCT , AGE UNDETERMINED ABNORMAL ECG Confirmed by MD HALLIE, WILLIE ([id number]) on 01/24/2018 5:03:07 PM Referred By: Confirmed By:WILLIE STERLING MD
== END 2018-01-24 18:02 | DRG 480 ==
LOC: JER 09:31 → JERBED 12:13 → J6S 01-20 00:13
PROVIDERS: ADMIT Internal Medicine; ATTEND Internal Medicine
PROC: 0QS704Z Reposition Left Upper Femur with Internal Fixation Device, Open Approach (ICD-10-PCS; principal; 2018-01-20 11:00)
PROC: 30233N1 Transfusion of Nonautologous Red Blood Cells into Peripheral Vein, Percutaneous Approach (ICD-10-PCS; 2018-01-21)
DX: S72.142A Displaced intertrochanteric fracture of left femur, initial encounter for closed fracture (principal); E43 Unspecified severe protein-calorie malnutrition; D62 Acute posthemorrhagic anemia; Z68.1 Body mass index [BMI] 19.9 or less, adult; I10 Essential (primary) hypertension; J44.9 Chronic obstructive pulmonary disease, unspecified; N40.0 Benign prostatic hyperplasia without lower urinary tract symptoms; K86.89 Other specified diseases of pancreas; I95.9 Hypotension, unspecified; R00.0 Tachycardia, unspecified; K80.50 Calculus of bile duct without cholangitis or cholecystitis without obstruction; Z99.81 Dependence on supplemental oxygen; Z87.11 Personal history of peptic ulcer disease; Z87.891 Personal history of nicotine dependence; W18.30XA Fall on same level, unspecified, initial encounter; Y92.091 Bathroom in other non-institutional residence as the place of occurrence of the external cause
CPT/HCPCS: 36415; 36430; 70450-TC; 71045-TC-FY; 72125-TC; 73523-TC-FY; 74230-TC-FY; 80048; 80053; 81003; 82550; 82553; 83735; 84100; 84484; 85025; 85027; 85610; 86850; 86900; 86901; 86922; 92611-GN; 93005; 93010; 94010; 94760; 97116-GP; 97162-GP; 97530-GP; 99285-25; J0131; J1644; J7030; P9038; P9058

== ENCOUNTER 2018-04-12 12:47 | Inpatient (IN) | payer OTHER ==
[2018-04-12 12:56] VITALS: BMI 18.8
[2018-04-12] MEDS ORDERED: MAGNESIUM SULF 50% (8.12 MEQ/2 ML-1 GM VIAL) IVPB ONE (12:56)
[2018-04-12] MEDS: ALBUTEROL SO4 0.083% IH SOL 2.5 MG/3 ML VIAL.NEB. NEB PRN (12:56)
--- NOTE | 2018-04-12 12:58 | PDOC ---
History of Present Illness <Katie Hogan - Last Filed: 04/12/18 15:35> - General History Source: Patient Exam Limitations: No Limitations - History of Present Illness Initial Comments: 04/12/18 15:36 The patient is a 82 year old male, italian speaking, with a significant past medical history of COPD, HTN, BPH, GI Bleed, insomnia and anxiety, who presents to the emergency department via EMS accompanied by for evaluation of shortness of breath and cough since yesterday. As per the patient, he began to feel SOB yesterday. The presents at bedside with a bag of his medications, two of which are empty containers for levaquin and prednisone prescribed to the patient on 03/21/17. As per ems, the patient was found to be low 70s on room air and was given 2 combivents and dexamethasone in route which improved the patient 's O2 saturation to about 95%. Georgian interpretation provided via [employer] The patient denies chest pain, headache and dizziness. The patient denies fever , chills, nausea, vomit, diarrhea and constipation. Allergies: NKDA Social history: 30 yr smoking Hx PMD Dr Rojas ([place]) ROS: GENERAL/CONSTITUTIONAL: No fever or chills. No weakness. no sweats. HEAD, EYES, EARS, NOSE AND THROAT: No change in vision or hearing. No ear pain or discharge. No sore throat or mouth pain. No difficulty swallowing. No congestion. CARDIOVASCULAR: No chest pain or palpitations, syncope or edema. RESPIRATORY: (+) SOB, cough, wheezing, No hemoptysis. GASTROINTESTINAL No nausea/vomiting. No diarrhea or constipation. No bloody stools. GENITOURINARY: No hematuria, dysuria, frequency, urgency or other changes. MUSCULOSKELETAL: No joint or muscle swelling or pain. No neck or back pain. SKIN: No rash or changes in skin color or lesions. NEUROLOGIC: No headache, dizziness, loss of consciousness, or change in strength /sensation. No gait instability. HEMATOLOGIC/LYMPHATIC: No anemia, easy bruising/bleeding, or history of blood clots. No swollen lymph nodes ALLERGIC/IMMUNOLOGIC: No allergies All other systems reviewed and negative, or as documented in HPI. Physical exam: General: Very Thin and frail appearing, awake and alert, (+) in moderate respiratory distress. very tachypneic HEENT: NCAT, PERRL, EOMI, clear conjunctiva, anicteric, moist mucous membranes , clear oropharynx, no oral lesions.. Neck: neck supple, FROM, no JVD. Trachea midline Resp: (+) expiratory wheezing bilaterally. Intercostal contractions. Tachypneic. +diminished breath sounds on right lung field, greater than left. CVS: (+) tachycardic. Regular rhythm, no murmurs, 2+ peripheral pulses throughout, no peripheral edema Abdomen: soft, NTND, no rebound or guarding. No CVAT. Back: nontender, normal inspection and ROM MSK: no edema, LOVE x4, ROM intact. No clubbing or cyanosis. normal bulk and tone. Extremities: no calf tenderness Neuro: alert, verbal. Skin: warm and well perfused, cap refill <2 sec, normal color 04/12/18 15:41 04/12/18 15:41 04/13/18 07:37 04/13/18 07:39 <Karen Lucas - Last Filed: 04/13/18 07:41> - General Chief Complaint: Shortness of Breath Stated Complaint: SHORTNESS OF BREATH Time Seen by Provider: 04/12/18 12:56 Past History <Katie Hogan - Last Filed: 04/12/18 15:35> - Past Medical History COPD: No CHF: No GI Disorders: Yes (GI bleed) Disorders: Yes (BPH) HTN: Yes - Immunization History Immunization Up to Date: Yes - Suicide/Smoking/Psychosocial Hx Smoking History: Never smoked Have you smoked in the past 12 months: No If you are a former smoker, when did you quit?: 50 years ago Information on smoking cessation initiated: No 'Breaking Loose' booklet given: 01/19/18 Hx Alcohol Use: No Drug/Substance Use Hx: No Substance Use Type: Alcohol Hx Substance Use Treatment: No <Karen Lucas - Last Filed: 04/13/18 07:41> - Past Medical History Allergies/Adverse Reactions: Allergies Allergy/AdvReac Type Severity Reaction Status Date / Time No Known Allergies Allergy Verified 01/19/18 10:05 Home Medications: Ambulatory Orders Ursodiol [Actigal -] 300 mg PO BID #60 capsule 07/26/17 Alendronate Sodium [Binosto] 1 tab PO WEEKLY 01/19/18 Amlodipine Besylate [Norvasc -] 1 tab PO DAILY 01/19/18 Dutasteride [Avodart] 1 cap PO DAILY 01/19/18 Ergocalciferol [Vitamin D2] 1 cap PO WEEKLY 01/19/18 Fluticasone/Salmeterol [Advair Hfa 230-21 Mcg Inhaler] 2 puff PO BID 01/19/18 Lipase/Protease/Amylase [Creon Dr 36,000 Units Capsule] 1 cap PO AC 01/19/18 Polyvinyl Alcohol [Artificial Tears] 1 drop OD PRN PRN 01/19/18 Ranitidine HCl [Zantac] 1 tab PO BID 01/19/18 Tamsulosin HCl [Flomax] 1 cap PO DAILY 01/19/18 Umeclidinium Brm/Vilanterol Tr [Anoro Ellipta 62.5-25 Mcg INH] 1 puff PO DAILY 01/19/18 Vitamin B Complex 1 tab PO DAILY 01/19/18 Acetaminophen [Tylenol] 650 mg PO Q6H PRN #30 capsule 01/22/18 Albuterol Sulfate Inhaler - [Ventolin HFA Inhaler -] 2 puff IH Q4H PRN inhaler 01/22/18 Docusate Sodium [Colace] 100 mg PO BID 14 Days capsule 01/22/18 Sennosides [Senna -] 1 tab PO HS tablet 01/22/18 oxyCODONE HCL [Roxicodone -] 5 mg PO Q6H tablet MDD 4 tab a day 01/22/18 Aspirin Coated [Ecotrin -] 81 mg PO DAILY #30 tablet.ec 01/24/18 *Physical Exam - Vital Signs Last Vital Signs Temp Pulse Resp BP Pulse Ox 98.4 F 133 H 22 H 157/83 92 L 04/12/18 12:58 04/12/18 12:54 04/12/18 12:54 04/12/18 12:54 04/12/18 12:54 <Katie Hogan - Last Filed: 04/12/18 15:35> - Vital Signs Last Vital Signs Temp Pulse Resp BP Pulse Ox 133 H 22 H 157/83 92 L 04/12/18 12:54 04/12/18 12:54 04/12/18 12:54 04/12/18 12:54 <Karen Lucas - Last Filed: 04/13/18 07:41> Moderate Sedation - Procedure Monitoring Vital Signs: Procedure Monitoring Vital Signs Temperature 98.4 F 04/12/18 12:58 Pulse Rate 133 H 04/12/18 12:54 Respiratory Rate 22 H 04/12/18 12:54 Blood Pressure 157/83 04/12/18 12:54 O2 Sat by Pulse Oximetry (%) 92 L 04/12/18 12:54 <Katie Hogan - Last Filed: 04/12/18 15:35> - Procedure Monitoring Vital Signs: Procedure Monitoring Vital Signs Temperature Pulse Rate 133 H 04/12/18 12:54 Respiratory Rate 22 H 04/12/18 12:54 Blood Pressure 157/83 04/12/18 12:54 O2 Sat by Pulse Oximetry (%) 92 L 04/12/18 12:54 <Karen Lucas - Last Filed: 04/13/18 07:41> ED Treatment Course - LABORATORY CBC & Chemistry Diagram: 04/12/18 13:27 04/12/18 13:27 - ADDITIONAL ORDERS Additional order review: Laboratory Results 04/12/18 04/12/18 13:27 13:27 VBG pH 7.38 POC VBG pCO2 47.5 POC VBG pO2 31.3 D Mixed VBG HCO3 27.8 H Sodium 136 Potassium 3.2 L Chloride 101 Carbon Dioxide 27 Anion Gap 8 BUN 11 Creatinine 0.5 L Creat Clearance w eGFR > 60 Random Glucose 136 H Calcium 7.4 L Total Bilirubin 0.3 AST 24 ALT 25 Alkaline Phosphatase 80 Total Protein 6.1 L Albumin 2.8 L 04/12/18 13:27 RBC 3.65 L MCV 92.1 MCHC 34.8 RDW 17.1 H MPV 8.1 Neutrophils % 90.1 H Lymphocytes % 4.8 L D Monocytes % 4.7 Eosinophils % 0.1 D Basophils % 0.3 - Medications Given in the ED: ED Medications Discontinued Medications Generic Name Dose Route Start Last Admin Trade Name Freq PRN Reason Stop Dose Admin Ceftriaxone Sodium 1,000 mg/ 50 mls @ 100 mls/hr 04/12/18 13:45 04/12/18 14: 44 Dextrose IVPB 04/12/18 14:14 100 mls/hr ONCE ONE Administration Magnesium Sulfate 2 gm 04/12/18 12:56 04/12/18 14:04 Magnesium Sulfate IVPB 04/12/18 12:57 2 gm ONCE ONE Administration <Katie Hogan - Last Filed: 04/12/18 15:35> - LABORATORY CBC & Chemistry Diagram: 04/12/18 13:27 04/12/18 13:27 - RADIOLOGY Radiology Studies Ordered: Category Date Time Status CHEST X-RAY PORTABLE* [RAD] Stat Radiology 04/12/18 12:56 Ordered <Karen Lucas - Last Filed: 04/13/18 07:41> Medical Decision Making - Medical Decision Making 04/12/18 15:35 Dr. Chen was paged at this time. awaiting call back. <ElviaelverKatie - Last Filed: 04/12/18 15:35> - Medical Decision Making 04/12/18 13:02 I, Karen Lucas MD, attest that this document has been prepared under my direction and personally reviewed by me in its entirety. I further attest, that it accurately reflects all work, treatment, procedures and medical decision -making performed by me. See HPI for details Vital signs reviewed, +tachycardic and borderline sats in low 90 on albuterol. no fever rectally. DDx SOB: ACS, arrhythmia, PTX, PE, CHF, COPD exac, pulmonary edema, pleurisy, pneumonia, viral syndrome. effusion. anemia, electrolyte/metabolic derangements. Trop neg. Prior notes reviewed, including admissions, discharges and consultations. laboratory results and imaging reviewed, basic labs and lytes wnl, influenza_negative EKG normal sinus rhythm, no interval abnormalities, narrow QRS, ST and T wave segments and morphology normal. Nonspecific T wave abnormalities ED course: most likely COPD exacerbation. however CXR with moderately sized PTX on right w/o evidence of tension ptx This PTX is secondary related to his underlying COPD, likely from popped bleb etiology for his hypoxia noted, on NRB for max oxygenation. infectious workup, recent use of levaquin 1 month ago for presumed pna, completed course; also on prednisone. - cef/azithromycin coverage for abx - Potassium repletions for mildly potassium - also treated with dexamethasone via EMS already; covered for his COPD. also additionally Mg and additional duonebs. CXR confirms placement of chest tube - chauncey pigtail laterally/anterior, suboptimal but functioning. keep in place for now, as it is functioning. CT chest to follow for his ptx/copd/infection eval. analgesia provided. pt tolerated pigtail catheter procedure well. see resident procedure note, I was directly available and supervised resident(s) involved. xeroform dressing and 3 way bandage to avoid leak. spoke with pulm, cs with Dr Medel, appropriate for floors with the pigtail in place, right chest to water seal. telemetry admission for PTX management and COPD flare. s/o and admitting to Dr Rollins 04/12/18 16:21 04/13/18 07:39 <Karen Lucas - Last Filed: 04/13/18 07:41> *DC/Admit/Observation/Transfer <Katie Hogan - Last Filed: 04/12/18 15:35> - Discharge Dispostion Decision to Admit order: Yes Decision to Admit order Date/Time: 04/12/18 15:58 Decision to Admit Order Category Date Time Status Decision to Admit to Hospital Routine Admission 04/12/18 15:39 Ordered <Karen Lucas - Last Filed: 04/13/18 07:41> Diagnosis at time of Disposition: Pneumothorax, acute, COPD (chronic obstructive pulmonary disease) with emphysema - Discharge Dispostion Condition at time of disposition: Guarded
[2018-04-12] MEDS ORDERED: ALBUTEROL SO4 2.5/IPRATROPIUM 0.5 INH SOL 3 ML VIAL.NEB. NEB ONE (13:24)
[2018-04-12 13:40] LABS: VENOUS PC02 47.5 mmHg (38-52); VENOUS PH 7.38 (7.32-7.42); VENOUS PO2 31.3 mmHg (28-48)
[2018-04-12 13:44] LABS: BASO % 0.3 % (0-2.0); EOS % 0.1 % (0-4.5); HEMATOCRIT 33.6 % (35.4-49); HEMOGLOBIN 11.7 GM/dL (11.7-16.9); LYMPH % 4.8 % (8-40); MCHC 34.8 g/dl (32.0-35.9); MEAN CELL VOLUME 92.1 fl (80-96); MEAN PLT VOLUME 8.1 fl (7.5-11.1); MONO % 4.7 % (3.8-10.2); NEUT % 90.1 % (42.8-82.8); PLATELET COUNT 222 K/MM3 (134-434); RBC 3.65 M/mm3 (4.00-5.60); RDW 17.1 % (11.9-15.9); WHITE BLOOD COUNT 8.8 K/mm3 (4.0-10.0)
[2018-04-12] MEDS ORDERED: AZITHROMYCIN IVPB 500 MG in DEXTROSE 5%-WATER - 250 ML IVPB ONE (13:45)
[2018-04-12] MEDS ORDERED: CEFTRIAXONE 1,000 MG in DEXTROSE 5%-WATER - 50 ML IVPB ONE (13:45)
[2018-04-12] MEDS ORDERED: MAGNESIUM 1GM/D5W - 2 GM/200 ML IVPB IVPB ONE (13:58)
[2018-04-12 14:08] LABS: ALBUMIN 2.8 g/dl (3.4-5.0); ALK PHOS 80 U/L (45-117); ANION GAP 8 MMOL/L (8-16); BILIRUBIN,TOTAL 0.3 mg/dL (0.2-1); BLOOD UREA NITROGEN 11 mg/dL (7-18); CALCIUM 7.4 mg/dL (8.5-10.1); CHLORIDE 101 mmol/L (98-107); CO2 27 mmol/L (21-32); CREATININE 0.5 mg/dL (0.55-1.3); GLUCOSE,RANDOM 136 mg/dL (74-106); POTASSIUM 3.2 mmol/L (3.5-5.1); SGOT/AST 24 U/L (15-37); SGPT/ALT 25 U/L (13-61); SODIUM 136 mmol/L (136-145); TOT PROT 6.1 g/dl (6.4-8.2)
[2018-04-12] MEDS ORDERED: LIDOCAINE HCL 1%, 10 MG/ML (20ML VIAL) ONE (14:08)
[2018-04-12] MEDS ORDERED: AZITHROMYCIN IVPB 500 MG/250 ML BAG IVPB ONE (14:08)
[2018-04-12] MEDS ORDERED: CEFTRIAXONE 1 GM/50 ML BAG ONE (14:08)
[2018-04-12] MEDS ORDERED: LIDOCAINE HCL 1%, 10 MG/ML (50 mL VIAL) SQ ONE (14:09)
[2018-04-12] MEDS ORDERED: MORPHINE SULFATE 2 MG/ML VIAL IVPUSH ONE (15:54)
[2018-04-12] MEDS ORDERED: MORPHINE SULFATE 2 MG/ML VIAL ONE (16:11)
--- NOTE | 2018-04-12 17:21 | HP ---
Admitting History and Physical - Primary Care Physician PCP: Kami Rollins - Admission History of Present Illness: -82 year old male, armenian speaking, with a significant past medical history of COPD, HTN, BPH, GI Bleed, insomnia and anxiety, who presents to the emergency department via EMS accompanied by for evaluation of shortness of breath and cough since yesterday. As per the patient, he began to feel SOB yesterday. The presents at bedside with a bag of his medications, two of which are empty containers for levaquin and prednisone prescribed to the patient on . As per ems, the patient was found to be low 70s on room air and was given 2 combivents and dexamethasone in route which improved the patient's O2 saturation to about 95%. Chinese interpretation provided via [employer] - Past Medical History Cardiovascular: Yes: HTN - Smoking History Smoking history: Never smoked Have you smoked in the past 12 months: No If you are a former smoker, when did you quit?: 50 years ago - Alcohol/Substance Use Hx Alcohol Use: No History of Substance Use: reports: None - Social History ADL: Independent Occupation: Retired from [employer] History of Recent Travel: No Home Medications - Allergies Allergies/Adverse Reactions: Allergies Allergy/AdvReac Type Severity Reaction Status Date / Time No Known Allergies Allergy Verified 01/19/18 10:05 - Home Medications Home Medications: Ambulatory Orders Ursodiol [Actigal -] 300 mg PO BID #60 capsule 07/26/17 Alendronate Sodium [Binosto] 1 tab PO WEEKLY 01/19/18 Amlodipine Besylate [Norvasc -] 1 tab PO DAILY 01/19/18 Dutasteride [Avodart] 1 cap PO DAILY 01/19/18 Ergocalciferol [Vitamin D2] 1 cap PO WEEKLY 01/19/18 Fluticasone/Salmeterol [Advair Hfa 230-21 Mcg Inhaler] 2 puff PO BID 01/19/18 Lipase/Protease/Amylase [Jose Mckeon 36,000 Units Capsule] 1 cap PO AC 01/19/18 Polyvinyl Alcohol [Artificial Tears] 1 drop OD PRN PRN 01/19/18 Ranitidine HCl [Zantac] 1 tab PO BID 01/19/18 Tamsulosin HCl [Flomax] 1 cap PO DAILY 01/19/18 Umeclidinium Brm/Vilanterol Tr [Anoro Ellipta 62.5-25 Mcg INH] 1 puff PO DAILY 01/19/18 Vitamin B Complex 1 tab PO DAILY 01/19/18 Acetaminophen [Tylenol] 650 mg PO Q6H PRN #30 capsule 01/22/18 Albuterol Sulfate Inhaler - [Ventolin HFA Inhaler -] 2 puff IH Q4H PRN inhaler 01/22/18 Docusate Sodium [Colace] 100 mg PO BID 14 Days capsule 01/22/18 Sennosides [Senna -] 1 tab PO HS tablet 01/22/18 oxyCODONE HCL [Roxicodone -] 5 mg PO Q6H tablet MDD 4 tab a day 01/22/18 Aspirin Coated [Ecotrin -] 81 mg PO DAILY #30 tablet.ec 01/24/18 Physical Examination Vital Signs: Vital Signs Temperature 98.4 F 04/12/18 12:58 Pulse Rate 118 H 04/12/18 16:22 Respiratory Rate 22 H 04/12/18 16:22 Blood Pressure 107/60 04/12/18 16:22 O2 Sat by Pulse Oximetry (%) 100 04/12/18 16:22 Constitutional: Yes: No Distress HENT: Yes: Atraumatic Neck: Yes: Supple Cardiovascular: Yes: Regular Rate and Rhythm Respiratory: Yes: CTA Bilaterally Gastrointestinal: Yes: Normal Bowel Sounds Extremities: Yes: WNL Edema: No Neurological: Yes: Alert, Oriented Labs: CBC, BMP 04/12/18 13:27 04/12/18 13:27 Problem List - Problems (1) COPD (chronic obstructive pulmonary disease) with emphysema Assessment/Plan: prn duo nebs continue homemeds Code(s): J43.9 - EMPHYSEMA, UNSPECIFIED (2) Pneumothorax, acute Assessment/Plan: ct in place pulmonary on board Code(s): J93.83 - OTHER PNEUMOTHORAX (3) HTN (hypertension) Assessment/Plan: monitor on meds Code(s): I10 - ESSENTIAL (PRIMARY) HYPERTENSION Qualifiers: Assessment/Plan Laboratory Tests 04/12/18 04/12/18 04/12/18 13:05 13:27 13:27 WBC 8.8 RBC 3.65 L Hgb 11.7 Hct 33.6 L D MCV 92.1 MCH 32.0 MCHC 34.8 RDW 17.1 H Plt Count 222 D MPV 8.1 Absolute Neuts (auto) 8.0 Neutrophils % 90.1 H Lymphocytes % 4.8 L D Monocytes % 4.7 Eosinophils % 0.1 D Basophils % 0.3 Nucleated RBC % 0 VBG pH POC VBG pCO2 POC VBG pO2 Mixed VBG HCO3 Sodium 136 Potassium 3.2 L Chloride 101 Carbon Dioxide 27 Anion Gap 8 BUN 11 Creatinine 0.5 L Creat Clearance w eGFR > 60 Random Glucose 136 H Calcium 7.4 L Total Bilirubin 0.3 AST 24 ALT 25 Alkaline Phosphatase 80 Troponin I < 0.02 Total Protein 6.1 L Albumin 2.8 L Influenza A (Rapid) Negative Influenza B (Rapid) Negative 04/12/18 13:27 WBC RBC Hgb Hct MCV MCH MCHC RDW Plt Count MPV Absolute Neuts (auto) Neutrophils % Lymphocytes % Monocytes % Eosinophils % Basophils % Nucleated RBC % VBG pH 7.38 POC VBG pCO2 47.5 POC VBG pO2 31.3 D Mixed VBG HCO3 27.8 H Sodium Potassium Chloride Carbon Dioxide Anion Gap BUN Creatinine Creat Clearance w eGFR Random Glucose Calcium Total Bilirubin AST ALT Alkaline Phosphatase Troponin I Total Protein Albumin Influenza A (Rapid) Influenza B (Rapid) Active Medications Generic Name Dose Route Start Last Admin Trade Name Freq PRN Reason Stop Dose Admin Albuterol Sulfate 1 amp 04/12/18 12:56 04/12/18 12:56 Ventolin 0.083% Nebulizer Soln - NEB 1 amp Q15M PRN Administration Dyspnea Potassium Chloride 10 meq in 100 mls @ 100 mls/hr 04/12/18 16:00 Potassium Chloride 10 Meq Premix Ivpb - IVPB 04/12/18 18:59 Q60M [facility] Active Medications Generic Name Dose Route Start Last Admin Trade Name Freq PRN Reason Stop Dose Admin Acetaminophen 650 mg 04/12/18 17:31 04/13/18 14:20 Tylenol - PO 650 mg Q6H PRN Administration FEVER Albuterol Sulfate 1 amp 04/12/18 12:56 04/15/18 20:15 Ventolin 0.083% Nebulizer Soln - NEB 1 amp Q15M PRN Administration Dyspnea Artificial Tears 1 drop 04/12/18 17:23 Artificial Tears OD DAILY PRN DRY EYES Aspirin 81 mg 04/13/18 10:00 04/16/18 10:19 Ecotrin - PO 81 mg DAILY RAYSHAWN Administration Budesonide/Formoterol Fumarate 2 puff 04/12/18 22:00 04/16/18 11:00 Symbicort 80/4.5mcg - IH 2 puff BID RAYSHAWN Administration Docusate Sodium 100 mg 04/12/18 22:00 04/16/18 10:20 Colace - PO 100 mg BID RAYSHAWN Administration Dutasteride 0.5 mg 04/13/18 10:00 04/16/18 10:21 Avodart - PO 0.5 mg DAILY RAYSHAWN Administration Guaifenesin/Codeine Phosphate 5 ml 04/14/18 19:14 04/15/18 10:44 Robitussin Ac - PO 5 ml Q6H PRN Administration COUGH Heparin Sodium (Porcine) 5,000 unit 04/12/18 22:00 04/16/18 10:20 Heparin - SQ 5,000 unit BID RAYSHAWN Administration Piperacillin Sod/Tazobactam 50 mls @ 100 mls/hr 04/13/18 13:00 04/16/18 17:50 Sod 3.375 gm/ Dextrose IVPB 100 mls/hr Q8H-IV RAYSHAWN Administration Protocol Methylprednisolone Sodium Succinate 20 mg 04/15/18 10:48 04/16/18 17:51 Solu-Medrol - IVPUSH 20 mg Q8H-IV RAYSHAWN Administration Oxycodone HCl 5 mg 04/13/18 19:19 04/15/18 21:33 Roxicodone - PO 5 mg Q6H PRN Administration PAIN SCALE 4-6 Pancrelipase 1 cap 04/12/18 18:00 04/16/18 17:[address] 36,000 Units Capsule PO 1 cap TIDCM RAYSHAWN Administration Ranitidine HCl 150 mg 04/12/18 22:00 04/16/18 10:19 Zantac - PO 150 mg BID RAYSHAWN Administration Senna 1 tab 04/12/18 22:00 04/15/18 21:32 Senna - PO 1 tab HS RAYSHAWN Administration Tamsulosin HCl 0.4 mg 04/13/18 10:00 04/16/18 10:19 Flomax - PO 0.4 mg DAILY RAYSHAWN Administration Ursodiol 300 mg 04/12/18 22:00 04/16/18 10:20 Actigal - PO 300 mg BID RAYSHAWN Administration
[2018-04-12] MEDS ORDERED: ARTIFICIAL TEARS (POLYVINYL ALCOHOL) OPTH DROPS OD PRN (17:23)
[2018-04-12] MEDS ORDERED: ALENDRONATE SODIUM PO SCH (17:30)
[2018-04-12] MEDS: ACETAMINOPHEN 325 MG TABLET (FP) PO PRN (17:54)
[2018-04-12] MEDS: KCL 10 MEQ IVPB 10 MEQ/100 ML INFUS.BAG IVPB SCH ×3 (17:55→22:17)
[2018-04-12] MEDS: LIPASE/PROTEASE/AMYLASE 36,000 UNIT CAPSULE PO SCH (18:04)
[2018-04-12] MEDS: SENNOSIDES 8.6MG TABLET (FP) PO SCH (21:34)
[2018-04-12] MEDS: URSODIOL 300 MG CAPSULE PO SCH (21:34)
[2018-04-12] MEDS: RANITIDINE HCL 150 MG TABLET (FP) PO SCH (21:34)
[2018-04-12] MEDS: HEPARIN NA (PORCINE) 5,000 UNITS/ML 1ML VIAL SQ SCH (21:35)
[2018-04-12] MEDS: DOCUSATE SODIUM 100 MG CAPSULE (FP) PO SCH (21:36)
[2018-04-12] MEDS: BUDESONIDE/FORMETEROL FUMARATE 80/4.5 mcg INHALER IH SCH (21:44)
--- NOTE | 2018-04-13 02:33 | EKG ---
Test Reason : Blood Pressure : / mmHG Vent. Rate : 133 BPM Atrial Rate : 133 BPM P-R Int : 122 ms QRS Dur : 080 ms QT Int : 296 ms P-R-T Axes : 095 106 059 degrees QTc Int : 440 ms POOR DATA QUALITY, INTERPRETATION MAY BE ADVERSELY AFFECTED SUSPECT ARM LEAD REVERSAL, INTERPRETATION ASSUMES NO REVERSAL SINUS TACHYCARDIA SEPTAL INFARCT , AGE UNDETERMINED LATERAL INFARCT , AGE UNDETERMINED ABNORMAL ECG WHEN COMPARED WITH ECG OF 20-JAN-2018 15:22, NONSPECIFIC T WAVE ABNORMALITY NOW EVIDENT IN INFERIOR LEADS Confirmed by YASMIN NORRIS MD ([id number]) on 04/13/2018 2:32:30 AM Referred By: Confirmed By:YASMIN NORRIS MD
[2018-04-13 07:46] LABS: ALBUMIN 2.8 g/dl (3.4-5.0); ALK PHOS 78 U/L (45-117); ANION GAP 7 MMOL/L (8-16); BILIRUBIN,TOTAL 0.3 mg/dL (0.2-1); BLOOD UREA NITROGEN 9 mg/dL (7-18); CALCIUM 8.2 mg/dL (8.5-10.1); CHLORIDE 102 mmol/L (98-107); CO2 28 mmol/L (21-32); CREATININE 0.4 mg/dL (0.55-1.3); GLUCOSE,RANDOM 97 mg/dL (74-106); POTASSIUM 4.2 mmol/L (3.5-5.1); SGOT/AST 20 U/L (15-37); SGPT/ALT 26 U/L (13-61); SODIUM 137 mmol/L (136-145); TOT PROT 6.4 g/dl (6.4-8.2)
[2018-04-13] MEDS ORDERED: PT OWN MED DRAWER 7, Y5N ONE ×2 (07:49→09:34)
[2018-04-13] MEDS: ACETAMINOPHEN 325 MG TABLET (FP) PO PRN ×2 (08:01→14:20)
[2018-04-13] MEDS: LIPASE/PROTEASE/AMYLASE 36,000 UNIT CAPSULE PO SCH ×3 (08:05→17:23)
[2018-04-13 08:34] LABS: BASO % 0.1 % (0-2.0); HEMATOCRIT 33.5 % (35.4-49); HEMOGLOBIN 11.5 GM/dL (11.7-16.9); LYMPH % 8.3 % (8-40); MCH 31.7 pg (25.7-33.7); MCHC 34.4 g/dl (32.0-35.9); MEAN CELL VOLUME 92.1 fl (80-96); MEAN PLT VOLUME 8.7 fl (7.5-11.1); MONO % 5.9 % (3.8-10.2); NEUT % 85.7 % (42.8-82.8); PLATELET COUNT 223 K/MM3 (134-434); RBC 3.63 M/mm3 (4.00-5.60); RDW 17.6 % (11.9-15.9); WHITE BLOOD COUNT 6.4 K/mm3 (4.0-10.0)
[2018-04-13] MEDS: RANITIDINE HCL 150 MG TABLET (FP) PO SCH ×2 (09:48→21:33)
[2018-04-13] MEDS: URSODIOL 300 MG CAPSULE PO SCH ×2 (09:48→21:33)
[2018-04-13] MEDS: TAMSULOSIN HCL 0.4 MG CAP PO SCH (09:48)
[2018-04-13] MEDS: HEPARIN NA (PORCINE) 5,000 UNITS/ML 1ML VIAL SQ SCH ×2 (09:48→21:33)
[2018-04-13] MEDS: ASPIRIN COATED 81 MG TABLET.EC PO SCH (09:48)
[2018-04-13] MEDS: DOCUSATE SODIUM 100 MG CAPSULE (FP) PO SCH ×2 (09:48→21:33)
[2018-04-13] MEDS: DUTASTERIDE 0.5 MG CAP (FP) PO SCH (09:49)
[2018-04-13] MEDS: BUDESONIDE/FORMETEROL FUMARATE 80/4.5 mcg INHALER IH SCH ×2 (09:50→21:33)
[2018-04-13] MEDS ORDERED: PATIENT'S OWN MEDICATION (NON-FORMULARY) (Umeclidinium Brm/Vilanterol Tr [Anoro Ellipta 62 PO SCH (10:00)
--- NOTE | 2018-04-13 11:14 | PN ---
Progress Note (short form) - Note Progress Note: PULMONARY CONSULTATION DICTATED 04/13/18 IMP ACUTE HYPOXEMIC RESPIRATORY FAILURE LARGE SECONDARY SPONTANEOUS PTX R LUNG S/P CHEST TUBE COPD ADVANCED PNEUMONIA HTN BPH H/O GIB PLAN CHEST TUBE TO WALL SUCTION THORACIC SURGERY EVALUATION IV STEROIDS INHALED BRONCHODILATORS ABX SUPPLEMENTAL O2 F/U CHESTS X-RAYS DR FERRO Problem List - Problems (1) Acute hypoxemic respiratory failure Code(s): J96.01 - ACUTE RESPIRATORY FAILURE WITH HYPOXIA (2) Pneumothorax, acute Code(s): J93.83 - OTHER PNEUMOTHORAX (3) HTN (hypertension) Code(s): I10 - ESSENTIAL (PRIMARY) HYPERTENSION Qualifiers: (4) Pneumonia Code(s): J18.9 - PNEUMONIA, UNSPECIFIED ORGANISM Qualifiers: Pneumonia type: due to unspecified organism Laterality: right Lung location: lower lobe of lung Qualified Code(s): J18.1 - Lobar pneumonia, unspecified organism (5) COPD exacerbation Code(s): J44.1 - CHRONIC OBSTRUCTIVE PULMONARY DISEASE W (ACUTE) EXACERBATION (6) [place] of lung Code(s): J43.9 - EMPHYSEMA, UNSPECIFIED
--- NOTE | 2018-04-13 11:32 | PN ---
Progress Note (short form) - Note Progress Note: Thoracic Surgery: Secondary spontaneous PTX. CT placed and lung expanded in setting severe COPD. CT to suction for 2+ days. Water seal possibly Tuesday. Will need clamp trial prior to removal.
--- NOTE | 2018-04-13 12:10 | CONS ---
DATE OF CONSULTATION: 04/13/2018 PULMONARY CONSULTATION REFERRING PHYSICIAN: Kami Rollins MD This gentleman is an 82-year-old Telugu male with past medical history of advanced COPD with bullous disease, hypertension, BPH, GI bleed, insomnia, anxiety, longstanding history of tobacco use approximately 1 pack per day for greater than 30 years, quit approximately 8 months ago, admitted to [facility] with 1 day history of acute onset of shortness of breath. According to the patient's , the patient started developing shortness of breath and coughing since the day prior to admission. There were no fevers, chills. No nausea, vomiting, or diaphoresis. Apparently, he recently was treated for COPD exacerbation at the end of February with antibiotics and prednisone. EMS was called. The patient was noted to be hypoxic with O2 saturations on room air. He was administered 2 Combivent and given a dexamethasone IV with improvement in O2 saturations to about 95%. He was sent to emergency room with the above. In the ER, he had chest x-ray performed which revealed a large right pneumothorax. Patient had a chest tube inserted with improvement with reexpansion of the lung. CT scan of the chest was performed which revealed extensive bullous disease, and interval development of right basilar and right middle lobe infiltrates. Admitted to the telemetry unit for further monitoring and treatment. The patient denies any recent travel. 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 He is unsure whether or not he had occupational exposures. He was also unsure whether or not he had TB as a child. There is no history of weight loss or night sweats. There is no hemoptysis. PAST MEDICAL HISTORY: Again includes advanced COPD with extensive bullous disease, anemia, history of GI bleed, hypertension, BPH, insomnia, anxiety. REVIEW OF SYSTEMS: Positive for shortness of breath. No chest pain. No palpitations. No fever. No chills. No hemoptysis. Positive cough, nonproductive. No abdominal pain. No lower extremity edema. CURRENT MEDICATIONS: Include Anoro Ellipta, Avodart, Symbicort, Symbicort, Flomax, Tylenol, albuterol, Colace, Senna, Actigall, Creon, Artificial Tears, Zantac, and Ecotrin. PHYSICAL EXAMINATION: General: Patient is thin, Telugu male, awake, alert, currently in no acute distress. Vital Signs: He is currently afebrile, heart rate is 99, blood pressure is 111/57, respiratory rate is 19, and O2 saturation is 94% on 2 L. HEENT: Exam is normocephalic, atraumatic. Neck: Supple. Heart: Regular, S1, S2. Chest: Bilateral rhonchi. Abdomen: Soft. Bowel sounds positive. Extremities: No cyanosis, edema. LABORATORIES: WBC is 6.4, hemoglobin 11.5, hematocrit 33.5, with a platelet count 223,000. INR 0. Venous blood gas with pH 7.38, PCO2 is 47, PO2 of 31. Chemistries BUN 9, creatinine 0.4. Chest x-ray on April 12, improvement in reexpansion of the right lung post chest tube insertion with residual right apical pneumo on chest CT as noted earlier. IMPRESSION: Acute hypoxemic respiratory failure secondary to: 1. Large secondary spontaneous pneumothorax, right lung, status post chest tube insertion. 2. Advanced chronic obstructive pulmonary disease with extensive bullous disease. 3. Right lower lobe infiltrate and right middle lobe infiltrate, possibly infectious, atelectatic changes secondary to increasing pneumothorax. 4. Hypertension. 5. Benign prostatic hypertrophy. 6. History of gastrointestinal bleed. SUGGESTION/PLAN: Continue chest tube to wall suction. Thoracic Surgical consultation. IV steroids. Inhaled bronchodilators. Antibiotics as per Infectious Disease. Supplemental O2. Followup chest x-rays. Silva COMER/[id number]
--- NOTE | 2018-04-13 12:21 | CON.ID ---
Consult Consult Specialty:: infectious diseases Referred by:: Reason for Consultation:: pneumonia,pneumothorax - History of Present Illness Chief Complaint: sob History of Present Illness: patient cannot give history in [place] which is obtained from his and the charts 82 year old male, setswana speaking, with a significant past medical history of COPD, HTN, BPH, GI Bleed, insomnia and anxiety, dmitted because of sob. it seems patient has been havinh this symptoms for some time s he has taken couple of weeks of levaquin and prednisone patient initially was hypoxic and then after treatment in the er started sating better was worked up and found to have pneumothorax thoracic surgeon saw the patient and a chest tube was place currently he is breathing better - History Source History Provided By: Family Member, Medical Record Limitations to Obtaining History: Language Barrier - Past Medical History Cardio/Vascular: Yes: HTN - Alcohol/Substance Use Hx Alcohol Use: No History of Substance Use: reports: None - Smoking History Smoking history: Never smoked Have you smoked in the past 12 months: No If you are a former smoker, when did you quit?: 50 years ago - Social History Usual Living Arrangement: With Spouse ADL: Independent Occupation: Retired from [employer] History of Recent Travel: No Home Medications - Allergies Allergies/Adverse Reactions: Allergies Allergy/AdvReac Type Severity Reaction Status Date / Time No Known Allergies Allergy Verified 01/19/18 10:05 - Home Medications Home Medications: Ambulatory Orders Ursodiol [Actigal -] 300 mg PO BID #60 capsule 07/26/17 Alendronate Sodium [Binosto] 1 tab PO WEEKLY 01/19/18 Amlodipine Besylate [Norvasc -] 1 tab PO DAILY 01/19/18 Dutasteride [Avodart] 1 cap PO DAILY 01/19/18 Ergocalciferol [Vitamin D2] 1 cap PO WEEKLY 01/19/18 Fluticasone/Salmeterol [Advair Hfa 230-21 Mcg Inhaler] 2 puff PO BID 01/19/18 Lipase/Protease/Amylase [Jose Mckeon 36,000 Units Capsule] 1 cap PO AC 01/19/18 Polyvinyl Alcohol [Artificial Tears] 1 drop OD PRN PRN 01/19/18 Ranitidine HCl [Zantac] 1 tab PO BID 01/19/18 Tamsulosin HCl [Flomax] 1 cap PO DAILY 01/19/18 Umeclidinium Brm/Vilanterol Tr [Anoro Ellipta 62.5-25 Mcg INH] 1 puff PO DAILY 01/19/18 Vitamin B Complex 1 tab PO DAILY 01/19/18 Acetaminophen [Tylenol] 650 mg PO Q6H PRN #30 capsule 01/22/18 Albuterol Sulfate Inhaler - [Ventolin HFA Inhaler -] 2 puff IH Q4H PRN inhaler 01/22/18 Docusate Sodium [Colace] 100 mg PO BID 14 Days capsule 01/22/18 Sennosides [Senna -] 1 tab PO HS tablet 01/22/18 oxyCODONE HCL [Roxicodone -] 5 mg PO Q6H tablet MDD 4 tab a day 01/22/18 Aspirin Coated [Ecotrin -] 81 mg PO DAILY #30 tablet.ec 01/24/18 Review of Systems - Review of Systems Constitutional: reports: No Symptoms Eyes: reports: No Symptoms HENT: reports: No Symptoms Neck: reports: No Symptoms Cardiovascular: reports: No Symptoms Respiratory: reports: SOB, SOB on Exertion, Other Gastrointestinal: reports: No Symptoms Genitourinary: reports: No Symptoms Musculoskeletal: reports: No Symptoms Integumentary: reports: No Symptoms Neurological: reports: No Symptoms Endocrine: reports: No Symptoms Hematology/Lymphatic: reports: No Symptoms Psychiatric: reports: No Symptoms Physical Exam Vital Signs: Vital Signs Temperature 97.8 F 04/13/18 09:00 Pulse Rate 99 H 04/13/18 09:00 Respiratory Rate 19 04/13/18 09:00 Blood Pressure 111/57 L 04/13/18 09:00 O2 Sat by Pulse Oximetry (%) 94 L 04/13/18 09:00 Constitutional: Yes: Thin, Other (failure to thrive) Cardiovascular: Yes: Regular Rate and Rhythm Respiratory: Yes: Poor Air Entry (rt side), Other (chest tube rt side) Gastrointestinal: Yes: Normal Bowel Sounds, Soft Musculoskeletal: Yes: WNL Extremities: Yes: WNL Neurological: Yes: Alert, Oriented Psychiatric: Yes: Alert, Oriented Labs: CBC, BMP 04/13/18 06:00 04/13/18 06:00 Imaging - Results Chest X-ray: Report Reviewed, Image Reviewed Cat Scan: Report Reviewed, Image Reviewed Assessment/Plan Problem List - Problems (1) Acute hypoxemic respiratory failure Code(s): J96.01 - ACUTE RESPIRATORY FAILURE WITH HYPOXIA (2) Pneumothorax, acute Code(s): J93.83 - OTHER PNEUMOTHORAX (3) HTN (hypertension) Code(s): I10 - ESSENTIAL (PRIMARY) HYPERTENSION Qualifiers: (4) Pneumonia Code(s): J18.9 - PNEUMONIA, UNSPECIFIED ORGANISM Qualifiers: Pneumonia type: due to unspecified organism Laterality: right Lung location: lower lobe of lung Qualified Code(s): J18.1 - Lobar pneumonia, unspecified organism (5) COPD exacerbation Code(s): J44.1 - CHRONIC OBSTRUCTIVE PULMONARY DISEASE W (ACUTE) EXACERBATION (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
[2018-04-13] MEDS ORDERED: DEXTROSE 5%-WATER - 50 ML IVPB ONE ×2 (13:34→17:58)
[2018-04-13] MEDS ORDERED: PIPERACILLIN/TAZOBACTAM 3.375 GM VIAL IVPB ONE ×2 (13:34→17:57)
[2018-04-13] MEDS: PIPERACILLIN/TAZOB 3.375 GM 3.375 GM in DEXTROSE 5%-WATER - 50 ML IVPB SCH ×2 (14:04→18:44)
[2018-04-13] MEDS: methylPREDNISolone NA SUCC 40 MG/1 ML VIAL IVPUSH SCH ×3 (14:04→21:33)
--- NOTE | 2018-04-13 17:42 | PN ---
Progress Note, Physician History of Present Illness: stable - Current Medication List Current Medications: Active Medications Acetaminophen (Tylenol -) 650 mg PO Q6H PRN PRN Reason: FEVER Last Admin: 04/13/18 14:20 Dose: 650 mg Albuterol Sulfate (Ventolin 0.083% Nebulizer Soln -) 1 amp NEB Q15M PRN PRN Reason: Dyspnea Last Admin: 04/12/18 12:56 Dose: 1 amp Artificial Tears (Artificial Tears) 1 drop OD DAILY PRN PRN Reason: DRY EYES Aspirin (Ecotrin -) 81 mg PO DAILY [facility] Last Admin: 04/13/18 09:48 Dose: 81 mg Budesonide/Formoterol Fumarate (Symbicort 80/4.5mcg -) 2 puff IH BID [facility] Last Admin: 04/13/18 09:50 Dose: 2 puff Docusate Sodium (Colace -) 100 mg PO BID [facility] Last Admin: 04/13/18 09:48 Dose: 100 mg Dutasteride (Avodart -) 0.5 mg PO DAILY [facility] Last Admin: 04/13/18 09:49 Dose: 0.5 mg Heparin Sodium (Porcine) (Heparin -) 5,000 unit SQ BID [facility] Last Admin: 04/13/18 09:48 Dose: 5,000 unit Piperacillin Sod/Tazobactam (Sod 3.375 gm/ Dextrose) 50 mls @ 100 mls/hr IVPB Q8H-IV [facility]; Protocol Last Admin: 04/13/18 14:04 Dose: 100 mls/hr Methylprednisolone Sodium Succinate (Solu-Medrol -) 40 mg IVPUSH Q6H-IV [facility] Last Admin: 04/13/18 16:03 Dose: Not Given Pancrelipase (Creon Dr 36,000 Units Capsule) 1 cap PO TIDCM [facility] Last Admin: 04/13/18 17:23 Dose: 1 cap Ranitidine HCl (Zantac -) 150 mg PO BID [facility] Last Admin: 04/13/18 09:48 Dose: 150 mg Senna (Senna -) 1 tab PO HS [facility] Last Admin: 04/12/18 21:34 Dose: 1 tab Tamsulosin HCl (Flomax -) 0.4 mg PO DAILY [facility] Last Admin: 04/13/18 09:48 Dose: 0.4 mg Ursodiol (Actigal -) 300 mg PO BID [facility] Last Admin: 04/13/18 09:48 Dose: 300 mg - Objective Vital Signs: Vital Signs Temperature 98 F 04/13/18 14:10 Pulse Rate 105 H 04/13/18 14:10 Respiratory Rate 18 04/13/18 14:10 Blood Pressure 116/56 L 04/13/18 14:10 O2 Sat by Pulse Oximetry (%) 94 L 04/13/18 09:00 Constitutional: Yes: Calm HENT: Yes: Atraumatic Neck: Yes: Supple Cardiovascular: Yes: Regular Rate and Rhythm Respiratory: Yes: Rhonchi, Other (chest tube on the R side) Gastrointestinal: Yes: Normal Bowel Sounds Extremities: Yes: WNL Edema: No Peripheral Pulses WNL: Yes Neurological: Yes: Alert, Oriented Labs: CBC, BMP 04/13/18 06:00 04/13/18 06:00 Problem List - Problems (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
[2018-04-13] MEDS: oxyCODONE HCL 5 MG TABLET PO PRN (21:32)
[2018-04-13] MEDS: SENNOSIDES 8.6MG TABLET (FP) PO SCH (21:32)
[2018-04-14] MEDS ORDERED: PIPERACILLIN/TAZOBACTAM 3.375 GM VIAL IVPB ONE ×3 (02:32→15:34)
[2018-04-14] MEDS ORDERED: DEXTROSE 5%-WATER - 50 ML IVPB ONE ×3 (02:33→15:35)
[2018-04-14] MEDS: PIPERACILLIN/TAZOB 3.375 GM 3.375 GM in DEXTROSE 5%-WATER - 50 ML IVPB SCH ×3 (02:48→17:59)
[2018-04-14] MEDS: methylPREDNISolone NA SUCC 40 MG/1 ML VIAL IVPUSH SCH ×4 (02:48→22:43)
[2018-04-14] MEDS: LIPASE/PROTEASE/AMYLASE 36,000 UNIT CAPSULE PO SCH ×3 (09:00→18:00)
[2018-04-14] MEDS: DUTASTERIDE 0.5 MG CAP (FP) PO SCH (10:00)
[2018-04-14] MEDS: RANITIDINE HCL 150 MG TABLET (FP) PO SCH ×2 (10:00→22:43)
[2018-04-14] MEDS: ASPIRIN COATED 81 MG TABLET.EC PO SCH (10:05)
[2018-04-14] MEDS: DOCUSATE SODIUM 100 MG CAPSULE (FP) PO SCH ×2 (10:05→22:43)
[2018-04-14] MEDS: URSODIOL 300 MG CAPSULE PO SCH ×2 (10:05→22:43)
[2018-04-14] MEDS: TAMSULOSIN HCL 0.4 MG CAP PO SCH (10:06)
[2018-04-14] MEDS: BUDESONIDE/FORMETEROL FUMARATE 80/4.5 mcg INHALER IH SCH ×2 (11:00→22:44)
--- NOTE | 2018-04-14 12:08 | PN ---
Progress Note, Physician History of Present Illness: stable the chest tube was accidentally pulled out plan to repeat a xray chest and see clinically comfortable - Current Medication List Current Medications: Active Medications Acetaminophen (Tylenol -) 650 mg PO Q6H PRN PRN Reason: FEVER Last Admin: 04/13/18 14:20 Dose: 650 mg Albuterol Sulfate (Ventolin 0.083% Nebulizer Soln -) 1 amp NEB Q15M PRN PRN Reason: Dyspnea Last Admin: 04/12/18 12:56 Dose: 1 amp Artificial Tears (Artificial Tears) 1 drop OD DAILY PRN PRN Reason: DRY EYES Aspirin (Ecotrin -) 81 mg PO DAILY [facility] Last Admin: 04/14/18 10:05 Dose: 81 mg Budesonide/Formoterol Fumarate (Symbicort 80/4.5mcg -) 2 puff IH BID [facility] Last Admin: 04/13/18 21:33 Dose: 2 puff Docusate Sodium (Colace -) 100 mg PO BID [facility] Last Admin: 04/14/18 10:05 Dose: 100 mg Dutasteride (Avodart -) 0.5 mg PO DAILY [facility] Last Admin: 04/13/18 09:49 Dose: 0.5 mg Heparin Sodium (Porcine) (Heparin -) 5,000 unit SQ BID [facility] Last Admin: 04/13/18 21:33 Dose: 5,000 unit Piperacillin Sod/Tazobactam (Sod 3.375 gm/ Dextrose) 50 mls @ 100 mls/hr IVPB Q8H-IV [facility]; Protocol Last Admin: 04/14/18 10:06 Dose: 100 mls/hr Methylprednisolone Sodium Succinate (Solu-Medrol -) 40 mg IVPUSH Q6H-IV [facility] Last Admin: 04/14/18 10:05 Dose: 40 mg Oxycodone HCl (Roxicodone -) 5 mg PO Q6H PRN PRN Reason: PAIN SCALE 4-6 Last Admin: 04/13/18 21:32 Dose: 5 mg Pancrelipase (Creon Dr 36,000 Units Capsule) 1 cap PO TIDCM [facility] Last Admin: 04/13/18 17:23 Dose: 1 cap Ranitidine HCl (Zantac -) 150 mg PO BID [facility] Last Admin: 04/13/18 21:33 Dose: 150 mg Senna (Senna -) 1 tab PO HS [facility] Last Admin: 04/13/18 21:32 Dose: 1 tab Tamsulosin HCl (Flomax -) 0.4 mg PO DAILY [facility] Last Admin: 04/14/18 10:06 Dose: 0.4 mg Ursodiol (Actigal -) 300 mg PO BID [facility] Last Admin: 04/14/18 10:05 Dose: 300 mg - Objective Vital Signs: Vital Signs Temperature 98 F 04/14/18 09:00 Pulse Rate 103 H 04/14/18 09:00 Respiratory Rate 04/14/18 09:00 Blood Pressure 130/70 04/14/18 09:00 O2 Sat by Pulse Oximetry (%) 93 L 04/13/18 20:29 Constitutional: Yes: No Distress, Calm, Thin, Other (failure to thrive) Cardiovascular: Yes: Regular Rate and Rhythm Respiratory: Yes: On Nasal O2, Poor Air Entry (at the bases of the lungs) Gastrointestinal: Yes: Normal Bowel Sounds, Soft Musculoskeletal: Yes: WNL Extremities: Yes: WNL Neurological: Yes: Alert, Oriented Psychiatric: Yes: Alert, Oriented Labs: CBC, BMP 04/13/18 06:00 04/13/18 06:00 Assessment/Plan Problem List - Problems (1) Acute hypoxemic respiratory failure Code(s): J96.01 - ACUTE RESPIRATORY FAILURE WITH HYPOXIA (2) Pneumothorax, acute Code(s): J93.83 - OTHER PNEUMOTHORAX (3) HTN (hypertension) Code(s): I10 - ESSENTIAL (PRIMARY) HYPERTENSION Qualifiers: (4) Pneumonia Code(s): J18.9 - PNEUMONIA, UNSPECIFIED ORGANISM Qualifiers: Pneumonia type: due to unspecified organism Laterality: right Lung location: lower lobe of lung Qualified Code(s): J18.1 - Lobar pneumonia, unspecified organism (5) COPD exacerbation Code(s): J44.1 - CHRONIC OBSTRUCTIVE PULMONARY DISEASE W (ACUTE) EXACERBATION (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
--- NOTE | 2018-04-14 12:59 | PN ---
Progress Note (short form) - Note Progress Note: R Chest tube removed by pt prematurely this morning. Chest xrays today x3 obtained and reviewed by attending. No plans to re-insert chest tube at this time. Pt satting 95% on 2L NC. Unlabored, No accessory muscle use. Repeat CXR ordered for tomorrow AM, will be followed up by attending. Above plan d/w attending Dr Garcia
--- NOTE | 2018-04-14 13:08 | PN ---
Progress Note, Physician History of Present Illness: events noted - Current Medication List Current Medications: Active Medications Acetaminophen (Tylenol -) 650 mg PO Q6H PRN PRN Reason: FEVER Last Admin: 04/13/18 14:20 Dose: 650 mg Albuterol Sulfate (Ventolin 0.083% Nebulizer Soln -) 1 amp NEB Q15M PRN PRN Reason: Dyspnea Last Admin: 04/12/18 12:56 Dose: 1 amp Artificial Tears (Artificial Tears) 1 drop OD DAILY PRN PRN Reason: DRY EYES Aspirin (Ecotrin -) 81 mg PO DAILY [facility] Last Admin: 04/14/18 10:05 Dose: 81 mg Budesonide/Formoterol Fumarate (Symbicort 80/4.5mcg -) 2 puff IH BID [facility] Last Admin: 04/13/18 21:33 Dose: 2 puff Docusate Sodium (Colace -) 100 mg PO BID [facility] Last Admin: 04/14/18 10:05 Dose: 100 mg Dutasteride (Avodart -) 0.5 mg PO DAILY [facility] Last Admin: 04/13/18 09:49 Dose: 0.5 mg Heparin Sodium (Porcine) (Heparin -) 5,000 unit SQ BID [facility] Last Admin: 04/13/18 21:33 Dose: 5,000 unit Piperacillin Sod/Tazobactam (Sod 3.375 gm/ Dextrose) 50 mls @ 100 mls/hr IVPB Q8H-IV [facility]; Protocol Last Admin: 04/14/18 10:06 Dose: 100 mls/hr Methylprednisolone Sodium Succinate (Solu-Medrol -) 40 mg IVPUSH Q6H-IV [facility] Last Admin: 04/14/18 10:05 Dose: 40 mg Oxycodone HCl (Roxicodone -) 5 mg PO Q6H PRN PRN Reason: PAIN SCALE 4-6 Last Admin: 04/13/18 21:32 Dose: 5 mg Pancrelipase (Creon Dr 36,000 Units Capsule) 1 cap PO TIDCM [facility] Last Admin: 04/13/18 17:23 Dose: 1 cap Ranitidine HCl (Zantac -) 150 mg PO BID [facility] Last Admin: 04/13/18 21:33 Dose: 150 mg Senna (Senna -) 1 tab PO HS [facility] Last Admin: 04/13/18 21:32 Dose: 1 tab Tamsulosin HCl (Flomax -) 0.4 mg PO DAILY [facility] Last Admin: 04/14/18 10:06 Dose: 0.4 mg Ursodiol (Actigal -) 300 mg PO BID [facility] Last Admin: 04/14/18 10:05 Dose: 300 mg - Objective Vital Signs: Vital Signs Temperature 98 F 04/14/18 09:00 Pulse Rate 103 H 04/14/18 09:00 Respiratory Rate 20 04/14/18 09:00 Blood Pressure 130/70 04/14/18 09:00 O2 Sat by Pulse Oximetry (%) 93 L 04/13/18 20:29 Constitutional: Yes: No Distress HENT: Yes: Atraumatic Neck: Yes: Supple Cardiovascular: Yes: Regular Rate and Rhythm Respiratory: Yes: Rhonchi Gastrointestinal: Yes: Normal Bowel Sounds Extremities: Yes: WNL Edema: No Neurological: Yes: Alert, Oriented Labs: CBC, BMP 04/13/18 06:00 04/13/18 06:00 Problem List - Problems (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
[2018-04-14] MEDS: HEPARIN NA (PORCINE) 5,000 UNITS/ML 1ML VIAL SQ SCH ×2 (14:23→22:44)
--- NOTE | 2018-04-14 15:46 | CONSULT ---
Consult Consult Specialty:: Thoracic Surgery Referred by:: Medicine Reason for Consultation:: PTX - History of Present Illness Chief Complaint: SOB History of Present Illness: 82M with severe COPD p/w respiratory distress. Found to have ptx on cxr. - History Source History Provided By: Patient, Medical Record Limitations to Obtaining History: No Limitations - Past Medical History Cardio/Vascular: Yes: HTN - Alcohol/Substance Use Hx Alcohol Use: No History of Substance Use: reports: None - Smoking History Smoking history: Former smoker Have you smoked in the past 12 months: No If you are a former smoker, when did you quit?: 50 years ago - Social History Usual Living Arrangement: With Spouse ADL: Independent Occupation: Retired from [employer] History of Recent Travel: No Home Medications - Allergies Allergies/Adverse Reactions: Allergies Allergy/AdvReac Type Severity Reaction Status Date / Time No Known Allergies Allergy Verified 01/19/18 10:05 - Home Medications Home Medications: Ambulatory Orders Ursodiol [Actigal -] 300 mg PO BID #60 capsule 07/26/17 Alendronate Sodium [Binosto] 1 tab PO WEEKLY 01/19/18 Amlodipine Besylate [Norvasc -] 1 tab PO DAILY 01/19/18 Dutasteride [Avodart] 1 cap PO DAILY 01/19/18 Ergocalciferol [Vitamin D2] 1 cap PO WEEKLY 01/19/18 Fluticasone/Salmeterol [Advair Hfa 230-21 Mcg Inhaler] 2 puff PO BID 01/19/18 Lipase/Protease/Amylase [Creon Dr 36,000 Units Capsule] 1 cap PO AC 01/19/18 Polyvinyl Alcohol [Artificial Tears] 1 drop OD PRN PRN 01/19/18 Ranitidine HCl [Zantac] 1 tab PO BID 01/19/18 Tamsulosin HCl [Flomax] 1 cap PO DAILY 01/19/18 Umeclidinium Brm/Vilanterol Tr [Anoro Ellipta 62.5-25 Mcg INH] 1 puff PO DAILY 01/19/18 Vitamin B Complex 1 tab PO DAILY 01/19/18 Acetaminophen [Tylenol] 650 mg PO Q6H PRN #30 capsule 01/22/18 Albuterol Sulfate Inhaler - [Ventolin HFA Inhaler -] 2 puff IH Q4H PRN inhaler 01/22/18 Docusate Sodium [Colace] 100 mg PO BID 14 Days capsule 01/22/18 Sennosides [Senna -] 1 tab PO HS tablet 01/22/18 oxyCODONE HCL [Roxicodone -] 5 mg PO Q6H tablet MDD 4 tab a day 01/22/18 Aspirin Coated [Ecotrin -] 81 mg PO DAILY #30 tablet.ec 01/24/18 Family Disease History - Family Disease History Family History: Unremarkable Review of Systems - Review of Systems Constitutional: reports: Weakness Eyes: reports: No Symptoms HENT: reports: No Symptoms Cardiovascular: reports: No Symptoms Respiratory: reports: SOB, SOB on Exertion Physical Exam Vital Signs: Vital Signs Temperature 98.0 F 04/14/18 14:00 Pulse Rate 103 H 04/14/18 14:00 Respiratory Rate 20 04/14/18 09:00 Blood Pressure 132/62 04/14/18 14:00 O2 Sat by Pulse Oximetry (%) 96 04/14/18 09:00 Constitutional: Yes: Cachectic Eyes: Yes: WNL Neck: Yes: Supple Respiratory: Yes: Diminished Extremities: Yes: WNL Labs: CBC, BMP 04/13/18 06:00 04/13/18 06:00 Imaging - Results Chest X-ray: Report Reviewed, Image Reviewed Cat Scan: Image Reviewed Problem List - Problems (1) Acute hypoxemic respiratory failure Code(s): J96.01 - ACUTE RESPIRATORY FAILURE WITH HYPOXIA (2) 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 Chest tube placed for 2 days and then pulled out accidentally. 3 CXR's today. Appear stable with tiny ptx and mild sq emphysema. Patient comfortable. -CXR in AM or if deterioration; -Continue f/u until Tuesday, possible dc home if no change.
--- NOTE | 2018-04-14 16:22 | PN ---
Progress Note (short form) - Note Progress Note: PULMONARY AWAKE/ALERT SPEAKING ON PHONE VSS ANICTERIC DISTANT BREATH SOUNDS S1S2 BS+ NO EDEMA CXR REVIEWED IMP ACUTE HYPOXEMIC RESPIRATORY FAILURE LARGE SECONDARY SPONTANEOUS PTX R LUNG S/P CHEST TUBE NOW W TINY RESIDUAL COPD ADVANCED PNEUMONIA HTN BPH H/O GIB PLAN CHEST TUBE IS OUT CXR AM IV STEROIDS INHALED BRONCHODILATORS ABX SUPPLEMENTAL O2 Dena FLORES MD
[2018-04-14] MEDS: guaiFENesin/CODEINE 5 ML UNIT-DOSE CUPS PO PRN (22:43)
[2018-04-14] MEDS: SENNOSIDES 8.6MG TABLET (FP) PO SCH (22:43)
[2018-04-14] MEDS: oxyCODONE HCL 5 MG TABLET PO PRN (22:43)
[2018-04-15] MEDS: PIPERACILLIN/TAZOB 3.375 GM 3.375 GM in DEXTROSE 5%-WATER - 50 ML IVPB SCH ×3 (03:46→17:15)
[2018-04-15] MEDS: methylPREDNISolone NA SUCC 40 MG/1 ML VIAL IVPUSH SCH ×3 (04:45→17:12)
[2018-04-15] MEDS ORDERED: DEXTROSE 5%-WATER - 100 ML IVPB ONE (06:45)
[2018-04-15] MEDS ORDERED: PIPERACILLIN/TAZOBACTAM 3.375 GM VIAL IVPB ONE ×2 (06:45→16:37)
[2018-04-15] MEDS: LIPASE/PROTEASE/AMYLASE 36,000 UNIT CAPSULE PO SCH ×3 (08:19→17:18)
[2018-04-15] MEDS: URSODIOL 300 MG CAPSULE PO SCH ×2 (10:20→21:33)
[2018-04-15] MEDS: TAMSULOSIN HCL 0.4 MG CAP PO SCH (10:20)
[2018-04-15] MEDS: ASPIRIN COATED 81 MG TABLET.EC PO SCH (10:20)
[2018-04-15] MEDS: RANITIDINE HCL 150 MG TABLET (FP) PO SCH ×2 (10:20→21:32)
[2018-04-15] MEDS: DOCUSATE SODIUM 100 MG CAPSULE (FP) PO SCH ×2 (10:20→21:34)
[2018-04-15] MEDS: DUTASTERIDE 0.5 MG CAP (FP) PO SCH (10:21)
[2018-04-15] MEDS: HEPARIN NA (PORCINE) 5,000 UNITS/ML 1ML VIAL SQ SCH ×2 (10:21→21:34)
[2018-04-15] MEDS: BUDESONIDE/FORMETEROL FUMARATE 80/4.5 mcg INHALER IH SCH ×2 (10:21→21:35)
[2018-04-15] MEDS: guaiFENesin/CODEINE 5 ML UNIT-DOSE CUPS PO PRN (10:44)
--- NOTE | 2018-04-15 10:48 | PN ---
Progress Note (short form) - Note Progress Note: PULMONARY AWAKE/ALERT IS PRESENT CONGESTED COUGH REMAINS VSS ANICTERIC DISTANT BREATH SOUNDS W SCATTERED RHONCHI S1S2 BS+ NO EDEMA CXR REVIEWED/POSSIBLE TINY APICAL PTX COPD IMP ACUTE HYPOXEMIC RESPIRATORY FAILURE RESOLVED LARGE SECONDARY SPONTANEOUS PTX R LUNG S/P CHEST TUBE NOW W TINY RESIDUAL COPD ADVANCED PNEUMONIA HTN BPH H/O GIB PLAN CHEST TUBE IS OUT CXR AM IV STEROIDS TO TAPER INHALED BRONCHODILATORS ABX SUPPLEMENTAL O2 OOB TO CHAIR Dena FLORES MD
[2018-04-15] MEDS ORDERED: PT OWN MED DRAWER 7, Y5N ONE ×2 (11:04→19:14)
--- NOTE | 2018-04-15 13:51 | PN ---
Progress Note (short form) - Note Progress Note: Thoracic Surgery: Tube pulled yesterday accidentally by patient? Was good move. CXR stable. DC planning. 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
--- NOTE | 2018-04-15 14:36 | PN ---
Progress Note, Physician History of Present Illness: Pt seen and examined, events noted, labs/imaging results reviewed. He is currently alert, without respiratory distress, remains afebrile. Has no specific complaints. - Current Medication List Current Medications: Active Medications Acetaminophen (Tylenol -) 650 mg PO Q6H PRN PRN Reason: FEVER Last Admin: 04/13/18 14:20 Dose: 650 mg Albuterol Sulfate (Ventolin 0.083% Nebulizer Soln -) 1 amp NEB Q15M PRN PRN Reason: Dyspnea Last Admin: 04/12/18 12:56 Dose: 1 amp Artificial Tears (Artificial Tears) 1 drop OD DAILY PRN PRN Reason: DRY EYES Aspirin (Ecotrin -) 81 mg PO DAILY [facility] Last Admin: 04/15/18 10:20 Dose: 81 mg Budesonide/Formoterol Fumarate (Symbicort 80/4.5mcg -) 2 puff IH BID [facility] Last Admin: 04/15/18 10:21 Dose: 2 puff Docusate Sodium (Colace -) 100 mg PO BID [facility] Last Admin: 04/15/18 10:20 Dose: 100 mg Dutasteride (Avodart -) 0.5 mg PO DAILY [facility] Last Admin: 04/15/18 10:21 Dose: 0.5 mg Guaifenesin/Codeine Phosphate (Robitussin Ac -) 5 ml PO Q6H PRN PRN Reason: COUGH Last Admin: 04/15/18 10:44 Dose: 5 ml Heparin Sodium (Porcine) (Heparin -) 5,000 unit SQ BID [facility] Last Admin: 04/15/18 10:21 Dose: 5,000 unit Piperacillin Sod/Tazobactam (Sod 3.375 gm/ Dextrose) 50 mls @ 100 mls/hr IVPB Q8H-IV [facility]; Protocol Last Admin: 04/15/18 10:44 Dose: 100 mls/hr Methylprednisolone Sodium Succinate (Solu-Medrol -) 20 mg IVPUSH Q8H-IV [facility] Oxycodone HCl (Roxicodone -) 5 mg PO Q6H PRN PRN Reason: PAIN SCALE 4-6 Last Admin: 04/14/18 22:43 Dose: 5 mg Pancrelipase (Creon Dr 36,000 Units Capsule) 1 cap PO TIDCM [facility] Last Admin: 04/15/18 12:40 Dose: 1 cap Ranitidine HCl (Zantac -) 150 mg PO BID [facility] Last Admin: 04/15/18 10:20 Dose: 150 mg Senna (Senna -) 1 tab PO HS [facility] Last Admin: 04/14/18 22:43 Dose: 1 tab Tamsulosin HCl (Flomax -) 0.4 mg PO DAILY [facility] Last Admin: 04/15/18 10:20 Dose: 0.4 mg Ursodiol (Actigal -) 300 mg PO BID [facility] Last Admin: 04/15/18 10:20 Dose: 300 mg - Objective Vital Signs: Vital Signs Temperature 97.7 F 04/15/18 08:52 Pulse Rate 103 H 04/15/18 08:52 Respiratory Rate 18 04/15/18 08:52 Blood Pressure 118/61 04/15/18 08:52 O2 Sat by Pulse Oximetry (%) 97 04/15/18 09:00 Constitutional: Yes: No Distress, Calm, Other (frail) Eyes: Yes: Conjunctiva Clear Cardiovascular: Yes: Regular Rate and Rhythm Respiratory: Yes: Rhonchi (scattered) Gastrointestinal: Yes: Normal Bowel Sounds, Soft Extremities: Yes: WNL Neurological: Yes: Alert Labs: CBC, BMP 04/13/18 06:00 04/13/18 06:00 Laboratory Tests 04/12/18 04/12/18 04/12/18 13:05 13:27 13:27 WBC 8.8 RBC 3.65 L Hgb 11.7 Hct 33.6 L D MCV 92.1 MCH 32.0 MCHC 34.8 RDW 17.1 H Plt Count 222 D MPV 8.1 Absolute Neuts (auto) 8.0 Neutrophils % 90.1 H Lymphocytes % 4.8 L D Monocytes % 4.7 Eosinophils % 0.1 D Basophils % 0.3 Nucleated RBC % 0 VBG pH POC VBG pCO2 POC VBG pO2 Mixed VBG HCO3 Sodium 136 Potassium 3.2 L Chloride 101 Carbon Dioxide 27 Anion Gap 8 BUN 11 Creatinine 0.5 L Creat Clearance w eGFR > 60 Random Glucose 136 H Calcium 7.4 L Total Bilirubin 0.3 AST 24 ALT 25 Alkaline Phosphatase 80 Troponin I < 0.02 Total Protein 6.1 L Albumin 2.8 L Influenza A (Rapid) Negative Influenza B (Rapid) Negative 04/12/18 04/13/18 04/13/18 13:27 06:00 06:00 WBC 6.4 RBC 3.63 L Hgb 11.5 L Hct 33.5 L MCV 92.1 MCH 31.7 MCHC 34.4 RDW 17.6 H Plt Count 223 MPV 8.7 Absolute Neuts (auto) 5.5 Neutrophils % 85.7 H Lymphocytes % 8.3 D Monocytes % 5.9 Eosinophils % 0.0 D Basophils % 0.1 Nucleated RBC % 0 VBG pH 7.38 POC VBG pCO2 47.5 POC VBG pO2 31.3 D Mixed VBG HCO3 27.8 H Sodium 137 Potassium 4.2 Chloride 102 Carbon Dioxide 28 Anion Gap 7 L BUN 9 Creatinine 0.4 L Creat Clearance w eGFR > 60 Random Glucose 97 Calcium 8.2 L Total Bilirubin 0.3 AST 20 ALT 26 Alkaline Phosphatase 78 Troponin I Total Protein 6.4 Albumin 2.8 L Influenza A (Rapid) Influenza B (Rapid) Problem List - Problems (1) Acute hypoxemic respiratory failure Code(s): J96.01 - ACUTE RESPIRATORY FAILURE WITH HYPOXIA (2) Bull[place] of lung Code(s): J43.9 - EMPHYSEMA, UNSPECIFIED (3) COPD (chronic obstructive pulmonary disease) with emphysema Code(s): J43.9 - EMPHYSEMA, UNSPECIFIED (4) Pneumothorax, acute Code(s): J93.83 - OTHER PNEUMOTHORAX (5) HTN (hypertension) Code(s): I10 - ESSENTIAL (PRIMARY) HYPERTENSION Qualifiers: (6) Pneumonia Code(s): J18.9 - PNEUMONIA, UNSPECIFIED ORGANISM Qualifiers: Pneumonia type: due to unspecified organism Laterality: right Lung location: lower lobe of lung Qualified Code(s): J18.1 - Lobar pneumonia, unspecified organism Assessment/Plan Acute hypoxemic Respiratory Failure Pneumothorax - Chest tube removed PNA COPD -- continue antibiotics -- CXR results noted -- on O2 continue monitor, currently without distress
[2018-04-15] MEDS ORDERED: DEXTROSE 5%-WATER - 50 ML IVPB ONE (16:37)
--- NOTE | 2018-04-15 18:36 | PN ---
Progress Note, Physician History of Present Illness: stable - Current Medication List Current Medications: Active Medications Acetaminophen (Tylenol -) 650 mg PO Q6H PRN PRN Reason: FEVER Last Admin: 04/13/18 14:20 Dose: 650 mg Albuterol Sulfate (Ventolin 0.083% Nebulizer Soln -) 1 amp NEB Q15M PRN PRN Reason: Dyspnea Last Admin: 04/12/18 12:56 Dose: 1 amp Artificial Tears (Artificial Tears) 1 drop OD DAILY PRN PRN Reason: DRY EYES Aspirin (Ecotrin -) 81 mg PO DAILY [facility] Last Admin: 04/15/18 10:20 Dose: 81 mg Budesonide/Formoterol Fumarate (Symbicort 80/4.5mcg -) 2 puff IH BID [facility] Last Admin: 04/15/18 10:21 Dose: 2 puff Docusate Sodium (Colace -) 100 mg PO BID [facility] Last Admin: 04/15/18 10:20 Dose: 100 mg Dutasteride (Avodart -) 0.5 mg PO DAILY [facility] Last Admin: 04/15/18 10:21 Dose: 0.5 mg Guaifenesin/Codeine Phosphate (Robitussin Ac -) 5 ml PO Q6H PRN PRN Reason: COUGH Last Admin: 04/15/18 10:44 Dose: 5 ml Heparin Sodium (Porcine) (Heparin -) 5,000 unit SQ BID [facility] Last Admin: 04/15/18 10:21 Dose: 5,000 unit Piperacillin Sod/Tazobactam (Sod 3.375 gm/ Dextrose) 50 mls @ 100 mls/hr IVPB Q8H-IV [facility]; Protocol Last Admin: 04/15/18 17:15 Dose: 100 mls/hr Methylprednisolone Sodium Succinate (Solu-Medrol -) 20 mg IVPUSH Q8H-IV [facility] Last Admin: 04/15/18 17:12 Dose: 20 mg Oxycodone HCl (Roxicodone -) 5 mg PO Q6H PRN PRN Reason: PAIN SCALE 4-6 Last Admin: 04/14/18 22:43 Dose: 5 mg Pancrelipase (Creon Dr 36,000 Units Capsule) 1 cap PO TIDCM [facility] Last Admin: 04/15/18 17:18 Dose: 1 cap Ranitidine HCl (Zantac -) 150 mg PO BID [facility] Last Admin: 04/15/18 10:20 Dose: 150 mg Senna (Senna -) 1 tab PO HS [facility] Last Admin: 04/14/18 22:43 Dose: 1 tab Tamsulosin HCl (Flomax -) 0.4 mg PO DAILY [facility] Last Admin: 04/15/18 10:20 Dose: 0.4 mg Ursodiol (Actigal -) 300 mg PO BID [facility] Last Admin: 04/15/18 10:20 Dose: 300 mg - Objective Vital Signs: Vital Signs Temperature 97.8 F 04/15/18 14:00 Pulse Rate 103 H 04/15/18 14:00 Respiratory Rate 20 04/15/18 14:00 Blood Pressure 129/68 04/15/18 14:00 O2 Sat by Pulse Oximetry (%) 97 04/15/18 09:00 Constitutional: Yes: No Distress HENT: Yes: Atraumatic Neck: Yes: Supple Cardiovascular: Yes: Regular Rate and Rhythm Respiratory: Yes: Rhonchi Gastrointestinal: Yes: Normal Bowel Sounds Extremities: Yes: WNL Edema: No Neurological: Yes: Alert, Oriented Labs: CBC, BMP 04/13/18 06:00 04/13/18 06:00 Problem List - Problems (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
[2018-04-15] MEDS: ALBUTEROL SO4 0.083% IH SOL 2.5 MG/3 ML VIAL.NEB. NEB PRN (20:15)
[2018-04-15] MEDS: SENNOSIDES 8.6MG TABLET (FP) PO SCH (21:32)
[2018-04-15] MEDS: oxyCODONE HCL 5 MG TABLET PO PRN (21:33)
[2018-04-16] MEDS ORDERED: DEXTROSE 5%-WATER - 50 ML IVPB ONE ×3 (02:00→17:13)
[2018-04-16] MEDS ORDERED: PIPERACILLIN/TAZOBACTAM 3.375 GM VIAL IVPB ONE ×3 (02:00→17:13)
[2018-04-16] MEDS: methylPREDNISolone NA SUCC 40 MG/1 ML VIAL IVPUSH SCH ×4 (02:01→21:50)
[2018-04-16] MEDS: PIPERACILLIN/TAZOB 3.375 GM 3.375 GM in DEXTROSE 5%-WATER - 50 ML IVPB SCH ×3 (02:03→17:50)
[2018-04-16 07:03] LABS: BASO % 0.1 % (0-2.0); HEMATOCRIT 32.2 % (35.4-49); HEMOGLOBIN 10.7 GM/dL (11.7-16.9); LYMPH % 2.1 % (8-40); MCH 30.7 pg (25.7-33.7); MCHC 33.4 g/dl (32.0-35.9); MEAN CELL VOLUME 91.9 fl (80-96); MEAN PLT VOLUME 8.3 fl (7.5-11.1); MONO % 5.4 % (3.8-10.2); NEUT % 92.4 % (42.8-82.8); PLATELET COUNT 217 K/MM3 (134-434); RDW 17.5 % (11.9-15.9); WHITE BLOOD COUNT 15.2 K/mm3 (4.0-10.0)
[2018-04-16 07:46] LABS: ALBUMIN 2.4 g/dl (3.4-5.0); ALK PHOS 79 U/L (45-117); ANION GAP 6 MMOL/L (8-16); BILIRUBIN,TOTAL 0.4 mg/dL (0.2-1); BLOOD UREA NITROGEN 27 mg/dL (7-18); CALCIUM 7.7 mg/dL (8.5-10.1); CHLORIDE 101 mmol/L (98-107); CO2 30 mmol/L (21-32); CREATININE 0.5 mg/dL (0.55-1.3); GLUCOSE,RANDOM 109 mg/dL (74-106); POTASSIUM 3.8 mmol/L (3.5-5.1); SGOT/AST 35 U/L (15-37); SGPT/ALT 46 U/L (13-61); SODIUM 137 mmol/L (136-145); TOT PROT 5.7 g/dl (6.4-8.2)
[2018-04-16] MEDS: RANITIDINE HCL 150 MG TABLET (FP) PO SCH ×2 (10:19→21:50)
[2018-04-16] MEDS: ASPIRIN COATED 81 MG TABLET.EC PO SCH (10:19)
[2018-04-16] MEDS: TAMSULOSIN HCL 0.4 MG CAP PO SCH (10:19)
[2018-04-16] MEDS: DOCUSATE SODIUM 100 MG CAPSULE (FP) PO SCH ×2 (10:20→21:49)
[2018-04-16] MEDS: HEPARIN NA (PORCINE) 5,000 UNITS/ML 1ML VIAL SQ SCH ×2 (10:20→21:50)
[2018-04-16] MEDS: URSODIOL 300 MG CAPSULE PO SCH ×2 (10:20→21:49)
[2018-04-16] MEDS: DUTASTERIDE 0.5 MG CAP (FP) PO SCH (10:21)
[2018-04-16] MEDS: LIPASE/PROTEASE/AMYLASE 36,000 UNIT CAPSULE PO SCH ×3 (10:23→17:53)
[2018-04-16] MEDS: BUDESONIDE/FORMETEROL FUMARATE 80/4.5 mcg INHALER IH SCH ×2 (11:00→21:54)
--- NOTE | 2018-04-16 11:54 | PN ---
Progress Note (short form) - Note Progress Note: PULMONARY AWAKE/ALERT/APPEARS MILDLY IMPROVED CONGESTED COUGH REMAINS VSS ANICTERIC DISTANT BREATH SOUNDS W SCATTERED RHONCHI S1S2 BS+ NO EDEMA CXR PENDING FOR TODAY COPD IMP ACUTE HYPOXEMIC RESPIRATORY FAILURE RESOLVED LARGE SECONDARY SPONTANEOUS PTX R LUNG S/P CHEST TUBE NOW W TINY RESIDUAL COPD ADVANCED PNEUMONIA HTN BPH H/O GIB PLAN CHEST TUBE IS OUT CXR IV STEROIDS TO TAPER INHALED BRONCHODILATORS ABX SUPPLEMENTAL O2 OOB TO CHAIR R SANDRA ASTORGA
[2018-04-16 13:09] LABS: ANISOCYTOSIS 0; HELMET CELLS 0; HOWELL-JOLLY BODIES 0; MACROCYTOSIS 0; OVALOCYTE 0; PLATELET ESTIMATE NORMAL; ROULEAU 0; SICKELED CELLS 0; TARGET CELLS 0; TEAR DROP CELLS 0; TOXIC GRANULATION 0
--- NOTE | 2018-04-16 15:20 | PN ---
Progress Note, Physician History of Present Illness: stable the chest tube was accidentally pulled out patient doing well breathing well - Current Medication List Current Medications: Active Medications Acetaminophen (Tylenol -) 650 mg PO Q6H PRN PRN Reason: FEVER Last Admin: 04/13/18 14:20 Dose: 650 mg Albuterol Sulfate (Ventolin 0.083% Nebulizer Soln -) 1 amp NEB Q15M PRN PRN Reason: Dyspnea Last Admin: 04/15/18 20:15 Dose: 1 amp Artificial Tears (Artificial Tears) 1 drop OD DAILY PRN PRN Reason: DRY EYES Aspirin (Ecotrin -) 81 mg PO DAILY [facility] Last Admin: 04/16/18 10:19 Dose: 81 mg Budesonide/Formoterol Fumarate (Symbicort 80/4.5mcg -) 2 puff IH BID [facility] Last Admin: 04/16/18 11:00 Dose: 2 puff Docusate Sodium (Colace -) 100 mg PO BID [facility] Last Admin: 04/16/18 10:20 Dose: 100 mg Dutasteride (Avodart -) 0.5 mg PO DAILY [facility] Last Admin: 04/16/18 10:21 Dose: 0.5 mg Guaifenesin/Codeine Phosphate (Robitussin Ac -) 5 ml PO Q6H PRN PRN Reason: COUGH Last Admin: 04/15/18 10:44 Dose: 5 ml Heparin Sodium (Porcine) (Heparin -) 5,000 unit SQ BID [facility] Last Admin: 04/16/18 10:20 Dose: 5,000 unit Piperacillin Sod/Tazobactam (Sod 3.375 gm/ Dextrose) 50 mls @ 100 mls/hr IVPB Q8H-IV [facility]; Protocol Last Admin: 04/16/18 10:21 Dose: 100 mls/hr Methylprednisolone Sodium Succinate (Solu-Medrol -) 20 mg IVPUSH Q8H-IV [facility] Last Admin: 04/16/18 10:20 Dose: 20 mg Oxycodone HCl (Roxicodone -) 5 mg PO Q6H PRN PRN Reason: PAIN SCALE 4-6 Last Admin: 04/15/18 21:33 Dose: 5 mg Pancrelipase (Creon Dr 36,000 Units Capsule) 1 cap PO TIDCM [facility] Last Admin: 04/16/18 10:23 Dose: 1 cap Ranitidine HCl (Zantac -) 150 mg PO BID [facility] Last Admin: 04/16/18 10:19 Dose: 150 mg Senna (Senna -) 1 tab PO HS [facility] Last Admin: 04/15/18 21:32 Dose: 1 tab Tamsulosin HCl (Flomax -) 0.4 mg PO DAILY [facility] Last Admin: 04/16/18 10:19 Dose: 0.4 mg Ursodiol (Actigal -) 300 mg PO BID [facility] Last Admin: 04/16/18 10:20 Dose: 300 mg - Objective Vital Signs: Vital Signs Temperature 97.8 F 04/16/18 14:00 Pulse Rate 103 H 04/16/18 14:00 Respiratory Rate 20 04/16/18 14:00 Blood Pressure 121/65 04/16/18 14:00 O2 Sat by Pulse Oximetry (%) 96 04/15/18 21:00 Constitutional: Yes: No Distress, Calm, Thin, Other (failure to thrive) Cardiovascular: Yes: Regular Rate and Rhythm Respiratory: Yes: Regular, CTA Bilaterally Gastrointestinal: Yes: Normal Bowel Sounds, Soft Musculoskeletal: Yes: WNL Extremities: Yes: WNL Neurological: Yes: Alert, Oriented Psychiatric: Yes: Alert, Oriented Labs: CBC, BMP 04/16/18 05:30 04/16/18 05:30 Assessment/Plan Problem List - Problems (1) Acute hypoxemic respiratory failure Code(s): J96.01 - ACUTE RESPIRATORY FAILURE WITH HYPOXIA (2) Pneumothorax, acute Code(s): J93.83 - OTHER PNEUMOTHORAX (3) HTN (hypertension) Code(s): I10 - ESSENTIAL (PRIMARY) HYPERTENSION Qualifiers: (4) Pneumonia Code(s): J18.9 - PNEUMONIA, UNSPECIFIED ORGANISM Qualifiers: Pneumonia type: due to unspecified organism Laterality: right Lung location: lower lobe of lung Qualified Code(s): J18.1 - Lobar pneumonia, unspecified organism (5) COPD exacerbation Code(s): J44.1 - CHRONIC OBSTRUCTIVE PULMONARY DISEASE W (ACUTE) EXACERBATION (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 patients wbc has increased close watch on wbc
[2018-04-16] MEDS ORDERED: PT OWN MED DRAWER 7, Y5N ONE (16:41)
--- NOTE | 2018-04-16 18:33 | PN ---
Progress Note, Physician History of Present Illness: stable - Current Medication List Current Medications: Active Medications Acetaminophen (Tylenol -) 650 mg PO Q6H PRN PRN Reason: FEVER Last Admin: 04/13/18 14:20 Dose: 650 mg Albuterol Sulfate (Ventolin 0.083% Nebulizer Soln -) 1 amp NEB Q15M PRN PRN Reason: Dyspnea Last Admin: 04/15/18 20:15 Dose: 1 amp Artificial Tears (Artificial Tears) 1 drop OD DAILY PRN PRN Reason: DRY EYES Aspirin (Ecotrin -) 81 mg PO DAILY [facility] Last Admin: 04/16/18 10:19 Dose: 81 mg Budesonide/Formoterol Fumarate (Symbicort 80/4.5mcg -) 2 puff IH BID [facility] Last Admin: 04/16/18 11:00 Dose: 2 puff Docusate Sodium (Colace -) 100 mg PO BID [facility] Last Admin: 04/16/18 10:20 Dose: 100 mg Dutasteride (Avodart -) 0.5 mg PO DAILY [facility] Last Admin: 04/16/18 10:21 Dose: 0.5 mg Guaifenesin/Codeine Phosphate (Robitussin Ac -) 5 ml PO Q6H PRN PRN Reason: COUGH Last Admin: 04/15/18 10:44 Dose: 5 ml Heparin Sodium (Porcine) (Heparin -) 5,000 unit SQ BID [facility] Last Admin: 04/16/18 10:20 Dose: 5,000 unit Piperacillin Sod/Tazobactam (Sod 3.375 gm/ Dextrose) 50 mls @ 100 mls/hr IVPB Q8H-IV [facility]; Protocol Last Admin: 04/16/18 17:50 Dose: 100 mls/hr Methylprednisolone Sodium Succinate (Solu-Medrol -) 20 mg IVPUSH Q8H-IV [facility] Last Admin: 04/16/18 17:51 Dose: 20 mg Oxycodone HCl (Roxicodone -) 5 mg PO Q6H PRN PRN Reason: PAIN SCALE 4-6 Last Admin: 04/15/18 21:33 Dose: 5 mg Pancrelipase (Creon Dr 36,000 Units Capsule) 1 cap PO TIDCM [facility] Last Admin: 04/16/18 17:53 Dose: 1 cap Ranitidine HCl (Zantac -) 150 mg PO BID [facility] Last Admin: 04/16/18 10:19 Dose: 150 mg Senna (Senna -) 1 tab PO HS [facility] Last Admin: 04/15/18 21:32 Dose: 1 tab Tamsulosin HCl (Flomax -) 0.4 mg PO DAILY [facility] Last Admin: 04/16/18 10:19 Dose: 0.4 mg Ursodiol (Actigal -) 300 mg PO BID [facility] Last Admin: 04/16/18 10:20 Dose: 300 mg - Objective Vital Signs: Vital Signs Temperature 97.8 F 04/16/18 14:00 Pulse Rate 103 H 04/16/18 14:00 Respiratory Rate 20 04/16/18 14:00 Blood Pressure 121/65 04/16/18 14:00 O2 Sat by Pulse Oximetry (%) 95 04/16/18 09:00 HENT: Yes: Atraumatic Neck: Yes: Supple Cardiovascular: Yes: Regular Rate and Rhythm Respiratory: Yes: Rhonchi Gastrointestinal: Yes: Normal Bowel Sounds Extremities: Yes: WNL Edema: No Neurological: Yes: Alert, Oriented Labs: CBC, BMP 04/16/18 05:30 04/16/18 05:30 Problem List - Problems (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
[2018-04-16] MEDS: ALBUTEROL SO4 0.083% IH SOL 2.5 MG/3 ML VIAL.NEB. NEB PRN (20:25)
[2018-04-16] MEDS: SENNOSIDES 8.6MG TABLET (FP) PO SCH (21:49)
[2018-04-17] MEDS ORDERED: PIPERACILLIN/TAZOBACTAM 3.375 GM VIAL IVPB ONE ×3 (00:51→16:44)
[2018-04-17] MEDS ORDERED: DEXTROSE 5%-WATER - 50 ML IVPB ONE ×3 (00:51→16:44)
[2018-04-17] MEDS: PIPERACILLIN/TAZOB 3.375 GM 3.375 GM in DEXTROSE 5%-WATER - 50 ML IVPB SCH ×3 (01:16→17:14)
[2018-04-17 06:06] LABS: HEMATOCRIT 31.6 % (35.4-49); HEMOGLOBIN 10.8 GM/dL (11.7-16.9); LYMPH % 5.4 % (8-40); MCH 31.4 pg (25.7-33.7); MCHC 34.2 g/dl (32.0-35.9); MEAN CELL VOLUME 91.9 fl (80-96); MEAN PLT VOLUME 8.3 fl (7.5-11.1); MONO % 4.6 % (3.8-10.2); PLATELET COUNT 215 K/MM3 (134-434); RBC 3.44 M/mm3 (4.00-5.60); WHITE BLOOD COUNT 12.9 K/mm3 (4.0-10.0)
[2018-04-17 06:31] LABS: ANION GAP 5 MMOL/L (8-16); BLOOD UREA NITROGEN 21 mg/dL (7-18); CALCIUM 7.8 mg/dL (8.5-10.1); CHLORIDE 102 mmol/L (98-107); CO2 30 mmol/L (21-32); CREATININE 0.5 mg/dL (0.55-1.3); GLUCOSE,RANDOM 121 mg/dL (74-106); SODIUM 136 mmol/L (136-145)
--- NOTE | 2018-04-17 07:39 | PN ---
Progress Note (short form) - Note Progress Note: Pt seen and examined. States he is feeling well. Tolerating PO. No issues overnight. Vital Signs Temp 98 F 04/17/18 05:22 Pulse 95 H 04/17/18 05:22 Resp 20 04/17/18 05:22 BP 144/71 04/17/18 05:22 Pulse Ox 95 04/16/18 20:43 Intake & Output 04/16/18 04/16/18 04/17/18 11:59 23:59 11:59 Intake Total 180 120 Output Total 302 250 Balance -122 -130 Intake: Oral 180 120 Output: Urine 302 250 Void 302 250 Other: Voiding Method Urinal Urinal Urinal Bowel Movement Yes # Bowel Movements 2 CBC, BMP 04/17/18 05:30 04/17/18 05:30 Gen: awake, alert, nad. Resp: Unlabored on 3L NC CXR (04/16/18): No discrete pneumothorax at this time. A/P: 82 y/o M w/ PMHx HTN, COPD, p/w sob and PTX. Chest tube placed for 2 days and then pulled out accidentally on 04/07. CXR stable, sats remain unchanged -Continue plan per primary team -Cleared for d/c from CT surgery standpoint d/w attending Dr Garcia
[2018-04-17] MEDS ORDERED: PT OWN MED DRAWER 7, Y5N ONE ×2 (08:44→12:40)
[2018-04-17] MEDS: LIPASE/PROTEASE/AMYLASE 36,000 UNIT CAPSULE PO SCH ×3 (08:56→17:30)
[2018-04-17] MEDS: methylPREDNISolone NA SUCC 40 MG/1 ML VIAL IVPUSH SCH (09:01)
[2018-04-17] MEDS: HEPARIN NA (PORCINE) 5,000 UNITS/ML 1ML VIAL SQ SCH ×2 (09:04→21:21)
[2018-04-17] MEDS: RANITIDINE HCL 150 MG TABLET (FP) PO SCH ×2 (09:05→21:21)
[2018-04-17] MEDS: DUTASTERIDE 0.5 MG CAP (FP) PO SCH (09:05)
[2018-04-17] MEDS: DOCUSATE SODIUM 100 MG CAPSULE (FP) PO SCH ×2 (09:05→21:21)
[2018-04-17] MEDS: TAMSULOSIN HCL 0.4 MG CAP PO SCH (09:05)
[2018-04-17] MEDS: ASPIRIN COATED 81 MG TABLET.EC PO SCH (09:05)
[2018-04-17] MEDS: URSODIOL 300 MG CAPSULE PO SCH ×2 (09:05→21:21)
[2018-04-17] MEDS: BUDESONIDE/FORMETEROL FUMARATE 80/4.5 mcg INHALER IH SCH ×2 (09:06→21:21)
--- NOTE | 2018-04-17 10:33 | PN ---
Progress Note, Physician History of Present Illness: PULMONARY ALERT,FEELING BETTER,LESS DYSPNEIC,LESS CHEST DISCOMFORT - Current Medication List Current Medications: Active Medications Acetaminophen (Tylenol -) 650 mg PO Q6H PRN PRN Reason: FEVER Last Admin: 04/13/18 14:20 Dose: 650 mg Artificial Tears (Artificial Tears) 1 drop OD DAILY PRN PRN Reason: DRY EYES Aspirin (Ecotrin -) 81 mg PO DAILY [facility] Last Admin: 04/17/18 09:05 Dose: 81 mg Budesonide/Formoterol Fumarate (Symbicort 80/4.5mcg -) 2 puff IH BID [facility] Last Admin: 04/17/18 09:06 Dose: 2 puff Docusate Sodium (Colace -) 100 mg PO BID [facility] Last Admin: 04/17/18 09:05 Dose: 100 mg Dutasteride (Avodart -) 0.5 mg PO DAILY [facility] Last Admin: 04/17/18 09:05 Dose: 0.5 mg Guaifenesin/Codeine Phosphate (Robitussin Ac -) 5 ml PO Q6H PRN PRN Reason: COUGH Last Admin: 04/15/18 10:44 Dose: 5 ml Heparin Sodium (Porcine) (Heparin -) 5,000 unit SQ BID [facility] Last Admin: 04/17/18 09:04 Dose: 5,000 unit Piperacillin Sod/Tazobactam (Sod 3.375 gm/ Dextrose) 50 mls @ 100 mls/hr IVPB Q8H-IV [facility]; Protocol Last Admin: 04/17/18 09:00 Dose: 100 mls/hr Methylprednisolone Sodium Succinate (Solu-Medrol -) 20 mg IVPUSH BID [facility] Last Admin: 04/17/18 09:01 Dose: 20 mg Pancrelipase (Creon Dr 36,000 Units Capsule) 1 cap PO TIDCM [facility] Last Admin: 04/17/18 08:56 Dose: 1 cap Ranitidine HCl (Zantac -) 150 mg PO BID [facility] Last Admin: 04/17/18 09:05 Dose: 150 mg Senna (Senna -) 1 tab PO HS [facility] Last Admin: 04/16/18 21:49 Dose: 1 tab Tamsulosin HCl (Flomax -) 0.4 mg PO DAILY [facility] Last Admin: 04/17/18 09:05 Dose: 0.4 mg Ursodiol (Actigal -) 300 mg PO BID [facility] Last Admin: 04/17/18 09:05 Dose: 300 mg - Objective Vital Signs: Vital Signs Temperature 98.2 F 04/17/18 08:34 Pulse Rate 103 H 04/17/18 08:34 Respiratory Rate 20 04/17/18 08:34 Blood Pressure 148/75 04/17/18 08:34 O2 Sat by Pulse Oximetry (%) 95 04/16/18 20:43 Constitutional: Yes: Calm, Thin Eyes: Yes: WNL HENT: Yes: WNL Neck: Yes: WNL Cardiovascular: Yes: Regular Rate and Rhythm, S1, S2 Respiratory: Yes: Rhonchi (FEW SCATTERED RHONCHI) Gastrointestinal: Yes: Normal Bowel Sounds, Soft Extremities: Yes: WNL Edema: No Labs: CBC, BMP 04/17/18 05:30 04/17/18 05:30 Problem List - Problems (1) Acute hypoxemic respiratory failure Code(s): J96.01 - ACUTE RESPIRATORY FAILURE WITH HYPOXIA (2) Pneumothorax, acute Code(s): J93.83 - OTHER PNEUMOTHORAX (3) HTN (hypertension) Code(s): I10 - ESSENTIAL (PRIMARY) HYPERTENSION Qualifiers: (4) Pneumonia Code(s): J18.9 - PNEUMONIA, UNSPECIFIED ORGANISM Qualifiers: Pneumonia type: due to unspecified organism Laterality: right Lung location: lower lobe of lung Qualified Code(s): J18.1 - Lobar pneumonia, unspecified organism (5) COPD exacerbation Code(s): J44.1 - CHRONIC OBSTRUCTIVE PULMONARY DISEASE W (ACUTE) EXACERBATION (6) Bull[place] of lung Code(s): J43.9 - EMPHYSEMA, UNSPECIFIED Assessment/Plan IMP ACUTE HYPOXEMIC RESPIRATORY FAILURE IMPROVED LARGE SECONDARY SPONTANEOUS PTX R LUNG S/P CHEST TUBE COPD ADVANCED PNEUMONIA HTN BPH H/O GIB PLAN CONTINUE IV STEROIDS INHALED BRONCHODILATORS ABX SUPPLEMENTAL O2 F/U CHESTS X-RAYS DR FERRO Problem List - Problems (1) Acute hypoxemic respiratory failure Code(s): J96.01 - ACUTE RESPIRATORY FAILURE WITH HYPOXIA (2) Pneumothorax, acute Code(s): J93.83 - OTHER PNEUMOTHORAX (3) HTN (hypertension) Code(s): I10 - ESSENTIAL (PRIMARY) HYPERTENSION Qualifiers: (4) Pneumonia Code(s): J18.9 - PNEUMONIA, UNSPECIFIED ORGANISM Qualifiers: Pneumonia type: due to unspecified organism Laterality: right Lung location: lower lobe of lung Qualified Code(s): J18.1 - Lobar pneumonia, unspecified organism (5) COPD exacerbation Code(s): J44.1 - CHRONIC OBSTRUCTIVE PULMONARY DISEASE W (ACUTE) EXACERBATION (6) Bull[place] of lung Code(s): J43.9 - EMPHYSEMA, UNSPECIFIED
[2018-04-17] MEDS: guaiFENesin/CODEINE 5 ML UNIT-DOSE CUPS PO PRN ×2 (10:52→17:48)
[2018-04-17 10:56] LABS: ANISOCYTOSIS 0; HELMET CELLS 0; HOWELL-JOLLY BODIES 0; MACROCYTOSIS 0; OVALOCYTE 0; PLATELET ESTIMATE NORMAL; ROULEAU 0; SICKELED CELLS 0; TARGET CELLS 0; TEAR DROP CELLS 0; TOXIC GRANULATION 0
--- NOTE | 2018-04-17 13:01 | PN ---
Progress Note, Physician History of Present Illness: patient stable wbc has decreased - Current Medication List Current Medications: Active Medications Acetaminophen (Tylenol -) 650 mg PO Q6H PRN PRN Reason: FEVER Last Admin: 04/13/18 14:20 Dose: 650 mg Artificial Tears (Artificial Tears) 1 drop OD DAILY PRN PRN Reason: DRY EYES Aspirin (Ecotrin -) 81 mg PO DAILY [facility] Last Admin: 04/17/18 09:05 Dose: 81 mg Budesonide/Formoterol Fumarate (Symbicort 80/4.5mcg -) 2 puff IH BID [facility] Last Admin: 04/17/18 09:06 Dose: 2 puff Docusate Sodium (Colace -) 100 mg PO BID [facility] Last Admin: 04/17/18 09:05 Dose: 100 mg Dutasteride (Avodart -) 0.5 mg PO DAILY [facility] Last Admin: 04/17/18 09:05 Dose: 0.5 mg Guaifenesin/Codeine Phosphate (Robitussin Ac -) 5 ml PO Q6H PRN PRN Reason: COUGH Last Admin: 04/17/18 10:52 Dose: 5 ml Heparin Sodium (Porcine) (Heparin -) 5,000 unit SQ BID [facility] Last Admin: 04/17/18 09:04 Dose: 5,000 unit Piperacillin Sod/Tazobactam (Sod 3.375 gm/ Dextrose) 50 mls @ 100 mls/hr IVPB Q8H-IV [facility]; Protocol Last Admin: 04/17/18 09:00 Dose: 100 mls/hr Methylprednisolone Sodium Succinate (Solu-Medrol -) 20 mg IVPUSH BID [facility] Last Admin: 04/17/18 09:01 Dose: 20 mg Pancrelipase (Creon Dr 36,000 Units Capsule) 1 cap PO TIDCM [facility] Last Admin: 04/17/18 12:43 Dose: 1 cap Ranitidine HCl (Zantac -) 150 mg PO BID [facility] Last Admin: 04/17/18 09:05 Dose: 150 mg Senna (Senna -) 1 tab PO HS [facility] Last Admin: 04/16/18 21:49 Dose: 1 tab Tamsulosin HCl (Flomax -) 0.4 mg PO DAILY [facility] Last Admin: 04/17/18 09:05 Dose: 0.4 mg Ursodiol (Actigal -) 300 mg PO BID [facility] Last Admin: 04/17/18 09:05 Dose: 300 mg - Objective Vital Signs: Vital Signs Temperature 98.2 F 04/17/18 08:34 Pulse Rate 103 H 04/17/18 08:34 Respiratory Rate 20 04/17/18 08:34 Blood Pressure 148/75 04/17/18 08:34 O2 Sat by Pulse Oximetry (%) 95 04/17/18 09:00 Constitutional: Yes: No Distress, Calm, Other (failure to thrive) Cardiovascular: Yes: Regular Rate and Rhythm Respiratory: Yes: Regular Gastrointestinal: Yes: Normal Bowel Sounds, Soft Musculoskeletal: Yes: WNL Extremities: Yes: WNL Neurological: Yes: Alert, Oriented Psychiatric: Yes: Alert, Oriented Labs: CBC, BMP 04/17/18 05:30 04/17/18 05:30 Assessment/Plan Problem List - Problems (1) Acute hypoxemic respiratory failure Code(s): J96.01 - ACUTE RESPIRATORY FAILURE WITH HYPOXIA (2) Pneumothorax, acute Code(s): J93.83 - OTHER PNEUMOTHORAX (3) HTN (hypertension) Code(s): I10 - ESSENTIAL (PRIMARY) HYPERTENSION Qualifiers: (4) Pneumonia Code(s): J18.9 - PNEUMONIA, UNSPECIFIED ORGANISM Qualifiers: Pneumonia type: due to unspecified organism Laterality: right Lung location: lower lobe of lung Qualified Code(s): J18.1 - Lobar pneumonia, unspecified organism (5) COPD exacerbation Code(s): J44.1 - CHRONIC OBSTRUCTIVE PULMONARY DISEASE W (ACUTE) EXACERBATION (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 close watch rest as per the team
--- NOTE | 2018-04-17 15:23 | DS ---
Physical Examination Vital Signs: Vital Signs Temperature 98.1 F 04/17/18 12:00 Pulse Rate 105 H 04/17/18 12:00 Respiratory Rate 20 04/17/18 12:00 Blood Pressure 139/71 04/17/18 12:00 O2 Sat by Pulse Oximetry (%) 95 04/17/18 09:00 Constitutional: Yes: No Distress HENT: Yes: Atraumatic Neck: Yes: Supple Cardiovascular: Yes: Regular Rate and Rhythm Respiratory: Yes: CTA Bilaterally Gastrointestinal: Yes: Normal Bowel Sounds Extremities: Yes: WNL Labs: CBC, BMP 04/17/18 05:30 04/17/18 05:30 Discharge Summary Reason For Visit: PULMONARY EMPHYSEMA,PNEUMONIA Current Active Problems Acute hypoxemic respiratory failure (Acute) Bull[place] of lung (Acute) COPD (chronic obstructive pulmonary disease) with emphysema (Acute) COPD exacerbation (Acute) Pneumothorax, acute (Acute) severe malnutrition Condition: Guarded - Instructions Diet, Activity, Other Instructions: see pulmonary and pmd next week Referrals: Sony Francis MD [Staff Physician] - - Home Medications Comprehensive Discharge Medication List: Ambulatory Orders Ursodiol [Actigal -] 300 mg PO BID #60 capsule 07/26/17 Alendronate Sodium [Binosto] 1 tab PO WEEKLY 01/19/18 Amlodipine Besylate [Norvasc -] 1 tab PO DAILY 01/19/18 Dutasteride [Avodart] 1 cap PO DAILY 01/19/18 Ergocalciferol [Vitamin D2] 1 cap PO WEEKLY 01/19/18 Fluticasone/Salmeterol [Advair Hfa 230-21 Mcg Inhaler] 2 puff PO BID 01/19/18 Lipase/Protease/Amylase [Creon Dr 36,000 Units Capsule] 1 cap PO AC 01/19/18 Polyvinyl Alcohol [Artificial Tears] 1 drop OD PRN PRN 01/19/18 Ranitidine HCl [Zantac] 1 tab PO BID 01/19/18 Tamsulosin HCl [Flomax] 1 cap PO DAILY 01/19/18 Umeclidinium Brm/Vilanterol Tr [Anoro Ellipta 62.5-25 Mcg INH] 1 puff PO DAILY 01/19/18 Vitamin B Complex 1 tab PO DAILY 01/19/18 Acetaminophen [Tylenol] 650 mg PO Q6H PRN #30 capsule 01/22/18 Albuterol Sulfate Inhaler - [Ventolin HFA Inhaler -] 2 puff IH Q4H PRN inhaler 01/22/18 Docusate Sodium [Colace] 100 mg PO BID 14 Days capsule 01/22/18 Sennosides [Senna -] 1 tab PO HS tablet 01/22/18 oxyCODONE HCL [Roxicodone -] 5 mg PO Q6H tablet MDD 4 tab a day 01/22/18 Aspirin Coated [Ecotrin -] 81 mg PO DAILY #30 tablet.ec 01/24/18 Amoxicillin/Potassium Clav [Augmentin 875-125 Tablet] 1 each PO BID #10 tablet 04/17/18 dc
--- NOTE | 2018-04-17 19:27 | PN ---
Progress Note, Physician History of Present Illness: low o2 sats on RA will stay tonight - Current Medication List Current Medications: Active Medications Acetaminophen (Tylenol -) 650 mg PO Q6H PRN PRN Reason: FEVER Last Admin: 04/13/18 14:20 Dose: 650 mg Artificial Tears (Artificial Tears) 1 drop OD DAILY PRN PRN Reason: DRY EYES Aspirin (Ecotrin -) 81 mg PO DAILY [facility] Last Admin: 04/17/18 09:05 Dose: 81 mg Budesonide/Formoterol Fumarate (Symbicort 80/4.5mcg -) 2 puff IH BID [facility] Last Admin: 04/17/18 09:06 Dose: 2 puff Docusate Sodium (Colace -) 100 mg PO BID [facility] Last Admin: 04/17/18 09:05 Dose: 100 mg Dutasteride (Avodart -) 0.5 mg PO DAILY [facility] Last Admin: 04/17/18 09:05 Dose: 0.5 mg Heparin Sodium (Porcine) (Heparin -) 5,000 unit SQ BID [facility] Last Admin: 04/17/18 09:04 Dose: 5,000 unit Piperacillin Sod/Tazobactam (Sod 3.375 gm/ Dextrose) 50 mls @ 100 mls/hr IVPB Q8H-IV [facility]; Protocol Last Admin: 04/17/18 17:14 Dose: 100 mls/hr Methylprednisolone Sodium Succinate (Solu-Medrol -) 20 mg IVPUSH BID [facility] Last Admin: 04/17/18 09:01 Dose: 20 mg Pancrelipase (Creon Dr 36,000 Units Capsule) 1 cap PO TIDCM [facility] Last Admin: 04/17/18 17:30 Dose: 1 cap Ranitidine HCl (Zantac -) 150 mg PO BID [facility] Last Admin: 04/17/18 09:05 Dose: 150 mg Senna (Senna -) 1 tab PO HS [facility] Last Admin: 04/16/18 21:49 Dose: 1 tab Tamsulosin HCl (Flomax -) 0.4 mg PO DAILY [facility] Last Admin: 04/17/18 09:05 Dose: 0.4 mg Ursodiol (Actigal -) 300 mg PO BID [facility] Last Admin: 04/17/18 09:05 Dose: 300 mg - Objective Vital Signs: Vital Signs Temperature 97.8 F 04/17/18 17:41 Pulse Rate 124 H 02/25/19 18:53 Respiratory Rate 20 04/17/18 17:41 Blood Pressure 138/70 04/17/18 17:41 O2 Sat by Pulse Oximetry (%) 90 L 04/17/18 18:53 Constitutional: Yes: Calm HENT: Yes: Atraumatic Neck: Yes: Supple Cardiovascular: Yes: Regular Rate and Rhythm Respiratory: Yes: Rhonchi Gastrointestinal: Yes: Normal Bowel Sounds Extremities: Yes: WNL Edema: No Neurological: Yes: Alert, Oriented Labs: CBC, BMP 04/17/18 05:30 04/17/18 05:30 Problem List - Problems (1) COPD (chronic obstructive pulmonary disease) with emphysema Assessment/Plan: prn duo nebs continue homemeds home oxygen needs to be arranged tomorrow Code(s): J43.9 - EMPHYSEMA, UNSPECIFIED (2) Pneumothorax, acute Assessment/Plan: stable Code(s): J93.83 - OTHER PNEUMOTHORAX (3) HTN (hypertension) Assessment/Plan: monitor Code(s): I10 - ESSENTIAL (PRIMARY) HYPERTENSION Qualifiers:
[2018-04-17] MEDS: SENNOSIDES 8.6MG TABLET (FP) PO SCH (21:20)
[2018-04-18] MEDS ORDERED: DEXTROSE 5%-WATER - 50 ML IVPB ONE ×2 (01:51→09:34)
[2018-04-18] MEDS ORDERED: PIPERACILLIN/TAZOBACTAM 3.375 GM VIAL IVPB ONE ×2 (01:51→09:33)
[2018-04-18] MEDS: PIPERACILLIN/TAZOB 3.375 GM 3.375 GM in DEXTROSE 5%-WATER - 50 ML IVPB SCH ×2 (02:05→10:39)
[2018-04-18] MEDS ORDERED: PT OWN MED DRAWER 7, Y5N ONE ×2 (08:01→12:02)
[2018-04-18] MEDS: LIPASE/PROTEASE/AMYLASE 36,000 UNIT CAPSULE PO SCH ×3 (08:05→17:30)
[2018-04-18] MEDS: BUDESONIDE/FORMETEROL FUMARATE 80/4.5 mcg INHALER IH SCH ×2 (10:17→23:14)
[2018-04-18] MEDS: RANITIDINE HCL 150 MG TABLET (FP) PO SCH ×2 (10:38→23:03)
[2018-04-18] MEDS: ASPIRIN COATED 81 MG TABLET.EC PO SCH (10:38)
[2018-04-18] MEDS: DOCUSATE SODIUM 100 MG CAPSULE (FP) PO SCH ×2 (10:38→23:03)
[2018-04-18] MEDS: TAMSULOSIN HCL 0.4 MG CAP PO SCH (10:38)
[2018-04-18] MEDS: URSODIOL 300 MG CAPSULE PO SCH ×2 (10:38→23:03)
[2018-04-18] MEDS: HEPARIN NA (PORCINE) 5,000 UNITS/ML 1ML VIAL SQ SCH ×2 (10:39→23:22)
[2018-04-18] MEDS: DUTASTERIDE 0.5 MG CAP (FP) PO SCH (10:39)
--- NOTE | 2018-04-18 12:23 | PN ---
Progress Note, Physician History of Present Illness: pulmonary alert, c/o cough, congestion,o2 at 89% on nasal cannula - Current Medication List Current Medications: Active Medications Acetaminophen (Tylenol -) 650 mg PO Q6H PRN PRN Reason: FEVER Last Admin: 04/13/18 14:20 Dose: 650 mg Artificial Tears (Artificial Tears) 1 drop OD DAILY PRN PRN Reason: DRY EYES Aspirin (Ecotrin -) 81 mg PO DAILY [facility] Last Admin: 04/18/18 10:38 Dose: 81 mg Budesonide/Formoterol Fumarate (Symbicort 80/4.5mcg -) 2 puff IH BID [facility] Last Admin: 04/17/18 21:21 Dose: 2 puff Docusate Sodium (Colace -) 100 mg PO BID [facility] Last Admin: 04/18/18 10:38 Dose: 100 mg Dutasteride (Avodart -) 0.5 mg PO DAILY [facility] Last Admin: 04/18/18 10:39 Dose: 0.5 mg Heparin Sodium (Porcine) (Heparin -) 5,000 unit SQ BID [facility] Last Admin: 04/18/18 10:39 Dose: 5,000 unit Piperacillin Sod/Tazobactam (Sod 3.375 gm/ Dextrose) 50 mls @ 100 mls/hr IVPB Q8H-IV [facility]; Protocol Last Admin: 04/18/18 10:39 Dose: 100 mls/hr Pancrelipase (Creon Dr 36,000 Units Capsule) 1 cap PO TIDCM [facility] Last Admin: 04/18/18 08:05 Dose: 1 cap Ranitidine HCl (Zantac -) 150 mg PO BID [facility] Last Admin: 04/18/18 10:38 Dose: 150 mg Senna (Senna -) 1 tab PO HS [facility] Last Admin: 04/17/18 21:20 Dose: 1 tab Tamsulosin HCl (Flomax -) 0.4 mg PO DAILY [facility] Last Admin: 04/18/18 10:38 Dose: 0.4 mg Ursodiol (Actigal -) 300 mg PO BID [facility] Last Admin: 04/18/18 10:38 Dose: 300 mg - Objective Vital Signs: Vital Signs Temperature 98.4 F 04/18/18 05:00 Pulse Rate 92 H 04/18/18 05:00 Respiratory Rate 18 04/18/18 05:00 Blood Pressure 140/68 04/18/18 05:00 O2 Sat by Pulse Oximetry (%) 94 L 04/17/18 21:00 Constitutional: Yes: Calm, Thin Eyes: Yes: WNL HENT: Yes: WNL Neck: Yes: WNL Cardiovascular: Yes: Regular Rate and Rhythm, S1, S2 Respiratory: Yes: Rhonchi (scattered rhonchi) Gastrointestinal: Yes: Normal Bowel Sounds, Soft Extremities: Yes: WNL Edema: No Labs: CBC, BMP 04/17/18 05:30 Problem List - Problems (1) Acute hypoxemic respiratory failure Code(s): J96.01 - ACUTE RESPIRATORY FAILURE WITH HYPOXIA (2) Pneumothorax, acute Code(s): J93.83 - OTHER PNEUMOTHORAX (3) HTN (hypertension) Code(s): I10 - ESSENTIAL (PRIMARY) HYPERTENSION Qualifiers: (4) Pneumonia Code(s): J18.9 - PNEUMONIA, UNSPECIFIED ORGANISM Qualifiers: Pneumonia type: due to unspecified organism Laterality: right Lung location: lower lobe of lung Qualified Code(s): J18.1 - Lobar pneumonia, unspecified organism (5) COPD exacerbation Code(s): J44.1 - CHRONIC OBSTRUCTIVE PULMONARY DISEASE W (ACUTE) EXACERBATION (6) Bull[place] of lung Code(s): J43.9 - EMPHYSEMA, UNSPECIFIED Assessment/Plan IMP ACUTE HYPOXEMIC RESPIRATORY FAILURE IMPROVING LARGE SECONDARY SPONTANEOUS PTX R LUNG S/P CHEST TUBE COPD ADVANCED PNEUMONIA HTN BPH H/O GIB PLAN IV STEROIDS INHALED BRONCHODILATORS ABX SUPPLEMENTAL O2 F/U CHESTS X-RAY TODAY DR FERRO Problem List - Problems (1) Acute hypoxemic respiratory failure Code(s): J96.01 - ACUTE RESPIRATORY FAILURE WITH HYPOXIA (2) Pneumothorax, acute Code(s): J93.83 - OTHER PNEUMOTHORAX (3) HTN (hypertension) Code(s): I10 - ESSENTIAL (PRIMARY) HYPERTENSION Qualifiers: (4) Pneumonia Code(s): J18.9 - PNEUMONIA, UNSPECIFIED ORGANISM Qualifiers: Pneumonia type: due to unspecified organism Laterality: right Lung location: lower lobe of lung Qualified Code(s): J18.1 - Lobar pneumonia, unspecified organism (5) COPD exacerbation Code(s): J44.1 - CHRONIC OBSTRUCTIVE PULMONARY DISEASE W (ACUTE) EXACERBATION (6) Bulla of lung Code(s): J43.9 - EMPHYSEMA, UNSPECIFIED
[2018-04-18] MEDS: methylPREDNISolone NA SUCC 40 MG/1 ML VIAL IVPUSH SCH ×2 (12:42→23:22)
--- NOTE | 2018-04-18 13:52 | PN ---
Progress Note, Physician History of Present Illness: patient still very sob saturation was low still wiht cough - Current Medication List Current Medications: Active Medications Acetaminophen (Tylenol -) 650 mg PO Q6H PRN PRN Reason: FEVER Last Admin: 04/13/18 14:20 Dose: 650 mg Amoxicillin/Clavulanate Potassium (Augmentin - 875mg Tablet) 1 tab PO BID@0800, 1730 [facility] Artificial Tears (Artificial Tears) 1 drop OD DAILY PRN PRN Reason: DRY EYES Aspirin (Ecotrin -) 81 mg PO DAILY [facility] Last Admin: 04/18/18 10:38 Dose: 81 mg Budesonide/Formoterol Fumarate (Symbicort 80/4.5mcg -) 2 puff IH BID [facility] Last Admin: 04/17/18 21:21 Dose: 2 puff Docusate Sodium (Colace -) 100 mg PO BID [facility] Last Admin: 04/18/18 10:38 Dose: 100 mg Dutasteride (Avodart -) 0.5 mg PO DAILY [facility] Last Admin: 04/18/18 10:39 Dose: 0.5 mg Heparin Sodium (Porcine) (Heparin -) 5,000 unit SQ BID [facility] Last Admin: 04/18/18 10:39 Dose: 5,000 unit Methylprednisolone Sodium Succinate (Solu-Medrol -) 40 mg IVPUSH Q6H-IV [facility] Last Admin: 04/18/18 12:42 Dose: 40 mg Pancrelipase (Creon Dr 36,000 Units Capsule) 1 cap PO TIDCM [facility] Last Admin: 04/18/18 12:41 Dose: 1 cap Ranitidine HCl (Zantac -) 150 mg PO BID [facility] Last Admin: 04/18/18 10:38 Dose: 150 mg Senna (Senna -) 1 tab PO HS [facility] Last Admin: 04/17/18 21:20 Dose: 1 tab Tamsulosin HCl (Flomax -) 0.4 mg PO DAILY [facility] Last Admin: 04/18/18 10:38 Dose: 0.4 mg Ursodiol (Actigal -) 300 mg PO BID [facility] Last Admin: 04/18/18 10:38 Dose: 300 mg - Objective Vital Signs: Vital Signs Temperature 97.4 F L 04/18/18 09:00 Pulse Rate 124 H 04/18/18 09:00 Respiratory Rate 18 04/18/18 09:00 Blood Pressure 124/60 04/18/18 09:00 O2 Sat by Pulse Oximetry (%) 93 L 04/18/18 09:00 Constitutional: Yes: Calm, Thin, Other (failure to thrive) Cardiovascular: Yes: Regular Rate and Rhythm Respiratory: Yes: On Nasal O2, Poor Air Entry, Rhonchi Gastrointestinal: Yes: Normal Bowel Sounds, Soft Musculoskeletal: Yes: Other Extremities: Yes: Other Neurological: Yes: Alert, Oriented Psychiatric: Yes: Alert, Oriented Labs: CBC, BMP 04/17/18 05:30 04/17/18 05:30 Assessment/Plan Problem List - Problems (1) Acute hypoxemic respiratory failure Code(s): J96.01 - ACUTE RESPIRATORY FAILURE WITH HYPOXIA (2) Pneumothorax, acute Code(s): J93.83 - OTHER PNEUMOTHORAX (3) HTN (hypertension) Code(s): I10 - ESSENTIAL (PRIMARY) HYPERTENSION Qualifiers: (4) Pneumonia Code(s): J18.9 - PNEUMONIA, UNSPECIFIED ORGANISM Qualifiers: Pneumonia type: due to unspecified organism Laterality: right Lung location: lower lobe of lung Qualified Code(s): J18.1 - Lobar pneumonia, unspecified organism (5) COPD exacerbation Code(s): J44.1 - CHRONIC OBSTRUCTIVE PULMONARY DISEASE W (ACUTE) EXACERBATION (6) [place] of lung Code(s): J43.9 - EMPHYSEMA, UNSPECIFIED plan will change to oral abx and monitor if patient zhong not show improvement will switch back to iv incentive rosaura rest as per the team
--- NOTE | 2018-04-18 17:13 | PN ---
Progress Note, Physician History of Present Illness: congested need home oxygen - Current Medication List Current Medications: Active Medications Acetaminophen (Tylenol -) 650 mg PO Q6H PRN PRN Reason: FEVER Last Admin: 04/13/18 14:20 Dose: 650 mg Amoxicillin/Clavulanate Potassium (Augmentin - 875mg Tablet) 1 tab PO BID@0800, 1730 [facility] Artificial Tears (Artificial Tears) 1 drop OD DAILY PRN PRN Reason: DRY EYES Aspirin (Ecotrin -) 81 mg PO DAILY [facility] Last Admin: 04/18/18 10:38 Dose: 81 mg Budesonide/Formoterol Fumarate (Symbicort 80/4.5mcg -) 2 puff IH BID [facility] Last Admin: 04/18/18 10:17 Dose: Not Given Docusate Sodium (Colace -) 100 mg PO BID [facility] Last Admin: 04/18/18 10:38 Dose: 100 mg Dutasteride (Avodart -) 0.5 mg PO DAILY [facility] Last Admin: 04/18/18 10:39 Dose: 0.5 mg Heparin Sodium (Porcine) (Heparin -) 5,000 unit SQ BID [facility] Last Admin: 04/18/18 10:39 Dose: 5,000 unit Methylprednisolone Sodium Succinate (Solu-Medrol -) 40 mg IVPUSH Q6H-IV [facility] Last Admin: 04/18/18 12:42 Dose: 40 mg Pancrelipase (Creon Dr 36,000 Units Capsule) 1 cap PO TIDCM [facility] Last Admin: 04/18/18 12:41 Dose: 1 cap Ranitidine HCl (Zantac -) 150 mg PO BID [facility] Last Admin: 04/18/18 10:38 Dose: 150 mg Senna (Senna -) 1 tab PO HS [facility] Last Admin: 04/17/18 21:20 Dose: 1 tab Tamsulosin HCl (Flomax -) 0.4 mg PO DAILY [facility] Last Admin: 04/18/18 10:38 Dose: 0.4 mg Ursodiol (Actigal -) 300 mg PO BID [facility] Last Admin: 04/18/18 10:38 Dose: 300 mg - Objective Vital Signs: Vital Signs Temperature 98.0 F 04/18/18 15:00 Pulse Rate 117 H 04/18/18 15:00 Respiratory Rate 22 H 04/18/18 15:00 Blood Pressure 130/59 L 04/18/18 15:00 O2 Sat by Pulse Oximetry (%) 93 L 04/18/18 09:00 Constitutional: Yes: No Distress HENT: Yes: WNL Neck: Yes: Supple Cardiovascular: Yes: Regular Rate and Rhythm Respiratory: Yes: Rhonchi Gastrointestinal: Yes: Normal Bowel Sounds Extremities: Yes: WNL Edema: No Peripheral Pulses WNL: Yes Neurological: Yes: Alert, Oriented Labs: CBC, BMP 04/17/18 05:30 04/17/18 05:30 Problem List - Problems (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
[2018-04-18] MEDS: AMOX TR/POT CLAV 875MG/125MG TABLETS (FP) PO SCH (17:30)
[2018-04-18] MEDS: SENNOSIDES 8.6MG TABLET (FP) PO SCH (23:03)
[2018-04-19] MEDS: methylPREDNISolone NA SUCC 40 MG/1 ML VIAL IVPUSH SCH ×4 (04:00→21:32)
[2018-04-19 06:31] LABS: BASO % 0.1 % (0-2.0); HEMATOCRIT 35.8 % (35.4-49); HEMOGLOBIN 12.1 GM/dL (11.7-16.9); LYMPH % 5.3 % (8-40); MCH 30.8 pg (25.7-33.7); MCHC 33.7 g/dl (32.0-35.9); MEAN CELL VOLUME 91.3 fl (80-96); MEAN PLT VOLUME 8.6 fl (7.5-11.1); MONO % 3.9 % (3.8-10.2); NEUT % 90.7 % (42.8-82.8); PLATELET COUNT 232 K/MM3 (134-434); RBC 3.92 M/mm3 (4.00-5.60); RDW 17.3 % (11.9-15.9)
[2018-04-19 07:02] LABS: ALBUMIN 2.5 g/dl (3.4-5.0); ALK PHOS 93 U/L (45-117); ANION GAP 6 MMOL/L (8-16); BILIRUBIN,TOTAL 0.5 mg/dL (0.2-1); BLOOD UREA NITROGEN 16 mg/dL (7-18); CALCIUM 8.5 mg/dL (8.5-10.1); CHLORIDE 99 mmol/L (98-107); CO2 33 mmol/L (21-32); CREATININE 0.5 mg/dL (0.55-1.3); GLUCOSE,RANDOM 126 mg/dL (74-106); POTASSIUM 4.1 mmol/L (3.5-5.1); SGOT/AST 47 U/L (15-37); SGPT/ALT 114 U/L (13-61); SODIUM 138 mmol/L (136-145); TOT PROT 6.2 g/dl (6.4-8.2)
[2018-04-19] MEDS ORDERED: PT OWN MED DRAWER 7, Y5N ONE ×3 (08:16→12:08)
[2018-04-19] MEDS: AMOX TR/POT CLAV 875MG/125MG TABLETS (FP) PO SCH ×2 (08:20→17:55)
[2018-04-19] MEDS: LIPASE/PROTEASE/AMYLASE 36,000 UNIT CAPSULE PO SCH ×3 (08:22→17:55)
[2018-04-19] MEDS: RANITIDINE HCL 150 MG TABLET (FP) PO SCH ×2 (09:08→21:31)
[2018-04-19] MEDS: URSODIOL 300 MG CAPSULE PO SCH ×2 (09:08→21:31)
[2018-04-19] MEDS: DOCUSATE SODIUM 100 MG CAPSULE (FP) PO SCH ×2 (09:08→21:31)
[2018-04-19] MEDS: HEPARIN NA (PORCINE) 5,000 UNITS/ML 1ML VIAL SQ SCH (09:08)
[2018-04-19] MEDS: ASPIRIN COATED 81 MG TABLET.EC PO SCH (09:08)
[2018-04-19] MEDS: TAMSULOSIN HCL 0.4 MG CAP PO SCH (09:09)
[2018-04-19] MEDS: DUTASTERIDE 0.5 MG CAP (FP) PO SCH (09:09)
[2018-04-19] MEDS: BUDESONIDE/FORMETEROL FUMARATE 80/4.5 mcg INHALER IH SCH ×2 (10:00→22:38)
--- NOTE | 2018-04-19 11:55 | PN ---
Progress Note, Physician History of Present Illness: PULMONARY ALERT,LESS CONGESTED,+ COUGH,AFEBRILE. CHEST X-RAY - INFILTRATES,-PTX - Current Medication List Current Medications: Active Medications Acetaminophen (Tylenol -) 650 mg PO Q6H PRN PRN Reason: FEVER Last Admin: 04/13/18 14:20 Dose: 650 mg Amoxicillin/Clavulanate Potassium (Augmentin - 875mg Tablet) 1 tab PO BID@0800, 1730 [facility] Last Admin: 04/19/18 08:20 Dose: 1 tab Artificial Tears (Artificial Tears) 1 drop OD DAILY PRN PRN Reason: DRY EYES Aspirin (Ecotrin -) 81 mg PO DAILY [facility] Last Admin: 04/19/18 09:08 Dose: 81 mg Budesonide/Formoterol Fumarate (Symbicort 80/4.5mcg -) 2 puff IH BID [facility] Last Admin: 04/18/18 23:14 Dose: Not Given Docusate Sodium (Colace -) 100 mg PO BID [facility] Last Admin: 04/19/18 09:08 Dose: 100 mg Dutasteride (Avodart -) 0.5 mg PO DAILY [facility] Last Admin: 04/19/18 09:09 Dose: 0.5 mg Heparin Sodium (Porcine) (Heparin -) 5,000 unit SQ BID [facility] Last Admin: 04/19/18 09:08 Dose: 5,000 unit Methylprednisolone Sodium Succinate (Solu-Medrol -) 40 mg IVPUSH Q6H-IV [facility] Last Admin: 04/19/18 09:08 Dose: 40 mg Pancrelipase (Creon Dr 36,000 Units Capsule) 1 cap PO TIDCM [facility] Last Admin: 04/19/18 08:22 Dose: 1 cap Ranitidine HCl (Zantac -) 150 mg PO BID [facility] Last Admin: 04/19/18 09:08 Dose: 150 mg Senna (Senna -) 1 tab PO HS [facility] Last Admin: 04/18/18 23:03 Dose: 1 tab Tamsulosin HCl (Flomax -) 0.4 mg PO DAILY [facility] Last Admin: 04/19/18 09:09 Dose: 0.4 mg Ursodiol (Actigal -) 300 mg PO BID [facility] Last Admin: 04/19/18 09:08 Dose: 300 mg - Objective Vital Signs: Vital Signs Temperature 98 F 04/19/18 09:00 Pulse Rate 98 H 04/19/18 09:00 Respiratory Rate 22 H 04/19/18 09:00 Blood Pressure 132/77 04/19/18 09:00 O2 Sat by Pulse Oximetry (%) 98 04/19/18 09:00 Constitutional: Yes: Calm, Thin Eyes: Yes: WNL HENT: Yes: WNL Neck: Yes: WNL Cardiovascular: Yes: Regular Rate and Rhythm, S1, S2 Respiratory: Yes: Rhonchi (FEW SCATTERED RHONCHI) Gastrointestinal: Yes: Normal Bowel Sounds, Soft Extremities: Yes: WNL Edema: No Labs: CBC, BMP 04/19/18 05:30 04/19/18 05:30 - ....Imaging Chest X-ray: Report Reviewed, Image Reviewed Problem List - Problems (1) Acute hypoxemic respiratory failure Code(s): J96.01 - ACUTE RESPIRATORY FAILURE WITH HYPOXIA (2) Pneumothorax, acute Code(s): J93.83 - OTHER PNEUMOTHORAX (3) HTN (hypertension) Code(s): I10 - ESSENTIAL (PRIMARY) HYPERTENSION Qualifiers: (4) Pneumonia Code(s): J18.9 - PNEUMONIA, UNSPECIFIED ORGANISM Qualifiers: Pneumonia type: due to unspecified organism Laterality: right Lung location: lower lobe of lung Qualified Code(s): J18.1 - Lobar pneumonia, unspecified organism (5) COPD exacerbation Code(s): J44.1 - CHRONIC OBSTRUCTIVE PULMONARY DISEASE W (ACUTE) EXACERBATION (6) [place] of lung Code(s): J43.9 - EMPHYSEMA, UNSPECIFIED Assessment/Plan IMP ACUTE HYPOXEMIC RESPIRATORY FAILURE IMPROVING LARGE SECONDARY SPONTANEOUS PTX R LUNG S/P CHEST TUBE COPD ADVANCED PNEUMONIA HTN BPH H/O GIB PLAN IV STEROIDS INHALED BRONCHODILATORS ABX SUPPLEMENTAL O2 COUGH MEDS DR FERRO Problem List - Problems (1) Acute hypoxemic respiratory failure Code(s): J96.01 - ACUTE RESPIRATORY FAILURE WITH HYPOXIA (2) Pneumothorax, acute Code(s): J93.83 - OTHER PNEUMOTHORAX (3) HTN (hypertension) Code(s): I10 - ESSENTIAL (PRIMARY) HYPERTENSION Qualifiers: (4) Pneumonia Code(s): J18.9 - PNEUMONIA, UNSPECIFIED ORGANISM Qualifiers: Pneumonia type: due to unspecified organism Laterality: right Lung location: lower lobe of lung Qualified Code(s): J18.1 - Lobar pneumonia, unspecified organism (5) COPD exacerbation Code(s): J44.1 - CHRONIC OBSTRUCTIVE PULMONARY DISEASE W (ACUTE) EXACERBATION (6) Bull[place] of lung Code(s): J43.9 - EMPHYSEMA, UNSPECIFIED
[2018-04-19] MEDS: guaiFENesin/CODEINE 5 ML UNIT-DOSE CUPS PO PRN ×2 (12:09→21:32)
--- NOTE | 2018-04-19 13:57 | PN ---
Progress Note, Physician History of Present Illness: coughing thin secretions now calm,sleeping - Current Medication List Current Medications: Active Medications Acetaminophen (Tylenol -) 650 mg PO Q6H PRN PRN Reason: FEVER Last Admin: 04/13/18 14:20 Dose: 650 mg Amoxicillin/Clavulanate Potassium (Augmentin - 875mg Tablet) 1 tab PO BID@0800, 1730 [facility] Last Admin: 04/19/18 08:20 Dose: 1 tab Artificial Tears (Artificial Tears) 1 drop OD DAILY PRN PRN Reason: DRY EYES Aspirin (Ecotrin -) 81 mg PO DAILY [facility] Last Admin: 04/19/18 09:08 Dose: 81 mg Budesonide/Formoterol Fumarate (Symbicort 80/4.5mcg -) 2 puff IH BID [facility] Last Admin: 04/18/18 23:14 Dose: Not Given Docusate Sodium (Colace -) 100 mg PO BID [facility] Last Admin: 04/19/18 09:08 Dose: 100 mg Dutasteride (Avodart -) 0.5 mg PO DAILY [facility] Last Admin: 04/19/18 09:09 Dose: 0.5 mg Guaifenesin/Codeine Phosphate (Robitussin Ac -) 5 ml PO TID PRN PRN Reason: COUGH Last Admin: 04/19/18 12:09 Dose: 5 ml Heparin Sodium (Porcine) (Heparin -) 5,000 unit SQ BID [facility] Last Admin: 04/19/18 09:08 Dose: 5,000 unit Methylprednisolone Sodium Succinate (Solu-Medrol -) 40 mg IVPUSH Q6H-IV [facility] Last Admin: 04/19/18 09:08 Dose: 40 mg Pancrelipase (Creon Dr 36,000 Units Capsule) 1 cap PO TIDCM [facility] Last Admin: 04/19/18 12:10 Dose: 1 cap Ranitidine HCl (Zantac -) 150 mg PO BID [facility] Last Admin: 04/19/18 09:08 Dose: 150 mg Senna (Senna -) 1 tab PO HS [facility] Last Admin: 04/18/18 23:03 Dose: 1 tab Tamsulosin HCl (Flomax -) 0.4 mg PO DAILY [facility] Last Admin: 04/19/18 09:09 Dose: 0.4 mg Ursodiol (Actigal -) 300 mg PO BID [facility] Last Admin: 04/19/18 09:08 Dose: 300 mg - Objective Vital Signs: Vital Signs Temperature 98 F 04/19/18 09:00 Pulse Rate 98 H 04/19/18 09:00 Respiratory Rate 22 H 04/19/18 09:00 Blood Pressure 132/77 04/19/18 09:00 O2 Sat by Pulse Oximetry (%) 98 04/19/18 09:00 Constitutional: Yes: Calm, Thin, Other (failure to thrive) Cardiovascular: Yes: Regular Rate and Rhythm Respiratory: Yes: On Nasal O2, Poor Air Entry, Rhonchi Gastrointestinal: Yes: Normal Bowel Sounds, Soft Musculoskeletal: Yes: WNL Extremities: Yes: WNL Neurological: Yes: Alert, Oriented Psychiatric: Yes: Alert, Oriented Labs: CBC, BMP 04/19/18 05:30 04/19/18 05:30 - ....Imaging Chest X-ray: Report Reviewed, Image Reviewed Assessment/Plan Problem List - Problems (1) Acute hypoxemic respiratory failure Code(s): J96.01 - ACUTE RESPIRATORY FAILURE WITH HYPOXIA (2) Pneumothorax, acute Code(s): J93.83 - OTHER PNEUMOTHORAX (3) HTN (hypertension) Code(s): I10 - ESSENTIAL (PRIMARY) HYPERTENSION Qualifiers: (4) Pneumonia Code(s): J18.9 - PNEUMONIA, UNSPECIFIED ORGANISM Qualifiers: Pneumonia type: due to unspecified organism Laterality: right Lung location: lower lobe of lung Qualified Code(s): J18.1 - Lobar pneumonia, unspecified organism (5) COPD exacerbation Code(s): J44.1 - CHRONIC OBSTRUCTIVE PULMONARY DISEASE W (ACUTE) EXACERBATION (6) [place] of lung Code(s): J43.9 - EMPHYSEMA, UNSPECIFIED plan continue abx incentive rosaura nutrition rest as per the team
--- NOTE | 2018-04-19 14:15 | PN ---
Progress Note, Physician - Current Medication List Current Medications: Active Medications Acetaminophen (Tylenol -) 650 mg PO Q6H PRN PRN Reason: FEVER Last Admin: 04/13/18 14:20 Dose: 650 mg Amoxicillin/Clavulanate Potassium (Augmentin - 875mg Tablet) 1 tab PO BID@0800, 1730 [facility] Last Admin: 04/19/18 08:20 Dose: 1 tab Artificial Tears (Artificial Tears) 1 drop OD DAILY PRN PRN Reason: DRY EYES Aspirin (Ecotrin -) 81 mg PO DAILY [facility] Last Admin: 04/19/18 09:08 Dose: 81 mg Budesonide/Formoterol Fumarate (Symbicort 80/4.5mcg -) 2 puff IH BID [facility] Last Admin: 04/18/18 23:14 Dose: Not Given Docusate Sodium (Colace -) 100 mg PO BID [facility] Last Admin: 04/19/18 09:08 Dose: 100 mg Dutasteride (Avodart -) 0.5 mg PO DAILY [facility] Last Admin: 04/19/18 09:09 Dose: 0.5 mg Guaifenesin/Codeine Phosphate (Robitussin Ac -) 5 ml PO TID PRN PRN Reason: COUGH Last Admin: 04/19/18 12:09 Dose: 5 ml Heparin Sodium (Porcine) (Heparin -) 5,000 unit SQ BID [facility] Last Admin: 04/19/18 09:08 Dose: 5,000 unit Methylprednisolone Sodium Succinate (Solu-Medrol -) 40 mg IVPUSH Q6H-IV [facility] Last Admin: 04/19/18 09:08 Dose: 40 mg Pancrelipase (Creon Dr 36,000 Units Capsule) 1 cap PO TIDCM [facility] Last Admin: 04/19/18 12:10 Dose: 1 cap Ranitidine HCl (Zantac -) 150 mg PO BID [facility] Last Admin: 04/19/18 09:08 Dose: 150 mg Senna (Senna -) 1 tab PO HS [facility] Last Admin: 04/18/18 23:03 Dose: 1 tab Tamsulosin HCl (Flomax -) 0.4 mg PO DAILY [facility] Last Admin: 04/19/18 09:09 Dose: 0.4 mg Ursodiol (Actigal -) 300 mg PO BID [facility] Last Admin: 04/19/18 09:08 Dose: 300 mg - Objective Vital Signs: Vital Signs Temperature 98 F 04/19/18 09:00 Pulse Rate 98 H 04/19/18 09:00 Respiratory Rate 22 H 04/19/18 09:00 Blood Pressure 132/77 04/19/18 09:00 O2 Sat by Pulse Oximetry (%) 98 04/19/18 09:00 Constitutional: Yes: No Distress HENT: Yes: Atraumatic Neck: Yes: Supple Cardiovascular: Yes: Regular Rate and Rhythm Respiratory: Yes: Rhonchi, Wheezes Gastrointestinal: Yes: Normal Bowel Sounds Extremities: Yes: WNL Labs: CBC, BMP 04/19/18 05:30 04/19/18 05:30 Problem List - Problems (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
[2018-04-19] MEDS: SENNOSIDES 8.6MG TABLET (FP) PO SCH (21:31)
[2018-04-20] MEDS: LIPASE/PROTEASE/AMYLASE 36,000 UNIT CAPSULE PO SCH ×3 (08:30→17:46)
[2018-04-20] MEDS: ASPIRIN COATED 81 MG TABLET.EC PO SCH (09:16)
[2018-04-20] MEDS: DOCUSATE SODIUM 100 MG CAPSULE (FP) PO SCH (09:16)
[2018-04-20] MEDS: RANITIDINE HCL 150 MG TABLET (FP) PO SCH (09:16)
[2018-04-20] MEDS: TAMSULOSIN HCL 0.4 MG CAP PO SCH (09:17)
[2018-04-20] MEDS: DUTASTERIDE 0.5 MG CAP (FP) PO SCH (09:17)
[2018-04-20] MEDS: URSODIOL 300 MG CAPSULE PO SCH (09:17)
[2018-04-20] MEDS: AMOX TR/POT CLAV 875MG/125MG TABLETS (FP) PO SCH ×2 (09:17→17:46)
[2018-04-20] MEDS: methylPREDNISolone NA SUCC 40 MG/1 ML VIAL IVPUSH SCH (09:18)
[2018-04-20] MEDS: BUDESONIDE/FORMETEROL FUMARATE 80/4.5 mcg INHALER IH SCH (10:08)
--- NOTE | 2018-04-20 11:35 | PN ---
Progress Note, Physician - Current Medication List Current Medications: Active Medications Acetaminophen (Tylenol -) 650 mg PO Q6H PRN PRN Reason: FEVER Last Admin: 04/13/18 14:20 Dose: 650 mg Amoxicillin/Clavulanate Potassium (Augmentin - 875mg Tablet) 1 tab PO BID@0800, 1730 [facility] Last Admin: 04/20/18 09:17 Dose: 1 tab Artificial Tears (Artificial Tears) 1 drop OD DAILY PRN PRN Reason: DRY EYES Aspirin (Ecotrin -) 81 mg PO DAILY [facility] Last Admin: 04/20/18 09:16 Dose: 81 mg Budesonide/Formoterol Fumarate (Symbicort 80/4.5mcg -) 2 puff IH BID [facility] Last Admin: 04/20/18 10:08 Dose: 2 puff Docusate Sodium (Colace -) 100 mg PO BID [facility] Last Admin: 04/20/18 09:16 Dose: 100 mg Dutasteride (Avodart -) 0.5 mg PO DAILY [facility] Last Admin: 04/20/18 09:17 Dose: 0.5 mg Guaifenesin/Codeine Phosphate (Robitussin Ac -) 5 ml PO TID PRN PRN Reason: COUGH Last Admin: 04/19/18 21:32 Dose: 5 ml Methylprednisolone Sodium Succinate (Solu-Medrol -) 40 mg IVPUSH BID [facility] Last Admin: 04/20/18 09:18 Dose: 40 mg Pancrelipase (Creon Dr 36,000 Units Capsule) 1 cap PO TIDCM [facility] Last Admin: 04/20/18 08:30 Dose: 1 cap Ranitidine HCl (Zantac -) 150 mg PO BID [facility] Last Admin: 04/20/18 09:16 Dose: 150 mg Senna (Senna -) 1 tab PO HS [facility] Last Admin: 04/19/18 21:31 Dose: 1 tab Tamsulosin HCl (Flomax -) 0.4 mg PO DAILY [facility] Last Admin: 04/20/18 09:17 Dose: 0.4 mg Ursodiol (Actigal -) 300 mg PO BID [facility] Last Admin: 04/20/18 09:17 Dose: 300 mg - Objective Vital Signs: Vital Signs Temperature 97.4 F L 04/20/18 10:00 Pulse Rate 106 H 04/20/18 10:00 Respiratory Rate 24 H 04/20/18 10:00 Blood Pressure 133/69 04/20/18 10:00 O2 Sat by Pulse Oximetry (%) 96 04/20/18 09:12 Labs: CBC, BMP 04/19/18 05:30 04/19/18 05:30
--- NOTE | 2018-04-20 11:46 | DS ---
Physical Examination Vital Signs: Vital Signs Temperature 97.4 F L 04/20/18 10:00 Pulse Rate 106 H 04/20/18 10:00 Respiratory Rate 24 H 04/20/18 10:00 Blood Pressure 133/69 04/20/18 10:00 O2 Sat by Pulse Oximetry (%) 96 04/20/18 09:12 Constitutional: Yes: No Distress HENT: Yes: Atraumatic Neck: Yes: Supple Cardiovascular: Yes: Regular Rate and Rhythm Respiratory: Yes: Rhonchi Gastrointestinal: Yes: Normal Bowel Sounds Extremities: Yes: WNL Edema: No Peripheral Pulses WNL: Yes Neurological: Yes: Alert, Oriented Labs: CBC, BMP 04/19/18 05:30 04/19/18 05:30 Discharge Summary Reason For Visit: PULMONARY EMPHYSEMA,PNEUMONIA Current Active Problems Acute hypoxemic respiratory failure (Acute) [place] of lung (Acute) COPD (chronic obstructive pulmonary disease) with emphysema (Acute) COPD exacerbation (Acute) Pneumothorax, acute (Acute) Condition: Guarded - Instructions Diet, Activity, Other Instructions: see pulmonary and pmd next week need home oxygen 2 litre nasal cannula keep o2 sats greater than 92 percent Referrals: Sony Francis MD [Staff Physician] - - Home Medications Comprehensive Discharge Medication List: Ambulatory Orders Ursodiol [Actigal -] 300 mg PO BID #60 capsule 07/26/17 Alendronate Sodium [Binosto] 1 tab PO WEEKLY 01/19/18 Amlodipine Besylate [Norvasc -] 1 tab PO DAILY 01/19/18 Dutasteride [Avodart] 1 cap PO DAILY 01/19/18 Ergocalciferol [Vitamin D2] 1 cap PO WEEKLY 01/19/18 Fluticasone/Salmeterol [Advair Hfa 230-21 Mcg Inhaler] 2 puff PO BID 01/19/18 Lipase/Protease/Amylase [Creon Dr 36,000 Units Capsule] 1 cap PO AC 01/19/18 Polyvinyl Alcohol [Artificial Tears] 1 drop OD PRN PRN 01/19/18 Ranitidine HCl [Zantac] 1 tab PO BID 01/19/18 Tamsulosin HCl [Flomax] 1 cap PO DAILY 01/19/18 Umeclidinium Brm/Vilanterol Tr [Anoro Ellipta 62.5-25 Mcg INH] 1 puff PO DAILY 01/19/18 Vitamin B Complex 1 tab PO DAILY 01/19/18 Acetaminophen [Tylenol] 650 mg PO Q6H PRN #30 capsule 01/22/18 Albuterol Sulfate Inhaler - [Ventolin HFA Inhaler -] 2 puff IH Q4H PRN inhaler 01/22/18 Docusate Sodium [Colace] 100 mg PO BID 14 Days capsule 01/22/18 Sennosides [Senna -] 1 tab PO HS tablet 01/22/18 oxyCODONE HCL [Roxicodone -] 5 mg PO Q6H tablet MDD 4 tab a day 01/22/18 Aspirin Coated [Ecotrin -] 81 mg PO DAILY #30 tablet.ec 01/24/18 Amoxicillin/Potassium Clav [Augmentin 875-125 Tablet] 1 each PO BID #10 tablet 04/17/18 Prednisone 10 mg PO ASDIR #30 tablet 04/18/18 [facility]
[2018-04-20] MEDS ORDERED: PT OWN MED DRAWER 7, Y5N ONE (12:06)
--- NOTE | 2018-04-20 12:49 | PN ---
Progress Note (short form) - Note Progress Note: PULMONARY Breathing improving. +cough with white/yellow sputum. No fevers or chills. Vital Signs Period Temp Pulse Resp BP Sys/Jones Pulse Ox Last 24 Hr 97.1 F-98.8 F 101-118 18-24 119-151/63-80 94-98 Gen: NAD at rest Heart: RRR Lung: distant breath sounds Abd: soft, nontender Ext: no edema CBC, BMP 04/19/18 05:30 04/19/18 05:30 Active Medications Acetaminophen (Tylenol -) 650 mg PO Q6H PRN PRN Reason: FEVER Last Admin: 04/13/18 14:20 Dose: 650 mg Amoxicillin/Clavulanate Potassium (Augmentin - 875mg Tablet) 1 tab PO BID@0800, 1730 [facility] Last Admin: 04/20/18 09:17 Dose: 1 tab Artificial Tears (Artificial Tears) 1 drop OD DAILY PRN PRN Reason: DRY EYES Aspirin (Ecotrin -) 81 mg PO DAILY [facility] Last Admin: 04/20/18 09:16 Dose: 81 mg Budesonide/Formoterol Fumarate (Symbicort 80/4.5mcg -) 2 puff IH BID [facility] Last Admin: 04/20/18 10:08 Dose: 2 puff Docusate Sodium (Colace -) 100 mg PO BID [facility] Last Admin: 04/20/18 09:16 Dose: 100 mg Dutasteride (Avodart -) 0.5 mg PO DAILY [facility] Last Admin: 04/20/18 09:17 Dose: 0.5 mg Guaifenesin/Codeine Phosphate (Robitussin Ac -) 5 ml PO TID PRN PRN Reason: COUGH Last Admin: 04/19/18 21:32 Dose: 5 ml Methylprednisolone Sodium Succinate (Solu-Medrol -) 40 mg IVPUSH BID [facility] Last Admin: 04/20/18 09:18 Dose: 40 mg Pancrelipase (Creon Dr 36,000 Units Capsule) 1 cap PO TIDCM [facility] Last Admin: 04/20/18 12:08 Dose: 1 cap Ranitidine HCl (Zantac -) 150 mg PO BID [facility] Last Admin: 04/20/18 09:16 Dose: 150 mg Senna (Senna -) 1 tab PO HS [facility] Last Admin: 04/19/18 21:31 Dose: 1 tab Tamsulosin HCl (Flomax -) 0.4 mg PO DAILY [facility] Last Admin: 04/20/18 09:17 Dose: 0.4 mg Ursodiol (Actigal -) 300 mg PO BID [facility] Last Admin: 04/20/18 09:17 Dose: 300 mg A/P Acute Hypoxic Respiratory Failure improving Acute COPD Exacerbation Right Spontaneous Pneumothorax resolved s/p chest tube Pneumonia HTN BPH - can change steroids to PO prednisone - inhaled bronchodialtors - O2 to keep SpO2 >90% - complete antibiotics - DVT prophylaxis
[2018-04-20] MEDS: guaiFENesin/CODEINE 5 ML UNIT-DOSE CUPS PO PRN (14:48)
[2018-04-20] MEDS: ACETAMINOPHEN 325 MG TABLET (FP) PO PRN (14:56)
[2018-04-20 19:59] VITALS: BP 119/60; PULSE 105; TEMP 98.2
== END 2018-04-20 18:01 | disposition home or self-care (01) | DRG 193 ==
LOC: JER 12:47 → JERBED 15:39 → J4W 17:32
PROVIDERS: ADMIT Internal Medicine; ATTEND Internal Medicine
PROC: 0W9930Z Drainage of Right Pleural Cavity with Drainage Device, Percutaneous Approach (ICD-10-PCS; principal; 2018-04-12)
DX: J18.9 Pneumonia, unspecified organism (principal); J96.01 Acute respiratory failure with hypoxia; E43 Unspecified severe protein-calorie malnutrition; J44.1 Chronic obstructive pulmonary disease with (acute) exacerbation; J93.12 Secondary spontaneous pneumothorax; Z68.1 Body mass index [BMI] 19.9 or less, adult; R62.7 Adult failure to thrive; N40.0 Benign prostatic hyperplasia without lower urinary tract symptoms; G47.00 Insomnia, unspecified; F41.9 Anxiety disorder, unspecified; I10 Essential (primary) hypertension; Z87.891 Personal history of nicotine dependence
CPT/HCPCS: 36415; 71045-TC-FY; 71250-TC; 80048; 80053; 82803; 84484; 85025; 87804; 93005; 93010; 94640; 94761; 99285-25; J1644

== ENCOUNTER 2022-12-14 18:28 | Inpatient (IN) | payer OTHER ==
[2022-12-14 19:55] LABS: HEMOGLOBIN 14.2 GM/dL (11.7-16.9); MCHC 33.7 g/dl (32.0-35.9); MEAN CELL VOLUME 91.8 fl (80-96); MEAN PLT VOLUME 7.3 fl (7.5-11.1); PLATELET COUNT 271 10^3/uL (134-434); RBC 4.58 M/mm3 (4.00-5.60); RDW 15.5 % (11.9-15.9); WHITE BLOOD COUNT 20.5 K/mm3 (4.0-10.0)
[2022-12-14 20:05] LABS: INR 0.95 (0.83-1.09)
[2022-12-14 20:07] LABS: POTASSIUM 4.2 mmol/L (3.5-5.1)
[2022-12-14 20:08] LABS: ACTIVATED PTT 32.4 SECONDS (25.2-36.5)
[2022-12-14 20:10] LABS: ALBUMIN 3.8 g/dl (3.4-5.0); BLOOD UREA NITROGEN 20.3 mg/dL (7-18); CALCIUM 8.7 mg/dL (8.5-10.1)
[2022-12-14 20:11] LABS: MAGNESIUM 2.3 mg/dL (1.8-2.4)
[2022-12-14 20:13] LABS: CREATININE 0.7 mg/dL (0.55-1.3)
[2022-12-14 20:15] LABS: BILIRUBIN,TOTAL 1.9 mg/dL (0.2-1); TOT PROT 7.2 g/dl (6.4-8.2)
[2022-12-14 20:18] LABS: N-TERMINAL BNP 548.4 pg/ml (5-450)
[2022-12-14] MEDS ORDERED: ACETAMINOPHEN 500 MG TABLET (FP) PO ONE (20:18)
[2022-12-14] MEDS ORDERED: SODIUM CHLORIDE 0.9% 500 ML INFUS.BAG IV ONE (20:34)
[2022-12-14] MEDS ORDERED: ACETAMINOPHEN 1000 MG/100 ML BAG IVPB ONE (20:34)
[2022-12-14] MEDS ORDERED: morphine SULFATE 4 MG/ML VIAL IVPUSH ONE (20:37)
[2022-12-14] MEDS ORDERED: ACETAMINOPHEN INJECTION 100 ML IVPB ONE (20:51)
[2022-12-14 21:21] LABS: ANISOCYTOSIS 0; MACROCYTOSIS 0
[2022-12-14 23:46] LABS: EPI CELLS 7 /uL (0-25.1); HYALINE CASTS 1 /uL (0-3.1); PH,URINE 5.5 (5.0-8.0); URINE APPEARANCE CLEAR; URINE BACTERIA 3 /uL (0-1359); URINE BILIRUBIN 1+ (NEGATIVE); URINE COLOR DK YELLOW; URINE GLUCOSE (UA) NEGATIVE (NEGATIVE); URINE KETONE 2+ (NEGATIVE); URINE LEUK ESTERASE NEGATIVE (NEGATIVE); URINE NITRITE NEGATIVE (NEGATIVE); URINE PROTEIN 1+ (NEGATIVE); URINE RBC 35 /uL (0-23.9); URINE WBC 7 /uL (0-25.8)
[2022-12-15] MEDS ORDERED: CEFTRIAXONE 1 GM in DEXTROSE 5%-WATER - 50 ML IVPB SCH (06:20)
[2022-12-15] MEDS ORDERED: CEFTRIAXONE 1 GM/50 ML BAG ONE (06:46)
[2022-12-15 08:26] LABS: BASO % 0.1 % (0-2.0); HEMATOCRIT 37.6 % (35.4-49); HEMOGLOBIN 12.2 GM/dL (11.7-16.9); LYMPH % 5.2 % (8-40); MCH 30.4 pg (25.7-33.7); MCHC 32.3 g/dl (32.0-35.9); MEAN CELL VOLUME 93.9 fl (80-96); MEAN PLT VOLUME 7.3 fl (7.5-11.1); MONO % 7.6 % (3.8-10.2); NEUT % 87.1 % (42.8-82.8); PLATELET COUNT 238 10^3/uL (134-434); RDW 15.4 % (11.9-15.9); WHITE BLOOD COUNT 17.2 K/mm3 (4.0-10.0)
[2022-12-15 08:35] LABS: POTASSIUM 4.1 mmol/L (3.5-5.1)
[2022-12-15 08:46] LABS: BILIRUBIN,TOTAL 0.9 mg/dL (0.2-1); TOT PROT 6.2 g/dl (6.4-8.2)
[2022-12-15 08:48] LABS: BLOOD UREA NITROGEN 18.6 mg/dL (7-18); CALCIUM 7.8 mg/dL (8.5-10.1); PHOSPHOROUS 2.9 mg/dL (2.5-4.9)
[2022-12-15 08:49] LABS: ALBUMIN 3.1 g/dl (3.4-5.0); MAGNESIUM 2.3 mg/dL (1.8-2.4)
[2022-12-15 08:52] LABS: CREATININE 0.5 mg/dL (0.55-1.3)
[2022-12-15] MEDS ORDERED: ENOXAPARIN NA (PORCINE) 30 MG/0.3 ML DISP.SYRIN SQ SCH (10:00)
[2022-12-15] MEDS ORDERED: SODIUM CHLORIDE 250 ML IV STA (13:15)
[2022-12-15] MEDS ORDERED: SODIUM CHLORIDE 500 ML IV STA (13:17)
[2022-12-15] MEDS ORDERED: SODIUM CHLORIDE 1,000 ML IV SCH ×2 (13:30→17:14)
[2022-12-15] MEDS ORDERED: morphine CARPU-JECT 4 MG/1 ML DISP.SYRIN IVPUSH PRN (17:28)
[2022-12-15] MEDS ORDERED: ACETAMINOPHEN 325 MG TABLET (FP) PO PRN (17:28)
[2022-12-15] MEDS: DOCUSATE SODIUM 100 MG CAPSULE (FP) PO SCH (17:47)
[2022-12-15] MEDS: amLODIPine BESYLATE 5 MG TABLET (FP) PO SCH (17:47)
[2022-12-15] MEDS ORDERED: FLU VACCINE (FLULAVAL) PF 60 MCG/0.5 ML SYRINGE 2023-2024 IM ONE (18:30)
[2022-12-15] MEDS: FAMOTIDINE 20 MG TABLET PO SCH (18:33)
[2022-12-15 20:09] LABS: BASO % 0.2 % (0-2.0); HEMATOCRIT 34.6 % (35.4-49); HEMOGLOBIN 11.3 GM/dL (11.7-16.9); LYMPH % 1.8 % (8-40); MCH 30.7 pg (25.7-33.7); MCHC 32.7 g/dl (32.0-35.9); MEAN CELL VOLUME 93.9 fl (80-96); MEAN PLT VOLUME 7.9 fl (7.5-11.1); MONO % 5.8 % (3.8-10.2); NEUT % 92.2 % (42.8-82.8); PLATELET COUNT 232 10^3/uL (134-434); RBC 3.69 M/mm3 (4.00-5.60); RDW 15.9 % (11.9-15.9); WHITE BLOOD COUNT 15.8 K/mm3 (4.0-10.0)
[2022-12-15 20:51] LABS: ANISOCYTOSIS 1+; MACROCYTOSIS 0
[2022-12-16] MEDS: TAMSULOSIN HCL 0.4 MG CAP PO SCH (08:34)
[2022-12-16 08:57] LABS: BASO % 0.2 % (0-2.0); HEMATOCRIT 31.7 % (35.4-49); HEMOGLOBIN 10.7 GM/dL (11.7-16.9); LYMPH % 3.4 % (8-40); MCH 31.7 pg (25.7-33.7); MCHC 33.7 g/dl (32.0-35.9); MEAN PLT VOLUME 7.4 fl (7.5-11.1); MONO % 7.3 % (3.8-10.2); NEUT % 89.1 % (42.8-82.8); PLATELET COUNT 221 10^3/uL (134-434); RBC 3.37 M/mm3 (4.00-5.60); RDW 15.8 % (11.9-15.9); WHITE BLOOD COUNT 10.7 K/mm3 (4.0-10.0)
[2022-12-16] MEDS: amLODIPine BESYLATE 5 MG TABLET (FP) PO SCH (09:16)
[2022-12-16] MEDS: FAMOTIDINE 20 MG TABLET PO SCH (09:16)
[2022-12-16] MEDS: DOCUSATE SODIUM 100 MG CAPSULE (FP) PO SCH (09:17)
[2022-12-16 09:21] LABS: POTASSIUM 3.4 mmol/L (3.5-5.1)
[2022-12-16 09:22] LABS: CALCIUM 7.4 mg/dL (8.5-10.1)
[2022-12-16 09:23] LABS: BLOOD UREA NITROGEN 15.6 mg/dL (7-18)
[2022-12-16 09:26] LABS: CREATININE 0.5 mg/dL (0.55-1.3)
[2022-12-16] MEDS ORDERED: CEFTRIAXONE 1 GM in DEXTROSE 5%-WATER - 50 ML IVPB SCH (10:00)
[2022-12-16] MEDS: ENOXAPARIN NA (PORCINE) 30 MG/0.3 ML DISP.SYRIN SQ SCH (10:28)
[2022-12-16] MEDS ORDERED: POTASSIUM CHLORIDE TABS 20 MEQ TABLET.ER (FP) PO ONE (15:00)
[2022-12-16] MEDS: UMECLIDINIUM/VILANTEROL (ANORO) 62.5/25 MCG INHALER IH SCH (18:36)
[2022-12-17] MEDS: TAMSULOSIN HCL 0.4 MG CAP PO SCH (08:50)
[2022-12-17 09:43] LABS: HEMATOCRIT 34.7 % (35.4-49); HEMOGLOBIN 11.7 GM/dL (11.7-16.9); MCH 31.4 pg (25.7-33.7); MCHC 33.6 g/dl (32.0-35.9); MEAN CELL VOLUME 93.4 fl (80-96); MEAN PLT VOLUME 7.4 fl (7.5-11.1); PLATELET COUNT 285 10^3/uL (134-434); RBC 3.71 M/mm3 (4.00-5.60); RDW 15.6 % (11.9-15.9); WHITE BLOOD COUNT 9.2 K/mm3 (4.0-10.0)
[2022-12-17] MEDS: DOCUSATE SODIUM 100 MG CAPSULE (FP) PO SCH (09:49)
[2022-12-17] MEDS: PANTOPRAZOLE 40 MG TABLET PO SCH (09:49)
[2022-12-17] MEDS: FAMOTIDINE 20 MG TABLET PO SCH (09:49)
[2022-12-17] MEDS: amLODIPine BESYLATE 5 MG TABLET (FP) PO SCH (09:50)
[2022-12-17] MEDS: ENOXAPARIN NA (PORCINE) 30 MG/0.3 ML DISP.SYRIN SQ SCH (09:50)
[2022-12-17] MEDS: UMECLIDINIUM/VILANTEROL (ANORO) 62.5/25 MCG INHALER IH SCH (09:52)
[2022-12-17 10:09] LABS: POTASSIUM 3.7 mmol/L (3.5-5.1)
[2022-12-17 10:14] LABS: BLOOD UREA NITROGEN 15.8 mg/dL (7-18)
[2022-12-17 10:15] LABS: ALBUMIN 2.7 g/dl (3.4-5.0); CALCIUM 8.1 mg/dL (8.5-10.1)
[2022-12-17 10:16] LABS: MAGNESIUM 2.2 mg/dL (1.8-2.4)
[2022-12-17 10:18] LABS: CREATININE 0.5 mg/dL (0.55-1.3); PHOSPHOROUS 1.5 mg/dL (2.5-4.9)
[2022-12-17 10:19] LABS: TOT PROT 5.5 g/dl (6.4-8.2)
[2022-12-17] MEDS ORDERED: ACETAMINOPHEN 500 MG TABLET (FP) PO PRN (10:44)
[2022-12-17] MEDS ORDERED: ACETAMINOPHEN 500 MG TABLET (FP) PO SCH ×2 (14:00)
[2022-12-17 14:26] VITALS: BMI 15.4
[2022-12-17] MEDS: ACETAMINOPHEN 325 MG TABLET (FP) PO SCH ×3 (14:37→21:39)
[2022-12-17] MEDS: AMINO ACIDS/PROTEIN HYDROLYS 30 ML LIQUID.PKT PO SCH (17:20)
[2022-12-17] MEDS ORDERED: NAPH,MB-DB/K PH,MBDB POWDER PACKET PO ONE (19:00)
[2022-12-17] MEDS: NAPROXEN 250 MG TABLET PO SCH (21:34)
[2022-12-18 04:46] VITALS: RESP 18
[2022-12-18] MEDS: ACETAMINOPHEN 325 MG TABLET (FP) PO SCH ×3 (06:15→22:44)
[2022-12-18] MEDS: TAMSULOSIN HCL 0.4 MG CAP PO SCH (08:44)
[2022-12-18] MEDS: AMINO ACIDS/PROTEIN HYDROLYS 30 ML LIQUID.PKT PO SCH ×2 (08:44→17:21)
[2022-12-18 09:23] LABS: HEMATOCRIT 33.2 % (35.4-49); HEMOGLOBIN 11.5 GM/dL (11.7-16.9); MCH 31.9 pg (25.7-33.7); MCHC 34.6 g/dl (32.0-35.9); MEAN CELL VOLUME 92.3 fl (80-96); MEAN PLT VOLUME 7.2 fl (7.5-11.1); PLATELET COUNT 277 10^3/uL (134-434); RBC 3.59 M/mm3 (4.00-5.60); RDW 15.1 % (11.9-15.9); WHITE BLOOD COUNT 8.9 K/mm3 (4.0-10.0)
[2022-12-18 09:55] LABS: POTASSIUM 3.4 mmol/L (3.5-5.1)
[2022-12-18 10:48] LABS: ALBUMIN 2.6 g/dl (3.4-5.0); CALCIUM 7.7 mg/dL (8.5-10.1)
[2022-12-18 10:49] LABS: BLOOD UREA NITROGEN 19.9 mg/dL (7-18); MAGNESIUM 2.1 mg/dL (1.8-2.4)
[2022-12-18] MEDS: ENOXAPARIN NA (PORCINE) 30 MG/0.3 ML DISP.SYRIN SQ SCH (10:49)
[2022-12-18] MEDS: DOCUSATE SODIUM 100 MG CAPSULE (FP) PO SCH (10:49)
[2022-12-18] MEDS: FAMOTIDINE 20 MG TABLET PO SCH (10:49)
[2022-12-18] MEDS: PANTOPRAZOLE 40 MG TABLET PO SCH (10:49)
[2022-12-18] MEDS: amLODIPine BESYLATE 5 MG TABLET (FP) PO SCH (10:49)
[2022-12-18] MEDS: THIAMINE HCL 200 MG/2 ML VIAL IVPB SCH ×2 (10:50→12:59)
[2022-12-18 10:51] LABS: CREATININE 0.4 mg/dL (0.55-1.3); PHOSPHOROUS 2.4 mg/dL (2.5-4.9)
[2022-12-18] MEDS: NAPROXEN 250 MG TABLET PO SCH ×2 (10:51→22:43)
[2022-12-18 10:53] LABS: TOT PROT 5.2 g/dl (6.4-8.2)
[2022-12-18] MEDS: UMECLIDINIUM/VILANTEROL (ANORO) 62.5/25 MCG INHALER IH SCH (10:55)
[2022-12-18] MEDS ORDERED: NAPH,MB-DB/K PH,MBDB POWDER PACKET PO ONE ×2 (12:00→14:00)
[2022-12-19 01:04] VITALS: BP 130/83; PULSE 93; TEMP 97.9
== END 2022-12-19 01:50 | DRG 535 ==
LOC: JER 18:28 → JERBED 21:46 → OBSVTOIN 12-15 06:13 → J6S 12-15 16:50
PROVIDERS: ADMIT Internal Medicine; ATTEND Internal Medicine
DX: S32.511A Fracture of superior rim of right pubis, initial encounter for closed fracture (principal); E43 Unspecified severe protein-calorie malnutrition; Z68.1 Body mass index [BMI] 19.9 or less, adult; R64 Cachexia; R55 Syncope and collapse; J44.9 Chronic obstructive pulmonary disease, unspecified; S32.592A Other specified fracture of left pubis, initial encounter for closed fracture; I10 Essential (primary) hypertension; N40.0 Benign prostatic hyperplasia without lower urinary tract symptoms; R00.0 Tachycardia, unspecified; K80.20 Calculus of gallbladder without cholecystitis without obstruction; R74.01 Elevation of levels of liver transaminase levels; G47.00 Insomnia, unspecified; D72.829 Elevated white blood cell count, unspecified; F41.9 Anxiety disorder, unspecified; W18.30XA Fall on same level, unspecified, initial encounter; Y92.098 Other place in other non-institutional residence as the place of occurrence of the external cause; Y99.8 Other external cause status
CPT/HCPCS: 36415; 70450-TC; 71045-TC-FY; 72125-TC; 72170-TC-FY; 73502-TC-RT-FY; 73552-TC-RT-FY; 74174-TC; 76705-TC; 80048; 80053; 80061; 81003; 82550; 83605; 83735; 83880; 84100; 84443; 84484; 85025; 85027; 85610; 85730; 86705; 86708; 86803; 86850; 86900; 86901; 87086; 87340; 87517; 87635; 90686; 93005; 93010; 93306-TC; 93880-TC; 97116-GP; 97162-GP; 99285-25; G0008; G0378

== ENCOUNTER 2022-12-27 16:17 | Inpatient (IN) | payer OTHER ==
[2022-12-27] MEDS ORDERED: MIDAZOLAM 100 MG in SODIUM CHLORIDE 100 ML IVPB SCH (16:30)
[2022-12-27] MEDS ORDERED: SODIUM CHLORIDE 0.9% 500 ML INFUS.BAG IV ONE (16:33)
[2022-12-27 16:41] LABS: ARTERIAL BLD GAS O2 SATURATION 29.8 % (95-98); ARTERIAL BLOOD GAS BASE EXCESS 0.9 mmol/L (-2-2); ARTERIAL BLOOD GAS pH 7.326 (7.350-7.450)
[2022-12-27] MEDS ORDERED: MIDAZOLAM IN 0.9 % SOD.CHLORID 1 MG/1 ML PLAST..BAG ONE (16:41)
[2022-12-27 16:43] LABS: HEMATOCRIT 36.5 % (35.4-49); MCHC 32.9 g/dl (32.0-35.9); MEAN CELL VOLUME 94.1 fl (80-96); MEAN PLT VOLUME 7.7 fl (7.5-11.1); PLATELET COUNT 425 10^3/uL (134-434); RBC 3.88 M/mm3 (4.00-5.60); RDW 15.8 % (11.9-15.9); WHITE BLOOD COUNT 8.8 K/mm3 (4.0-10.0)
[2022-12-27 16:48] LABS: ARTERIAL BLOOD GAS PO2 20.7 mmHg (80-100)
[2022-12-27] MEDS ORDERED: MIDAZOLAM IN 0.9 % SOD.CHLORID 100 MG/100 ML PLAST..BAG IVPB SCH (17:04)
[2022-12-27 17:10] LABS: POTASSIUM 4.3 mmol/L (3.5-5.1)
[2022-12-27 17:12] LABS: CALCIUM 8.4 mg/dL (8.5-10.1)
[2022-12-27 17:13] LABS: ALBUMIN 2.5 g/dl (3.4-5.0); BLOOD UREA NITROGEN 26.1 mg/dL (7-18)
[2022-12-27 17:16] LABS: ANISOCYTOSIS 0; CREATININE 0.7 mg/dL (0.55-1.3); MACROCYTOSIS 0; PLATELET ESTIMATE NORMAL
[2022-12-27 17:17] LABS: BILIRUBIN,TOTAL 1.3 mg/dL (0.2-1)
[2022-12-27 17:18] LABS: TOT PROT 6.9 g/dl (6.4-8.2)
[2022-12-27 17:19] LABS: LACTIC ACID 4.1 mmol/L (0.4-2.0)
[2022-12-27 17:21] LABS: N-TERMINAL BNP 555.2 pg/ml (5-450)
[2022-12-27 17:29] LABS: ALLENS TEST POSITIVE; ARTERIAL BLD GAS O2 SATURATION 98.7 % (95-98); ARTERIAL BLOOD GAS BASE EXCESS 2.7 mmol/L (-2-2); ARTERIAL BLOOD GAS PO2 133.6 mmHg (80-100); ARTERIAL BLOOD GAS pH 7.417 (7.350-7.450)
[2022-12-27 17:30] LABS: VENT MODE A/C; VENT RATE 20
[2022-12-27] MEDS ORDERED: LACTATED RINGERS SOLUTION 1000 ML INFUS.BAG IV ONE (18:01)
[2022-12-27] MEDS ORDERED: CEFTRIAXONE 1 GM/50 ML BAG ONE (18:10)
[2022-12-27 18:12] LABS: PH,URINE 5.5 (5.0-8.0); URINE APPEARANCE CLEAR; URINE BILIRUBIN NEGATIVE (NEGATIVE); URINE COLOR YELLOW; URINE GLUCOSE (UA) NEGATIVE (NEGATIVE); URINE KETONE NEGATIVE (NEGATIVE); URINE LEUK ESTERASE NEGATIVE (NEGATIVE); URINE NITRITE NEGATIVE (NEGATIVE); URINE PROTEIN NEGATIVE (NEGATIVE)
[2022-12-27] MEDS ORDERED: ACETAMINOPHEN 1000 MG/100 ML BAG IVPB PRN (18:48)
[2022-12-27] MEDS ORDERED: PROPOFOL 1,000,000 MCG/100 ML VIAL ONE (19:23)
[2022-12-27] MEDS: PROPOFOL 1,000,000 MCG/100 ML VIAL IVPB SCH (20:13)
[2022-12-27] MEDS ORDERED: FENTANYL NS IVPB 500 MCG/100 ML BAG IVPB ONE (20:26)
[2022-12-27] MEDS ORDERED: VANCOMYCIN/WATER FOR INJ (PEG) 1 GM/200 ML BAG IVPB ONE (20:51)
[2022-12-27] MEDS: FENTANYL NS IVPB 500 MCG/100 ML BAG IVPB SCH (21:00)
[2022-12-27] MEDS ORDERED: LACTATED RINGERS SOLUTION 1,000 ML/1,000 ML INFUS.BAG IV SCH (21:00)
[2022-12-27] MEDS: AZITHROMYCIN IVPB 500 MG/250 ML BAG IVPB SCH (21:44)
[2022-12-27] MEDS ORDERED: NOREPINEPHRINE BITARTRATE 4 MG/4 ML ML IV ONE (21:58)
[2022-12-27 22:22] LABS: MAGNESIUM 1.9 mg/dL (1.8-2.4)
[2022-12-27] MEDS ORDERED: NOREPINEPHRINE BITARTRATE 4,000 MCG in DEXTROSE 5%-WATER - 496 ML IV SCH (22:30)
[2022-12-27 22:50] LABS: LACTIC ACID 3.4 mmol/L (0.4-2.0)
[2022-12-27] MEDS: LACTATED RINGERS SOLUTION 1,000 ML/1,000 ML INFUS.BAG IV SCH (23:11)
[2022-12-27] MEDS: MUPIROCIN 2% TOPICAL OINTMENT FOR DECOLONIZATION NS SCH (23:13)
[2022-12-27] MEDS: CHLORHEXIDINE GLUCONATE 4% CLEANSER FOR DECOLONIZATION TP SCH (23:13)
[2022-12-28] MEDS: ALBUTEROL SO4 2.5/IPRATROPIUM 0.5 INH SOL 3 ML VIAL.NEB. NEB PRN ×3 (00:39→08:20)
[2022-12-28 06:14] LABS: HEMATOCRIT 28.2 % (35.4-49); MCH 30.2 pg (25.7-33.7); MCHC 31.8 g/dl (32.0-35.9); MEAN CELL VOLUME 95.2 fl (80-96); MEAN PLT VOLUME 7.9 fl (7.5-11.1); PLATELET COUNT 385 10^3/uL (134-434); RBC 2.96 M/mm3 (4.00-5.60); RDW 15.6 % (11.9-15.9); WHITE BLOOD COUNT 16.8 K/mm3 (4.0-10.0)
[2022-12-28 06:33] LABS: CHLORIDE 103 mmol/L (98-107); POTASSIUM 3.4 mmol/L (3.5-5.1); SODIUM 139 mmol/L (136-145)
[2022-12-28 06:36] LABS: ANION GAP 9 mmol/L (4-13); CO2 27 mmol/L (21-32); GLUCOSE,RANDOM 203 mg/dL (74-106)
[2022-12-28 06:38] LABS: MAGNESIUM 1.7 mg/dL (1.8-2.4); SGPT/ALT 15 U/L (13-61)
[2022-12-28 06:39] LABS: CREATININE 0.5 mg/dL (0.55-1.3); PHOSPHOROUS 3.3 mg/dL (2.5-4.9); SGOT/AST 21 U/L (15-37)
[2022-12-28 06:40] LABS: BILIRUBIN,TOTAL 0.6 mg/dL (0.2-1)
[2022-12-28] MEDS ORDERED: MAGNESIUM 1GM/D5W - 1 GM/100 ML IVPB IVPB ONE (07:00)
[2022-12-28 07:07] LABS: ALBUMIN 1.8 g/dl (3.4-5.0); ALK PHOS 86 U/L (45-117); CALCIUM 6.9 mg/dL (8.5-10.1)
[2022-12-28] MEDS ORDERED: KCL 20 MEQ PREMIX BAG 100 ML IVPB ONE (07:30)
[2022-12-28 09:04] LABS: ANISOCYTOSIS 2+; MACROCYTOSIS 0
[2022-12-28] MEDS ORDERED: CEFTRIAXONE 1 GM in DEXTROSE 5%-WATER - 50 ML IVPB SCH (10:00)
[2022-12-28] MEDS: ENOXAPARIN NA (PORCINE) 40 MG/0.4 ML DISP.SYRIN SQ SCH (10:13)
[2022-12-28] MEDS: AZITHROMYCIN IVPB 500 MG/250 ML BAG IVPB SCH (10:13)
[2022-12-28] MEDS: PANTOPRAZOLE SODIUM 40 MG VIAL IVPUSH SCH (10:13)
[2022-12-28] MEDS: ALBUTEROL SO4 2.5/IPRATROPIUM 0.5 INH SOL 3 ML VIAL.NEB. NEB SCH ×3 (12:47→20:51)
[2022-12-28] MEDS ORDERED: NOREPINEPHRINE BITARTRATE 16,000 MCG in SODIUM CHLORIDE 484 ML IV SCH (13:30)
[2022-12-28] MEDS: NOREPINEPHRINE 0.9 % NACL 8 MG/250 ML BAG IVPB SCH (13:40)
[2022-12-28] MEDS: TAMSULOSIN HCL 0.4 MG CAP PO SCH (13:40)
[2022-12-28] MEDS: DUTASTERIDE 0.5 MG CAP (FP) PO SCH (13:40)
[2022-12-28] MEDS: PIPERACILLIN/TAZOB 3.375 GM 3.375 GM in DEXTROSE 5%-WATER - 50 ML IVPB SCH ×2 (13:40→18:33)
[2022-12-28] MEDS: MUPIROCIN 2% TOPICAL OINTMENT FOR DECOLONIZATION NS SCH ×2 (13:40→21:25)
[2022-12-28] MEDS: PROPOFOL 1,000,000 MCG/100 ML VIAL IVPB SCH (20:00)
[2022-12-28] MEDS: FENTANYL NS IVPB 500 MCG/100 ML BAG IVPB SCH (21:21)
[2022-12-28] MEDS: LACTATED RINGERS SOLUTION 1,000 ML/1,000 ML INFUS.BAG IV SCH (21:23)
[2022-12-28] MEDS: CHLORHEXIDINE GLUCONATE 4% CLEANSER FOR DECOLONIZATION TP SCH (21:25)
[2022-12-28] MEDS: ARTIFICIAL TEARS (POLYVINYL ALCOHOL) OPTH DROPS OU SCH (22:08)
[2022-12-29] MEDS: PIPERACILLIN/TAZOB 3.375 GM 3.375 GM in DEXTROSE 5%-WATER - 50 ML IVPB SCH ×3 (01:09→18:17)
[2022-12-29] MEDS: FENTANYL NS IVPB 500 MCG/100 ML BAG IVPB SCH ×3 (01:13→21:22)
[2022-12-29] MEDS: ALBUTEROL SO4 2.5/IPRATROPIUM 0.5 INH SOL 3 ML VIAL.NEB. NEB SCH ×3 (07:40→19:53)
[2022-12-29] MEDS: TAMSULOSIN HCL 0.4 MG CAP PO SCH (08:16)
[2022-12-29 08:17] LABS: HEMATOCRIT 24.8 % (35.4-49); HEMOGLOBIN 7.9 GM/dL (11.7-16.9); MCH 30.1 pg (25.7-33.7); MCHC 31.9 g/dl (32.0-35.9); MEAN CELL VOLUME 94.4 fl (80-96); MEAN PLT VOLUME 7.8 fl (7.5-11.1); PLATELET COUNT 349 10^3/uL (134-434); RBC 2.62 M/mm3 (4.00-5.60); RDW 15.2 % (11.9-15.9); RETICULOCYTES 1.75 % (0.5-1.5); WHITE BLOOD COUNT 9.1 K/mm3 (4.0-10.0)
[2022-12-29] MEDS: LACTATED RINGERS SOLUTION 1,000 ML/1,000 ML INFUS.BAG IV SCH (08:27)
[2022-12-29 08:28] LABS: CHLORIDE 105 mmol/L (98-107); POTASSIUM 3.6 mmol/L (3.5-5.1); SODIUM 139 mmol/L (136-145)
[2022-12-29 08:34] LABS: SGOT/AST 21 U/L (15-37)
[2022-12-29 08:35] LABS: BILIRUBIN,TOTAL 0.4 mg/dL (0.2-1); PHOSPHOROUS 1.9 mg/dL (2.5-4.9)
[2022-12-29 08:36] LABS: ALK PHOS 69 U/L (45-117); BLOOD UREA NITROGEN 13.1 mg/dL (7-18); GLUCOSE,RANDOM 86 mg/dL (74-106); TOT PROT 4.4 g/dl (6.4-8.2)
[2022-12-29 08:37] LABS: ALBUMIN 1.5 g/dl (3.4-5.0)
[2022-12-29 08:39] LABS: ANION GAP 6 mmol/L (4-13); CO2 29 mmol/L (21-32); CREATININE 0.3 mg/dL (0.55-1.3); MAGNESIUM 2.1 mg/dL (1.8-2.4); SGPT/ALT 12 U/L (13-61)
[2022-12-29 08:47] LABS: IRON SERUM 24 ug/dL (50-175); TOTAL IRON BINDING CAPACITY 67 ug/dL (250-450)
[2022-12-29 08:51] LABS: CALCIUM 6.5 mg/dL (8.5-10.1)
[2022-12-29] MEDS: DUTASTERIDE 0.5 MG CAP (FP) PO SCH (10:38)
[2022-12-29] MEDS: NAPH,MB-DB/K PH,MBDB POWDER PACKET PO SCH ×2 (10:38→18:17)
[2022-12-29] MEDS: ARTIFICIAL TEARS (POLYVINYL ALCOHOL) OPTH DROPS OU SCH ×2 (10:38→21:24)
[2022-12-29] MEDS: MUPIROCIN 2% TOPICAL OINTMENT FOR DECOLONIZATION NS SCH ×2 (10:39→21:24)
[2022-12-29] MEDS: ENOXAPARIN NA (PORCINE) 40 MG/0.4 ML DISP.SYRIN SQ SCH (10:39)
[2022-12-29] MEDS: PANTOPRAZOLE SODIUM 40 MG VIAL IVPUSH SCH (10:39)
[2022-12-29] MEDS: NOREPINEPHRINE 0.9 % NACL 8 MG/250 ML BAG IVPB SCH (18:48)
[2022-12-29 19:13] LABS: EOS % 0.1 % (0-4.5); HEMATOCRIT 25.3 % (35.4-49); HEMOGLOBIN 8.4 GM/dL (11.7-16.9); LYMPH % 5.4 % (8-40); MCH 30.7 pg (25.7-33.7); MCHC 33.2 g/dl (32.0-35.9); MEAN CELL VOLUME 92.5 fl (80-96); MONO % 6.6 % (3.8-10.2); NEUT % 87.9 % (42.8-82.8); PLATELET COUNT 385 10^3/uL (134-434); RBC 2.73 M/mm3 (4.00-5.60); RDW 15.2 % (11.9-15.9); WHITE BLOOD COUNT 8.8 K/mm3 (4.0-10.0)
[2022-12-29] MEDS: PROPOFOL 1,000,000 MCG/100 ML VIAL IVPB SCH (19:48)
[2022-12-29] MEDS: CHLORHEXIDINE GLUCONATE 4% CLEANSER FOR DECOLONIZATION TP SCH (21:24)
[2022-12-30] MEDS: PIPERACILLIN/TAZOB 3.375 GM 3.375 GM in DEXTROSE 5%-WATER - 50 ML IVPB SCH ×3 (01:39→18:03)
[2022-12-30] MEDS: FENTANYL NS IVPB 500 MCG/100 ML BAG IVPB SCH ×3 (03:30→21:12)
[2022-12-30] MEDS: ALBUTEROL SO4 2.5/IPRATROPIUM 0.5 INH SOL 3 ML VIAL.NEB. NEB SCH ×3 (08:09→20:15)
[2022-12-30 08:41] LABS: HEMATOCRIT 23.6 % (35.4-49); HEMOGLOBIN 7.7 GM/dL (11.7-16.9); MCH 30.8 pg (25.7-33.7); MCHC 32.7 g/dl (32.0-35.9); MEAN CELL VOLUME 94.2 fl (80-96); MEAN PLT VOLUME 7.5 fl (7.5-11.1); PLATELET COUNT 381 10^3/uL (134-434); RBC 2.51 M/mm3 (4.00-5.60); RDW 15.6 % (11.9-15.9); WHITE BLOOD COUNT 8.4 K/mm3 (4.0-10.0)
[2022-12-30 08:54] LABS: CHLORIDE 104 mmol/L (98-107); POTASSIUM 3.3 mmol/L (3.5-5.1); SODIUM 137 mmol/L (136-145)
[2022-12-30] MEDS ORDERED: POTASSIUM CHLORIDE ORAL LIQUID 20 MEQ/15 ML PO ONE ×3 (09:04→09:15)
[2022-12-30 09:08] LABS: ALBUMIN 1.4 g/dl (3.4-5.0); ANION GAP 4 mmol/L (4-13); CO2 30 mmol/L (21-32); GLUCOSE,RANDOM 151 mg/dL (74-106)
[2022-12-30 09:14] LABS: CREATININE 0.4 mg/dL (0.55-1.3); SGOT/AST 22 U/L (15-37)
[2022-12-30 09:15] LABS: PHOSPHOROUS 2.8 mg/dL (2.5-4.9); SGPT/ALT 13 U/L (13-61)
[2022-12-30 09:16] LABS: BILIRUBIN,TOTAL 0.4 mg/dL (0.2-1); TOT PROT 4.1 g/dl (6.4-8.2)
[2022-12-30 09:17] LABS: ALK PHOS 75 U/L (45-117); CALCIUM 6.6 mg/dL (8.5-10.1)
[2022-12-30] MEDS: TAMSULOSIN HCL 0.4 MG CAP PO SCH ×2 (09:22→09:26)
[2022-12-30] MEDS: PANTOPRAZOLE SODIUM 40 MG VIAL IVPUSH SCH (09:22)
[2022-12-30] MEDS: DUTASTERIDE 0.5 MG CAP (FP) PO SCH ×2 (09:22→09:25)
[2022-12-30] MEDS: ENOXAPARIN NA (PORCINE) 40 MG/0.4 ML DISP.SYRIN SQ SCH (09:22)
[2022-12-30] MEDS: LACTATED RINGERS SOLUTION 1,000 ML/1,000 ML INFUS.BAG IV SCH (09:23)
[2022-12-30] MEDS: ARTIFICIAL TEARS (POLYVINYL ALCOHOL) OPTH DROPS OU SCH ×2 (09:26→21:14)
[2022-12-30] MEDS: MUPIROCIN 2% TOPICAL OINTMENT FOR DECOLONIZATION NS SCH ×2 (09:26→21:13)
[2022-12-30] MEDS ORDERED: IRON SUCROSE INJECTION 200 MG in SODIUM CHLORIDE 90 ML IVPB ONE (11:30)
[2022-12-30] MEDS: METOPROLOL TARTRATE 25 MG TABLET (FP) PO SCH ×2 (12:14→21:12)
[2022-12-30] MEDS: methylPREDNISolone NA SUCC 40 MG/1 ML VIAL IVPUSH SCH (12:14)
[2022-12-30] MEDS ORDERED: NAPH,MB-DB/K PH,MBDB POWDER PACKET GT ONE (13:18)
[2022-12-30] MEDS: AZITHROMYCIN IVPB 500 MG/250 ML BAG IVPB SCH (14:24)
[2022-12-30] MEDS: NOREPINEPHRINE 0.9 % NACL 8 MG/250 ML BAG IVPB SCH (14:25)
[2022-12-30] MEDS: PROPOFOL 1,000,000 MCG/100 ML VIAL IVPB SCH ×3 (18:02→22:00)
[2022-12-30] MEDS: CHLORHEXIDINE GLUCONATE 4% CLEANSER FOR DECOLONIZATION TP SCH (21:12)
[2022-12-31] MEDS: PIPERACILLIN/TAZOB 3.375 GM 3.375 GM in DEXTROSE 5%-WATER - 50 ML IVPB SCH ×3 (01:21→17:22)
[2022-12-31] MEDS: LACTATED RINGERS SOLUTION 1,000 ML/1,000 ML INFUS.BAG IV SCH ×2 (04:00→10:38)
[2022-12-31] MEDS: PROPOFOL 1,000,000 MCG/100 ML VIAL IVPB SCH ×2 (05:00→17:54)
[2022-12-31] MEDS: FENTANYL NS IVPB 500 MCG/100 ML BAG IVPB SCH ×2 (05:57→21:23)
[2022-12-31 07:34] LABS: HEMATOCRIT 23.8 % (35.4-49); HEMOGLOBIN 7.9 GM/dL (11.7-16.9); MCH 31.3 pg (25.7-33.7); MCHC 33.1 g/dl (32.0-35.9); MEAN CELL VOLUME 94.6 fl (80-96); MEAN PLT VOLUME 7.6 fl (7.5-11.1); PLATELET COUNT 328 10^3/uL (134-434); RBC 2.52 M/mm3 (4.00-5.60); RDW 15.1 % (11.9-15.9); WHITE BLOOD COUNT 9.7 K/mm3 (4.0-10.0)
[2022-12-31] MEDS: ALBUTEROL SO4 2.5/IPRATROPIUM 0.5 INH SOL 3 ML VIAL.NEB. NEB SCH ×3 (08:00→20:27)
[2022-12-31 08:28] LABS: CHLORIDE 104 mmol/L (98-107); POTASSIUM 4.6 mmol/L (3.5-5.1); SODIUM 139 mmol/L (136-145)
[2022-12-31 08:41] LABS: ALBUMIN 1.4 g/dl (3.4-5.0); ANION GAP 6 mmol/L (4-13); BLOOD UREA NITROGEN 10.1 mg/dL (7-18); CO2 29 mmol/L (21-32); GLUCOSE,RANDOM 189 mg/dL (74-106)
[2022-12-31 08:43] LABS: SGPT/ALT 15 U/L (13-61)
[2022-12-31 08:44] LABS: CREATININE 0.4 mg/dL (0.55-1.3); PHOSPHOROUS 2.8 mg/dL (2.5-4.9); SGOT/AST 22 U/L (15-37)
[2022-12-31 08:45] LABS: BILIRUBIN,TOTAL 0.4 mg/dL (0.2-1); TOT PROT 4.2 g/dl (6.4-8.2)
[2022-12-31 08:46] LABS: ALK PHOS 78 U/L (45-117)
[2022-12-31 08:47] LABS: CALCIUM 6.7 mg/dL (8.5-10.1)
[2022-12-31] MEDS: DUTASTERIDE 0.5 MG CAP (FP) PO SCH (10:39)
[2022-12-31] MEDS: TAMSULOSIN HCL 0.4 MG CAP PO SCH (10:40)
[2022-12-31] MEDS: DEXMEDETOMIDINE PREMIX 400 MCG/100 ML BAG IVPB SCH (10:44)
[2022-12-31] MEDS: MUPIROCIN 2% TOPICAL OINTMENT FOR DECOLONIZATION NS SCH ×2 (10:44→21:25)
[2022-12-31] MEDS: ARTIFICIAL TEARS (POLYVINYL ALCOHOL) OPTH DROPS OU SCH ×2 (10:44→21:26)
[2022-12-31] MEDS: methylPREDNISolone NA SUCC 40 MG/1 ML VIAL IVPUSH SCH (10:45)
[2022-12-31] MEDS: ENOXAPARIN NA (PORCINE) 40 MG/0.4 ML DISP.SYRIN SQ SCH (10:45)
[2022-12-31] MEDS: METOPROLOL TARTRATE 25 MG TABLET (FP) PO SCH ×2 (10:45→21:24)
[2022-12-31] MEDS: PANTOPRAZOLE SODIUM 40 MG VIAL IVPUSH SCH (10:45)
[2022-12-31] MEDS: AZITHROMYCIN IVPB 500 MG/250 ML BAG IVPB SCH (10:46)
[2022-12-31] MEDS: NOREPINEPHRINE 0.9 % NACL 8 MG/250 ML BAG IVPB SCH (14:47)
[2022-12-31] MEDS: CHLORHEXIDINE GLUCONATE 4% CLEANSER FOR DECOLONIZATION TP SCH (21:23)
[2023-01-01] MEDS: PROPOFOL 1,000,000 MCG/100 ML VIAL IVPB SCH ×3 (02:42→21:27)
[2023-01-01] MEDS: PIPERACILLIN/TAZOB 3.375 GM 3.375 GM in DEXTROSE 5%-WATER - 50 ML IVPB SCH ×3 (02:43→18:01)
[2023-01-01] MEDS: FENTANYL NS IVPB 500 MCG/100 ML BAG IVPB SCH ×3 (06:18→21:27)
[2023-01-01] MEDS: ALBUTEROL SO4 2.5/IPRATROPIUM 0.5 INH SOL 3 ML VIAL.NEB. NEB SCH ×3 (07:58→20:10)
[2023-01-01] MEDS: TAMSULOSIN HCL 0.4 MG CAP PO SCH (09:05)
[2023-01-01] MEDS: LACTATED RINGERS SOLUTION 1,000 ML/1,000 ML INFUS.BAG IV SCH ×2 (09:05)
[2023-01-01] MEDS: DUTASTERIDE 0.5 MG CAP (FP) PO SCH (09:13)
[2023-01-01] MEDS: AZITHROMYCIN IVPB 500 MG/250 ML BAG IVPB SCH (09:29)
[2023-01-01] MEDS: methylPREDNISolone NA SUCC 40 MG/1 ML VIAL IVPUSH SCH (09:29)
[2023-01-01] MEDS: METOPROLOL TARTRATE 25 MG TABLET (FP) PO SCH ×2 (09:29→21:27)
[2023-01-01] MEDS: ARTIFICIAL TEARS (POLYVINYL ALCOHOL) OPTH DROPS OU SCH ×2 (09:29→21:26)
[2023-01-01] MEDS: MUPIROCIN 2% TOPICAL OINTMENT FOR DECOLONIZATION NS SCH (09:29)
[2023-01-01] MEDS: DEXMEDETOMIDINE PREMIX 400 MCG/100 ML BAG IVPB SCH (09:29)
[2023-01-01] MEDS: PANTOPRAZOLE SODIUM 40 MG VIAL IVPUSH SCH (09:29)
[2023-01-01] MEDS: ENOXAPARIN NA (PORCINE) 40 MG/0.4 ML DISP.SYRIN SQ SCH (09:29)
[2023-01-01 15:22] VITALS: BMI 19.3
[2023-01-01] MEDS: NOREPINEPHRINE 0.9 % NACL 8 MG/250 ML BAG IVPB SCH (18:01)
[2023-01-01] MEDS: CHLORHEXIDINE GLUCONATE 4% CLEANSER FOR DECOLONIZATION TP SCH (21:26)
[2023-01-02] MEDS: PIPERACILLIN/TAZOB 3.375 GM 3.375 GM in DEXTROSE 5%-WATER - 50 ML IVPB SCH ×3 (02:24→17:04)
[2023-01-02] MEDS: ALBUTEROL SO4 2.5/IPRATROPIUM 0.5 INH SOL 3 ML VIAL.NEB. NEB SCH ×3 (08:49→20:35)
[2023-01-02] MEDS: LACTATED RINGERS SOLUTION 1,000 ML/1,000 ML INFUS.BAG IV SCH (09:14)
[2023-01-02] MEDS: DEXMEDETOMIDINE PREMIX 400 MCG/100 ML BAG IVPB SCH (09:15)
[2023-01-02] MEDS: TAMSULOSIN HCL 0.4 MG CAP PO SCH (09:15)
[2023-01-02] MEDS: DUTASTERIDE 0.5 MG CAP (FP) PO SCH (09:15)
[2023-01-02] MEDS: METOPROLOL TARTRATE 25 MG TABLET (FP) PO SCH ×2 (09:15→21:14)
[2023-01-02] MEDS: ARTIFICIAL TEARS (POLYVINYL ALCOHOL) OPTH DROPS OU SCH ×2 (09:15→21:13)
[2023-01-02] MEDS: methylPREDNISolone NA SUCC 40 MG/1 ML VIAL IVPUSH SCH (09:16)
[2023-01-02] MEDS: PANTOPRAZOLE SODIUM 40 MG VIAL IVPUSH SCH (09:16)
[2023-01-02] MEDS: AZITHROMYCIN IVPB 500 MG/250 ML BAG IVPB SCH (09:16)
[2023-01-02] MEDS: ENOXAPARIN NA (PORCINE) 40 MG/0.4 ML DISP.SYRIN SQ SCH (09:16)
[2023-01-02] MEDS: FENTANYL NS IVPB 500 MCG/100 ML BAG IVPB SCH ×3 (14:30→21:12)
[2023-01-02] MEDS: PROPOFOL 1,000,000 MCG/100 ML VIAL IVPB SCH ×2 (16:00→18:59)
[2023-01-02] MEDS: NOREPINEPHRINE 0.9 % NACL 8 MG/250 ML BAG IVPB SCH ×2 (17:03→18:58)
[2023-01-02] MEDS ORDERED: PIPERACILLIN/TAZOBACTAM 3.375 GM VIAL IVPB ONE (17:19)
[2023-01-02] MEDS: CHLORHEXIDINE GLUCONATE 4% CLEANSER FOR DECOLONIZATION TP SCH (21:14)
[2023-01-03] MEDS: PROPOFOL 1,000,000 MCG/100 ML VIAL IVPB SCH ×2 (00:09→20:22)
[2023-01-03] MEDS: FENTANYL NS IVPB 500 MCG/100 ML BAG IVPB SCH ×3 (00:40→21:45)
[2023-01-03] MEDS: PIPERACILLIN/TAZOB 3.375 GM 3.375 GM in DEXTROSE 5%-WATER - 50 ML IVPB SCH ×3 (02:30→17:43)
[2023-01-03] MEDS: ALBUTEROL SO4 2.5/IPRATROPIUM 0.5 INH SOL 3 ML VIAL.NEB. NEB SCH ×3 (07:35→20:16)
[2023-01-03 08:03] LABS: POTASSIUM 4.3 mmol/L (3.5-5.1)
[2023-01-03 08:04] LABS: MAGNESIUM 2.3 mg/dL (1.8-2.4)
[2023-01-03 08:05] LABS: CALCIUM 7.2 mg/dL (8.5-10.1)
[2023-01-03 08:06] LABS: ALBUMIN 1.5 g/dl (3.4-5.0); BLOOD UREA NITROGEN 9.7 mg/dL (7-18)
[2023-01-03 08:08] LABS: PHOSPHOROUS 4.2 mg/dL (2.5-4.9)
[2023-01-03 08:09] LABS: CREATININE 0.3 mg/dL (0.55-1.3)
[2023-01-03 08:10] LABS: HEMATOCRIT 27.1 % (35.4-49); HEMOGLOBIN 8.7 GM/dL (11.7-16.9); MCH 30.4 pg (25.7-33.7); MCHC 32.1 g/dl (32.0-35.9); MEAN CELL VOLUME 94.5 fl (80-96); MEAN PLT VOLUME 7.1 fl (7.5-11.1); PLATELET COUNT 393 10^3/uL (134-434); RBC 2.87 M/mm3 (4.00-5.60); RDW 15.8 % (11.9-15.9); WHITE BLOOD COUNT 12.5 K/mm3 (4.0-10.0)
[2023-01-03 08:11] LABS: BILIRUBIN,TOTAL 0.4 mg/dL (0.2-1); TOT PROT 4.6 g/dl (6.4-8.2)
[2023-01-03 09:14] LABS: ANISOCYTOSIS 0; MACROCYTOSIS 0
[2023-01-03] MEDS: ENOXAPARIN NA (PORCINE) 40 MG/0.4 ML DISP.SYRIN SQ SCH (10:13)
[2023-01-03] MEDS: DUTASTERIDE 0.5 MG CAP (FP) PO SCH (10:19)
[2023-01-03] MEDS: methylPREDNISolone NA SUCC 40 MG/1 ML VIAL IVPUSH SCH (10:19)
[2023-01-03] MEDS: TAMSULOSIN HCL 0.4 MG CAP PO SCH (10:20)
[2023-01-03] MEDS: PANTOPRAZOLE SODIUM 40 MG VIAL IVPUSH SCH (10:20)
[2023-01-03] MEDS: ARTIFICIAL TEARS (POLYVINYL ALCOHOL) OPTH DROPS OU SCH ×2 (11:06→22:13)
[2023-01-03] MEDS: DEXMEDETOMIDINE PREMIX 400 MCG/100 ML BAG IVPB SCH (15:49)
[2023-01-03] MEDS: METOPROLOL TARTRATE 25 MG TABLET (FP) PO SCH ×2 (15:50→22:13)
[2023-01-03] MEDS: NOREPINEPHRINE 0.9 % NACL 8 MG/250 ML BAG IVPB SCH (17:45)
[2023-01-03] MEDS ORDERED: IRON SUCROSE INJECTION 200 MG in SODIUM CHLORIDE 100 ML IVPB ONE (20:14)
[2023-01-03] MEDS: SILVER SULFADIAZINE 1% TOP CREAM 50 GM JAR TP SCH (20:23)
[2023-01-03] MEDS ORDERED: ALBUMIN HUMAN 25% 100 ML VIAL IV ONE (21:00)
[2023-01-03] MEDS ORDERED: FUROSEMIDE 40 MG/4 ML INJECTABLE VIAL IVPUSH ONE (21:01)
[2023-01-03] MEDS: CHLORHEXIDINE GLUCONATE 4% CLEANSER FOR DECOLONIZATION TP SCH (22:13)
[2023-01-04] MEDS: FENTANYL NS IVPB 500 MCG/100 ML BAG IVPB SCH ×2 (02:15→22:52)
[2023-01-04] MEDS: PIPERACILLIN/TAZOB 3.375 GM 3.375 GM in DEXTROSE 5%-WATER - 50 ML IVPB SCH ×3 (02:39→17:36)
[2023-01-04] MEDS: PROPOFOL 1,000,000 MCG/100 ML VIAL IVPB SCH ×2 (04:32→22:50)
[2023-01-04 07:58] LABS: CHLORIDE 102 mmol/L (98-107); POTASSIUM 3.5 mmol/L (3.5-5.1); SODIUM 139 mmol/L (136-145)
[2023-01-04 08:01] LABS: ANION GAP 3 mmol/L (4-13); BLOOD UREA NITROGEN 11.8 mg/dL (7-18); CO2 35 mmol/L (21-32); GLUCOSE,RANDOM 85 mg/dL (74-106); MAGNESIUM 2.2 mg/dL (1.8-2.4)
[2023-01-04 08:04] LABS: CREATININE 0.4 mg/dL (0.55-1.3); PHOSPHOROUS 3.5 mg/dL (2.5-4.9)
[2023-01-04 08:08] LABS: CALCIUM 6.9 mg/dL (8.5-10.1)
[2023-01-04 08:18] LABS: HEMATOCRIT 22.4 % (35.4-49); HEMOGLOBIN 7.3 GM/dL (11.7-16.9); MCH 30.9 pg (25.7-33.7); MCHC 32.7 g/dl (32.0-35.9); MEAN CELL VOLUME 94.6 fl (80-96); MEAN PLT VOLUME 7.4 fl (7.5-11.1); PLATELET COUNT 279 10^3/uL (134-434); RBC 2.37 M/mm3 (4.00-5.60); RDW 15.7 % (11.9-15.9); WHITE BLOOD COUNT 11.2 K/mm3 (4.0-10.0)
[2023-01-04] MEDS: ALBUTEROL SO4 2.5/IPRATROPIUM 0.5 INH SOL 3 ML VIAL.NEB. NEB SCH ×3 (08:55→21:09)
[2023-01-04] MEDS: ENOXAPARIN NA (PORCINE) 40 MG/0.4 ML DISP.SYRIN SQ SCH (10:19)
[2023-01-04] MEDS: METOPROLOL TARTRATE 25 MG TABLET (FP) PO SCH ×2 (10:19→22:51)
[2023-01-04] MEDS: ARTIFICIAL TEARS (POLYVINYL ALCOHOL) OPTH DROPS OU SCH ×2 (10:20→22:51)
[2023-01-04] MEDS: PANTOPRAZOLE SODIUM 40 MG VIAL IVPUSH SCH (10:20)
[2023-01-04] MEDS: SILVER SULFADIAZINE 1% TOP CREAM 50 GM JAR TP SCH (10:21)
[2023-01-04] MEDS: methylPREDNISolone NA SUCC 40 MG/1 ML VIAL IVPUSH SCH (10:22)
[2023-01-04] MEDS: DEXMEDETOMIDINE PREMIX 400 MCG/100 ML BAG IVPB SCH (13:23)
[2023-01-04] MEDS: NOREPINEPHRINE 0.9 % NACL 8 MG/250 ML BAG IVPB SCH (15:59)
[2023-01-04] MEDS ORDERED: fentaNYL CITRATE 250 MCG/5 ML VIAL ONE (16:45)
[2023-01-04] MEDS: AMINO ACIDS/PROTEIN HYDROLYS 30 ML LIQUID.PKT NGT SCH (16:56)
[2023-01-04] MEDS: CHLORHEXIDINE GLUCONATE 4% CLEANSER FOR DECOLONIZATION TP SCH (22:51)
[2023-01-05] MEDS: PIPERACILLIN/TAZOB 3.375 GM 3.375 GM in DEXTROSE 5%-WATER - 50 ML IVPB SCH ×3 (02:33→17:29)
[2023-01-05] MEDS: PROPOFOL 1,000,000 MCG/100 ML VIAL IVPB SCH ×3 (03:34→18:32)
[2023-01-05 06:14] LABS: HEMATOCRIT 18.6 % (35.4-49); MCH 31.6 pg (25.7-33.7); MCHC 33.4 g/dl (32.0-35.9); MEAN CELL VOLUME 94.4 fl (80-96); MEAN PLT VOLUME 7.3 fl (7.5-11.1); PLATELET COUNT 215 10^3/uL (134-434); RBC 1.97 M/mm3 (4.00-5.60); RDW 15.6 % (11.9-15.9)
[2023-01-05 06:24] LABS: HEMOGLOBIN 6.2 GM/dL (11.7-16.9)
[2023-01-05 06:28] LABS: CHLORIDE 104 mmol/L (98-107); POTASSIUM 3.3 mmol/L (3.5-5.1); SODIUM 141 mmol/L (136-145)
[2023-01-05 06:31] LABS: ALBUMIN 1.6 g/dl (3.4-5.0); ANION GAP 3 mmol/L (4-13); BLOOD UREA NITROGEN 14.3 mg/dL (7-18); CO2 35 mmol/L (21-32); GLUCOSE,RANDOM 122 mg/dL (74-106); MAGNESIUM 2.2 mg/dL (1.8-2.4)
[2023-01-05 06:34] LABS: CREATININE 0.4 mg/dL (0.55-1.3); SGPT/ALT 24 U/L (13-61)
[2023-01-05 06:35] LABS: PHOSPHOROUS 2.6 mg/dL (2.5-4.9); SGOT/AST 31 U/L (15-37)
[2023-01-05 06:36] LABS: BILIRUBIN,TOTAL 0.4 mg/dL (0.2-1); TOT PROT 3.9 g/dl (6.4-8.2)
[2023-01-05 06:37] LABS: ALK PHOS 89 U/L (45-117)
[2023-01-05 06:42] LABS: CALCIUM 6.5 mg/dL (8.5-10.1)
[2023-01-05] MEDS ORDERED: POTASSIUM CHLORIDE ORAL LIQUID 20 MEQ/15 ML PO ONE (06:58)
[2023-01-05] MEDS: AMINO ACIDS/PROTEIN HYDROLYS 30 ML LIQUID.PKT NGT SCH ×3 (07:28→16:47)
[2023-01-05] MEDS: ALBUTEROL SO4 2.5/IPRATROPIUM 0.5 INH SOL 3 ML VIAL.NEB. NEB SCH ×3 (07:55→20:22)
[2023-01-05] MEDS: METOPROLOL TARTRATE 25 MG TABLET (FP) PO SCH ×2 (09:03→21:49)
[2023-01-05] MEDS: ENOXAPARIN NA (PORCINE) 40 MG/0.4 ML DISP.SYRIN SQ SCH (09:03)
[2023-01-05] MEDS: SILVER SULFADIAZINE 1% TOP CREAM 50 GM JAR TP SCH (09:03)
[2023-01-05] MEDS: ARTIFICIAL TEARS (POLYVINYL ALCOHOL) OPTH DROPS OU SCH ×2 (09:03→21:48)
[2023-01-05] MEDS: methylPREDNISolone NA SUCC 40 MG/1 ML VIAL IVPUSH SCH (09:03)
[2023-01-05] MEDS: PANTOPRAZOLE SODIUM 40 MG VIAL IVPUSH SCH (09:03)
[2023-01-05 09:52] LABS: ANISOCYTOSIS 1+; MACROCYTOSIS 0
[2023-01-05] MEDS: DEXMEDETOMIDINE PREMIX 400 MCG/100 ML BAG IVPB SCH ×2 (10:39→21:48)
[2023-01-05] MEDS ORDERED: FENTANYL NS IVPB 500 MCG/100 ML BAG IVPB SCH (16:00)
[2023-01-05] MEDS: NOREPINEPHRINE 0.9 % NACL 8 MG/250 ML BAG IVPB SCH (16:01)
[2023-01-05] MEDS: FENTANYL NS IVPB 500 MCG/100 ML BAG IVPB SCH (16:46)
[2023-01-05] MEDS ORDERED: PROPOFOL 1,000,000 MCG/100 ML VIAL ONE (17:56)
[2023-01-05] MEDS: CHLORHEXIDINE GLUCONATE 4% CLEANSER FOR DECOLONIZATION TP SCH (21:48)
[2023-01-06] MEDS: PIPERACILLIN/TAZOB 3.375 GM 3.375 GM in DEXTROSE 5%-WATER - 50 ML IVPB SCH ×3 (01:21→17:51)
[2023-01-06] MEDS: FENTANYL NS IVPB 500 MCG/100 ML BAG IVPB SCH ×2 (01:22→17:51)
[2023-01-06 06:50] LABS: HEMATOCRIT 32.3 % (35.4-49); HEMOGLOBIN 10.7 GM/dL (11.7-16.9); MCHC 33.2 g/dl (32.0-35.9); MEAN CELL VOLUME 90.4 fl (80-96); MEAN PLT VOLUME 7.3 fl (7.5-11.1); PLATELET COUNT 210 10^3/uL (134-434); RBC 3.57 M/mm3 (4.00-5.60); RDW 15.9 % (11.9-15.9); WHITE BLOOD COUNT 10.2 K/mm3 (4.0-10.0)
[2023-01-06 07:16] LABS: POTASSIUM 3.6 mmol/L (3.5-5.1)
[2023-01-06 07:18] LABS: ALBUMIN 1.7 g/dl (3.4-5.0); BLOOD UREA NITROGEN 18.7 mg/dL (7-18)
[2023-01-06 07:21] LABS: CREATININE 0.3 mg/dL (0.55-1.3); PHOSPHOROUS 2.4 mg/dL (2.5-4.9)
[2023-01-06 07:23] LABS: BILIRUBIN,TOTAL 0.8 mg/dL (0.2-1); TOT PROT 4.2 g/dl (6.4-8.2)
[2023-01-06] MEDS: ALBUTEROL SO4 2.5/IPRATROPIUM 0.5 INH SOL 3 ML VIAL.NEB. NEB SCH ×3 (08:05→20:24)
[2023-01-06] MEDS ORDERED: NAPH,MB-DB/K PH,MBDB POWDER PACKET GT ONE (08:21)
[2023-01-06 08:59] LABS: ANISOCYTOSIS 0; MACROCYTOSIS 0
[2023-01-06] MEDS: methylPREDNISolone NA SUCC 40 MG/1 ML VIAL IVPUSH SCH (12:20)
[2023-01-06] MEDS: AMINO ACIDS/PROTEIN HYDROLYS 30 ML LIQUID.PKT NGT SCH ×3 (12:20→19:16)
[2023-01-06] MEDS: PANTOPRAZOLE SODIUM 40 MG VIAL IVPUSH SCH (12:20)
[2023-01-06] MEDS: METOPROLOL TARTRATE 25 MG TABLET (FP) PO SCH ×2 (12:21→21:12)
[2023-01-06] MEDS: SILVER SULFADIAZINE 1% TOP CREAM 50 GM JAR TP SCH (12:21)
[2023-01-06] MEDS: ARTIFICIAL TEARS (POLYVINYL ALCOHOL) OPTH DROPS OU SCH ×2 (12:21→21:13)
[2023-01-06] MEDS: DEXMEDETOMIDINE PREMIX 400 MCG/100 ML BAG IVPB SCH (12:42)
[2023-01-06] MEDS ORDERED: TUBE FEED DECLOGGING SOLUTION 12,000 UNITS GT ONE (16:00)
[2023-01-06] MEDS: NOREPINEPHRINE 0.9 % NACL 8 MG/250 ML BAG IVPB SCH (17:51)
[2023-01-06 18:01] LABS: HEMATOCRIT 32.1 % (35.4-49); HEMOGLOBIN 10.8 GM/dL (11.7-16.9); MCH 30.1 pg (25.7-33.7); MCHC 33.7 g/dl (32.0-35.9); MEAN CELL VOLUME 89.3 fl (80-96); MEAN PLT VOLUME 7.5 fl (7.5-11.1); PLATELET COUNT 214 10^3/uL (134-434); RBC 3.59 M/mm3 (4.00-5.60); RDW 16.2 % (11.9-15.9); WHITE BLOOD COUNT 14.3 K/mm3 (4.0-10.0)
[2023-01-06] MEDS: CHLORHEXIDINE GLUCONATE 4% CLEANSER FOR DECOLONIZATION TP SCH (21:12)
[2023-01-06] MEDS: PROPOFOL 1,000,000 MCG/100 ML VIAL IVPB SCH (21:13)
[2023-01-07] MEDS: PIPERACILLIN/TAZOB 3.375 GM 3.375 GM in DEXTROSE 5%-WATER - 50 ML IVPB SCH ×3 (01:33→17:09)
[2023-01-07] MEDS: DEXMEDETOMIDINE PREMIX 400 MCG/100 ML BAG IVPB SCH ×2 (02:00→17:07)
[2023-01-07] MEDS: PROPOFOL 1,000,000 MCG/100 ML VIAL IVPB SCH (06:28)
[2023-01-07 07:43] LABS: HEMATOCRIT 30.9 % (35.4-49); HEMOGLOBIN 10.7 GM/dL (11.7-16.9); MCH 30.8 pg (25.7-33.7); MCHC 34.6 g/dl (32.0-35.9); MEAN CELL VOLUME 89.1 fl (80-96); MEAN PLT VOLUME 7.5 fl (7.5-11.1); PLATELET COUNT 200 10^3/uL (134-434); RBC 3.47 M/mm3 (4.00-5.60); RDW 15.6 % (11.9-15.9); WHITE BLOOD COUNT 11.5 K/mm3 (4.0-10.0)
[2023-01-07] MEDS: ALBUTEROL SO4 2.5/IPRATROPIUM 0.5 INH SOL 3 ML VIAL.NEB. NEB SCH ×3 (08:10→20:30)
[2023-01-07 08:58] LABS: ANISOCYTOSIS 0; MACROCYTOSIS 0
[2023-01-07] MEDS: AMINO ACIDS/PROTEIN HYDROLYS 30 ML LIQUID.PKT NGT SCH ×3 (09:08→17:07)
[2023-01-07] MEDS: methylPREDNISolone NA SUCC 40 MG/1 ML VIAL IVPUSH SCH (09:08)
[2023-01-07] MEDS: METOPROLOL TARTRATE 25 MG TABLET (FP) PO SCH ×2 (09:08→21:28)
[2023-01-07] MEDS: SILVER SULFADIAZINE 1% TOP CREAM 50 GM JAR TP SCH (09:08)
[2023-01-07] MEDS: PANTOPRAZOLE SODIUM 40 MG VIAL IVPUSH SCH (09:08)
[2023-01-07] MEDS: ARTIFICIAL TEARS (POLYVINYL ALCOHOL) OPTH DROPS OU SCH ×2 (09:08→21:28)
[2023-01-07 09:28] LABS: ALBUMIN 1.7 g/dl (3.4-5.0); BLOOD UREA NITROGEN 16.2 mg/dL (7-18); CALCIUM 7.6 mg/dL (8.5-10.1)
[2023-01-07 09:31] LABS: CREATININE 0.3 mg/dL (0.55-1.3); PHOSPHOROUS 2.9 mg/dL (2.5-4.9)
[2023-01-07 09:33] LABS: BILIRUBIN,TOTAL 0.5 mg/dL (0.2-1); TOT PROT 4.4 g/dl (6.4-8.2)
[2023-01-07] MEDS: NOREPINEPHRINE 0.9 % NACL 8 MG/250 ML BAG IVPB SCH (17:07)
[2023-01-07] MEDS: FENTANYL NS IVPB 500 MCG/100 ML BAG IVPB SCH ×2 (17:08)
[2023-01-07] MEDS: CHLORHEXIDINE GLUCONATE 4% CLEANSER FOR DECOLONIZATION TP SCH (21:28)
[2023-01-08] MEDS: PIPERACILLIN/TAZOB 3.375 GM 3.375 GM in DEXTROSE 5%-WATER - 50 ML IVPB SCH ×3 (01:03→17:08)
[2023-01-08 07:37] LABS: HEMATOCRIT 31.5 % (35.4-49); HEMOGLOBIN 10.5 GM/dL (11.7-16.9); MCH 30.9 pg (25.7-33.7); MCHC 33.2 g/dl (32.0-35.9); MEAN CELL VOLUME 93.1 fl (80-96); MEAN PLT VOLUME 7.6 fl (7.5-11.1); PLATELET COUNT 203 10^3/uL (134-434); RBC 3.39 M/mm3 (4.00-5.60); WHITE BLOOD COUNT 10.2 K/mm3 (4.0-10.0)
[2023-01-08 07:52] LABS: POTASSIUM 3.6 mmol/L (3.5-5.1)
[2023-01-08 07:57] LABS: ALBUMIN 1.6 g/dl (3.4-5.0); BLOOD UREA NITROGEN 17.5 mg/dL (7-18); CALCIUM 7.1 mg/dL (8.5-10.1)
[2023-01-08 07:59] LABS: CREATININE 0.3 mg/dL (0.55-1.3)
[2023-01-08 08:00] LABS: BILIRUBIN,TOTAL 0.6 mg/dL (0.2-1); PHOSPHOROUS 3.1 mg/dL (2.5-4.9)
[2023-01-08 08:01] LABS: TOT PROT 4.4 g/dl (6.4-8.2)
[2023-01-08] MEDS: ALBUTEROL SO4 2.5/IPRATROPIUM 0.5 INH SOL 3 ML VIAL.NEB. NEB SCH ×3 (08:10→20:25)
[2023-01-08] MEDS: PANTOPRAZOLE SODIUM 40 MG VIAL IVPUSH SCH (09:19)
[2023-01-08] MEDS: methylPREDNISolone NA SUCC 40 MG/1 ML VIAL IVPUSH SCH (09:19)
[2023-01-08] MEDS: AMINO ACIDS/PROTEIN HYDROLYS 30 ML LIQUID.PKT NGT SCH ×3 (09:19→17:09)
[2023-01-08] MEDS: METOPROLOL TARTRATE 25 MG TABLET (FP) PO SCH ×2 (09:19→21:58)
[2023-01-08] MEDS: PROPOFOL 1,000,000 MCG/100 ML VIAL IVPB SCH (09:20)
[2023-01-08] MEDS: SILVER SULFADIAZINE 1% TOP CREAM 50 GM JAR TP SCH (09:21)
[2023-01-08] MEDS: ARTIFICIAL TEARS (POLYVINYL ALCOHOL) OPTH DROPS OU SCH ×2 (09:21→22:02)
[2023-01-08] MEDS: DEXMEDETOMIDINE PREMIX 400 MCG/100 ML BAG IVPB SCH ×2 (09:21→17:09)
[2023-01-08] MEDS ORDERED: FUROSEMIDE 40 MG/4 ML INJECTABLE VIAL IVPUSH ONE (14:09)
[2023-01-08] MEDS: FENTANYL NS IVPB 500 MCG/100 ML BAG IVPB SCH (17:14)
[2023-01-08] MEDS: CHLORHEXIDINE GLUCONATE 4% CLEANSER FOR DECOLONIZATION TP SCH (22:03)
[2023-01-09] MEDS: PIPERACILLIN/TAZOB 3.375 GM 3.375 GM in DEXTROSE 5%-WATER - 50 ML IVPB SCH ×4 (02:42→17:26)
[2023-01-09 07:33] LABS: HEMATOCRIT 31.9 % (35.4-49); HEMOGLOBIN 10.6 GM/dL (11.7-16.9); MCH 30.7 pg (25.7-33.7); MCHC 33.1 g/dl (32.0-35.9); MEAN CELL VOLUME 92.8 fl (80-96); MEAN PLT VOLUME 7.7 fl (7.5-11.1); PLATELET COUNT 192 10^3/uL (134-434); RBC 3.44 M/mm3 (4.00-5.60); RDW 15.4 % (11.9-15.9); WHITE BLOOD COUNT 9.4 K/mm3 (4.0-10.0)
[2023-01-09 07:48] LABS: POTASSIUM 3.6 mmol/L (3.5-5.1)
[2023-01-09 07:51] LABS: ALBUMIN 1.7 g/dl (3.4-5.0); BLOOD UREA NITROGEN 21.3 mg/dL (7-18); CALCIUM 7.2 mg/dL (8.5-10.1); MAGNESIUM 2.1 mg/dL (1.8-2.4)
[2023-01-09 07:54] LABS: CREATININE 0.3 mg/dL (0.55-1.3); PHOSPHOROUS 2.9 mg/dL (2.5-4.9)
[2023-01-09 07:56] LABS: BILIRUBIN,TOTAL 0.5 mg/dL (0.2-1); TOT PROT 4.6 g/dl (6.4-8.2)
[2023-01-09] MEDS ORDERED: FUROSEMIDE 40 MG/4 ML INJECTABLE VIAL IVPUSH ONE (07:57)
[2023-01-09] MEDS: ALBUTEROL SO4 2.5/IPRATROPIUM 0.5 INH SOL 3 ML VIAL.NEB. NEB SCH ×3 (08:22→20:40)
[2023-01-09] MEDS: AMINO ACIDS/PROTEIN HYDROLYS 30 ML LIQUID.PKT NGT SCH ×3 (08:24→17:26)
[2023-01-09] MEDS: METOPROLOL TARTRATE 25 MG TABLET (FP) GT SCH ×2 (08:27→22:53)
[2023-01-09] MEDS: POTASSIUM CHLORIDE ORAL LIQUID 20 MEQ/15 ML GT SCH ×3 (08:28→21:21)
[2023-01-09] MEDS: methylPREDNISolone NA SUCC 40 MG/1 ML VIAL IVPUSH SCH ×2 (08:29→10:55)
[2023-01-09] MEDS: PANTOPRAZOLE SODIUM 40 MG VIAL IVPUSH SCH ×2 (08:29→10:55)
[2023-01-09] MEDS ORDERED: fentaNYL CITRATE 250 MCG/5 ML VIAL ONE (10:31)
[2023-01-09] MEDS: DEXMEDETOMIDINE PREMIX 400 MCG/100 ML BAG IVPB SCH ×2 (10:36→17:28)
[2023-01-09] MEDS: SILVER SULFADIAZINE 1% TOP CREAM 50 GM JAR TP SCH (10:55)
[2023-01-09] MEDS: ARTIFICIAL TEARS (POLYVINYL ALCOHOL) OPTH DROPS OU SCH ×2 (10:55→21:21)
[2023-01-09] MEDS: ACETAMINOPHEN 1000 MG/100 ML BAG IVPB PRN (11:02)
[2023-01-09] MEDS ORDERED: PROPOFOL 1,000,000 MCG/100 ML VIAL ONE (15:16)
[2023-01-09] MEDS ORDERED: METOPROLOL TARTRATE 50 MG TABLET (FP) GT ONE (17:15)
[2023-01-09] MEDS: PROPOFOL 1,000,000 MCG/100 ML VIAL IVPB SCH (17:27)
[2023-01-09] MEDS: FENTANYL NS IVPB 500 MCG/100 ML BAG IVPB SCH (21:16)
[2023-01-09] MEDS: CHLORHEXIDINE GLUCONATE 4% CLEANSER FOR DECOLONIZATION TP SCH (21:17)
[2023-01-10] MEDS: PIPERACILLIN/TAZOB 3.375 GM 3.375 GM in DEXTROSE 5%-WATER - 50 ML IVPB SCH ×3 (01:09→17:47)
[2023-01-10] MEDS: PROPOFOL 1,000,000 MCG/100 ML VIAL IVPB SCH ×2 (01:56→19:24)
[2023-01-10] MEDS: FENTANYL NS IVPB 500 MCG/100 ML BAG IVPB SCH ×2 (01:57→15:54)
[2023-01-10] MEDS: ACETAMINOPHEN 1000 MG/100 ML BAG IVPB PRN (06:15)
[2023-01-10] MEDS: ALBUTEROL SO4 2.5/IPRATROPIUM 0.5 INH SOL 3 ML VIAL.NEB. NEB SCH ×3 (08:10→20:30)
[2023-01-10] MEDS: AMINO ACIDS/PROTEIN HYDROLYS 30 ML LIQUID.PKT NGT SCH ×3 (09:47→17:47)
[2023-01-10] MEDS: PANTOPRAZOLE SODIUM 40 MG VIAL IVPUSH SCH (09:48)
[2023-01-10] MEDS: methylPREDNISolone NA SUCC 40 MG/1 ML VIAL IVPUSH SCH (09:48)
[2023-01-10] MEDS: METOPROLOL TARTRATE 25 MG TABLET (FP) GT SCH ×3 (09:48→22:05)
[2023-01-10] MEDS: ARTIFICIAL TEARS (POLYVINYL ALCOHOL) OPTH DROPS OU SCH ×2 (09:48→22:06)
[2023-01-10] MEDS: SILVER SULFADIAZINE 1% TOP CREAM 50 GM JAR TP SCH (09:53)
[2023-01-10 11:50] LABS: ALLENS TEST POSITIVE; ARTERIAL BLD GAS O2 SATURATION 87.3 % (95-98); ARTERIAL BLOOD GAS BASE EXCESS 2.3 mmol/L (-2-2); ARTERIAL BLOOD GAS PO2 53.8 mmHg (80-100); ARTERIAL BLOOD GAS pH 7.386 (7.350-7.450); VENT MODE A/C; VENT RATE 14
[2023-01-10] MEDS: DEXMEDETOMIDINE PREMIX 400 MCG/100 ML BAG IVPB SCH (15:55)
[2023-01-10] MEDS: CHLORHEXIDINE GLUCONATE 4% CLEANSER FOR DECOLONIZATION TP SCH (22:06)
[2023-01-10] MEDS ORDERED: FUROSEMIDE 40 MG/4 ML INJECTABLE VIAL IVPUSH ONE (23:37)
[2023-01-11] MEDS: PIPERACILLIN/TAZOB 3.375 GM 3.375 GM in DEXTROSE 5%-WATER - 50 ML IVPB SCH ×3 (01:08→17:12)
[2023-01-11] MEDS: DEXMEDETOMIDINE PREMIX 400 MCG/100 ML BAG IVPB SCH ×2 (01:10→16:46)
[2023-01-11 06:47] LABS: BASO % 0.4 % (0-2.0); EOS % 1.2 % (0-4.5); HEMATOCRIT 32.6 % (35.4-49); HEMOGLOBIN 10.4 GM/dL (11.7-16.9); MCHC 31.8 g/dl (32.0-35.9); MEAN CELL VOLUME 94.3 fl (80-96); MEAN PLT VOLUME 8.1 fl (7.5-11.1); MONO % 6.3 % (3.8-10.2); NEUT % 89.1 % (42.8-82.8); PLATELET COUNT 201 10^3/uL (134-434); RBC 3.45 M/mm3 (4.00-5.60); RDW 15.9 % (11.9-15.9); WHITE BLOOD COUNT 11.4 K/mm3 (4.0-10.0)
[2023-01-11 07:01] LABS: POTASSIUM 3.5 mmol/L (3.5-5.1)
[2023-01-11 07:03] LABS: CALCIUM 7.2 mg/dL (8.5-10.1)
[2023-01-11 07:04] LABS: ALBUMIN 1.4 g/dl (3.4-5.0); MAGNESIUM 2.2 mg/dL (1.8-2.4)
[2023-01-11 07:07] LABS: CREATININE 0.4 mg/dL (0.55-1.3); PHOSPHOROUS 2.4 mg/dL (2.5-4.9)
[2023-01-11 07:09] LABS: TOT PROT 4.4 g/dl (6.4-8.2)
[2023-01-11] MEDS ORDERED: NAPH,MB-DB/K PH,MBDB POWDER PACKET PO ONE (07:48)
[2023-01-11] MEDS: ALBUTEROL SO4 2.5/IPRATROPIUM 0.5 INH SOL 3 ML VIAL.NEB. NEB SCH ×3 (07:50→20:18)
[2023-01-11] MEDS: methylPREDNISolone NA SUCC 40 MG/1 ML VIAL IVPUSH SCH (09:06)
[2023-01-11] MEDS: METOPROLOL TARTRATE 25 MG TABLET (FP) GT SCH ×2 (09:06→21:14)
[2023-01-11] MEDS: PANTOPRAZOLE SODIUM 40 MG VIAL IVPUSH SCH (09:06)
[2023-01-11] MEDS: ARTIFICIAL TEARS (POLYVINYL ALCOHOL) OPTH DROPS OU SCH ×2 (09:06→21:13)
[2023-01-11] MEDS: MIDODRINE HCL 5 MG TABLET PO SCH ×3 (09:06→17:12)
[2023-01-11] MEDS: ENOXAPARIN NA (PORCINE) 40 MG/0.4 ML DISP.SYRIN SQ SCH (09:06)
[2023-01-11] MEDS: AMINO ACIDS/PROTEIN HYDROLYS 30 ML LIQUID.PKT NGT SCH ×3 (09:06→17:12)
[2023-01-11] MEDS: SILVER SULFADIAZINE 1% TOP CREAM 50 GM JAR TP SCH (09:07)
[2023-01-11] MEDS: FENTANYL NS IVPB 500 MCG/100 ML BAG IVPB SCH ×2 (13:31→16:46)
[2023-01-11] MEDS: PROPOFOL 1,000,000 MCG/100 ML VIAL IVPB SCH (16:46)
[2023-01-11] MEDS: CHLORHEXIDINE GLUCONATE 4% CLEANSER FOR DECOLONIZATION TP SCH (21:13)
[2023-01-12] MEDS: PIPERACILLIN/TAZOB 3.375 GM 3.375 GM in DEXTROSE 5%-WATER - 50 ML IVPB SCH ×3 (01:10→17:36)
[2023-01-12] MEDS: PROPOFOL 1,000,000 MCG/100 ML VIAL IVPB SCH ×2 (04:53→17:36)
[2023-01-12] MEDS: DEXMEDETOMIDINE PREMIX 400 MCG/100 ML BAG IVPB SCH ×3 (04:55→16:50)
[2023-01-12 07:09] LABS: HEMATOCRIT 33.3 % (35.4-49); HEMOGLOBIN 10.2 GM/dL (11.7-16.9); MCH 29.4 pg (25.7-33.7); MCHC 30.6 g/dl (32.0-35.9); MEAN CELL VOLUME 96.1 fl (80-96); MEAN PLT VOLUME 8.1 fl (7.5-11.1); PLATELET COUNT 225 10^3/uL (134-434); RBC 3.47 M/mm3 (4.00-5.60); RDW 16.1 % (11.9-15.9); WHITE BLOOD COUNT 11.8 K/mm3 (4.0-10.0)
[2023-01-12 07:26] LABS: POTASSIUM 3.7 mmol/L (3.5-5.1)
[2023-01-12 07:29] LABS: CALCIUM 7.4 mg/dL (8.5-10.1)
[2023-01-12 07:30] LABS: ALBUMIN 1.5 g/dl (3.4-5.0); BLOOD UREA NITROGEN 35.7 mg/dL (7-18); MAGNESIUM 2.5 mg/dL (1.8-2.4)
[2023-01-12 07:32] LABS: PHOSPHOROUS 2.5 mg/dL (2.5-4.9)
[2023-01-12 07:33] LABS: CREATININE 0.5 mg/dL (0.55-1.3)
[2023-01-12 07:34] LABS: BILIRUBIN,TOTAL 1.2 mg/dL (0.2-1); TOT PROT 4.8 g/dl (6.4-8.2)
[2023-01-12] MEDS: ALBUTEROL SO4 2.5/IPRATROPIUM 0.5 INH SOL 3 ML VIAL.NEB. NEB SCH ×3 (07:49→20:30)
[2023-01-12] MEDS: PANTOPRAZOLE SODIUM 40 MG VIAL IVPUSH SCH (09:39)
[2023-01-12] MEDS: methylPREDNISolone NA SUCC 40 MG/1 ML VIAL IVPUSH SCH (09:39)
[2023-01-12] MEDS: ENOXAPARIN NA (PORCINE) 40 MG/0.4 ML DISP.SYRIN SQ SCH (09:39)
[2023-01-12] MEDS: SILVER SULFADIAZINE 1% TOP CREAM 50 GM JAR TP SCH (09:40)
[2023-01-12] MEDS: MIDODRINE HCL 5 MG TABLET PO SCH ×3 (09:40→17:36)
[2023-01-12] MEDS: METOPROLOL TARTRATE 25 MG TABLET (FP) GT SCH ×2 (09:41→20:59)
[2023-01-12] MEDS: AMINO ACIDS/PROTEIN HYDROLYS 30 ML LIQUID.PKT NGT SCH ×3 (09:41→16:50)
[2023-01-12] MEDS: ARTIFICIAL TEARS (POLYVINYL ALCOHOL) OPTH DROPS OU SCH ×2 (09:41→21:42)
[2023-01-12] MEDS: FENTANYL NS IVPB 500 MCG/100 ML BAG IVPB SCH ×2 (09:42→20:00)
[2023-01-12] MEDS: POLYETHYLENE GLYCOL (HEALTHYLAX) 3350 17 GM PACKET GT SCH (11:05)
[2023-01-12] MEDS: ACETAMINOPHEN 1000 MG/100 ML BAG IVPB PRN (13:32)
[2023-01-12] MEDS: CHLORHEXIDINE GLUCONATE 4% CLEANSER FOR DECOLONIZATION TP SCH (20:59)
[2023-01-12] MEDS ORDERED: INSULIN (LEVEMIR) 100 UNITS/ML UNITS SQ ONE (21:38)
[2023-01-12] MEDS: SENNOSIDES 8.8 MG/5 ML SYRUP GT SCH (21:43)
[2023-01-13] MEDS: PIPERACILLIN/TAZOB 3.375 GM 3.375 GM in DEXTROSE 5%-WATER - 50 ML IVPB SCH ×3 (01:13→18:12)
[2023-01-13] MEDS: DEXMEDETOMIDINE PREMIX 400 MCG/100 ML BAG IVPB SCH ×3 (02:00→16:56)
[2023-01-13] MEDS: PROPOFOL 1,000,000 MCG/100 ML VIAL IVPB SCH ×2 (03:00→09:38)
[2023-01-13] MEDS: FENTANYL NS IVPB 500 MCG/100 ML BAG IVPB SCH ×4 (03:00→20:30)
[2023-01-13] MEDS: ALBUTEROL SO4 2.5/IPRATROPIUM 0.5 INH SOL 3 ML VIAL.NEB. NEB SCH ×3 (07:30→20:36)
[2023-01-13] MEDS: ENOXAPARIN NA (PORCINE) 40 MG/0.4 ML DISP.SYRIN SQ SCH (09:37)
[2023-01-13] MEDS: methylPREDNISolone NA SUCC 40 MG/1 ML VIAL IVPUSH SCH (09:37)
[2023-01-13] MEDS: AMINO ACIDS/PROTEIN HYDROLYS 30 ML LIQUID.PKT NGT SCH ×3 (09:37→18:11)
[2023-01-13] MEDS: POLYETHYLENE GLYCOL (HEALTHYLAX) 3350 17 GM PACKET GT SCH (09:38)
[2023-01-13] MEDS: ARTIFICIAL TEARS (POLYVINYL ALCOHOL) OPTH DROPS OU SCH ×2 (09:38→21:04)
[2023-01-13] MEDS: METOPROLOL TARTRATE 25 MG TABLET (FP) GT SCH ×2 (09:38→21:06)
[2023-01-13] MEDS: MIDODRINE HCL 5 MG TABLET PO SCH ×3 (09:39→18:12)
[2023-01-13] MEDS: SILVER SULFADIAZINE 1% TOP CREAM 50 GM JAR TP SCH (09:39)
[2023-01-13] MEDS: PANTOPRAZOLE SODIUM 40 MG VIAL IVPUSH SCH (09:39)
[2023-01-13] MEDS: ACETAMINOPHEN 1000 MG/100 ML BAG IVPB PRN (09:40)
[2023-01-13] MEDS ORDERED: LACTATED RINGERS SOLUTION 1000 ML INFUS.BAG IV ONE (10:32)
[2023-01-13] MEDS: CHLORHEXIDINE GLUCONATE 4% CLEANSER FOR DECOLONIZATION TP SCH (21:05)
[2023-01-13] MEDS: SENNOSIDES 8.8 MG/5 ML SYRUP GT SCH (21:06)
[2023-01-14] MEDS: PIPERACILLIN/TAZOB 3.375 GM 3.375 GM in DEXTROSE 5%-WATER - 50 ML IVPB SCH ×2 (01:05→10:07)
[2023-01-14] MEDS: PROPOFOL 1,000,000 MCG/100 ML VIAL IVPB SCH (01:45)
[2023-01-14] MEDS: FENTANYL NS IVPB 500 MCG/100 ML BAG IVPB SCH ×3 (01:45→13:44)
[2023-01-14] MEDS: DEXMEDETOMIDINE PREMIX 400 MCG/100 ML BAG IVPB SCH ×2 (01:45→10:06)
[2023-01-14 07:27] LABS: HEMATOCRIT 33.4 % (35.4-49); HEMOGLOBIN 10.4 GM/dL (11.7-16.9); MCH 29.4 pg (25.7-33.7); MEAN CELL VOLUME 94.8 fl (80-96); MEAN PLT VOLUME 8.6 fl (7.5-11.1); PLATELET COUNT 220 10^3/uL (134-434); RBC 3.53 M/mm3 (4.00-5.60); WHITE BLOOD COUNT 13.7 K/mm3 (4.0-10.0)
[2023-01-14] MEDS: ALBUTEROL SO4 2.5/IPRATROPIUM 0.5 INH SOL 3 ML VIAL.NEB. NEB SCH ×2 (07:30→14:50)
[2023-01-14 09:04] LABS: ALBUMIN 1.4 g/dl (3.4-5.0); CALCIUM 7.2 mg/dL (8.5-10.1)
[2023-01-14 09:05] LABS: MAGNESIUM 2.4 mg/dL (1.8-2.4)
[2023-01-14 09:07] LABS: CREATININE 1.4 mg/dL (0.55-1.3)
[2023-01-14 09:08] LABS: PHOSPHOROUS 4.3 mg/dL (2.5-4.9)
[2023-01-14 09:09] LABS: BILIRUBIN,TOTAL 3.1 mg/dL (0.2-1); TOT PROT 4.9 g/dl (6.4-8.2)
[2023-01-14 09:12] LABS: BLOOD UREA NITROGEN 82.9 mg/dL (7-18)
[2023-01-14 09:58] LABS: ANISOCYTOSIS 0; HELMET CELLS 0; HOWELL-JOLLY BODIES 0; MACROCYTOSIS 0; OVALOCYTE 0; ROULEAU 0; SICKELED CELLS 0; TARGET CELLS 0; TEAR DROP CELLS 0; TOXIC GRANULATION 0
[2023-01-14] MEDS: AMINO ACIDS/PROTEIN HYDROLYS 30 ML LIQUID.PKT NGT SCH ×2 (10:06→12:27)
[2023-01-14] MEDS: ARTIFICIAL TEARS (POLYVINYL ALCOHOL) OPTH DROPS OU SCH (10:06)
[2023-01-14] MEDS: MIDODRINE HCL 5 MG TABLET PO SCH (10:06)
[2023-01-14] MEDS: METOPROLOL TARTRATE 25 MG TABLET (FP) GT SCH (10:06)
[2023-01-14] MEDS: PANTOPRAZOLE SODIUM 40 MG VIAL IVPUSH SCH (10:06)
[2023-01-14] MEDS: POLYETHYLENE GLYCOL (HEALTHYLAX) 3350 17 GM PACKET GT SCH (10:06)
[2023-01-14] MEDS: ENOXAPARIN NA (PORCINE) 40 MG/0.4 ML DISP.SYRIN SQ SCH (10:07)
[2023-01-14] MEDS: methylPREDNISolone NA SUCC 40 MG/1 ML VIAL IVPUSH SCH (10:07)
[2023-01-14] MEDS: SILVER SULFADIAZINE 1% TOP CREAM 50 GM JAR TP SCH (10:07)
[2023-01-14] MEDS ORDERED: morphine SULFATE 4 MG/ML VIAL IVPUSH ONE (12:13)
[2023-01-14] MEDS ORDERED: MORPHINE SULFATE/0.9% NACL/PF 100 MG/100 ML BAG IVPB SCH (12:15)
[2023-01-14 18:15] VITALS: BP 86/43; PULSE 98; RESP 21; TEMP 97.9
== END 2023-01-14 18:26 | disposition expired | DRG 870 ==
LOC: JER 16:17 → JERBED 17:44 → JICU 18:37
PROVIDERS: ADMIT Internal Medicine Pulmonary Disease; ATTEND Internal Medicine Pulmonary Disease
PROC: 06HM33Z Insertion of Infusion Device into Right Femoral Vein, Percutaneous Approach (ICD-10-PCS; principal; 2022-12-27)
PROC: 5A1955Z Respiratory Ventilation, Greater than 96 Consecutive Hours (ICD-10-PCS; 2022-12-27)
PROC: B54BZZA Ultrasonography of Right Lower Extremity Veins, Guidance (ICD-10-PCS; 2022-12-27)
PROC: 4A133B1 Monitoring of Arterial Pressure, Peripheral, Percutaneous Approach (ICD-10-PCS; 2022-12-27)
PROC: 4A133J1 Monitoring of Arterial Pulse, Peripheral, Percutaneous Approach (ICD-10-PCS; 2022-12-27)
PROC: 05HF33Z Insertion of Infusion Device into Left Cephalic Vein, Percutaneous Approach (ICD-10-PCS; 2023-01-03)
DX: A41.89 Other specified sepsis (principal); S72.142A Displaced intertrochanteric fracture of left femur, initial encounter for closed fracture; J69.0 Pneumonitis due to inhalation of food and vomit; J96.01 Acute respiratory failure with hypoxia; R65.21 Severe sepsis with septic shock; E87.20 Acidosis, unspecified; R64 Cachexia; N17.9 Acute kidney failure, unspecified; E46 Unspecified protein-calorie malnutrition; J44.1 Chronic obstructive pulmonary disease with (acute) exacerbation; J44.0 Chronic obstructive pulmonary disease with (acute) lower respiratory infection; N40.0 Benign prostatic hyperplasia without lower urinary tract symptoms; I10 Essential (primary) hypertension; E87.6 Hypokalemia; E83.42 Hypomagnesemia; D64.9 Anemia, unspecified; G47.00 Insomnia, unspecified; R94.5 Abnormal results of liver function studies; F41.9 Anxiety disorder, unspecified; R94.31 Abnormal electrocardiogram [ECG] [EKG]; R00.0 Tachycardia, unspecified; D72.829 Elevated white blood cell count, unspecified; Z68.21 Body mass index [BMI] 21.0-21.9, adult; I95.9 Hypotension, unspecified; X58.XXXA Exposure to other specified factors, initial encounter; Y93.89 Activity, other specified; Y92.89 Other specified places as the place of occurrence of the external cause; Y99.8 Other external cause status
CPT/HCPCS: 0241U-QW; 31500; 36415; 36430; 36600; 71045-TC-FY; 80048; 80053; 81003; 82272; 82728; 82803; 82962; 83540; 83550; 83605; 83735; 83880; 84100; 84443; 84484; 85025; 85027; 85045; 86850; 86900; 86901; 86922; 87040; 87070; 87077; 87086; 87205; 87899; 93005; 93010; 93306-TC; 94002; 94640; 99285-25; J1756; P9058